=== PATIENT | female | born 1950 | race Asian ===

== ENCOUNTER → 2016-12-09 | Outpatient (CLI) | payer OTHER ==
[2016-12-09 12:59] LABS: Basophils # (auto) 0.1 uL; Basophils % (auto) 0.8 % (0.0-2.0); Eosinophils # (auto) 0.3 uL; Eosinophils % (auto) 3.1 % (0.0-7.0); Hematocrit 44.6 % (36.0-46.0); Hemoglobin 14.6 g/dL (12.2-16.2); Lymphocytes # (auto) 4.6 uL; Lymphocytes % (auto) 45.4 % (10.0-50.0); Mean Corpuscular Hemoglobin 29.5 pg (28.0-32.0); Mean Corpuscular Hgb Conc. 32.7 g/dL (32.0-36.0); Mean Corpuscular Volume 90.3 fL (80.0-100.0); Mean Platelet Volume 8.4 fL (7.4-10.4); Monocytes # (auto) 0.8 uL; Monocytes % (auto) 7.5 % (0.0-12.0); Neutrophils # (auto) 4.4 uL; Neutrophils % (auto) 43.2 % (37.0-80.0); Platelet Count (auto) 434 10^3/uL (140-450); Red Cell Distribution Width 13.6 % (11.6-16.0); White Blood Cell 10.1 10^3/uL (4.4-10.8)
[2016-12-09 13:08] LABS: Urine Bilirubin Negative (Negative); Urine Blood Negative /uL (Negative); Urine Color Yellow (Yellow); Urine Glucose Normal (Normal); Urine Ketone Negative (Negative); Urine Nitrite Negative (Negative); Urine RBC <1 /hpf (0 - 4); Urine Squamous Epithelial Cell FEW /hpf (<5); Urine Urobilinogen Normal (Negative)
[2016-12-09 13:36] LABS: Alkaline Phosphatase 112 U/L (45-117); Anion Gap 11 (5-15); Aspartate Aminotransferase 18 U/L (15-37); BUN/Creatinine Ratio 13.6; Bilirubin, Total 0.3 mg/dL (0.2-1.0); Blood Urea Nitrogen 12 mg/dL (7-18); Calcium 9.9 mg/dL (8.5-10.1); Carbon Dioxide 26 mmol/L (21-32); Chloride 104 mmol/L (98-107); Cholesterol 295 mg/dL (<200); GFR African American 83 mL/min; GFR Non-African American 69 mL/min; Glucose 101 mg/dL (74-106); HDL Cholesterol 38 mg/dL (40-59); Potassium 4.3 mmol/L (3.5-5.1); Sodium 141 mmol/L (136-145); Total Protein 8.4 g/dL (6.4-8.2); Triglycerides 408 mg/dL (<150)
== END | disposition home or self-care (01) ==
LOC: LAB 12:06
DX: M19.90 Unspecified osteoarthritis, unspecified site (principal); G89.4 Chronic pain syndrome; M54.10 Radiculopathy, site unspecified
CPT/HCPCS: 36415; 80053; 80061; 81001; 84443; 85025; 85049

== ENCOUNTER → 2017-02-20 | Outpatient (CLI) | payer OTHER ==
[2017-02-20 10:31] LABS: Basophils # (auto) 0.1 uL; Basophils % (auto) 0.7 % (0.0-2.0); Eosinophils # (auto) 0.2 uL; Hemoglobin 14.2 g/dL (12.2-16.2); Lymphocytes # (auto) 4.2 uL; Lymphocytes % (auto) 41.9 % (10.0-50.0); Mean Corpuscular Hemoglobin 29.8 pg (28.0-32.0); Mean Corpuscular Hgb Conc. 33.1 g/dL (32.0-36.0); Mean Corpuscular Volume 90.1 fL (80.0-100.0); Mean Platelet Volume 8.4 fL (7.4-10.4); Monocytes # (auto) 0.7 uL; Monocytes % (auto) 6.9 % (0.0-12.0); Neutrophils # (auto) 4.9 uL; Neutrophils % (auto) 48.5 % (37.0-80.0); Platelet Count (auto) 450 10^3/uL (140-450); Red Cell Distribution Width 14.1 % (11.6-16.0); White Blood Cell 10.1 10^3/uL (4.4-10.8)
[2017-02-20 11:11] LABS: Urine Bilirubin Negative (Negative); Urine Color Yellow (Yellow); Urine Glucose Normal (Normal); Urine Ketone Negative (Negative); Urine Nitrite Negative (Negative); Urine RBC <1 /hpf (0 - 4); Urine Squamous Epithelial Cell FEW /hpf (<5); Urine Urobilinogen Normal (Negative)
[2017-02-20 11:12] LABS: Urine Blood 1+ /uL (Negative)
[2017-02-20 11:22] LABS: Albumin 3.8 g/dL (3.4-5.0); Bilirubin, Total 0.4 mg/dL (0.2-1.0); Calcium 9.4 mg/dL (8.5-10.1); Potassium 4.3 mmol/L (3.5-5.1); Total Protein 8.4 g/dL (6.4-8.2)
== END | disposition home or self-care (01) ==
LOC: LAB 09:55
DX: E78.5 Hyperlipidemia, unspecified (principal); Z12.11 Encounter for screening for malignant neoplasm of colon; M19.90 Unspecified osteoarthritis, unspecified site
CPT/HCPCS: 36415; 80053; 80061; 81001; 84443; 85025; 85652

== ENCOUNTER → 2017-04-11 | Outpatient (CLI) | payer OTHER ==
[2017-04-11 11:41] LABS: Basophils # (auto) 0.1 uL; Basophils % (auto) 0.7 % (0.0-2.0); Eosinophils # (auto) 0.3 uL; Eosinophils % (auto) 2.6 % (0.0-7.0); Hemoglobin 14.6 g/dL (12.2-16.2); Lymphocytes # (auto) 4.6 uL; Lymphocytes % (auto) 45.4 % (10.0-50.0); Mean Corpuscular Hemoglobin 30.1 pg (28.0-32.0); Mean Corpuscular Hgb Conc. 34.1 g/dL (32.0-36.0); Mean Corpuscular Volume 88.3 fL (80.0-100.0); Monocytes # (auto) 0.8 uL; Monocytes % (auto) 7.6 % (0.0-12.0); Neutrophils # (auto) 4.4 uL; Neutrophils % (auto) 43.7 % (37.0-80.0); Platelet Count (auto) 488 10^3/uL (140-450); Red Cell Distribution Width 14.4 % (11.6-16.0); White Blood Cell 10.1 10^3/uL (4.4-10.8)
[2017-04-11 12:04] LABS: Urine Bilirubin Negative (Negative); Urine Blood Negative /uL (Negative); Urine Color Yellow (Yellow); Urine Glucose Normal (Normal); Urine Ketone Negative (Negative); Urine Nitrite Negative (Negative); Urine RBC <1 /hpf (0 - 4); Urine Squamous Epithelial Cell FEW /hpf (<5); Urine Urobilinogen Normal (Negative); Urine pH 5.5 (5.0-8.0)
[2017-04-11 12:27] LABS: Albumin 3.8 g/dL (3.4-5.0); BUN/Creatinine Ratio 17.3; Bilirubin, Total 0.3 mg/dL (0.2-1.0); Calcium 9.4 mg/dL (8.5-10.1); Potassium 4.4 mmol/L (3.5-5.1); Total Protein 8.6 g/dL (6.4-8.2)
== END | disposition home or self-care (01) ==
LOC: LAB 10:46
DX: E78.00 Pure hypercholesterolemia, unspecified (principal); K21.9 Gastro-esophageal reflux disease without esophagitis; J44.9 Chronic obstructive pulmonary disease, unspecified; G43.909 Migraine, unspecified, not intractable, without status migrainosus
CPT/HCPCS: 36415; 80053; 80061; 81001; 84443; 85025

== ENCOUNTER 2017-05-23 08:14 | Emergency (ER) | payer OTHER ==
[~2017-05-23] VITALS: Ht 154.9 cm; Wt 53.1 kg
[2017-05-23 08:50] VITALS: BP 132/62
[2017-05-23] MEDS ORDERED: ONDANSETRON HCL 4 MG/2 ML VIAL IM ONE (09:15)
[2017-05-23] MEDS ORDERED: MORPHINE SULFATE 4 MG/ML SYRG IM ONE (09:15)
[2017-05-23] MEDS ORDERED: METHOCARBAMOL 500 MG TAB PO ONE (09:15)
== END 2017-05-23 09:49 | disposition home or self-care (01) ==
LOC: ER 08:14
DX: G89.29 Other chronic pain (principal); M54.5 Low back pain; K21.9 Gastro-esophageal reflux disease without esophagitis; J45.909 Unspecified asthma, uncomplicated; Z88.0 Allergy status to penicillin; E78.5 Hyperlipidemia, unspecified; Z88.1 Allergy status to other antibiotic agents; Z88.6 Allergy status to analgesic agent
CPT/HCPCS: 96372; 99284; J2270; J2405

== ENCOUNTER → 2017-08-22 | Outpatient (CLI) | payer MEDICARE, OTHER ==
[~2017-08-22] VITALS: Ht 154.9 cm; Wt 52.2 kg
[2017-08-22 16:06] LABS: Urine Bilirubin Negative (Negative); Urine Blood Negative /uL (Negative); Urine Color Yellow (Yellow); Urine Glucose Normal (Normal); Urine Ketone Negative (Negative); Urine Nitrite Negative (Negative); Urine Urobilinogen Normal (Negative); Urine pH 6.5 (5.0-8.0)
[2017-08-22 16:12] LABS: Basophils # (auto) 0.1 uL; Basophils % (auto) 0.9 % (0.0-2.0); Eosinophils # (auto) 0.3 uL; Eosinophils % (auto) 3.3 % (0.0-7.0); Hematocrit 41.7 % (36.0-46.0); Hemoglobin 13.7 g/dL (12.2-16.2); Lymphocytes # (auto) 4.4 uL; Lymphocytes % (auto) 43.7 % (10.0-50.0); Mean Corpuscular Hemoglobin 30.3 pg (28.0-32.0); Mean Corpuscular Hgb Conc. 32.9 g/dL (32.0-36.0); Mean Corpuscular Volume 92.3 fL (80.0-100.0); Mean Platelet Volume 8.5 fL (6.9-10.8); Monocytes # (auto) 0.6 uL; Monocytes % (auto) 6.2 % (0.0-12.0); Neutrophils # (auto) 4.6 uL; Neutrophils % (auto) 45.9 % (37.0-80.0); Nucleated Red Blood Cells % 0.5 %; Platelet Count (auto) 403 10^3/uL (140-450); Red Cell Distribution Width 14.4 % (11.8-14.3); White Blood Cell 10.1 10^3/uL (4.4-10.8)
[2017-08-22 16:22] LABS: Albumin 3.7 g/dL (3.4-5.0); BUN/Creatinine Ratio 23.4; Bilirubin, Total 0.3 mg/dL (0.2-1.0); Calcium 9.5 mg/dL (8.5-10.1); Potassium 3.9 mmol/L (3.5-5.1); Total Protein 7.9 g/dL (6.4-8.2)
== END | disposition home or self-care (01) ==
LOC: Rad HDHVI 10:35
PROVIDERS: ATTEND Internal Medicine Cardiovascular Disease
DX: I10 Essential (primary) hypertension (principal); E78.00 Pure hypercholesterolemia, unspecified; K74.1 Hepatic sclerosis; E11.9 Type 2 diabetes mellitus without complications; E03.9 Hypothyroidism, unspecified; D64.9 Anemia, unspecified; E55.9 Vitamin D deficiency, unspecified; N39.0 Urinary tract infection, site not specified; E78.5 Hyperlipidemia, unspecified; I47.9 Paroxysmal tachycardia, unspecified; J44.9 Chronic obstructive pulmonary disease, unspecified; G89.29 Other chronic pain; M19.90 Unspecified osteoarthritis, unspecified site
CPT/HCPCS: 36415; 78452; 80053; 80061; 81003; 82306; 82607; 83036; 84439; 84443; 85025; 93017; 96374; A9500; 87086

== ENCOUNTER → 2017-08-23 | Outpatient (CLI) | payer MEDICARE, OTHER | END | disposition home or self-care (01) | LOC: Rad HDHVI 10:02 | PROVIDERS: ATTEND Internal Medicine Cardiovascular Disease | DX: I47.9 Paroxysmal tachycardia, unspecified (principal); I10 Essential (primary) hypertension; I70.299 Other atherosclerosis of native arteries of extremities, unspecified extremity | CPT/HCPCS: 93306; 93926 ==

== ENCOUNTER → 2018-02-13 | Outpatient (CLI) | payer MEDICARE, OTHER ==
[2018-02-13 11:39] LABS: Urine Bacteria FEW /hpf (None Seen); Urine Blood Negative /uL (Negative); Urine Mucus FEW (None Seen); Urine Specific Gravity 1.024 (1.001-1.035); Urine WBC 9 /hpf (0 - 5)
[2018-02-13 11:48] LABS: Basophils # (auto) 0 uL; Basophils % (auto) 0.3 % (0.0-2.0); Eosinophils # (auto) 0 uL; Eosinophils % (auto) 0.2 % (0.0-7.0); Hematocrit 42.8 % (36.0-46.0); Hemoglobin 14.1 g/dL (12.2-16.2); Mean Corpuscular Hgb Conc. 32.8 g/dL (32.0-36.0); Mean Corpuscular Volume 88.4 fL (80.0-100.0); Monocytes # (auto) 0.5 uL; Monocytes % (auto) 4.9 % (0.0-12.0); Neutrophils # (auto) 6.3 uL; Neutrophils % (auto) 57.6 % (37.0-80.0); Nucleated Red Blood Cells % 0.2 %; Platelet Count (auto) 385 10^3/uL (140-450); Red Blood Cells 4.85 10^6/uL (4.0-5.20); Red Cell Distribution Width 13.6 % (11.8-14.3); White Blood Cell 10.9 10^3/uL (4.4-10.8)
[2018-02-13 12:12] LABS: Bilirubin, Total 0.3 mg/dL (0.2-1.0); Calcium 9.6 mg/dL (8.5-10.1); Potassium 4.2 mmol/L (3.5-5.1); Total Protein 8.7 g/dL (6.4-8.2)
== END | disposition home or self-care (01) ==
LOC: LAB 10:32
PROVIDERS: ATTEND Family Medicine
DX: M06.9 Rheumatoid arthritis, unspecified (principal); E78.5 Hyperlipidemia, unspecified; G43.409 Hemiplegic migraine, not intractable, without status migrainosus; F17.200 Nicotine dependence, unspecified, uncomplicated; J45.909 Unspecified asthma, uncomplicated; R79.89 Other specified abnormal findings of blood chemistry; Z79.899 Other long term (current) drug therapy
CPT/HCPCS: 36415; 80053; 80061; 81001; 82306; 82607; 83036; 84443; 85025

== ENCOUNTER → 2018-03-26 | Outpatient (CLI) | payer MEDICARE, OTHER ==
[2018-03-26 11:23] LABS: Free T3 2.53 pg/mL (2.3-4.2); Free T4 (Free Thyroxine) 1.22 ng/dL (0.89-1.76); T3 Total 0.91 ng/mL (0.60-1.81)
== END | disposition home or self-care (01) ==
LOC: LAB 10:09
PROVIDERS: ATTEND Family Medicine
DX: R94.6 Abnormal results of thyroid function studies (principal); F17.200 Nicotine dependence, unspecified, uncomplicated; M06.9 Rheumatoid arthritis, unspecified; Z79.899 Other long term (current) drug therapy
CPT/HCPCS: 84439; 84480; 84481

== ENCOUNTER → 2018-11-14 | Outpatient (CLI) | payer MEDICARE, OTHER ==
[2018-11-14 11:20] LABS: Urine Bacteria NONE SEEN /hpf (None Seen); Urine Blood 2+ /uL (Negative); Urine Specific Gravity 1.008 (1.001-1.035); Urine WBC 13 /hpf (0 - 5)
== END | disposition home or self-care (01) ==
LOC: LAB 08:35
PROVIDERS: ATTEND Obstetrics & Gynecology
DX: N39.0 Urinary tract infection, site not specified (principal)
CPT/HCPCS: 81001; 87086

== ENCOUNTER 2019-04-16 09:39 | Emergency (ER) | payer MEDICARE, OTHER ==
[~2019-04-16] VITALS: Ht 170.2 cm; Wt 57.6 kg
[2019-04-16 09:47] VITALS: BP 134/72
[2019-04-16] MEDS ORDERED: KETOROLAC TROMETH 60MG/2ML VIAL IM ONE (10:45)
[2019-04-16] MEDS ORDERED: METHOCARBAMOL 500 MG TAB PO ONE (10:45)
== END 2019-04-16 11:01 | disposition home or self-care (01) ==
LOC: ER 09:39
DX: G89.29 Other chronic pain (principal); M54.5 Low back pain; J45.909 Unspecified asthma, uncomplicated; K21.9 Gastro-esophageal reflux disease without esophagitis; E78.5 Hyperlipidemia, unspecified; Z88.0 Allergy status to penicillin; Z88.1 Allergy status to other antibiotic agents; Z88.6 Allergy status to analgesic agent
CPT/HCPCS: 96372; 99283; J1885

== ENCOUNTER → 2019-07-11 | Outpatient (CLI) | payer MEDICARE, OTHER ==
[2019-07-11 12:26] LABS: Basophils # (auto) 0.1 uL; Eosinophils # (auto) 0.2 uL; Eosinophils % (auto) 1.8 % (0.0-7.0); Hematocrit 43.4 % (36.0-46.0); Hemoglobin 14.5 g/dL (12.2-16.2); Lymphocytes # (auto) 4.2 uL; Lymphocytes % (auto) 41.2 % (10.0-50.0); Mean Corpuscular Hemoglobin 30.4 pg (28.0-32.0); Mean Corpuscular Hgb Conc. 33.4 g/dL (32.0-36.0); Mean Corpuscular Volume 90.9 fL (80.0-100.0); Monocytes # (auto) 0.8 uL; Monocytes % (auto) 7.7 % (0.0-12.0); Neutrophils # (auto) 4.9 uL; Neutrophils % (auto) 48.3 % (37.0-80.0); Platelet Count (auto) 402 10^3/uL (140-450); Red Blood Cells 4.77 10^6/uL (4.0-5.20); Red Cell Distribution Width 14.3 % (11.8-14.3); White Blood Cell 10.3 10^3/uL (4.4-10.8)
[2019-07-11 12:30] LABS: Urine Bacteria NONE SEEN /hpf (None Seen); Urine Blood Negative /uL (Negative); Urine Specific Gravity 1.005 (1.001-1.035); Urine WBC 6 /hpf (0 - 5)
[2019-07-11 13:08] LABS: Albumin 3.7 g/dL (3.4-5.0); BUN/Creatinine Ratio 14.8; Bilirubin, Total 0.4 mg/dL (0.2-1.0); Calcium 9.5 mg/dL (8.5-10.1); Total Protein 8.6 g/dL (6.4-8.2)
== END | disposition home or self-care (01) ==
LOC: LAB 12:01
PROVIDERS: ATTEND Family Medicine
DX: E78.2 Mixed hyperlipidemia (principal); J44.9 Chronic obstructive pulmonary disease, unspecified; E55.9 Vitamin D deficiency, unspecified; R94.6 Abnormal results of thyroid function studies; G43.019 Migraine without aura, intractable, without status migrainosus; Z72.0 Tobacco use
CPT/HCPCS: 36415; 80053; 80061; 81001; 82306; 84443; 85025

== ENCOUNTER → 2020-01-20 | Day surgery (SDC) | payer MEDICARE, OTHER ==
[2020-01-17 14:22] LABS: Basophils # (auto) 0.1 uL; Basophils % (auto) 1.2 % (0.0-2.0); Eosinophils # (auto) 0.2 uL; Eosinophils % (auto) 2.6 % (0.0-7.0); Hematocrit 42.3 % (36.0-46.0); Lymphocytes # (auto) 4.2 uL; Lymphocytes % (auto) 49.9 % (10.0-50.0); Mean Corpuscular Hemoglobin 28.9 pg (28.0-32.0); Mean Corpuscular Volume 87.5 fL (80.0-100.0); Monocytes # (auto) 0.7 uL; Monocytes % (auto) 7.7 % (0.0-12.0); Neutrophils # (auto) 3.3 uL; Neutrophils % (auto) 38.6 % (37.0-80.0); Nucleated Red Blood Cells % 0.1 %; Platelet Count (auto) 453 10^3/uL (140-450); Red Blood Cells 4.83 10^6/uL (4.0-5.20); Red Cell Distribution Width 14.4 % (11.8-14.3); White Blood Cell 8.5 10^3/uL (4.4-10.8)
[2020-01-17 14:32] LABS: Urine Bacteria NONE SEEN /hpf (None Seen); Urine Blood 2+ /uL (Negative); Urine Specific Gravity 1.012 (1.001-1.035); Urine WBC 9 /hpf (0 - 5)
[2020-01-17 14:38] LABS: INR 0.98 (0.9-1.15); Partial Thromboplastin Time 25.7 sec (23.64-32.05)
[2020-01-17 14:54] LABS: Albumin 3.8 g/dL (3.4-5.0); Calcium 9.4 mg/dL (8.5-10.1); Potassium 4.2 mmol/L (3.5-5.1)
[2020-01-17 15:00] LABS: BUN/Creatinine Ratio 18.8; Bilirubin, Total 0.4 mg/dL (0.2-1.0); Total Protein 8.3 g/dL (6.4-8.2)
[~2020-01-20] VITALS: Ht 157.5 cm; Wt 54.4 kg
[~2020-01-20] MED LIST: ALBUAER3 IN; AMIT25TA9 PO; CYCL1TAB18 PO; FLUT250M2 INH; GLYCOPYRROLATE 0.2 MG/ML 1ML VIAL ONE; HYDROmorphone HCL 2 MG/ML VL IV PRN; LIDOCAINE 1% HCL (LOCAL ANESTH.) INJ 20ML MDV ONE; MIDAZOLAM HCL 1MG/1ML-2 ML VIAL ONE; MONT10TA34 PO; NALOXONE HCL 0.4 MG/ML VIAL IV PRN; ONDANSETRON HCL 4 MG/2 ML VIAL IV PRN; PANT40TA2 PO; PROPOFOL 10 MG/ML 20 ML IV ONE; RABE20TA5 PO; ROSU10TA16 PO; SUCCINYLCHOLINE CHLORIDE 20 MG/ML 10ML VIAL IV ONE; TRAM50TA2 PO; diphenhdrAMINE HCL 50 MG/1 ML VL ONE
[2020-01-20 10:31] VITALS: BP 132/76
== END | disposition home or self-care (01) ==
LOC: GI 07:56
PROVIDERS: ATTEND Internal Medicine Gastroenterology
DX: D12.2 Benign neoplasm of ascending colon (principal); K29.50 Unspecified chronic gastritis without bleeding; B96.81 Helicobacter pylori [H. pylori] as the cause of diseases classified elsewhere; K64.8 Other hemorrhoids; K57.30 Diverticulosis of large intestine without perforation or abscess without bleeding; J44.9 Chronic obstructive pulmonary disease, unspecified; F17.210 Nicotine dependence, cigarettes, uncomplicated; G47.33 Obstructive sleep apnea (adult) (pediatric); G43.909 Migraine, unspecified, not intractable, without status migrainosus; F32.9 Major depressive disorder, single episode, unspecified; K21.9 Gastro-esophageal reflux disease without esophagitis; E78.5 Hyperlipidemia, unspecified; Z88.8 Allergy status to other drugs, medicaments and biological substances; Z88.0 Allergy status to penicillin; Z88.1 Allergy status to other antibiotic agents; Z79.899 Other long term (current) drug therapy
CPT/HCPCS: 36415; 43239; 45380; 80053; 81001; 85025; 85610; 85730; 88305; 88342; J0330; J1170; J1200; J2001; J2250; J2704; J7030

== ENCOUNTER → 2020-04-15 | Outpatient (CLI) | payer MEDICARE, OTHER ==
[~2020-04-15] MED LIST changes: +CYCL10TA6 PO; -CYCL1TAB18 PO; -GLYCOPYRROLATE 0.2 MG/ML 1ML VIAL ONE; -HYDROmorphone HCL 2 MG/ML VL IV PRN; -LIDOCAINE 1% HCL (LOCAL ANESTH.) INJ 20ML MDV ONE; -MIDAZOLAM HCL 1MG/1ML-2 ML VIAL ONE; -NALOXONE HCL 0.4 MG/ML VIAL IV PRN; -ONDANSETRON HCL 4 MG/2 ML VIAL IV PRN; -PROPOFOL 10 MG/ML 20 ML IV ONE; -SUCCINYLCHOLINE CHLORIDE 20 MG/ML 10ML VIAL IV ONE; -diphenhdrAMINE HCL 50 MG/1 ML VL ONE
[2020-04-15 12:13] LABS: Urine Bacteria NONE SEEN /hpf (None Seen); Urine Blood Negative /uL (Negative); Urine Specific Gravity 1.017 (1.001-1.035); Urine WBC 21 /hpf (0 - 5)
== END | disposition home or self-care (01) ==
LOC: LAB 12:02
PROVIDERS: ATTEND Internal Medicine Gastroenterology
DX: R30.0 Dysuria (principal)
CPT/HCPCS: 81001

== ENCOUNTER → 2020-10-08 | Day surgery (SDC) | payer MEDICARE, OTHER ==
[2020-10-02 14:06] LABS: Basophils # (auto) 0.1 10 ^3/uL (0-0.2); Basophils % (auto) 1.3 % (0.0-2.0); Eosinophils # (auto) 0.2 10 ^3/uL (0-0.8); Eosinophils % (auto) 2.3 % (0.0-7.0); Hematocrit 40.9 % (36.0-46.0); Hemoglobin 13.3 g/dL (12.2-16.2); Lymphocytes # (auto) 4.2 10 ^3/uL (0.4-5.4); Lymphocytes % (auto) 44.2 % (10.0-50.0); Mean Corpuscular Hemoglobin 27.7 pg (28.0-32.0); Mean Corpuscular Hgb Conc. 32.5 g/dL (32.0-36.0); Mean Corpuscular Volume 85.1 fL (80.0-100.0); Monocytes # (auto) 0.7 10 ^3/uL (0-1.3); Neutrophils # (auto) 4.3 10 ^3/uL (1.6-8.6); Neutrophils % (auto) 45.2 % (37.0-80.0); Nucleated Red Blood Cells % 0.1 %; Red Cell Distribution Width 15.2 % (11.8-14.3); White Blood Cell 9.5 10^3/uL (4.4-10.8)
[2020-10-02 14:20] LABS: INR 0.97 (0.9-1.15); Partial Thromboplastin Time 23.9 sec (23.0-31.2)
[2020-10-02 14:39] LABS: Albumin 3.7 g/dL (3.4-5.0); Calcium 9.2 mg/dL (8.5-10.1); Potassium 4.2 mmol/L (3.5-5.1)
[2020-10-02 14:42] LABS: BUN/Creatinine Ratio 13.5; Bilirubin, Total 0.3 mg/dL (0.2-1.0); Total Protein 8.4 g/dL (6.4-8.2)
[2020-10-02 14:45] LABS: Platelet Count (auto) 559 10^3/uL (140-450)
[2020-10-02 14:50] LABS: Urine Bacteria NONE SEEN /hpf (None Seen); Urine Blood Negative /uL (Negative); Urine Mucus FEW (None Seen); Urine Specific Gravity 1.022 (1.001-1.035); Urine WBC 650 /hpf (0 - 5)
[~2020-10-08] VITALS: Ht 154.9 cm; Wt 54.0 kg
[~2020-10-08] MED LIST changes: +ACCU-CHEK COMFORT CURVE STRIP VI ONE; +GENTAMICIN SULF 80 MG/2 ML VIAL ONE; +HYDROmorphone HCL 2 MG/ML VL IV PRN; +MIDAZOLAM HCL 1MG/1ML-2 ML VIAL ONE; +MORPHINE SULFATE 4 MG/ML SYR/VIAL IV PRN; +ONDANSETRON HCL 4 MG/2 ML VIAL IV PRN; +ONDANSETRON HCL 4 MG/2 ML VIAL ONE; +PROPOFOL 10 MG/ML 20 ML IV ONE; +SODIUM CHLORIDE LOCK 10 ML ONE; +fentaNYL CITRATE 100 MCG/2 ML VL ONE
[2020-10-08 10:14] VITALS: BP 110/43
== END | disposition home or self-care (01) ==
LOC: SUR 06:44
PROVIDERS: ATTEND Urology
DX: N30.21 Other chronic cystitis with hematuria (principal); J44.9 Chronic obstructive pulmonary disease, unspecified; K21.9 Gastro-esophageal reflux disease without esophagitis; G89.29 Other chronic pain; I10 Essential (primary) hypertension; J93.9 Pneumothorax, unspecified; F17.210 Nicotine dependence, cigarettes, uncomplicated; Z20.828 Contact with and (suspected) exposure to other viral communicable diseases; Z98.890 Other specified postprocedural states; Z88.6 Allergy status to analgesic agent; Z88.0 Allergy status to penicillin; Z88.1 Allergy status to other antibiotic agents; Z88.8 Allergy status to other drugs, medicaments and biological substances
CPT/HCPCS: 36415; 52204; 80053; 81001; 85025; 85610; 85730; 88305; 88342; C1769; J1580; J2250; J2405; J2704; J3010; J7030; U0003

== ENCOUNTER → 2021-03-15 | Outpatient (CLI) | payer MEDICARE, OTHER ==
[~2021-03-15] MED LIST changes: -ACCU-CHEK COMFORT CURVE STRIP VI ONE; -GENTAMICIN SULF 80 MG/2 ML VIAL ONE; -HYDROmorphone HCL 2 MG/ML VL IV PRN; -MIDAZOLAM HCL 1MG/1ML-2 ML VIAL ONE; -MORPHINE SULFATE 4 MG/ML SYR/VIAL IV PRN; -ONDANSETRON HCL 4 MG/2 ML VIAL IV PRN; -ONDANSETRON HCL 4 MG/2 ML VIAL ONE; -PROPOFOL 10 MG/ML 20 ML IV ONE; +RABE20TA19 PO; -RABE20TA5 PO; -SODIUM CHLORIDE LOCK 10 ML ONE; -fentaNYL CITRATE 100 MCG/2 ML VL ONE
[2021-03-15 12:47] LABS: Basophils # (auto) 0.1 10 ^3/uL (0-0.2); Basophils % (auto) 0.7 % (0.0-2.0); Eosinophils # (auto) 0.1 10 ^3/uL (0-0.8); Eosinophils % (auto) 0.8 % (0.0-7.0); Hematocrit 38.7 % (36.0-46.0); Hemoglobin 12.8 g/dL (12.2-16.2); Lymphocytes # (auto) 5.3 10 ^3/uL (0.4-5.4); Lymphocytes % (auto) 32.6 % (10.0-50.0); Mean Corpuscular Hemoglobin 27.6 pg (28.0-32.0); Mean Corpuscular Hgb Conc. 33.1 g/dL (32.0-36.0); Mean Corpuscular Volume 83.4 fL (80.0-100.0); Monocytes % (auto) 6.4 % (0.0-12.0); Neutrophils # (auto) 9.7 10 ^3/uL (1.6-8.6); Neutrophils % (auto) 59.5 % (37.0-80.0); Nucleated Red Blood Cells % 0.1 %; Platelet Count (auto) 451 10^3/uL (140-450); Red Blood Cells 4.65 10^6/uL (4.0-5.20); Red Cell Distribution Width 17.5 % (11.8-14.3); White Blood Cell 16.4 10^3/uL (4.4-10.8)
[2021-03-15 12:48] LABS: Urine Bacteria NONE SEEN /hpf (None Seen); Urine Blood 2+ /uL (Negative); Urine Specific Gravity 1.021 (1.001-1.035); Urine WBC 4 /hpf (0 - 5)
[2021-03-15 13:12] LABS: Albumin 3.5 g/dL (3.4-5.0); Calcium 9.4 mg/dL (8.5-10.1); Potassium 4.5 mmol/L (3.5-5.1)
[2021-03-15 13:18] LABS: BUN/Creatinine Ratio 34.1; Bilirubin, Total 0.3 mg/dL (0.2-1.0); Total Protein 7.5 g/dL (6.4-8.2)
== END | disposition home or self-care (01) ==
LOC: LAB 12:09
PROVIDERS: ATTEND Family Medicine
DX: E78.49 Other hyperlipidemia (principal); J44.9 Chronic obstructive pulmonary disease, unspecified; D49.4 Neoplasm of unspecified behavior of bladder; R21 Rash and other nonspecific skin eruption; R63.4 Abnormal weight loss; Z79.899 Other long term (current) drug therapy
CPT/HCPCS: 36415; 80053; 80061; 81001; 82306; 82607; 83036; 84443; 85025

== ENCOUNTER → 2021-05-06 | Outpatient (CLI) | payer MEDICARE, OTHER ==
[~2021-05-06] MED LIST changes: -MONT10TA34 PO; +MONT10TA42 PO
[2021-05-06 09:38] LABS: Eosinophils # (auto) 0.2 10 ^3/uL (0-0.8); Lymphocytes # (auto) 4.2 10 ^3/uL (0.4-5.4); Monocytes # (auto) 0.8 10 ^3/uL (0-1.3); Monocytes % (auto) 7.2 % (0.0-12.0)
[2021-05-06 09:41] LABS: Basophils # (auto) 0.2 10 ^3/uL (0-0.2); Basophils % (auto) 1.5 % (0.0-2.0); Eosinophils % (auto) 2.1 % (0.0-7.0); Hemoglobin 12.2 g/dL (12.2-16.2); Lymphocytes % (auto) 39.9 % (10.0-50.0); Mean Corpuscular Hemoglobin 27.9 pg (28.0-32.0); Mean Corpuscular Hgb Conc. 33.9 g/dL (32.0-36.0); Mean Corpuscular Volume 82.5 fL (80.0-100.0); Neutrophils # (auto) 5.2 10 ^3/uL (1.6-8.6); Neutrophils % (auto) 49.3 % (37.0-80.0); Platelet Count (auto) 500 10^3/uL (140-450); Red Blood Cells 4.36 10^6/uL (4.0-5.20); Red Cell Distribution Width 16.2 % (11.8-14.3); White Blood Cell 10.5 10^3/uL (4.4-10.8)
[2021-05-06 11:11] LABS: Potassium 4.8 mmol/L (3.5-5.1)
[2021-05-06 11:12] LABS: BUN/Creatinine Ratio 22.7
== END | disposition home or self-care (01) ==
LOC: LAB 09:20
PROVIDERS: ATTEND Family Medicine
DX: D49.4 Neoplasm of unspecified behavior of bladder (principal); R79.89 Other specified abnormal findings of blood chemistry; R73.09 Other abnormal glucose
CPT/HCPCS: 36415; 80048; 83036; 85025

== ENCOUNTER 2021-05-20 08:30 | Day surgery (SDC) | payer MEDICARE, OTHER ==
[2021-05-17 12:22] LABS: Basophils # (auto) 0.1 10 ^3/uL (0-0.2); Eosinophils # (auto) 0.6 10 ^3/uL (0-0.8); Eosinophils % (auto) 6.4 % (0.0-7.0); Hematocrit 36.2 % (36.0-46.0); Lymphocytes # (auto) 3.8 10 ^3/uL (0.4-5.4); Mean Corpuscular Hemoglobin 27.6 pg (28.0-32.0); Monocytes # (auto) 0.7 10 ^3/uL (0-1.3)
[2021-05-17 12:24] LABS: Basophils % (auto) 1.2 % (0.0-2.0); Hemoglobin 12.2 g/dL (12.2-16.2); Lymphocytes % (auto) 39.7 % (10.0-50.0); Mean Corpuscular Hgb Conc. 33.8 g/dL (32.0-36.0); Mean Corpuscular Volume 81.9 fL (80.0-100.0); Monocytes % (auto) 7.1 % (0.0-12.0); Neutrophils # (auto) 4.4 10 ^3/uL (1.6-8.6); Neutrophils % (auto) 45.6 % (37.0-80.0); Nucleated Red Blood Cells % 0.2 %; Platelet Count (auto) 510 10^3/uL (140-450); Red Blood Cells 4.42 10^6/uL (4.0-5.20); Red Cell Distribution Width 15.9 % (11.8-14.3); White Blood Cell 9.7 10^3/uL (4.4-10.8)
[2021-05-17 12:40] LABS: Urine Bacteria NONE SEEN /hpf (None Seen); Urine Blood 2+ /uL (Negative); Urine Specific Gravity 1.011 (1.001-1.035); Urine WBC 4 /hpf (0 - 5)
[2021-05-17 13:15] LABS: Albumin 3.6 g/dL (3.4-5.0); Calcium 8.9 mg/dL (8.5-10.1); Potassium 4.3 mmol/L (3.5-5.1)
[2021-05-17 13:30] LABS: BUN/Creatinine Ratio 14.7; Bilirubin, Total 0.3 mg/dL (0.2-1.0); Total Protein 8.1 g/dL (6.4-8.2)
[~2021-05-20] VITALS: Ht 157.5 cm; Wt 55.8 kg
[~2021-05-20 08:30] MED LIST changes: +TRIA0.1O EX
[2021-05-20] MEDS ORDERED: ceFAZolin 1GM/50ML 50 ML IV ONE (09:57)
[2021-05-20] MEDS ORDERED: MIDAZOLAM HCL 1MG/1ML-2 ML VIAL ONE (10:11)
[2021-05-20] MEDS ORDERED: MEPERIDINE HCL (25 MG/ML) 1ML VIAL ONE (10:11)
[2021-05-20] MEDS ORDERED: fentaNYL CITRATE 100 MCG/2 ML VL ONE (10:11)
[2021-05-20] MEDS ORDERED: hydrALAZINE HCL 20 MG/ML VL IV PRN (10:15)
[2021-05-20] MEDS ORDERED: MIDAZOLAM HCL 1MG/1ML-2 ML VIAL IV PRN (10:15)
[2021-05-20] MEDS ORDERED: MORPHINE SULF INJ 2 MG/ML SYRINGE 1ML IV PRN (10:15)
[2021-05-20] MEDS ORDERED: HYDROmorphone HCL 2 MG/ML VL IV PRN (10:15)
[2021-05-20] MEDS ORDERED: ONDANSETRON HCL 4 MG/2 ML VIAL IV PRN (10:15)
[2021-05-20] MEDS ORDERED: LABETALOL HCL 5 MG/ML 4ML SYRINGE IV PRN (10:15)
[2021-05-20] MEDS ORDERED: ePHEDrine SULFATE 50 MG/ML AMP IV PRN (10:15)
[2021-05-20] MEDS ORDERED: DexAMETHasone SOD PHOS 10MG/1ML VIAL INJ ONE (10:27)
[2021-05-20] MEDS ORDERED: PROPOFOL 10 MG/ML 20 ML IV ONE (10:27)
[2021-05-20 11:45] VITALS: BP 137/59
== END 2021-05-20 12:15 | disposition home or self-care (01) ==
LOC: SUR 08:30
PROVIDERS: ATTEND Urology
DX: C67.2 Malignant neoplasm of lateral wall of bladder (principal); I10 Essential (primary) hypertension; I49.9 Cardiac arrhythmia, unspecified; J44.9 Chronic obstructive pulmonary disease, unspecified; K21.9 Gastro-esophageal reflux disease without esophagitis; G89.29 Other chronic pain; I25.10 Atherosclerotic heart disease of native coronary artery without angina pectoris; Z20.822 Contact with and (suspected) exposure to COVID-19; Z98.890 Other specified postprocedural states; Z79.899 Other long term (current) drug therapy; Z88.8 Allergy status to other drugs, medicaments and biological substances; Z88.0 Allergy status to penicillin; Z88.6 Allergy status to analgesic agent; Z87.891 Personal history of nicotine dependence
CPT/HCPCS: 36415; 52234; 80053; 81001; 85025; 88305; J0690; J1100; J2175; J2250; J2704; J3010; U0003

== ENCOUNTER → 2022-01-27 | Outpatient (CLI) | payer MEDICARE, OTHER ==
[~2022-01-27] MED LIST changes: +AMIT25TA12 PO; -AMIT25TA9 PO; +CYCL-839 PO; -CYCL10TA6 PO; +MONT-8 PO; -MONT10TA42 PO
[2022-01-27 09:36] LABS: Basophils # (auto) 0.1 10 ^3/uL (0-0.2); Eosinophils # (auto) 0.3 10 ^3/uL (0-0.8); Eosinophils % (auto) 3.1 % (0.0-7.0); Lymphocytes # (auto) 4.5 10 ^3/uL (0.4-5.4); Red Cell Distribution Width 16.3 % (11.8-14.3); White Blood Cell 8.9 10^3/uL (4.4-10.8)
[2022-01-27 09:38] LABS: Basophils % (auto) 1.2 % (0.0-2.0); Hematocrit 34.4 % (36.0-46.0); Lymphocytes % (auto) 50.2 % (10.0-50.0); Mean Corpuscular Hemoglobin 23.8 pg (28.0-32.0); Mean Corpuscular Hgb Conc. 31.9 g/dL (32.0-36.0); Mean Corpuscular Volume 74.7 fL (80.0-100.0); Monocytes # (auto) 0.8 10 ^3/uL (0-1.3); Monocytes % (auto) 8.9 % (0.0-12.0); Neutrophils # (auto) 3.2 10 ^3/uL (1.6-8.6); Neutrophils % (auto) 36.6 % (37.0-80.0); Red Blood Cells 4.61 10^6/uL (4.0-5.20)
[2022-01-27 09:53] LABS: Potassium 4.5 mmol/L (3.5-5.1)
[2022-01-27 10:04] LABS: Albumin 3.5 g/dL (3.4-5.0); BUN/Creatinine Ratio 25.6; Bilirubin, Total 0.5 mg/dL (0.2-1.0); Calcium 9.3 mg/dL (8.5-10.1); Total Protein 7.9 g/dL (6.4-8.2)
== END | disposition home or self-care (01) ==
LOC: LAB 07:57
PROVIDERS: ATTEND Student in an Organized Health Care Education/Training Program
DX: C67.9 Malignant neoplasm of bladder, unspecified (principal); D49.4 Neoplasm of unspecified behavior of bladder; J44.9 Chronic obstructive pulmonary disease, unspecified; E78.49 Other hyperlipidemia
CPT/HCPCS: 36415; 80053; 80061; 83036; 84443; 85025

== ENCOUNTER → 2022-02-01 | Outpatient (CLI) | payer MEDICARE, OTHER | END | disposition home or self-care (01) | LOC: LAB 07:43 | PROVIDERS: ATTEND Student in an Organized Health Care Education/Training Program | DX: C67.9 Malignant neoplasm of bladder, unspecified (principal); Z00.00 Encounter for general adult medical examination without abnormal findings; D49.4 Neoplasm of unspecified behavior of bladder; J44.9 Chronic obstructive pulmonary disease, unspecified; E78.49 Other hyperlipidemia | CPT/HCPCS: 82274 ==

== ENCOUNTER 2022-05-18 12:29 | Day surgery (SDC) | payer MEDICARE, OTHER ==
[2022-05-16 11:23] LABS: Eosinophils # (auto) 0.2 10 ^3/uL (0-0.8); Hemoglobin 14.4 g/dL (12.2-16.2)
[2022-05-16 11:25] LABS: Basophils # (auto) 0.2 10 ^3/uL (0-0.2); Basophils % (auto) 2.2 % (0.0-2.0); Eosinophils % (auto) 1.9 % (0.0-7.0); Hematocrit 42.9 % (36.0-46.0); Lymphocytes # (auto) 5.2 10 ^3/uL (0.4-5.4); Lymphocytes % (auto) 50.1 % (10.0-50.0); Mean Corpuscular Hemoglobin 27.4 pg (28.0-32.0); Mean Corpuscular Hgb Conc. 33.5 g/dL (32.0-36.0); Mean Corpuscular Volume 81.8 fL (80.0-100.0); Monocytes # (auto) 0.9 10 ^3/uL (0-1.3); Monocytes % (auto) 8.6 % (0.0-12.0); Neutrophils # (auto) 3.9 10 ^3/uL (1.6-8.6); Neutrophils % (auto) 37.2 % (37.0-80.0); Nucleated Red Blood Cells % 0.1 %; Red Blood Cells 5.25 10^6/uL (4.0-5.20); White Blood Cell 10.5 10^3/uL (4.4-10.8)
[2022-05-16 11:37] LABS: INR 0.94 (0.9-1.15); Partial Thromboplastin Time 24.9 sec (23.6-33.0)
[2022-05-16 12:13] LABS: Potassium 4.5 mmol/L (3.5-5.1)
[2022-05-16 12:23] LABS: Albumin 3.8 g/dL (3.4-5.0); BUN/Creatinine Ratio 19.1; Bilirubin, Total 0.2 mg/dL (0.2-1.0); Calcium 9.3 mg/dL (8.5-10.1); Total Protein 8.8 g/dL (6.4-8.2)
[~2022-05-18] VITALS: Ht 157.5 cm; Wt 54.4 kg
[~2022-05-18 12:29] MED LIST changes: +ACET-1079 PO; +CHOL500040 PO; +CHOLTAB12 PO; +DICY10CA PO; +FERR27TA2 PO; +LIDOCAINE VISCOUS 2% 15ML UD ONE; +SODIUM CHLORIDE LOCK 10 ML ONE; +[UNRECOGNIZED DRUG - CODE] PO; +diphenhdrAMINE HCL 50 MG/1 ML VL ONE
[2022-05-18] MEDS: fentaNYL CITRATE 100 MCG/2 ML VL ONE ×2 (14:41→14:44)
[2022-05-18] MEDS: MIDAZOLAM HCL 5 MG/ML-1ML VIAL ONE ×2 (14:41→14:44)
[2022-05-18 15:15] VITALS: BP 134/74
== END 2022-05-18 15:25 | disposition home or self-care (01) ==
LOC: GI 12:29
PROVIDERS: ATTEND Internal Medicine Gastroenterology
DX: R10.13 Epigastric pain (principal); R10.11 Right upper quadrant pain; K29.50 Unspecified chronic gastritis without bleeding; B96.81 Helicobacter pylori [H. pylori] as the cause of diseases classified elsewhere; K21.9 Gastro-esophageal reflux disease without esophagitis; K29.90 Gastroduodenitis, unspecified, without bleeding; K44.9 Diaphragmatic hernia without obstruction or gangrene; J45.909 Unspecified asthma, uncomplicated; G43.909 Migraine, unspecified, not intractable, without status migrainosus; E78.5 Hyperlipidemia, unspecified; F32.A Depression, unspecified; G89.29 Other chronic pain; Z98.890 Other specified postprocedural states; Z79.899 Other long term (current) drug therapy; Z20.822 Contact with and (suspected) exposure to COVID-19
CPT/HCPCS: 36415; 43239; 80053; 85025; 85610; 85730; 88305; J1200; J2250; J3010; J7030; U0003; G0500

== ENCOUNTER 2022-06-09 11:04 | Emergency (ER) | payer MEDICARE, OTHER ==
[~2022-06-09] VITALS: Ht 154.9 cm; Wt 56.2 kg
[~2022-06-09 11:04] MED LIST changes: -LIDOCAINE VISCOUS 2% 15ML UD ONE; -SODIUM CHLORIDE LOCK 10 ML ONE; -diphenhdrAMINE HCL 50 MG/1 ML VL ONE
[2022-06-09 11:15] VITALS: BP 156/85
== END 2022-06-09 14:52 | disposition left against medical advice (07) ==
LOC: ER 11:04
DX: S39.012A Strain of muscle, fascia and tendon of lower back, initial encounter (principal); K21.9 Gastro-esophageal reflux disease without esophagitis; E78.5 Hyperlipidemia, unspecified; J45.909 Unspecified asthma, uncomplicated; W18.39XA Other fall on same level, initial encounter; Y93.89 Activity, other specified; Y92.89 Other specified places as the place of occurrence of the external cause; Y99.8 Other external cause status
CPT/HCPCS: 70450; 70486; 72125; 73030; 73080; 93005

== ENCOUNTER → 2022-08-18 | Outpatient (CLI) | payer MEDICARE, OTHER | END | disposition home or self-care (01) | LOC: Rad HDHVI 13:41 | PROVIDERS: ATTEND Internal Medicine Cardiovascular Disease | DX: R00.2 Palpitations (principal); R42 Dizziness and giddiness; R06.02 Shortness of breath | CPT/HCPCS: 93306 ==

== ENCOUNTER → 2022-08-30 | Outpatient (CLI) | payer MEDICARE, OTHER ==
[~2022-08-30] VITALS: Ht 157.5 cm; Wt 54.0 kg
== END | disposition home or self-care (01) ==
LOC: Rad HDHVI 09:08
PROVIDERS: ATTEND Internal Medicine Cardiovascular Disease
DX: R07.89 Other chest pain (principal); R00.2 Palpitations; E78.00 Pure hypercholesterolemia, unspecified; I47.1 Supraventricular tachycardia; J44.9 Chronic obstructive pulmonary disease, unspecified; Z82.49 Family history of ischemic heart disease and other diseases of the circulatory system; Z72.0 Tobacco use; Z79.899 Other long term (current) drug therapy
CPT/HCPCS: 78452; 93017; 96374; A9500

== ENCOUNTER → 2022-09-02 | Outpatient (CLI) | payer MEDICARE, OTHER | END | disposition home or self-care (01) | LOC: Rad HDHVI 13:04 | PROVIDERS: ATTEND Internal Medicine Cardiovascular Disease | DX: M47.814 Spondylosis without myelopathy or radiculopathy, thoracic region (principal); I70.0 Atherosclerosis of aorta; R06.02 Shortness of breath | CPT/HCPCS: 71046 ==

== ENCOUNTER → 2023-03-08 | Outpatient (CLI) | payer MEDICARE, OTHER ==
[2023-03-08 09:43] LABS: Basophils # (auto) 0.2 10 ^3/uL (0-0.2); Eosinophils # (auto) 1.1 10 ^3/uL (0-0.8); Monocytes # (auto) 0.9 10 ^3/uL (0-1.3)
[2023-03-08 09:45] LABS: Basophils % (auto) 1.1 % (0.0-2.0); Eosinophils % (auto) 7.7 % (0.0-7.0); Hematocrit 44.6 % (36.0-46.0); Hemoglobin 15.1 g/dL (12.2-16.2); Lymphocytes # (auto) 4.8 10 ^3/uL (0.4-5.4); Lymphocytes % (auto) 35.2 % (10.0-50.0); Mean Corpuscular Hemoglobin 29.8 pg (28.0-32.0); Mean Corpuscular Hgb Conc. 33.9 g/dL (32.0-36.0); Mean Corpuscular Volume 87.8 fL (80.0-100.0); Monocytes % (auto) 6.7 % (0.0-12.0); Neutrophils # (auto) 6.7 10 ^3/uL (1.6-8.6); Neutrophils % (auto) 49.3 % (37.0-80.0); Red Blood Cells 5.07 10^6/uL (4.0-5.20); White Blood Cell 13.7 10^3/uL (4.4-10.8)
[2023-03-08 10:24] LABS: Albumin 3.5 g/dL (3.4-5.0); Calcium 9.7 mg/dL (8.5-10.1); Potassium 4.3 mmol/L (3.5-5.1)
[2023-03-08 10:30] LABS: BUN/Creatinine Ratio 13.5 (10.0-20.0); Bilirubin, Total 0.7 mg/dL (0.2-1.0); Total Protein 8.2 g/dL (6.4-8.2)
== END | disposition home or self-care (01) ==
LOC: LAB 09:22
PROVIDERS: ATTEND Student in an Organized Health Care Education/Training Program
DX: I10 Essential (primary) hypertension (principal); E78.00 Pure hypercholesterolemia, unspecified
CPT/HCPCS: 36415; 80053; 80061; 82274; 85025

== ENCOUNTER → 2023-05-17 | Outpatient (CLI) | payer MEDICARE, OTHER ==
[~2023-05-17] MED LIST changes: -AMIT25TA12 PO; +AMIT25TA20 PO; +FERR1TAB31 PO; -FERR27TA2 PO
== END | disposition home or self-care (01) ==
LOC: Rad HDHVI 10:07
PROVIDERS: ATTEND Internal Medicine Cardiovascular Disease
DX: R06.02 Shortness of breath (principal); I10 Essential (primary) hypertension
CPT/HCPCS: 93306

== ENCOUNTER → 2024-06-06 | Outpatient (CLI) | payer MEDICARE, OTHER ==
[~2024-06-06] MED LIST changes: +ALBUTEROL SULF 2.5 MG/0.5ML(0.5%) NEB SOLN ONE
== END | disposition home or self-care (01) ==
LOC: RT 08:37
PROVIDERS: ATTEND Internal Medicine Pulmonary Disease
DX: J44.9 Chronic obstructive pulmonary disease, unspecified (principal); Z79.899 Other long term (current) drug therapy; Z87.891 Personal history of nicotine dependence
CPT/HCPCS: 94060; 94727; 94729

== ENCOUNTER → 2024-06-14 | Outpatient (CLI) | payer MEDICARE, OTHER ==
[~2024-06-14] MED LIST changes: -ALBUTEROL SULF 2.5 MG/0.5ML(0.5%) NEB SOLN ONE
== END | disposition home or self-care (01) ==
LOC: Rad HDHVI 09:03
PROVIDERS: ATTEND Internal Medicine Cardiovascular Disease
DX: R06.02 Shortness of breath (principal)
CPT/HCPCS: 71046

== ENCOUNTER → 2024-07-02 | Outpatient (CLI) | payer MEDICARE, OTHER | END | disposition home or self-care (01) | LOC: Rad HDHVI 13:52 | PROVIDERS: ATTEND Internal Medicine Cardiovascular Disease | DX: I10 Essential (primary) hypertension (principal) | CPT/HCPCS: 93306 ==

== ENCOUNTER → 2024-09-02 | Outpatient (CLI) | payer MEDICARE, OTHER ==
[~2024-09-02] MED LIST changes: +ALBU1AER4 IN; +CARI-578 PO; +DIA5T PO; +DICL1GEL72 EX; +DIGO0.12 PO; +DIVA-91 PO; +DIVA500T13 PO; +DOXY100C4 PO; +DULO20CA PO; +ESOM20CA PO; +ESOM40CA39 PO; +EZET10TA22 PO; +EZET10TA24 PO; +FENO5TAB PO; +GABA-1250 PO; +HYDR-4902 PO; +IVAB1.7T PO; +MAGN100T9 PO; +METH4TAB9 PO; +METO25TA36 PO; +METO5TAB2 PO; +NIAC500T93 PO; +OXAP-61 PO; +PANT1INJ3 PO; +POM; +PRAV20TA3 PO; +PRED20TA2 PO; +PROC10TA6 PO; +PROM1SOL4 PO; +ROSU20TA14 PO; +VIBE75TA PO; +ZOLP10TA PO; +[UNRECOGNIZED DRUG - CODE] PO
[2024-09-02 10:15] VITALS: BP 107/57; PULSE 110; RESP 16; O2SAT 97
[2024-09-02 10:32] VITALS: BP 109/57; PULSE 107; RESP 16; O2SAT 97
== END | disposition home or self-care (01) ==
LOC: Rad HDHVI 10:00
PROVIDERS: ATTEND Internal Medicine Cardiovascular Disease
DX: Z01.811 Encounter for preprocedural respiratory examination (principal); R07.9 Chest pain, unspecified; I50.23 Acute on chronic systolic (congestive) heart failure; R06.02 Shortness of breath; I42.0 Dilated cardiomyopathy
CPT/HCPCS: 71046; 93005; G0463

== ENCOUNTER 2024-09-05 07:03 | Day surgery (SDC) | payer MEDICARE, OTHER ==
[2024-09-02 12:48] LABS: Basophils # (auto) 0.1 10 ^3/uL (0-0.2); Basophils % (auto) 1.1 % (0.0-2.0); Eosinophils # (auto) 0.3 10 ^3/uL (0-0.8); Eosinophils % (auto) 2.7 % (0.0-7.0); Hematocrit 45.8 % (36.0-46.0); Hemoglobin 15.9 g/dL (12.2-16.2); Lymphocytes # (auto) 2.3 10 ^3/uL (0.4-5.4); Lymphocytes % (auto) 25.3 % (10.0-50.0); Mean Corpuscular Hgb Conc. 34.7 g/dL (32.0-36.0); Mean Corpuscular Volume 92.2 fL (80.0-100.0); Monocytes # (auto) 0.8 10 ^3/uL (0-1.3); Monocytes % (auto) 8.9 % (0.0-12.0); Neutrophils # (auto) 5.8 10 ^3/uL (1.6-8.6); Platelet Count (auto) 364 10^3/uL (140-450); Red Blood Cells 4.97 10^6/uL (4.0-5.20); Red Cell Distribution Width 14.5 % (11.8-14.3); White Blood Cell 9.3 10^3/uL (4.4-10.8)
[2024-09-02 13:01] LABS: INR 1.1 (0.9-1.15); Partial Thromboplastin Time 25.3 SEC (24.5-34.5); Prothrombin Time 11.6 sec (9.3-11.8)
[2024-09-02 13:13] LABS: Calcium 10.4 mg/dL (8.7-10.4); Chloride 104 mmol/L (98-107); Potassium 4.2 mmol/L (3.5-5.1); Sodium 139 mmol/L (136-145)
[2024-09-02 13:14] LABS: Anion Gap 8 (5-15); Carbon Dioxide 27 mmol/L (20-31)
[2024-09-02 13:19] LABS: BUN/Creatinine Ratio 9.8 (10.0-20.0); Blood Urea Nitrogen 9 mg/dL (9-23); Glucose 122 mg/dL (74-106)
[~2024-09-05] VITALS: Ht 154.9 cm; Wt 49.4 kg
[2024-09-05] VITALS (11 sets, daily range): BP systolic 86–108; BP diastolic 41–81; PULSE 88–98; RESP 12–21; TEMP 97.4; O2SAT 92–100
[~2024-09-05 07:03] MED LIST changes: -ACET-1079 PO; -ALBUAER3 IN; -CARI-578 PO; -CHOL500040 PO; -CHOLTAB12 PO; -CYCL-839 PO; -DIA5T PO; -DIVA-91 PO; -DIVA500T13 PO; -DOXY100C4 PO; -DULO20CA PO; -ESOM40CA39 PO; -EZET10TA22 PO; -EZET10TA24 PO; -FENO5TAB PO; -FERR1TAB31 PO; -FLUT250M2 INH; -GABA-1250 PO; -NIAC500T93 PO; -OXAP-61 PO; -PANT1INJ3 PO; -PANT40TA2 PO; -POM; -PRAV20TA3 PO; -PROM1SOL4 PO; -ROSU10TA16 PO; -TRAM50TA2 PO; -TRIA0.1O EX; -ZOLP10TA PO; -[UNRECOGNIZED DRUG - CODE] PO; -[UNRECOGNIZED DRUG - CODE] PO
[2024-09-05] MEDS ORDERED: IOHEXOL 350 MG/ML 100ML IJ ONE (08:35)
[2024-09-05] MEDS ORDERED: ANGIOMAX 250 MG VIAL IV ONE (09:04)
[2024-09-05] MEDS ORDERED: MIDAZOLAM HCL 2MG/2ML 2ml VIAL (1mg/ml) ONE (09:04)
[2024-09-05] MEDS ORDERED: fentaNYL CITRATE 100 MCG/2 ML VL ONE (09:04)
[2024-09-05] MEDS ORDERED: SODIUM CHL 0.9% 0 ML ONE (09:05)
[2024-09-05] MEDS ORDERED: LIDOCAINE 2%HCL (LOCAL ANESTH.) INJ 20ML MDV ONE (09:05)
[2024-09-05] MEDS ORDERED: DIVA-91 PO (09:44)
[2024-09-05] MEDS ORDERED: [UNRECOGNIZED DRUG - CODE] PO (09:44)
[2024-09-05] MEDS ORDERED: PANT1INJ3 PO (09:44)
[2024-09-05] MEDS ORDERED: OXAP-61 PO (10:32)
[2024-09-05] MEDS ORDERED: CARI-578 PO (10:32)
[2024-09-05] MEDS ORDERED: POM (10:32)
[2024-09-05] MEDS ORDERED: PROM1SOL4 PO (10:32)
[2024-09-05] MEDS ORDERED: DIVA500T13 PO (10:32)
[2024-09-05] MEDS ORDERED: ALBUAER3 IN (10:32)
[2024-09-05] MEDS ORDERED: EZET10TA24 PO (10:32)
[2024-09-05] MEDS ORDERED: ZOLP10TA PO (10:32)
[2024-09-05] MEDS ORDERED: DIA5T PO (10:32)
[2024-09-05] MEDS ORDERED: EZET10TA22 PO (10:32)
[2024-09-05] MEDS ORDERED: PRAV20TA3 PO (10:32)
[2024-09-05] MEDS ORDERED: DOXY100C4 PO (10:32)
[2024-09-05] MEDS ORDERED: CYCL-839 PO (10:32)
[2024-09-05] MEDS ORDERED: ESOM40CA39 PO (10:32)
[2024-09-05] MEDS ORDERED: GABA-1250 PO (10:32)
[2024-09-05] MEDS ORDERED: FENO5TAB PO (10:32)
[2024-09-05] MEDS ORDERED: DULO20CA PO (10:32)
[2024-09-05] MEDS ORDERED: NIAC500T93 PO (10:32)
== END 2024-09-05 13:53 | disposition home or self-care (01) ==
LOC: CATH 07:03
PROVIDERS: ATTEND Internal Medicine Cardiovascular Disease
DX: R07.89 Other chest pain (principal); R06.02 Shortness of breath; I73.9 Peripheral vascular disease, unspecified; I10 Essential (primary) hypertension; E78.5 Hyperlipidemia, unspecified; C67.9 Malignant neoplasm of bladder, unspecified; J44.9 Chronic obstructive pulmonary disease, unspecified; R00.0 Tachycardia, unspecified; Z92.21 Personal history of antineoplastic chemotherapy; Z92.3 Personal history of irradiation; Z87.891 Personal history of nicotine dependence; Z88.0 Allergy status to penicillin; Z88.1 Allergy status to other antibiotic agents; Z88.2 Allergy status to sulfonamides; Z88.5 Allergy status to narcotic agent; Z79.899 Other long term (current) drug therapy
CPT/HCPCS: 36415; 80048; 85025; 85610; 85730; 93458; C1769; C1894; J1644; J2250; J3010; Q9967; 99152

== ENCOUNTER 2024-11-09 12:29 | Inpatient (IN) | payer MEDICARE, OTHER ==
[~2024-11-09] VITALS: Ht 154.9 cm; Wt 58.0 kg
[~2024-11-09 12:29] MED LIST changes: -ALBU1AER4 IN; +ALBUAER3 IN; -AMIT25TA20 PO; +CARI-578 PO; +CYCL-839 PO; +DIA5T PO; -DICL1GEL72 EX; -DIGO0.12 PO; +DIVA-91 PO; +DIVA500T13 PO; +DOXY100C4 PO; +DULO20CA PO; -ESOM20CA PO; +ESOM40CA39 PO; +EZET10TA22 PO; +EZET10TA24 PO; +FENO5TAB PO; +GABA-1250 PO; -HYDR-4902 PO; +NIAC500T93 PO; +OXAP-61 PO; +PANT1INJ3 PO; +POM; +PRAV20TA3 PO; -PRED20TA2 PO; +PROM1SOL4 PO; +ZOLP10TA PO; +[UNRECOGNIZED DRUG - CODE] PO
--- NOTE | 2024-11-09 12:39 | ED.PDOC ---
History of Present Illness HPI Comments HPI: Poor Historian. 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 Patient usually has pain in her right lower ribcage region and sometimes in his abdomen. Patient takes at least tramadol and oxycodone at home for pain control. called 911 for further evaluation. Patient denies any other acute symptoms except some generalized weakness. Last chemotherapy she states was in January of this year. VITALS: Temp: 97.7F RR: 16 02 sat : 92 % on room air HR: 103 BP: 104/78 PMH: lung cancer with mets to bladder, tachycardia, lung collapse, anxiety, asthma, HLD, htn, scoliosis, angina, fainting spells PSH: bladder cancer surgery, shoulder surgery Social history: denies tobacco use, endorses ETOH use, denies drug use Medications: digoxin, steroids, pantoprazole, metoprolol, albuterol, Zofran, metoclopramide, ivabradine Allergies: aspirin, cefadroxil, ciprofloxacin, penicillins, sulfamethoxazole REVIEW OF SYSTEMS: CONSTITUTIONAL: Denies acute: fever, diaphoresis, chills, HEAD: Denies acute: headache, photophobia Eyes: Denies acute: Double vision, vision loss, eye pain, eye discharge. EARS: Denies acute: tinnitus, hearing loss, ear discharge, ear pain, THROAT: Denies acute: sore throat, swelling, difficulty swallowing , pain with swallowing, change in voice. NECK: Denies acute: neck pain, neck swelling, stiff neck. HEART: Denies acute : Chest pain, palpitations, LUNGS: Denies acute: SOB, wheezing, cough, hemoptysis ABDOMEN: Denies acute: abdominal pain, Nausea, Vomiting, diarrhea, melena , hematemesis, hematochezia SKIN: Denies acute: rash, redness, lesions, itchiness. EXTREMITIES: Denies acute: calf pain, numbness, tingling, weakness, denies pain in extremity. Denies acute: Low back pain. Neuro: Denies acute: focal neurological deficit, motor or sensory focal neurological deficit, tremors, seizure like activity, confusion, dizziness, change in mental status, loss of bowel or bladder function, cauda equina like symptoms. : Denies acute: dysuria, hematuria, flank pain, increase in urinary frequency. PSYCH: Denies acute: hallucination, suicidal ideation, homicidal ideation. FEMALE: Denies acute: abnormal vaginal bleeding, foul odor, unusual discharge. PHYSICAL EXAM: General: Uwyq-il-vksgbtga acute distress, awake and alert. Head: normocephalic, atraumatic. Neck: supple, trachea is midline, no swelling. Throat: Normal phonation. Eyes:, no erythema, no purulent discharge, no proptosis, no icterus. Heart: regular rate, regular rhythm, no significant murmur appreciated. Lungs: no apparent respiratory distress, Able to speak in full sentences. No wheezing, no rhonchi, no crackles. No stridors Clear to auscultation bilaterally. Abdomen: Mild generalized tender to palpation, non distended, soft, no guarding, no rebound, + bowel sounds. Neuro: Awake, Alert, oriented to name, self, situation, follows commands GCS=15. Speech is normal. Skin: no petechia, no purpura, no cyanosis, slightly-pale, not jaundice. Lower extremities: --trace bilateral - Pitting edema no deformity, no focal swelling, no calf TTP. Makes eye contact. moves all four extremities. Face: no apparent facial droop. Chief Complaint: General Weakness Time Seen by MD: 12:38 Primary Care Provider: BREONNA Reviewed Notes: Nurses Notes, Capacity Management Specialist Notes, Medications, Allergies Allergies: Coded Allergies: Sulfamethoxazole (Verified Allergy, Mild, itchy, vomits, 09/02/24) Aspirin (Verified Allergy, Unknown, 09/02/24) Cefadroxil (Verified Allergy, Unknown, 09/02/24) Ciprofloxacin (Verified Allergy, Unknown, 09/02/24) Levofloxacin (Verified Allergy, Unknown, 09/02/24) Penicillins (Verified Allergy, Unknown, 09/02/24) Home Meds Reported Medications Niacinamide (Niaspan) 500 Mg Tb, 500 MG PO DAILY 09/05/24 Methylprednisolone (Methylprednisolone) 4 Mg Tab, 4 MG PO DAILY 09/05/24 Albuterol Sulfate (VENTOLIN MDI) 90 Mcg Ih, 90 MCG IN PRN 09/05/24 Cyclobenzaprine Hcl (Cyclobenzaprine Hcl) 10 Mg Tab, 10 MG PO DAILY 09/05/24 Promethazine-Dm (Promethazine Dm 6.25-15 mg/5Ml) 1 Erika Erika, PO PRN, ML 09/05/24 Divalproex Sodium (Divalproex Sodium) 500 Mg Tab, 500 MG PO DAILY 09/05/24 Duloxetine Hcl (Cymbalta) 20 Mg Cap, 30 MG PO DAILY 09/05/24 Doxycycline Hyclate (Doxycycline Hyclate) 100 Mg Cap, 100 MG PO BID 09/05/24 Patients Own Medication (PATIENTS OWN MEDICATION) . PTS OWN MED-OBTAIN FROM PT AND SEND TO RX DRUG:GUAIFEN PSE 600-120 FREQ:DAILY RX# EXP: DATE DISP: TECH: RPH: 09/05/24 Pravastatin Sodium (PRAVACHOL TABLET) 20 Mg Tb, 80 MG PO DAILY 09/05/24 Esomeprazole Magnesium Trihydr (Nexium) 40 Mg Cap, 1 CAP PO DAILY 09/05/24 Carisoprodol (Carisoprodol) 350 Mg Tab, 350 MG PO PRN for MUSCLE SPASM 09/05/24 Oxaprozin (Daypro) 600 Mg Tab, 600 MG PO DAILY, TAB 09/05/24 Zolpidem Tartrate (Ambien) 10 Mg Tab, PO QHSP PRN for FOR INSOMNIA, TAB 09/05/24 Gabapentin (Gabapentin) 300 Mg Cap, 300 MG PO DAILY 09/05/24 Diazepam (VALIUM TABLET) 5 Mg Tb, 5 MG PO DAILY, TAB 09/05/24 Patients Own Medication (PATIENTS OWN MEDICATION) . PTS OWN MED-OBTAIN FROM PT AND SEND TO RX DRUG:VICODIN 5/500 FREQ:BID PRN RX# EXP: DATE DISP: TECH: RP: 09/05/24 Ezetimibe-Simvastatin (Vytorin) 1 Tab Tab, 1 TAB PO DAILY 09/05/24 Fenofibrate (Tricor) 145 Mg Tab, 145 MG PO DAILY for CHOLESTROL 09/05/24 Ezetimibe (Zetia) 10 Mg Tab, 1 TAB PO DAILY 09/05/24 Tnngbwzoqk-Odfajbbaemltq-Nujvr (Buster 50-325-40 mg) 1 Tab Tab, 1 TAB PO DAILY for migraine, TAB 09/05/24 Pantoprazole Sodium (PANTOPRAZOLE SODIUM) 40 Mg Inj, 40 MG PO DAILY, INJ 09/05/24 Divalproex Sodium (Depakote) 500 Mg Tab, 500 MG PO DAILY for migraine 09/05/24 Ivabradine Hydrochloride (Corlanor) 5 Mg Tab, 5 MG PO DAILY, TAB 09/02/24 Metoclopramide Hcl (Metoclopramide Hcl) 5 Mg Tab, 5 MG PO DAILY for 30 Days, MG 09/02/24 Prochlorperazine Maleate (Compazine) 10 Mg Tb, 0.5 TAB PO DAILY, #30 TAB 3 Refills 09/02/24 Rosuvastatin Calcium (Crestor) 20 Mg Tab, 1 TAB PO DAILY, #30 TAB 5 Refills 09/02/24 Magnesium Bisglycinate (Mag Glycinate) 100 Mg Tab, 250 MG PO DAILY, TAB 09/02/24 Metoprolol Succinate (Toprol Xl) 25 Mg Tab, 1 TAB PO DAILY for HTN, #30 TAB 5 Refills 09/02/24 Vibegron (Gemtesa) 75 Mg Tab, 75 MG PO DAILY for OVERACTIVE BLADDER, TAB 09/02/24 Dicyclomine Hcl (BENTYL CAPSULE) 10 Mg Cp, 10 MG PO DAILY, CAP 05/16/22 Rabeprazole Sodium (Aciphex) 20 Mg Tab, 1 TAB PO DAILY, #90 TAB 1 Refill 01/17/20 Montelukast Sodium (MONTELUKAST SODIUM) 10 Mg Tab, 1 TAB PO DAILY, #30 TAB 5 Refills 01/17/20 Information Source: Patient, Emergency Med Personnel Mode of Arrival: EMS Past Medical History PAST MEDICAL HISTORY: Asthma, Depression, GERD, High Lipids Surgical History: Denies all surgeries CUSHION INSTALLER 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 Was a procedure done?: No X-Ray, Labs, Meds, VS Vital Signs Date Time Temp Pulse Resp B/P (MAP) Pulse Ox O2 Delivery O2 Flow Rate FiO2 11/09/24 12:30 97.7 103 16 104/78 (87) 92 11/09/24 12:29 107 Lab Test 11/09/24 13:05 Range/Units White Blood Count 23.5 H 4.4-10.8 10^3/uL Red Blood Count 5.61 H 4.0-5.20 10^6/uL Hemoglobin 16.7 H 12.2-16.2 g/dL Hematocrit 50.2 H 36.0-46.0 % Mean Corpuscular Volume 89.4 80.0-100.0 fL Mean Corpuscular Hemoglobin 29.8 28.0-32.0 pg Mean Corpuscular Hemoglobin Concent 33.3 32.0-36.0 g/dL Red Cell Distribution Width 14.8 H 11.8-14.3 % Platelet Count 506 H 140-450 10^3/uL Mean Platelet Volume 7.3 6.9-10.8 fL Neutrophils (%) (Auto) 91.6 H 37.0-80.0 % Lymphocytes (%) (Auto) 4.8 L 10.0-50.0 % Monocytes (%) (Auto) 3.4 0.0-12.0 % Eosinophils (%) (Auto) 0.1 0.0-7.0 % Basophils (%) (Auto) 0.1 0.0-2.0 % Neutrophils # (Auto) 21.5 H 1.6-8.6 10 ^3/uL Lymphocytes # (Auto) 1.1 0.4-5.4 10 ^3/uL Monocytes # (Auto) 0.8 0-1.3 10 ^3/uL Eosinophils # (Auto) 0 0-0.8 10 ^3/uL Basophils # (Auto) 0 0-0.2 10 ^3/uL Nucleated Red Blood Cells 0.0 % Sodium Level 138 136-145 mmol/L Potassium Level 4.8 3.5-5.1 mmol/L Chloride Level 99 98-107 mmol/L Carbon Dioxide Level 29 20-31 mmol/L Anion Gap 10 5-15 Blood Urea Nitrogen 29 H 9-23 mg/dL Creatinine 0.72 0.550-1.02 mg/dL Glomerular Filtration Rate Calc 89 >90 mL/min BUN/Creatinine Ratio 40.3 H 10.0-20.0 Serum Glucose 119 H 74-106 mg/dL Lactic Acid Level 3.3 *H 0.4-2.0 mmol/L Calcium Level 10.4 8.7-10.4 mg/dL Magnesium Level 2.1 1.6-2.6 mg/dL Total Bilirubin 0.5 0.2-1.0 mg/dL Aspartate Amino Transferase (AST) 45 H 13-40 U/L Alanine Aminotransferase (ALT) 47 H 7-40 U/L Alkaline Phosphatase 253 H 46-116 U/L Troponin I High Sensitivity 13 </=34 ng/L B-Type Natriuretic Peptide 203.87 0-100 pg/mL Total Protein 7.2 5.7-8.2 g/dL Albumin 3.9 3.2-4.8 g/dL Lipase 127 H 12-53 U/L [address] [address] Ph: [phone] DIAGNOSTIC IMAGING Diagnostic Imaging Report : [id number] Signed PATIENT: BRYN STINSON ACCT: [id number] UNIT: [id number] : 1950 LOC: ER ROOM / BED: / AGE / SEX: 74 / F ADM STATUS: REG ER SERVICE 1243 ORDERING PHYSICIAN: PATTIE INIGUEZ DO PROCEDURE(s): CTCAP - CHST AB PEL WO CON-NO IV/ORAL REASON: RUQ PAIN H/O LUNG CA WITH METS ORDER NUMBER(s): [id number], ACCESSION NUMBER(s): [id number] CLINICAL INFORMATION: 74 years old, Female; right upper quadrant pain. History of lung cancer with metastatic disease. TECHNIQUE: Axial CT images of the chest, abdomen, and pelvis were obtained without IV contrast. Coronal and sagittal reformatted images were obtained, reviewed, and stored. Evaluation of the parenchymal organs and vasculature is limited without IV contrast. Evaluation of the bowel and mesentery is limited w ithout oral contrast. All CT scans at this medical facility are performed using dose modulation techniques as appropriate to a performed exam including the following: Automated exposure control was utilized; adjustment of the MA and/or KV according to patient size; and use of iterative reconstruction technique. CTDIvol = 5.07 mGy DLP = 162.56 mGy-cm COMPARISON: Same day chest radiograph. FINDINGS: CT CHEST: Large loculated right pleural fluid collection with areas of compressive atelectasis. Superimposed consolidation can not be excluded. Interstitial opacities are seen in the aerated portions of the right lung. Small calcified granuloma in the left lower lobe. Left lung is otherwise clear. Right chest wall port catheter with catheter extending to the distal SVC level. Dense atherosclerotic calcification of the thoracic aorta. No mediastinal lymphadenopathy visualized. Heart size is within normal limits. Dense coronary artery calcification. CT ABDOMEN/PELVIS: Liver, spleen, pancreas, and adrenal glands are grossly unremarkable in their noncontrast enhanced appearance. Mildly distended gallbladder. No calcified gallstones visualized. No biliary ductal dilatation. No hydronephrosis and no renal or ureteral calculi are seen. Small exophytic low-density lesion in the inferior pole of the left kidney measuring up to 0.9 cm, likely a cyst. Dense atherosclerotic calcification of the abdominal aorta. There is a saccular aneurysm along the left side of the infrarenal abdominal aorta measuring up to 1.1 cm. No retroperitoneal lymphadenopathy. No small bowel obstruction. Appendix is normal. Scattered colonic diverticula without adjacent inflammatory changes to suggest diverticulitis. Bladder is unremarkable. Pelvic organs appear unremarkable. IMPRESSION: 1. Large loculated right pleural fluid collection with atelectasis of most of the right lung. The remaining aerated portions of the lung demonstrate prominent interstitial opacities, may be partly related to post therapeutic changes in the setting of reported history of lung cancer. 2. Distended gallbladder with no calcified gallstones visualized. 3. Small saccular aneurysm along the left side of the infrarenal abdominal aorta. 4. Additional findings as detailed above. ATED BY: DANILO DOZIER DO DICTATED DATE/TIME: 11/09/241344 SIGNED BY: DANILO DOZIER DO SIGNED DATE/TIME: 11/09/241344 CC: [place] [address] Ph: [phone] DIAGNOSTIC IMAGING Diagnostic Imaging Report : [id number] Signed PATIENT: BRYN STINSON ACCT: [id number] UNIT: [id number] : 1950 LOC: ER ROOM / BED: / AGE / SEX: 74 / F ADM STATUS: REG ER SERVICE 1238 ORDERING PHYSICIAN: PATTIE INIGUEZ DO PROCEDURE(s): CXRP - CHEST PORTABLE REASON: RUQ pain, h/o Lung CA with mets. ORDER NUMBER(s): [id number], ACCESSION NUMBER(s): [id number] EXAM: XR Chest, 1 View CLINICAL INDICATION: RUQ pain, h/o Lung CA with mets. TECHNIQUE: Frontal view of the chest. COMPARISON: None FINDINGS: LUNGS AND PLEURAL SPACES: Right basilar atelectasis or pneumonia. Right pleural effusion. HEART: Unremarkable. No cardiomegaly. MEDIASTINUM: Unremarkable. Normal mediastinal contour. BONES/JOINTS: Unremarkable. No acute fracture. TUBES, LINES AND DEVICES: Right-sided Mediport with the distal tip in the SVC. No pneumothorax. OTHER FINDINGS: . . IMPRESSION: 1. Right basilar atelectasis or pneumonia. 2. Right pleural effusion. ATED BY: PRADEEP SHAHID MD DICTATED DATE/TIME: 11/09/24 132 SIGNED BY: PRADEEP SHAHID MD SIGNED DATE/TIME: 11/09/24 1325 CC: Patient Education/Counseling: Diagnosis, Treatment Family Education/Counseling: No Family Present Additional Information Patient presented with the above HPI.-acute and chronic pain -workup was initiated. patient was found with the above mentioned diagnosis. the following medications were ordered: Rocephin, IV fluids, Lasix 20 mg, the following tests were ordered: EKGx1, chest abdomen and pelvis without contrast, troponin x3, UA, lactic acid, CBC, CMP, BNP,magnesium, chest x-ray, lipase Patient ED course and VS have been stabilized. Patient has been reassessed in the ED and remained in a stable condition. Patient has been observed in the ED adequate length of time to insure improvement/stability. Escalation of care considered: Consideration of escalation to observation or admission. patient was admitted to the medicine team for further evaluation and treatment of their presentation. All the reports of any imaging studies that were ordered by myself were reviewed by myself. Departure 1 Departure Time of Disposition: 13:57 Impression: Primary Impression: Pleural effusion Additional Impressions: Loculated pleural effusion Elevated LFTs Leukocytosis Disposition: ADMITTED INPATIENT Condition: Guarded Discharged With: Self I personally scribed for PATTIE INIGUEZ DO ([facility]) on 11/09/24 at 12:39. Electronically submitted by Annette Melgar ([email or web address]). I personally scribed for PATTIE INIGUEZ DO ([facility] on 11/09/24 at 14:48. Electronically submitted by Annette Melgar ([email or web address]). PATTIE INIGUEZ DO Nov 09, 2024 12:39
--- NOTE | 2024-11-09 13:28 | DVH ---
EXAM: XR Chest, 1 View CLINICAL INDICATION: RUQ pain, h/o Lung CA with mets. TECHNIQUE: Frontal view of the chest. COMPARISON: None FINDINGS: LUNGS AND PLEURAL SPACES: Right basilar atelectasis or pneumonia. Right pleural effusion. HEART: Unremarkable. No cardiomegaly. MEDIASTINUM: Unremarkable. Normal mediastinal contour. BONES/JOINTS: Unremarkable. No acute fracture. TUBES, LINES AND DEVICES: Right-sided Mediport with the distal tip in the SVC. No pneumothorax. OTHER FINDINGS: . . IMPRESSION: 1. Right basilar atelectasis or pneumonia. 2. Right pleural effusion.
[2024-11-09 13:32] LABS: Basophils # (auto) 0 10 ^3/uL (0-0.2); Basophils % (auto) 0.1 % (0.0-2.0); Eosinophils # (auto) 0 10 ^3/uL (0-0.8); Eosinophils % (auto) 0.1 % (0.0-7.0); Hematocrit 50.2 % (36.0-46.0); Hemoglobin 16.7 g/dL (12.2-16.2); Lymphocytes # (auto) 1.1 10 ^3/uL (0.4-5.4); Lymphocytes % (auto) 4.8 % (10.0-50.0); Mean Corpuscular Hemoglobin 29.8 pg (28.0-32.0); Mean Corpuscular Hgb Conc. 33.3 g/dL (32.0-36.0); Mean Corpuscular Volume 89.4 fL (80.0-100.0); Monocytes # (auto) 0.8 10 ^3/uL (0-1.3); Monocytes % (auto) 3.4 % (0.0-12.0); Neutrophils # (auto) 21.5 10 ^3/uL (1.6-8.6); Neutrophils % (auto) 91.6 % (37.0-80.0); Platelet Count (auto) 506 10^3/uL (140-450); Red Blood Cells 5.61 10^6/uL (4.0-5.20); Red Cell Distribution Width 14.8 % (11.8-14.3); White Blood Cell 23.5 10^3/uL (4.4-10.8)
[2024-11-09 13:45] LABS: Albumin 3.9 g/dL (3.2-4.8); Anion Gap 10 (5-15); BUN/Creatinine Ratio 40.3 (10.0-20.0); Bilirubin, Total 0.5 mg/dL (0.2-1.0); Carbon Dioxide 29 mmol/L (20-31); Chloride 99 mmol/L (98-107); Potassium 4.8 mmol/L (3.5-5.1); Sodium 138 mmol/L (136-145)
[2024-11-09 13:46] LABS: Alanine Aminotransferase 47 U/L (7-40); Alkaline Phosphatase 253 U/L (46-116); Aspartate Aminotransferase 45 U/L (13-40); Blood Urea Nitrogen 29 mg/dL (9-23); Calcium 10.4 mg/dL (8.7-10.4); Glucose 119 mg/dL (74-106); Total Protein 7.2 g/dL (5.7-8.2)
--- NOTE | 2024-11-09 13:47 | DVH ---
CLINICAL INFORMATION: 74 years old, Female; right upper quadrant pain. History of lung cancer with metastatic disease. TECHNIQUE: Axial CT images of the chest, abdomen, and pelvis were obtained without IV contrast. Michelle nal and sagittal reformatted images were obtained, reviewed, and stored. Evaluation of the parenchyma l organs and vasculature is limited without IV contrast. Evaluation of the bowel and mesentery is rodgers ited without oral contrast. All CT scans at this medical facility are performed using dose modulation techniques as appropriate to a performed exam including the following: Automated exposure control wa s utilized; adjustment of the MA and/or KV according to patient size; and use of iterative reconstruc tion technique. CTDIvol = 5.07 mGy DLP = 162.56 mGy-cm COMPARISON: Same day chest radiograph. FINDINGS: CT CHEST: Large loculated right pleural fluid collection with areas of compressive atelectasis. Superimposed co nsolidation can not be excluded. Interstitial opacities are seen in the aerated portions of the right lung. Small calcified granuloma in the left lower lobe. Left lung is otherwise clear. Right chest wa ll port catheter with catheter extending to the distal SVC level. Dense atherosclerotic calcification of the thoracic aorta. No mediastinal lymphadenopathy visualized. Heart size is within normal limits . Dense coronary artery calcification. CT ABDOMEN/PELVIS: Liver, spleen, pancreas, and adrenal glands are grossly unremarkable in their noncontrast enhanced ap pearance. Mildly distended gallbladder. No calcified gallstones visualized. No biliary ductal dilatat ion. No hydronephrosis and no renal or ureteral calculi are seen. Small exophytic low-density lesion in the inferior pole of the left kidney measuring up to 0.9 cm, likely a cyst. Dense atherosclerotic calcification of the abdominal aorta. There is a saccular aneurysm along the left side of the infrare nal abdominal aorta measuring up to 1.1 cm. No retroperitoneal lymphadenopathy. No small bowel obstru ction. Appendix is normal. Scattered colonic diverticula without adjacent inflammatory changes to sug gest diverticulitis. Bladder is unremarkable. Pelvic organs appear unremarkable. IMPRESSION: 1. Large loculated right pleural fluid collection with atelectasis of most of the right lung. The rem aining aerated portions of the lung demonstrate prominent interstitial opacities, may be partly relat ed to post therapeutic changes in the setting of reported history of lung cancer. 2. Distended gallbladder with no calcified gallstones visualized. 3. Small saccular aneurysm along the left side of the infrarenal abdominal aorta. 4. Additional findings as detailed above.
[2024-11-09 13:54] LABS: Lactic Acid w/Reflex 3.3 mmol/L (0.4-2.0)
[2024-11-09 14:00] LABS: Lipase 127 U/L (12-53); Magnesium 2.1 mg/dL (1.6-2.6)
[2024-11-09] MEDS: FUROSEMIDE 20 MG/2 ML VIAL IV ONE (14:00)
[2024-11-09] MEDS ORDERED: PROMETHAZINE-DM 5 ML ORAL SYRUP PO SCH (15:45)
[2024-11-09] MEDS ORDERED: CARISOPRODOL 350 MG TAB PO SCH (15:45)
--- NOTE | 2024-11-09 16:14 | DVHHP2 ---
History of Present Illness Reason for Visit: Pain and weakness History of Present Illness 72-year-old female with a history of lung cancer with Mets throughout mostly to the bladder patient has a history of anxiety, asthma, hyperlipidemia, frequent fainting spells and multiple falls patient comes to the ED for complaints of ac tana and chronic pain unable to maintain her pain and control herself at home patient normally takes oxycodone and tramadol at home to help with her pain management however states that the patient has been having complaints of severe weakness continued pain in as her last chemotherapy was completed patient has uncontrollable pain on takes extensive amounts of medication for management at this point in time the pins for patient for admission and continued management for intractable pain Cardiovascular: HTN, hyperipidemia Pulmonary: Asthma Heme/Onc: Cancer Review of Systems Constitutional: Yes: Weakness; No: Fever, Chills, Sweats, Malaise, Other Eyes: No: Pain, Vision change, Conjunctivae inflammation, Eyelid inflammation, Other, Redness ENT: No: Ear pain, Ear discharge, Nose pain, Nose discharge, Nose congestion, Mouth pain, Mouth swelling, Throat pain, Throat swelling, Other Respiratory: No: Cough, Dry, Shortness of breath, SOB with excertion, Wheezing, Hemoptysis, Pleuritic Pain, Sputum, Wheezing, Other Cardiovascular: No: Chest Pain, Palpitations, Orthopnea, Paroxysmal Noc. Dyspnea, Edema, Lt Headedness, Other Gastrointestinal: No: Nausea, Vomiting, Abdominal Pain, Diarrhea, Constipation, Melena, Hematochezia, Other Genitourinary: No Dysuria, No Frequency, No Incontinence, No Hematuria, No Retention, No Other Musculoskeletal: shoulder pain, arm pain, back pain, hand pain, leg pain; No: other, neck pain, foot pain Skin: No: Rash, Lesions, Jaundice, Bruising, Other Neurological: No: Weakness, Numbness, Incoordination, Change in speech, Confusion, Seizures, Other Allergies: Coded Allergies: Sulfamethoxazole (Verified Allergy, Mild, itchy, vomits, 09/02/24) Aspirin (Verified Allergy, Unknown, 09/02/24) Cefadroxil (Verified Allergy, Unknown, 09/02/24) Ciprofloxacin (Verified Allergy, Unknown, 09/02/24) Levofloxacin (Verified Allergy, Unknown, 09/02/24) Penicillins (Verified Allergy, Unknown, 09/02/24) Exam Vital Signs Vital Signs Date Time Temp Pulse Resp B/P (MAP) Pulse Ox O2 Delivery O2 Flow Rate FiO2 11/09/24 12:30 97.7 103 16 104/78 (87) 92 General Appearance: No acute distress, moderate distress HEENT: Atraumatic, PERRLA, EOMI Respiratory: Clear to auscultation, Normal air movement Cardiovascular: Regular rate, Normal S1, Normal S2 Abdominal: Normal bowel sounds, Soft Extremities: No clubbing, No cyanosis Skin: No rashes, No breakdown Neuro: Normal gait, Normal speech Psych/Mental Status: Mood NL Labs/Xrays Labs Test 11/09/24 15:14 11/09/24 13:05 Range/Units Troponin I High Sensitivity 14 </=34 ng/L White Blood Count 23.5 H 4.4-10.8 10^3/uL Red Blood Count 5.61 H 4.0-5.20 10^6/uL Hemoglobin 16.7 H 12.2-16.2 g/dL Hematocrit 50.2 H 36.0-46.0 % Mean Corpuscular Volume 89.4 80.0-100.0 fL Mean Corpuscular Hemoglobin 29.8 28.0-32.0 pg Mean Corpuscular Hemoglobin Concent 33.3 32.0-36.0 g/dL Red Cell Distribution Width 14.8 H 11.8-14.3 % Platelet Count 506 H 140-450 10^3/uL Mean Platelet Volume 7.3 6.9-10.8 fL Neutrophils (%) (Auto) 91.6 H 37.0-80.0 % Lymphocytes (%) (Auto) 4.8 L 10.0-50.0 % Monocytes (%) (Auto) 3.4 0.0-12.0 % Eosinophils (%) (Auto) 0.1 0.0-7.0 % Basophils (%) (Auto) 0.1 0.0-2.0 % Neutrophils # (Auto) 21.5 H 1.6-8.6 10 ^3/uL Lymphocytes # (Auto) 1.1 0.4-5.4 10 ^3/uL Monocytes # (Auto) 0.8 0-1.3 10 ^3/uL Eosinophils # (Auto) 0 0-0.8 10 ^3/uL Basophils # (Auto) 0 0-0.2 10 ^3/uL Nucleated Red Blood Cells 0.0 % Sodium Level 138 136-145 mmol/L Potassium Level 4.8 3.5-5.1 mmol/L Chloride Level 99 98-107 mmol/L Carbon Dioxide Level 29 20-31 mmol/L Anion Gap 10 5-15 Blood Urea Nitrogen 29 H 9-23 mg/dL Creatinine 0.72 0.550-1.02 mg/dL Glomerular Filtration Rate Calc 89 >90 mL/min BUN/Creatinine Ratio 40.3 H 10.0-20.0 Serum Glucose 119 H 74-106 mg/dL Lactic Acid Level 3.3 *H 0.4-2.0 mmol/L Calcium Level 10.4 8.7-10.4 mg/dL Magnesium Level 2.1 1.6-2.6 mg/dL Total Bilirubin 0.5 0.2-1.0 mg/dL Aspartate Amino Transferase (AST) 45 H 13-40 U/L Alanine Aminotransferase (ALT) 47 H 7-40 U/L Alkaline Phosphatase 253 H 46-116 U/L B-Type Natriuretic Peptide 203.87 0-100 pg/mL Total Protein 7.2 5.7-8.2 g/dL Albumin 3.9 3.2-4.8 g/dL Lipase 127 H 12-53 U/L Assessment/Plan Assessment/Plan Admit to [facility] Patient with pleural effusion likely secondary to lung mass Suspected loculation of the pleural effusion elevated levels of white count Suspected infectious in nature IV antibiotics and IV Lasix started in the ED We will continue repeat a.m. labs Pulmonary consult for possible drainage P.r.n. management of continued issues with pain Patient has a now remains hemodynamically stable With moderate signs of dehydration We will start with IV hydration UA still pending possible urinary tract infection Antibiotics for the loculation and the pleural effusion we will also cover Plan discussed with: Patient My Orders Orders - DORY PEÑA MD Procedure Category Date Status Time Carisoprodol Tablet PHA 11/09/24 Logged (Soma Tablet) 15:45 Cyclobenzaprine PHA 11/10/24 Logged Tablet (Flexeril 10:00 Diazepam Tablet PHA 11/10/24 Logged (Valium Tablet) 10:00 Dicyclomine Capsule PHA 11/10/24 Logged (Bentyl Capsule) 10:00 Ezetimibe (Zetia) PHA 11/10/24 Logged 10:00 Gabapentin Capsule PHA 11/10/24 Logged (Neurontin Capsule) 10:00 Ivabradine (Corlanor) PHA 11/10/24 Logged 10:00 Methylprednisolone PHA 11/10/24 Logged (Medrol) 10:00 Montelukast Tablet PHA 11/10/24 Logged (Singulair Tablet) 10:00 Pantoprazole PHA 11/10/24 Logged (Protonix) 10:00 Pravastatin Sodium PHA 11/10/24 Logged Tablet (Pravachol Tab 10:00 Prochlorperazine PHA 11/10/24 Logged Tablet (Compazine 10:00 Promethazine-Dm PHA 11/09/24 Logged (Phenergan-Dm) 15:45 (Nf) Metoprolol PHA 11/10/24 Logged Succinate (Toprol Xl) 10:00 Ceftriaxone 1gm/50ml PHA 11/10/24 Logged D5w (Rocephin) 10:00 Azithromycin Tablet PHA 11/10/24 Logged (Zithromax Tablet) 10:00 Furosemide Injection PHA 11/09/24 Logged (Lasix Injection) 22:00 Problem List: (1) Loculated pleural effusion (2) Pleural effusion (3) Leukocytosis (4) Acute exacerbation of chronic low back pain Date of Service: Nov 09, 2024 Billing Provider: DORY PEÑA MD Common Visit Codes: [id number] INP/OBS CARE (HIGH) DORY PEÑA MD Nov 09, 2024 16:14
[2024-11-09 16:39] VITALS: BP 104/78; PULSE 63; RESP 18; TEMP 97.7; O2SAT 94
[2024-11-09 18:50] VITALS: PULSE 106; RESP 12; O2SAT 97
--- NOTE | 2024-11-09 19:00 | ECG ---
[facility] Test Date: 2024-11-09 Test Time: 12:29:32 Pat Name: BRYN STINSON Department: ED Room: 0219 Gender: F Tube Wrapper: AMANDA : 1950 Requested By: EMERGENCY EMERGENCY Order Number: [id number] Reading MD: Orion Crooks Measurements Intervals Emerson Rate: 107 P: 61 WI: 133 QRS: 51 QRSD: 57 T: 0 QT: 363 QTc: 485 Interpretive Statements Sinus tachycardia Low voltage, precordial leads RSR' in V1 or V2, probably normal variant Electronically Signed On 11-15-2024 9:55:56 PST by Orion Crooks Please click the below link to view image of tracing.
[2024-11-09] MEDS ORDERED: MORPHINE SULFATE INJ 2 MG/ml SYRG IV PRN (19:15)
[2024-11-09] MEDS ORDERED: NITROGLYCERIN 0.4 MG SL TAB SL PRN (19:15)
[2024-11-09] MEDS: cefTRIAXone 1GM/50ML D5W 50 ML IV ONE (20:44)
[2024-11-09] MEDS: AZITHROMYCIN 250 MG TAB PO SCH (20:45)
[2024-11-09] MEDS: SODIUM CHLORIDE 0.9% 1,000 ML IV ONE (20:45)
[2024-11-09] MEDS: FUROSEMIDE 20 MG/2 ML VIAL IV SCH (20:46)
[2024-11-09] MEDS ORDERED: PRAVASTATIN SODIUM 20 MG TAB PO SCH (22:00)
[2024-11-09 22:18] VITALS: O2SAT 97
[2024-11-09 22:21] VITALS: BP 115/72; PULSE 104; RESP 18; TEMP 97.7; O2SAT 96
[2024-11-09] MEDS: MONTELUKAST SODIUM 10 MG TAB PO SCH (22:41)
[2024-11-09] MEDS: HYDROcodone-ACET 5/325MG TAB PO PRN (22:42)
[2024-11-09] MEDS: PRAVASTATIN SODIUM 20 MG TAB PO SCH (22:44)
[2024-11-10] VITALS (9 sets, daily range): BP systolic 106–112; BP diastolic 40–61; PULSE 82–111; RESP 18–20; TEMP 97.2–97.8; O2SAT 93–97
[2024-11-10] MEDS: MORPHINE SULFATE INJ 2 MG/ml SYRG IV ONE (03:42)
[2024-11-10] MEDS: cefTRIAXone 1GM/50ML D5W 50 ML IV SCH (08:18)
[2024-11-10] MEDS: EZETIMIBE 10 MG TAB PO SCH (09:59)
[2024-11-10] MEDS: GABAPENTIN 300 MG CAP PO SCH (09:59)
[2024-11-10] MEDS: PANTOPRAZOLE 40 MG/10 ML VIAL INJ IV SCH (09:59)
[2024-11-10] MEDS: METOPROLOL SUCCINATE XL 50 MG TAB PO SCH (09:59)
[2024-11-10] MEDS ORDERED: PROCHLORPERAZINE MALEATE 10 MG TAB PO SCH (10:00)
[2024-11-10] MEDS ORDERED: DICYCLOMINE HCL 10 MG CAP PO SCH (10:00)
[2024-11-10] MEDS ORDERED: IVABRADINE 5 MG TAB GT SCH (10:00)
[2024-11-10] MEDS ORDERED: methylPREDNISolone 4 MG TAB PO SCH (10:00)
[2024-11-10] MEDS ORDERED: CYCLOBENZAPRINE HCL 10 MG TAB PO SCH (10:00)
[2024-11-10] MEDS ORDERED: diazePAM 5 MG TAB PO SCH (10:00)
[2024-11-10 10:29] LABS: Alanine Aminotransferase 37 U/L (7-40); Anion Gap 9 (5-15); BUN/Creatinine Ratio 31.4 (10.0-20.0); Blood Urea Nitrogen 22 mg/dL (9-23); Calcium 9.5 mg/dL (8.7-10.4); Carbon Dioxide 28 mmol/L (20-31); Chloride 101 mmol/L (98-107); Sodium 138 mmol/L (136-145)
[2024-11-10 10:30] LABS: Albumin 3.6 g/dL (3.2-4.8); Alkaline Phosphatase 202 U/L (46-116); Aspartate Aminotransferase 58 U/L (13-40); Bilirubin, Total 0.4 mg/dL (0.2-1.0); Cholesterol 199 mg/dL (< 200); Glucose 122 mg/dL (74-106); HDL Cholesterol 37 mg/dL (40-59); LDL Cholesterol 129 mg/dL (< 100); Potassium 3.4 mmol/L (3.5-5.1); Total Protein 6.8 g/dL (5.7-8.2); Triglycerides 272 mg/dL (< 150)
[2024-11-10 10:38] LABS: Lactic Acid w/Reflex 2.4 mmol/L (0.4-2.0)
[2024-11-10 10:40] LABS: Basophils # (auto) 0.1 10 ^3/uL (0-0.2); Basophils % (auto) 0.4 % (0.0-2.0); Eosinophils # (auto) 0.3 10 ^3/uL (0-0.8); Eosinophils % (auto) 1.4 % (0.0-7.0); Hematocrit 49.4 % (36.0-46.0); Hemoglobin 16.3 g/dL (12.2-16.2); Lymphocytes # (auto) 1.5 10 ^3/uL (0.4-5.4); Lymphocytes % (auto) 6.9 % (10.0-50.0); Mean Corpuscular Hemoglobin 29.2 pg (28.0-32.0); Mean Corpuscular Hgb Conc. 33.1 g/dL (32.0-36.0); Mean Corpuscular Volume 88.4 fL (80.0-100.0); Monocytes # (auto) 1.2 10 ^3/uL (0-1.3); Monocytes % (auto) 5.6 % (0.0-12.0); Neutrophils # (auto) 19.2 10 ^3/uL (1.6-8.6); Neutrophils % (auto) 85.7 % (37.0-80.0); Platelet Count (auto) 457 10^3/uL (140-450); Red Blood Cells 5.59 10^6/uL (4.0-5.20); Red Cell Distribution Width 14.9 % (11.8-14.3); White Blood Cell 22.4 10^3/uL (4.4-10.8)
[2024-11-10 10:42] LABS: Urine Bacteria None Seen /hpf (None Seen)
[2024-11-10 10:55] LABS: Urine Blood 2+ /uL (Negative); Urine Clarity Clear (Clear); Urine Color Light-Yellow (Yellow); Urine Hyaline Cast FEW /lpf (0 - 2); Urine Protein, UAD Negative (Negative); Urine Specific Gravity 1.012 (1.001-1.035); Urine Squamous Epithelial Cell FEW /hpf (<5); Urine Urobilinogen Normal (Negative); Urine WBC 2 /hpf (0 - 5)
[2024-11-10 10:57] LABS: Lipase 100 U/L (12-53)
[2024-11-10] MEDS ORDERED: LACTATED RINGER'S 1,000 ML IV ONE (11:15)
--- NOTE | 2024-11-10 11:38 | DVH ---
INDICATION: ro kade TECHNIQUE: Multiple real-time sonographic images were obtained of the right upper quadrant. COMPARISON: None FINDINGS: The liver demonstrates homogeneous echotexture without focal mass lesions. The liver measu res 12.5 cm. There is no intrahepatic or extrahepatic ductal dilatation. The common duct measures 0.8 cm. The gallbladder is without evidence of stone or sludge. The gallbladder wall measures 0.1 cm and is within normal limits. The right kidney measures 8.6 cm. The right kidney is normal in contour, size, and shape. The echog enicity is normal. There is no hydronephrosis. The pancreas is not well visualized due to overlying bowel gas. IMPRESSION: Incidental note of right pleural effusion. Otherwise, unremarkable right upper quadrant ultrasound.
[2024-11-10] MEDS: LACTATED RINGER'S 500 ML IV ONE (11:54)
[2024-11-10] MEDS: IVABRADINE 5 MG TAB PO SCH (11:54)
[2024-11-10] MEDS: traMADol HCL 50 MG TAB PO ONE (13:23)
[2024-11-10] MEDS ORDERED: VANCOMYCIN PER PHARMACY 0 MG IV SCH (13:45)
[2024-11-10] MEDS: HYDROcodone-ACET 5/325MG TAB PO PRN (16:06)
--- NOTE | 2024-11-10 16:53 | DVHPNRES ---
Progress Note Date Seen: Nov 10, 2024 Resident Creating Document: MARCELA GAMBOALM RESIDENT Medical Necessity Reason Pt with a Central, PICC or Fol: No Subjective Review of Systems Patient is a 74 year old female with a past medical history as described below came to the ED with the chief complaint of Right sided chest pain for the last 2 weeks. patient reports that she has been diagnosed with Lung cancer in january 2024 and has got radiation treatment , bladder CA diagnosed in 2020 with chemotherapy finished in november 2023. she follows in the outpatient clinic for pulmonary followup. patient reports to start having right sided chest pain since october 23 and it has gradually worsened and now she has constant severe pain which she was not able to tolerate even while she was taking tramadol ,exacerbated with deep breath and movement, chills but the patient denies fever and came to the hospital for further evaluation. Patient denied recent flu like illness or cough. Past medical history: Lung CA, Bladder CA, HTN, HLD, ?CHF, overactive bladder, migraine Past surgical history: coronary angiogram social history: denies current smoking, alcohol, drug use Review of systems patient is seen and examined at the bedside Alert and oriented X 4. reports moderate to severe right chest pain more in the mid--lower. reports no shortness of breath at rest denies cough, dizziness, palpitations, headache. patient is afebrile, vitals stable Objective vital signs Vital Sign Date Time Temp Pulse Resp B/P (MAP) Pulse Ox O2 Delivery O2 Flow Rate FiO2 11/10/24 13:00 97.5 103 18 106/40 (62) 93 97.5 11/10/24 08:33 Nasal Cannula 3.0 11/10/24 08:33 32 Total Intake and Output 11/09/24 11/09/24 11/10/24 15:00 23:00 07:00 Intake Total 50 ml 400 ml Balance 50 ml 400 ml medications Current Medications Medications Dose Ordered Sig/Yuki Route Start Time Stop Time Status Last Admin Dose Admin Carisoprodol 350 mg PRN PO 11/09/24 15:45 Hold Cyclobenzaprine HCl 10 mg DAILY PO 11/10/24 10:00 Hold Diazepam 5 mg DAILY PO 11/10/24 10:00 Hold Dicyclomine HCl 10 mg DAILY PO 11/10/24 10:00 Hold EZETIMIBE 10 mg DAILY PO 11/10/24 10:00 11/10/24 09:59 10 MG Gabapentin 300 mg DAILY PO 11/10/24 10:00 11/10/24 09:59 300 MG Methylprednisolone 4 mg DAILY PO 11/10/24 10:00 Hold Montelukast Sodium 10 mg HS PO 11/09/24 22:00 11/09/24 22:41 10 MG Pantoprazole Sodium 40 mg DAILY IV 11/10/24 10:00 11/10/24 09:59 40 MG Pravastatin Sodium 80 mg HS PO 11/09/24 22:00 Cancel Prochlorperazine Maleate 5 mg DAILY PO 11/10/24 10:00 Hold Promethazine HCl/ Dextromethorphan 15 ml PRN PO 11/09/24 15:45 Hold Metoprolol Succinate 25 mg DAILY PO 11/10/24 10:00 11/10/24 09:59 25 MG Ceftriaxone Sodium 50 ml @ 100 mls/hr DAILY@0900 IV 11/10/24 09:00 11/10/24 08:18 100 MLS/HR Azithromycin 500 mg DAILY PO 11/09/24 18:53 11/10/24 09:59 500 MG Albuterol 2.5 mg Q4HPRN PRN NEB 11/09/24 16:15 Ipratropium Barnhart 0.5 mg Q4HPRN PRN NEB 11/09/24 16:15 Nitroglycerin 0.4 mg Q5MINP PRN SL 11/09/24 19:15 Pravastatin Sodium 20 mg HS PO 11/09/24 22:00 11/09/24 22:44 20 MG Ivabradine 5 mg BID PO 11/10/24 22:00 Tramadol HCl 50 mg BID PO 11/10/24 22:00 Acetaminophen/ Hydrocodone Bitart 1 tab Q6HPRN PRN PO 11/10/24 13:45 11/10/24 16:06 1 TAB Vancomycin HCl 0 ml @ 0 mls/hr UD IV 11/10/24 13:45 Morphine Sulfate 2 mg Q6HPRN PRN IV 11/10/24 13:45 Vancomycin HCl 100 ml @ 100 mls/hr Q12H IV 11/10/24 18:00 Examination Physical Examination Gen - no pallor, no icterus, no cyanosis, no clubbing, no LAD, no edema Skin - Patients skin is warm and dry. HEENT - normocephalic, atraumatic, dry mucous membranes. Neck - full ROM, no LAD, no JVD Pulmonary - decreased breaths sounds in the left mid to lower chest, no crackles, no wheezing. cardiovascular - normal S1,S2 heard. no murmurs heard. peripheral pulses radial 2+, pedal 2+, capillary refil<2secs GI - soft abdomen with tenderness to palpation in the right upper quadrant. no hepatospleenomegaly. Bowel sounds normoactive Neurological - Patient is A/O X 3. Bilateral upper extremity strength 5/5, bilateral lower extremity strength 5/5, no facial droop, normal speech, no tremor, no sensory deficits Chest wall- tenderness to palpation in the left anterior and lateral mid to lower chest laboratory and microbiology Laboratory Tests 11/10/24 09:40 Test 11/10/24 09:40 Range/Units Serum Glucose 122 H 74-106 mg/dL Problem List/Assessment/Plan Problem List/Assessment/Plan Assessment and Plan # Acute hypoxic respiratory failure likely # Sepsis likely d/t pneumonia with pleural effusion # Community acquired pneumonia likely d/t Gram+/-/atypical bacteria # Right loculated pleural effusion # Lactic acidosis # h/o Lung CA s/p radiation # ? CHF - On 3L O2 via NC - tachypnea - Elevated WBCs - elevated lactic acid - respiratory culture pending - blood culture pending - judicious fluid use due to reported h/o heart failure currently on LR 100ml/hr - on ceftriaxone , vancomycin , azithromycin - CT chest shows Large loculated right pleural fluid collection with atelectasis of most of the right lung. The remaining aerated portions of the lung demonstrate prominent interstitial opacities, may be partly related to post therapeutic changes in the setting of reported history of lung cancer. - IR consulted for insertion of chest tube. - Pulmonology consult pending - Duonebs prn - montelukast hs # Hypertensive heart disease # h/o Heart failure with preserved EF - on metoprolol succinate 25mg qd - Ivabradine 5mg qd # Dyslipidemia - on atorvastatin 40mghs - ezetimibe 10mg qd # Transaminitis with elevated ALP - trending down - unremarkable RUQ US # Hypokalemia - replenished Goals of care discussed with the patient for over 29 mins. Full code Plan discussed with Dr Webber Plan discussed with: Patient My Orders My Orders Orders - CRUZITO GAMBOA RESIDENT Procedure Category Date Status Time Tramadol Hcl (Ultram) PHA 11/10/24 In Process 22:00 Hydrocodone-Acet PHA 11/10/24 In Process 5/325mg Tab ([place] 13:45 Vancomycin Per PHA 11/10/24 In Process Pharmacy 13:45 * Radiologist Consult CONS 11/10/24 Transmitted 13:37 Morphine Sulfate PHA 11/10/24 In Process Injection 13:45 Vancomycin 750mg Kit PHA 11/10/24 In Process (Vancomycin Hcl) 18:00 Complete Blood Count LAB 11/11/24 Verified 04:00 Creatinine LAB 11/11/24 Verified 04:00 Vancomycin,Trough LAB 11/12/24 Verified 05:00 Vancomycin Per CINDY 11/10/24 In Process Pharmacy Protoc 14:48 Dietary Evaluation Review Comments: 1. Continue diet regime 2. Consider Fish oil BID for high Trig 3. Consider Ensure HP BID if PO intake trends low Expected Outcomes/Goals: 1. Pt will consume >75% of estimated needs within 3-5 days Date of Service: Nov 10, 2024 Billing Provider: BAL WEBBER MD Common Visit Codes: [id number] INP/OBS CARE(HIGH) CRUZITO GAMBOA RESIDENT Nov 10, 2024 16:53 BAL WEBBER MD Nov 10, 2024 23:47
[2024-11-10] MEDS: VANCOMYCIN 750MG KIT 100 ML IV SCH (18:21)
[2024-11-10] MEDS: LACTATED RINGER'S 1,000 ML IV ONE (20:09)
[2024-11-10] MEDS: POTASSIUM CHL 20 Meq TABLET PO ONE (20:30)
[2024-11-10] MEDS: MORPHINE SULFATE INJ 2 MG/ml SYRG IV PRN (20:31)
[2024-11-10] MEDS: traMADol HCL 50 MG TAB PO SCH (21:21)
[2024-11-10] MEDS: ATORVASTATIN 20 MG TAB PO SCH (21:22)
[2024-11-10] MEDS ORDERED: IVABRADINE 5 MG TAB PO SCH (22:00)
[2024-11-11] VITALS (10 sets, daily range): BP systolic 82–107; BP diastolic 39–66; PULSE 77–93; RESP 18–20; TEMP 97.3–98.6; O2SAT 91–100
[2024-11-11 07:06] LABS: Basophils # (auto) 0 10 ^3/uL (0-0.2); Basophils % (auto) 0.2 % (0.0-2.0); Eosinophils # (auto) 0.6 10 ^3/uL (0-0.8); Eosinophils % (auto) 3.3 % (0.0-7.0); Hematocrit 45.2 % (36.0-46.0); Lymphocytes # (auto) 1.3 10 ^3/uL (0.4-5.4); Lymphocytes % (auto) 7.1 % (10.0-50.0); Mean Corpuscular Hemoglobin 29.6 pg (28.0-32.0); Mean Corpuscular Hgb Conc. 33.2 g/dL (32.0-36.0); Mean Corpuscular Volume 89.1 fL (80.0-100.0); Monocytes # (auto) 1.2 10 ^3/uL (0-1.3); Monocytes % (auto) 6.5 % (0.0-12.0); Neutrophils # (auto) 14.7 10 ^3/uL (1.6-8.6); Neutrophils % (auto) 82.9 % (37.0-80.0); Platelet Count (auto) 334 10^3/uL (140-450); Red Blood Cells 5.08 10^6/uL (4.0-5.20); Red Cell Distribution Width 14.8 % (11.8-14.3); White Blood Cell 17.7 10^3/uL (4.4-10.8)
[2024-11-11 07:20] LABS: Alanine Aminotransferase 26 U/L (7-40); Anion Gap 7 (5-15); Aspartate Aminotransferase 35 U/L (13-40); BUN/Creatinine Ratio 29.7 (10.0-20.0); Blood Urea Nitrogen 19 mg/dL (9-23); Calcium 9.3 mg/dL (8.7-10.4); Carbon Dioxide 29 mmol/L (20-31); Chloride 102 mmol/L (98-107); Glucose 96 mg/dL (74-106); Potassium 4.1 mmol/L (3.5-5.1); Sodium 138 mmol/L (136-145)
[2024-11-11 07:21] LABS: Bilirubin, Total 0.5 mg/dL (0.2-1.0); Total Protein 5.7 g/dL (5.7-8.2)
[2024-11-11 07:36] LABS: Alkaline Phosphatase 154 U/L (46-116)
[2024-11-11] MEDS: IVABRADINE 5 MG TAB PO SCH (09:40)
[2024-11-11] MEDS: POTASSIUM CHL 20 Meq TABLET PO ONE (09:40)
[2024-11-11 12:08] LABS: Lactic Acid w/Reflex 2.3 mmol/L (0.4-2.0)
[2024-11-11] MEDS: CEFEPIME 1GM/ 50ML 50 ML IV SCH (14:32)
[2024-11-11 15:00] LABS: INR 1.45 (0.9-1.15); Partial Thromboplastin Time 26.1 SEC (24.5-34.5)
--- NOTE | 2024-11-11 15:51 | DVHPNRES ---
Progress Note Date Seen: Nov 11, 2024 Resident Creating Document: JACOB MO RESDIENT Medical Necessity Reason Pt with a Central, PICC or Fol: No Subjective Review of Systems Patient is a 74 year old female with a past medical history as described below came to the ED with the chief complaint of Right sided chest pain for the last 2 weeks. patient reports that she has been diagnosed with Lung cancer in january 2024 and has got radiation treatment , bladder CA diagnosed in 2020 with chemotherapy finished in november 2023. she follows in the outpatient clinic for pulmonary followup. patient reports to start having right sided chest pain since october 23 and it has gradually worsened and now she has constant severe pain which she was not able to tolerate even while she was taking tramadol ,exacerbated with deep breath and movement, chills but the patient denies fever and came to the hospital for further evaluation. Patient denied recent flu like illness or cough. Past medical history: Lung CA, Bladder CA, HTN, HLD, ?CHF, overactive bladder, migraine Past surgical history: coronary angiogram social history: denies current smoking, alcohol, drug use Patient seen and examined at the bedside. Patient is feeling shortness of bed and complained of mild chest pain. Patient reports: No new complaints Changes from previous H/P or p: No Changes Objective vital signs Vital Sign Date Time Temp Pulse Resp B/P (MAP) Pulse Ox O2 Delivery O2 Flow Rate FiO2 11/11/24 13:00 97.3 77 18 82/39 (53) 91 97.3 11/11/24 08:00 Nasal Cannula* 3 32 Total Intake and Output 11/10/24 11/10/24 11/11/24 15:00 23:00 07:00 Intake Total 50 ml 1700 ml 1000 ml Output Total 1600 ml 0 ml Balance 50 ml 100 ml 1000 ml medications Current Medications Medications Dose Ordered Sig/Yuki Route Start Time Stop Time Status Last Admin Dose Admin Carisoprodol 350 mg PRN PO 11/09/24 15:45 Hold Cyclobenzaprine HCl 10 mg DAILY PO 11/10/24 10:00 Hold Diazepam 5 mg DAILY PO 11/10/24 10:00 Hold Dicyclomine HCl 10 mg DAILY PO 11/10/24 10:00 Hold EZETIMIBE 10 mg DAILY PO 11/10/24 10:00 11/11/24 09:40 10 MG Gabapentin 300 mg DAILY PO 11/10/24 10:00 11/11/24 09:40 300 MG Methylprednisolone 4 mg DAILY PO 11/10/24 10:00 Hold Montelukast Sodium 10 mg HS PO 11/09/24 22:00 11/10/24 21:22 10 MG Pantoprazole Sodium 40 mg DAILY IV 11/10/24 10:00 11/11/24 09:39 40 MG Pravastatin Sodium 80 mg HS PO 11/09/24 22:00 Cancel Prochlorperazine Maleate 5 mg DAILY PO 11/10/24 10:00 Hold Promethazine HCl/ Dextromethorphan 15 ml PRN PO 11/09/24 15:45 Hold Metoprolol Succinate 25 mg DAILY PO 11/10/24 10:00 11/11/24 09:41 25 MG Azithromycin 500 mg DAILY PO 11/09/24 18:53 11/11/24 09:40 500 MG Albuterol 2.5 mg Q4HPRN PRN NEB 11/09/24 16:15 Ipratropium Hulbert 0.5 mg Q4HPRN PRN NEB 11/09/24 16:15 Nitroglycerin 0.4 mg Q5MINP PRN SL 11/09/24 19:15 Tramadol HCl 50 mg BID PO 11/10/24 22:00 11/11/24 09:41 50 MG Acetaminophen/ Hydrocodone Bitart 1 tab Q6HPRN PRN PO 11/10/24 13:45 11/11/24 14:32 1 TAB Vancomycin HCl 0 ml @ 0 mls/hr UD IV 11/10/24 13:45 Morphine Sulfate 2 mg Q6HPRN PRN IV 11/10/24 13:45 11/11/24 02:38 2 MG Vancomycin HCl 100 ml @ 100 mls/hr Q12H IV 11/10/24 18:00 11/11/24 06:13 100 MLS/HR Ivabradine 5 mg DAILY PO 11/11/24 10:00 11/11/24 09:40 5 MG Atorvastatin Calcium 40 mg HS PO 11/10/24 22:00 11/10/24 21:22 40 MG Cefepime HCl 50 ml @ 12.5 mls/hr Q12H IV 11/11/24 14:00 11/11/24 14:32 12.5 MLS/HR Examination General Appearance: Alert, Oriented X3, Cooperative, in mild acute distress HEENT: Atraumatic, PERRLA, EOMI, Mucous membrane moist/pink Respiratory: Breaths sounds are decreased on the left side Cardiovascular: Regular rate, Normal S1, Normal S2, No murmurs, no chest wall tenderness Abdominal: Normal bowel sounds, Soft, No tenderness, No hepatospenomegaly, No masses Extremities: No clubbing, No cyanosis, No edema, Normal pulses, No tenderness/swelling Skin: No rashes, No breakdown, No significant lesion Neuro: Normal gait, Normal speech, Strength at 5/5 X4 ext, Normal tone, Sensation intact, Cranial nerves 3-12 NL, Reflexes 2+ Psych/Mental Status: Mental status NL, Mood NL laboratory and microbiology Laboratory Tests 11/11/24 06:26 Test 11/11/24 06:26 Range/Units Serum Glucose 96 74-106 mg/dL Microbiology Date/Time Source Procedure Growth Status 11/10/24 13:37 Blood Blood Culture - Preliminary NO GROWTH AFTER 24 HOURS OF INCUBATION. Resulted 11/10/24 10:12 Voided Urine Urine Culture - Preliminary Resulted Problem List/Assessment/Plan Problem List/Assessment/Plan This is a 74-year-old female with past medical history of lung cancer, bladder cancer, hypertension, hyperlipidemia, CHF presented to the hospital with right- sided chest pain for 2 weeks. Admitted on 11/09. Acute hypoxic respiratory failure likely due to pneumonia/pleural effusion, on oxygen through nasal cannula Sepsis likely d/t pneumonia Community acquired pneumonia likely d/t Gram+/-/atypical bacteria Right loculated pleural effusion likely due to parapneumonic malignant History of lung cancer diagnosed on January 2024, status post radiation Chest x-ray shows right-sided pleural effusion, with right basilar atelectasis/pneumonia Chest CT scan shows large loculated right pleural fluid collection with atelectasis of most of the right lung CT scan shows distended gallbladder with no calcified gallstone, liver ultrasound is unremarkable Blood and urine culture preliminary result shows no growth Pulmonology is on the board Radiology on the board, for the thoracentesis and possible chest tube Continue gabapentin [place] for the pain Continue azithromycin started on 11/09, vancomycin started on 11/10, cefepime started on 11/11 Breathing treatment q.4 however as needed Continue montelukast Hypertensive heart disease Hypertension Possible acute on chronic systolic heart failure Echocardiogram from 07/02/2024 shows ejection fraction 25-55% BNP is 203 Continue metoprolol succinate 25mg qd Continue Ivabradine 5mg qd Dyslipidemia Continue atorvastatin 40mghs Continue ezetimibe 10mg qd Transaminitis AST and ALT are raised, downtrending Monitoring Possible pancreatitis Lipase is mild raised at [address] scan does not shows signs of pancreatitis Monitoring Hypokalemia Supplemented History of bladder cancer status post chemotherapy Diagnosed on 2020 Infrarenal abdominal aorta aneurysm CT scan shows small saccular 1.1 cm aneurysm along the left side of the infrarenal abdominal aorta Monitoring, follow up on outpatient basis DIET: NPO DVT prophylax: Due to planned thoracentesis and just tips placement, Lovenox not indicated at the moment, SCDs GI prophylaxis: Protonix IV Bowel regimen: Lactulose p.r.n. Code status: Full code, goal of care discussed for more than 25 minutes. DISPOSITION: Continue telemetry Patient's status discussed with patient and nurse Case discussed with Dr. Riley Plan discussed with: Patient, Other (RN) My Orders My Orders Orders - JACOB MO RESDIPATRICIA Procedure Category Date Status Time Mrsa Screen FREDDY 11/11/24 Logged 11:46 Rapid Influenza A&B LAB 11/11/24 Logged 11:46 Covid19 Antigen Raissa LAB 11/11/24 Logged Comprehensive LAB 11/12/24 Verified Metabolic Panel 04:00 Dietary Evaluation Review Comments: 1. Continue diet regime 2. Consider Fish oil BID for high Trig 3. Consider Ensure HP BID if PO intake trends low Expected Outcomes/Goals: 1. Pt will consume >75% of estimated needs within 3-5 days Date of Service: Nov 11, 2024 Billing Provider: MARLENY HAYES MD Common Visit Codes: [id number] INP/OBS CARE(HIGH) Secondary Visit Codes: [id number] CARE PLAN 30 MINUTES JACOB MO RESDIENT Nov 11, 2024 15:51 MARLENY HAYES MD Nov 13, 2024 09:19
[2024-11-12] VITALS (11 sets, daily range): BP systolic 86–104; BP diastolic 38–58; PULSE 89–98; RESP 17–20; TEMP 97.2–98.1; O2SAT 90–99
[2024-11-12 06:59] LABS: Rapid Influenza A Negative (Negative); Rapid Influenza B Negative (Negative)
[2024-11-12 07:00] LABS: COVID19 ANTIGEN SOFIA FIA NEGATIVE (NEGATIVE)
[2024-11-12] MEDS: LIDOCAINE 2%HCL (LOCAL ANESTH.) INJ 10ml MDV ONE (07:30)
[2024-11-12] MEDS: fentaNYL CITRATE 100 MCG/2 ML VL IV ONE (08:15)
[2024-11-12] MEDS: MIDAZOLAM HCL 2MG/2ML 2ml VIAL (1mg/ml) IV ONE (08:15)
[2024-11-12 09:59] LABS: Basophils # (auto) 0.1 10 ^3/uL (0-0.2); Basophils % (auto) 0.3 % (0.0-2.0); Eosinophils # (auto) 0.4 10 ^3/uL (0-0.8); Eosinophils % (auto) 2.3 % (0.0-7.0); Hematocrit 49.8 % (36.0-46.0); Hemoglobin 16.5 g/dL (12.2-16.2); Lymphocytes # (auto) 1.5 10 ^3/uL (0.4-5.4); Lymphocytes % (auto) 8.6 % (10.0-50.0); Mean Corpuscular Hemoglobin 29.4 pg (28.0-32.0); Mean Corpuscular Volume 89.1 fL (80.0-100.0); Monocytes % (auto) 5.9 % (0.0-12.0); Neutrophils # (auto) 14.6 10 ^3/uL (1.6-8.6); Neutrophils % (auto) 82.9 % (37.0-80.0); Platelet Count (auto) 330 10^3/uL (140-450); Red Blood Cells 5.59 10^6/uL (4.0-5.20); Red Cell Distribution Width 15.1 % (11.8-14.3); White Blood Cell 17.6 10^3/uL (4.4-10.8)
--- NOTE | 2024-11-12 10:13 | DVHINCON2 ---
Date of service: Nov 11, 2024 Referring Physician Taran Archer MD Reason for Consultation Acute on chronic hypoxic respiratory failure, COPD, loculated effusion and atelectasis History of Present Illness A 74-year-old woman with past medical history of metastatic lung cancer, asthma, hypertension, hyperlipidemia, anxiety, frequent fainting spells and multiple falls who presented to the ED on 11/09/24 for complaints of acute and chronic pain, unable to manage her pain at home. Patient normally takes oxycodone and tramadol at home to help with her pain management; however per , she has been having severe weakness and continued pain as her last chemotherapy was comp leted, takes extensive amounts of medication d/t uncontrollable pain. Patient was thus admitted for further care d/t intractable pain, and pulmonary consultation is requested for evaluation and management of acute on chronic hypoxic respiratory failure, COPD and loculated effusion. Review of Systems: 14-point review of systems negative unless otherwise noted above. Past Medical History: Lung cancer with Mets throughout, mostly to the bladder. Asthma, hypertension, hyperlipidemia, anxiety, frequent fainting spells and multiple falls. Past Surgical History: None. Medications: Reviewed. Allergies: Garlic Sulfamethoxazole Aspirin Cefadroxil Ciprofloxacin Levofloxacin Penicillins Family History: No family history of premature CAD. No family history of lung disorders. Social History: Nonsmoker. No alcohol or illicit drug use. Family History: Patient reports no known family medical history. Allergies: Coded Allergies: Garlic (Verified Allergy, Severe, hives, 11/10/24) Sulfamethoxazole (Verified Allergy, Mild, itchy, vomits, 09/02/24) Aspirin (Verified Allergy, Unknown, 09/02/24) Cefadroxil (Verified Allergy, Unknown, 09/02/24) Ciprofloxacin (Verified Allergy, Unknown, 09/02/24) Levofloxacin (Verified Allergy, Unknown, 09/02/24) Penicillins (Verified Allergy, Unknown, 09/02/24) Home Meds Reported Medications Niacinamide (Niaspan) 500 Mg Tb, 500 MG PO DAILY 09/05/24 Methylprednisolone (Methylprednisolone) 4 Mg Tab, 4 MG PO DAILY 09/05/24 Albuterol Sulfate (VENTOLIN MDI) 90 Mcg Ih, 90 MCG IN PRN 09/05/24 Cyclobenzaprine Hcl (Cyclobenzaprine Hcl) 10 Mg Tab, 10 MG PO DAILY 09/05/24 Promethazine-Dm (Promethazine Dm 6.25-15 mg/5Ml) 1 Erika Erika, PO PRN, ML 09/05/24 Divalproex Sodium (Divalproex Sodium) 500 Mg Tab, 500 MG PO DAILY 09/05/24 Duloxetine Hcl (Cymbalta) 20 Mg Cap, 30 MG PO DAILY 09/05/24 Doxycycline Hyclate (Doxycycline Hyclate) 100 Mg Cap, 100 MG PO BID 09/05/24 Patients Own Medication (PATIENTS OWN MEDICATION) . PTS OWN MED-OBTAIN FROM PT AND SEND TO RX DRUG:GUAIFEN PSE 600-120 FREQ:DAILY RX# EXP: DATE DISP: TECH: RPH: 09/05/24 Pravastatin Sodium (PRAVACHOL TABLET) 20 Mg Tb, 80 MG PO DAILY 09/05/24 Esomeprazole Magnesium Trihydr (Nexium) 40 Mg Cap, 1 CAP PO DAILY 09/05/24 Carisoprodol (Carisoprodol) 350 Mg Tab, 350 MG PO PRN for MUSCLE SPASM 09/05/24 Oxaprozin (Daypro) 600 Mg Tab, 600 MG PO DAILY, TAB 09/05/24 Zolpidem Tartrate (Ambien) 10 Mg Tab, PO QHSP PRN for FOR INSOMNIA, TAB 09/05/24 Gabapentin (Gabapentin) 300 Mg Cap, 300 MG PO DAILY 09/05/24 Diazepam (VALIUM TABLET) 5 Mg Tb, 5 MG PO DAILY, TAB 09/05/24 Patients Own Medication (PATIENTS OWN MEDICATION) . PTS OWN MED-OBTAIN FROM PT AND SEND TO RX DRUG:VICODIN 5/500 FREQ:BID PRN RX# EXP: DATE DISP: TECH: RPH: 09/05/24 Ezetimibe-Simvastatin (Vytorin) 1 Tab Tab, 1 TAB PO DAILY 09/05/24 Fenofibrate (Tricor) 145 Mg Tab, 145 MG PO DAILY for CHOLESTROL 09/05/24 Ezetimibe (Zetia) 10 Mg Tab, 1 TAB PO DAILY 09/05/24 Pzkpcwwumf-Zeglwsuxxwavp-Cdrfv (Buster 50-325-40 mg) 1 Tab Tab, 1 TAB PO DAILY for migraine, TAB 09/05/24 Pantoprazole Sodium (PANTOPRAZOLE SODIUM) 40 Mg Inj, 40 MG PO DAILY, INJ 09/05/24 Divalproex Sodium (Depakote) 500 Mg Tab, 500 MG PO DAILY for migraine 09/05/24 Ivabradine Hydrochloride (Corlanor) 5 Mg Tab, 5 MG PO DAILY, TAB 09/02/24 Metoclopramide Hcl (Metoclopramide Hcl) 5 Mg Tab, 5 MG PO DAILY for 30 Days, MG 09/02/24 Prochlorperazine Maleate (Compazine) 10 Mg Tb, 0.5 TAB PO DAILY, #30 TAB 3 Refills 09/02/24 Rosuvastatin Calcium (Crestor) 20 Mg Tab, 1 TAB PO DAILY, #30 TAB 5 Refills 09/02/24 Magnesium Bisglycinate (Mag Glycinate) 100 Mg Tab, 250 MG PO DAILY, TAB 09/02/24 Metoprolol Succinate (Toprol Xl) 25 Mg Tab, 1 TAB PO DAILY for HTN, #30 TAB 5 Refills 09/02/24 Vibegron (Gemtesa) 75 Mg Tab, 75 MG PO DAILY for OVERACTIVE BLADDER, TAB 09/02/24 Dicyclomine Hcl (BENTYL CAPSULE) 10 Mg Cp, 10 MG PO DAILY, CAP 05/16/22 Rabeprazole Sodium (Aciphex) 20 Mg Tab, 1 TAB PO DAILY, #90 TAB 1 Refill 01/17/20 Montelukast Sodium (MONTELUKAST SODIUM) 10 Mg Tab, 1 TAB PO DAILY, #30 TAB 5 Refills 01/17/20 Current Medications Current Medications Medications (Trade) Dose Ordered Sig/Yuki Route PRN Reason Start Time Stop Time Status Last Admin Cefepime HCl 50 ml @ 12.5 mls/hr Q12H IV 11/11/24 14:00 11/12/24 01:27 Lactulose 30 ml BID PRN PO FOR CONSTIPATION 11/11/24 20:00 Vital Signs Vital Signs Date Time Temp Pulse Resp B/P (MAP) Pulse Ox O2 Delivery O2 Flow Rate FiO2 11/12/24 10:06 96 20 96 3.0 11/12/24 09:52 91/38 11/12/24 08:47 97.7 97.7 11/12/24 08:00 Nasal Cannula* 32 Physical Exam Gen.: Patient lying in bed in no apparent distress. On supplemental oxygen. Head: Normocephalic, atraumatic. Eyes: EOMI/PERRLA. Ears: Normal hearing. Normal anatomy. Neck/trachea: Trachea midline, supple. Nose: Normal external anatomy. Mouth: Moist mucous membranes. Chest: Decreased air entry bilaterally. No wheezing or rhonchi. Cardiovascular: Positive S1, positive S2. Regular rate and rhythm. Abdomen: Positive bowel sounds in all 4 quadrants. Soft, non-tender, non- distended. : Deferred. Rectal: Deferred. Skin: Warm, dry. Intact. Extremities: 2+ radial pulses bilaterally. No lower extremity edema. Neuro: Awake, alert, oriented x3. No gross motor or sensory deficits. Cranial nerves II through XII intact. Gait not assessed. Labs/Diagnostic Data Labs Test 11/12/24 09:41 11/12/24 05:30 11/11/24 14:25 11/11/24 12:50 Range/Units Influenza Type A Antigen Negative Negative Influenza Type B Antigen Negative Negative SARS-CoV-2 Antigen (Rapid) Negative NEGATIVE Prothrombin Time 15.0 H 9.3-11.8 sec Prothrombin Time INR 1.45 H 0.9-1.15 Activated Partial Thromboplast Time 26.1 24.5-34.5 SEC Lactic Acid Level 1.7 0.4-2.0 mmol/L Test 11/11/24 06:26 11/10/24 10:12 11/10/24 09:40 11/09/24 16:34 Range/Units Eosinophils (%) (Auto) 3.3 0.0-7.0 % Eosinophils # (Auto) 0.6 0-0.8 10 ^3/uL Basophils # (Auto) 0 0-0.2 10 ^3/uL Nucleated Red Blood Cells 0.0 % Urine Color Light-yellow Yellow Urine Clarity Clear Clear Urine pH 5.0 5.0-9.0 Urine Specific [place] 1.012 1.001-1.035 Urine Protein Negative Negative Urine Ketones Negative Negative Urine Blood 2+ H Negative /uL Urine Nitrite Negative Negative Urine Bilirubin Negative Negative Urine Urobilinogen Normal Negative mg/dL Urine Leukocyte Esterase Negative Negative /uL Urine RBC 34 0 - 4 /hpf Urine WBC 2 0 - 5 /hpf Urine Squamous Epithelial Cells Few <5 /hpf Urine Bacteria None seen None Seen /hpf Urine Hyaline Casts Few 0 - 2 /lpf Urine Glucose Normal Normal mg/dL Triglycerides Level 272 H < 150 mg/dL Cholesterol Level 199 < 200 mg/dL LDL Cholesterol 129 H < 100 mg/dL HDL Cholesterol 37 L 40-59 mg/dL Lipase 100 H 12-53 U/L Troponin I High Sensitivity 14 </=34 ng/L Test 11/09/24 13:05 Range/Units Magnesium Level 2.1 1.6-2.6 mg/dL B-Type Natriuretic Peptide 203.87 0-100 pg/mL Microbiology Date/Time Source Procedure Growth Status 11/10/24 13:37 Blood Blood Culture - Preliminary NO GROWTH AFTER 24 HOURS OF INCUBATION. Resulted 11/10/24 10:12 Voided Urine Urine Culture - Final Complete Assessment Impression: Acute on chronic hypoxic respiratory failure Chronic obstructive pulmonary disease Loculated pleural effusion, right Atelectasis Metastatic cancer Malignant effusion Plan: Supplemental oxygen 3 LPM NC Titrate to keep O2 sats above 92%. Taper O2 as tolerated. CXR showing right loculated pleural effusion. IR consult for right chest tube placement. Monitor PT/INR. Continue bronchodilators. Antibiotics Incentive spirometry Monitor renal function. Monitor electrolytes. Supplement as necessary. Monitor ins and outs. GI prophylaxis - pantoprazole DVT prophylaxis. Prognosis: Poor given patient's multiple co-morbidities. Rest of plan per hospitalist and other consultants. Thank you Dr. Taran Archer MD, for allowing me to participate in this patient's care. Further recommendations will depend on the patient's clinical course. Please do not hesitate to contact me if you have any questions or concerns. This medical document was created using an electronic medical record system with [employer] dictation system. Although these documentations are being carefully reviewed, there may still be some phonetic and typographical changes. The errors are purely typographical, due to imperfection on the software program, and do not reflect any compromise in the patient's medical care. Plan discussed with: Patient, Other (VINOD Kemp/MD Archer) CHRISTIANO TAPIA MD Nov 12, 2024 10:13
--- NOTE | 2024-11-12 10:18 | DVH ---
CT CHEST WITHOUT CONTRAST, HISTORY: CHEST TUBE PLACEMENT for SOB with loculated pleural effusion. COMPARISON: CERVICAL WITHOUT CONTRAST on DOS: 06/09/22, HEAD WITHOUT CONTRAST on DOS: 06/09/22 PROCEDURE: Informed consent was obtained. The patient was placed supine, right side up on the CT scan ner. IV sedation was administered. The fluid collection was localized under CT scan and US and the ov erlying skin prepped with chlorhexidine which was allowed to dry and draped in the usual sterile fash ion and infiltrated with Xylocaine. Time out was performed. With US/CT guidance, an 8 Fr pigtail cath eter was needle trochar into the right pleural effusion. Aspiration of pleural fluid was obtained. A post procedure CT scan was performed. About 1L of pleural fluid was aspirated. The drain was sutured at the skin surface and connected to a pleurEvac container. No immediate complication was noted. Post procedure CT imaging through the drain site was obtained. DLP =890 mGy-cm. SEDATION: Dr. Chemo Valverde was personally responsible for the administration of moderate sedation during the procedure performed, including the use of an independent trained observer who had no other duties during the procedure. The drugs utilized were IV fentanyl and versed (see nursing log for details). The total time of supervision by the attending physician was approximately 30 minutes. FINDINGS: Limited CT scan of through the chest demonstrates a large loculated sized fluid collection in the right pleura. Collection appears complex. Post procedure scan shows pigtail drain within the c ollection , which is decreased in size. No immediate complication was identified. IMPRESSION: US/CT guided placement of 8 [place] pigtail drain into a right loculated pleural effusion. About 1 L f luid was removed. PLAN: Please connect to - 20 mm Hg low wall suction. Please obtain daily chest X ray.
[2024-11-12 10:25] LABS: Alanine Aminotransferase 24 U/L (7-40); Anion Gap 7 (5-15); Aspartate Aminotransferase 28 U/L (13-40); BUN/Creatinine Ratio 30.4 (10.0-20.0); Blood Urea Nitrogen 21 mg/dL (9-23); Calcium 9.2 mg/dL (8.7-10.4); Carbon Dioxide 29 mmol/L (20-31); Chloride 100 mmol/L (98-107); Glucose 101 mg/dL (74-106); Potassium 4.2 mmol/L (3.5-5.1); Sodium 136 mmol/L (136-145)
[2024-11-12 10:26] LABS: Bilirubin, Total 0.7 mg/dL (0.2-1.0)
[2024-11-12 10:27] LABS: Alkaline Phosphatase 179 U/L (46-116); Total Protein 5.6 g/dL (5.7-8.2)
[2024-11-12 13:38] LABS: Body Fluid Polymorphonuclear 5 % (0-25); Body Fluid Red Blood Cells 0 CUMM (0-2000); Body Fluid White Blood Cells 6751 CUMM (0-200)
--- NOTE | 2024-11-12 15:01 | DVHPNRES ---
Progress Note Date Seen: Nov 12, 2024 Resident Creating Document: JACOB MO RESDIENT Medical Necessity Reason Pt with a Central, PICC or Fol: No Subjective Review of Systems Patient is a 74 year old female with a past medical history as described below came to the ED with the chief complaint of Right sided chest pain for the last 2 weeks. patient reports that she has been diagnosed with Lung cancer in january 2024 and has got radiation treatment , bladder CA diagnosed in 2020 with chemotherapy finished in november 2023. she follows in the outpatient clinic for pulmonary followup. patient reports to start having right sided chest pain since october 23 and it has gradually worsened and now she has constant severe pain which she was not able to tolerate even while she was taking tramadol ,exacerbated with deep breath and movement, chills but the patient denies fever and came to the hospital for further evaluation. Patient denied recent flu like illness or cough. Past medical history: Lung CA, Bladder CA, HTN, HLD, ?CHF, overactive bladder, migraine Past surgical history: coronary angiogram social history: denies current smoking, alcohol, drug use Patient seen and examined at the bedside. Patient is feeling shortness of bed and complained of mild chest pain. Patient reports: No new complaints Changes from previous H/P or p: No Changes Objective vital signs Vital Sign Date Time Temp Pulse Resp B/P (MAP) Pulse Ox O2 Delivery O2 Flow Rate FiO2 11/12/24 13:00 97.4 96 17 86/56 (66) 90 97.4 11/12/24 10:06 3.0 11/12/24 09:21 Nasal Cannula 11/12/24 09:21 32 Total Intake and Output 11/11/24 11/11/24 11/12/24 15:00 23:00 07:00 Intake Total 150 ml 880 ml 750 ml Balance 150 ml 880 ml 750 ml medications Current Medications Medications Dose Ordered Sig/Yuki Route Start Time Stop Time Status Last Admin Dose Admin EZETIMIBE 10 mg DAILY PO 11/10/24 10:00 11/12/24 09:49 10 MG Gabapentin 300 mg DAILY PO 11/10/24 10:00 11/12/24 09:49 300 MG Montelukast Sodium 10 mg HS PO 11/09/24 22:00 11/11/24 22:01 10 MG Pantoprazole Sodium 40 mg DAILY IV 11/10/24 10:00 11/12/24 09:49 40 MG Pravastatin Sodium 80 mg HS PO 11/09/24 22:00 Cancel Metoprolol Succinate 25 mg DAILY PO 11/10/24 10:00 11/11/24 09:41 25 MG Azithromycin 500 mg DAILY PO 11/09/24 18:53 11/12/24 09:49 500 MG Albuterol 2.5 mg Q4HPRN PRN NEB 11/09/24 16:15 Ipratropium [place] 0.5 mg Q4HPRN PRN NEB 11/09/24 16:15 Nitroglycerin 0.4 mg Q5MINP PRN SL 11/09/24 19:15 Tramadol HCl 50 mg BID PO 11/10/24 22:00 11/12/24 09:49 50 MG Acetaminophen/ Hydrocodone Bitart 1 tab Q6HPRN PRN PO 11/10/24 13:45 11/12/24 09:51 1 TAB Vancomycin HCl 0 ml @ 0 mls/hr UD IV 11/10/24 13:45 Morphine Sulfate 2 mg Q6HPRN PRN IV 11/10/24 13:45 11/12/24 01:29 2 MG Vancomycin HCl 100 ml @ 100 mls/hr Q12H IV 11/10/24 18:00 11/12/24 06:14 100 MLS/HR Ivabradine 5 mg DAILY PO 11/11/24 10:00 11/12/24 09:49 5 MG Atorvastatin Calcium 40 mg HS PO 11/10/24 22:00 11/11/24 22:01 40 MG Cefepime HCl 50 ml @ 12.5 mls/hr Q12H IV 11/11/24 14:00 11/12/24 13:39 12.5 MLS/HR Lactulose 30 ml BID PRN PO 11/11/24 20:00 Examination General Appearance: Alert, Oriented X3, Cooperative, in mild acute distress HEENT: Atraumatic, PERRLA, EOMI, Mucous membrane moist/pink Respiratory: Breaths sounds are decreased on the Rt side Cardiovascular: Regular rate, Normal S1, Normal S2, No murmurs, no chest wall tenderness Abdominal: Normal bowel sounds, Soft, No tenderness, No hepatospenomegaly, No masses Extremities: No clubbing, No cyanosis, No edema, Normal pulses, No tenderness/swelling Skin: No rashes, No breakdown, No significant lesion Neuro: Normal gait, Normal speech, Strength at 5/5 X4 ext, Normal tone, Sensation intact, Cranial nerves 3-12 NL, Reflexes 2+ Psych/Mental Status: Mental status NL, Mood NL laboratory and microbiology Laboratory Tests 11/12/24 09:41 Test 11/12/24 09:41 Range/Units Serum Glucose 101 74-106 mg/dL Microbiology Date/Time Source Procedure Growth Status 11/10/24 13:37 Blood Blood Culture - Preliminary NO GROWTH AFTER 48 HOURS OF INCUBATION. Resulted 11/10/24 10:12 Voided Urine Urine Culture - Final Complete Labs and/or images reviewed: Labs reviewed by me, Image(s) reviewed by me Problem List/Assessment/Plan Problem List/Assessment/Plan This is a 74-year-old female with past medical history of lung cancer, bladder cancer, hypertension, hyperlipidemia, CHF presented to the hospital with right- sided chest pain for 2 weeks. Admitted on 11/09. Acute hypoxic respiratory failure likely due to pneumonia/pleural effusion, on oxygen through nasal cannula Sepsis likely d/t pneumonia Community acquired pneumonia likely d/t Gram+/-/atypical bacteria Right loculated pleural effusion likely due to parapneumonic malignant History of lung cancer diagnosed on January 2024, status post radiation Chest x-ray shows right-sided pleural effusion, with right basilar atelectasis/pneumonia Chest CT scan shows large loculated right pleural fluid collection with atelectasis of most of the right lung CT scan shows distended gallbladder with no calcified gallstone, liver ultrasound is unremarkable Blood and urine culture preliminary result shows no growth Pulmonology is on the board Radiology on the board, put a chest tube on the right chest, drain 900 mL, fluid sample sent for the analysis, culture and cytology Continue gabapentin [place] for the pain Continue azithromycin started on 11/09, vancomycin started on 11/10, cefepime started on 11/11 Breathing treatment q.4 however as needed Continue montelukast Hypertensive heart disease Hypertension Possible acute on chronic systolic heart failure Echocardiogram from 07/02/2024 shows ejection fraction 35-45% BNP is 203 Continue metoprolol succinate 25mg qd Continue Ivabradine 5mg qd Dyslipidemia Continue atorvastatin 40mghs Continue ezetimibe 10mg qd Transaminitis AST and ALT are raised, downtrending Monitoring Possible pancreatitis Lipase is mild raised at [address] scan does not shows signs of pancreatitis Monitoring Hypokalemia Supplemented History of bladder cancer status post chemotherapy Diagnosed on 2020 Infrarenal abdominal aorta aneurysm CT scan shows small saccular 1.1 cm aneurysm along the left side of the infrarenal abdominal aorta Monitoring, follow up on outpatient basis DIET: Full liquid the DVT prophylax: SCDs GI prophylaxis: Protonix IV Bowel regimen: Lactulose p.r.n. Code status: Full code, goal of care discussed for more than 25 minutes. DISPOSITION: Med surg Patient's status discussed with patient and nurse Case discussed with Dr. Avendano Plan discussed with: Patient, Other (RN) My Orders My Orders Orders - JACOB MO RESDIPATRICIA Procedure Category Date Status Time Lactulose Oral PHA 11/11/24 In Process 20:[address] 11/12/24 Resulted Needle Placeme 07:[address] 11/12/24 Resulted 07:29 Chest Ultrasound US 11/12/24 Taken 08:04 Body Fluid Culture W/ FREDDY 11/12/24 In Process GS 10:28 Us Guidance For US 11/12/24 Taken Needle Placeme 12:23 Dietary Evaluation Review Comments: 1. Continue diet regime 2. Consider Fish oil BID for high Trig 3. Consider Ensure HP BID if PO intake trends low Expected Outcomes/Goals: 1. Pt will consume >75% of estimated needs within 3-5 days Date of Service: Nov 12, 2024 Billing Provider: MINA AVENDANO MD Common Visit Codes: [id number] INP/OBS CARE(HIGH) JACOB MO RESDIENT Nov 12, 2024 15:01 MINA AVENDANO MD Nov 13, 2024 07:00
[2024-11-12 18:35] LABS: Basophils % (manual) 0 (0.0-2.0); Blast Cells 0; Metamyelocytes % 0; Myelocytes % 0; Promyelocytes % 0; Reactive Lymphocytes 0
--- NOTE | 2024-11-12 20:07 | DVH ---
US US GUIDANCE FOR NEEDLE PLACEMT HISTORY: CHEST TUBE PLACEMENT for SOB with loculated pleural effusion. COMPARISON: CERVICAL WITHOUT CONTRAST on DOS: 06/09/22, HEAD WITHOUT CONTRAST on DOS: 06/09/22 PROCEDURE: Informed consent was obtained. The patient was placed supine, right side up on the CT scan ner. IV sedation was administered. The fluid collection was localized under CT scan and US and the ov erlying skin prepped with chlorhexidine which was allowed to dry and draped in the usual sterile fash ion and infiltrated with Xylocaine. Time out was performed. With US/CT guidance, an 8 Fr pigtail cath eter was needle trochar into the right pleural effusion. Aspiration of pleural fluid was obtained. A post procedure CT scan was performed. About 1L of pleural fluid was aspirated. The drain was sutured at the skin surface and connected to a pleurEvac container. No immediate complication was noted. Post procedure CT imaging through the drain site was obtained. DLP =890 mGy-cm. SEDATION: Dr. Chemo Valverde was personally responsible for the administration of moderate sedation during the procedure performed, including the use of an independent trained observer who had no other duties during the procedure. The drugs utilized were IV fentanyl and versed (see nursing log for details). The total time of supervision by the attending physician was approximately 30 minutes. FINDINGS: Limited CT scan of through the chest demonstrates a large loculated sized fluid collection in the right pleura. Collection appears complex. Post procedure scan shows pigtail drain within the c ollection , which is decreased in size. No immediate complication was identified. IMPRESSION: US/CT guided placement of 8 [place] pigtail drain into a right loculated pleural effusion. About 1 l f luid was removed. PLAN: Please connect to - 20 mm hg low wall suction. Please obtain daily chest x ray.
[2024-11-12 20:34] LABS: Band Neutrophils % (manual) 4; Eosinophils % (manual) 3 (0-7); Lymphocytes % (manual) 7 (10.0-50.0); Monocytes % (manual) 3 (0-12); Platelet Count (auto) 330 10^3/uL (140-450); Platelet Estimate Adequate
[2024-11-12 20:35] LABS: Anisocytosis Slight; Large Platelets FEW
[2024-11-12 20:36] LABS: Tear Drop Cells FEW
--- NOTE | 2024-11-12 22:24 | DVHPN2 ---
Progress Note - Dictate Date Seen: Nov 12, 2024 Medical Necessity Reason Pt with a Central, PICC or Fol: No Subjective Patient seen and examined at bedside. Remains on supplemental oxygen Overnight events reviewed. vital signs Vital Sign Date Time Temp Pulse Resp B/P (MAP) Pulse Ox O2 Delivery O2 Flow Rate FiO2 11/12/24 21:19 98 18 104/41 11/12/24 18:45 94 Nasal Cannula* 2 28 11/12/24 17:00 97.2 97.2 Total Intake and Output 11/11/24 11/11/24 11/12/24 15:00 23:00 07:00 Intake Total 150 ml 880 ml 750 ml Balance 150 ml 880 ml 750 ml medications Current Medications Medications Dose Ordered Sig/Yuki Route Start Time Stop Time Status Last Admin Dose Admin EZETIMIBE 10 mg DAILY PO 11/10/24 10:00 11/12/24 09:49 10 MG Gabapentin 300 mg DAILY PO 11/10/24 10:00 11/12/24 09:49 300 MG Montelukast Sodium 10 mg HS PO 11/09/24 22:00 11/12/24 21:42 10 MG Pantoprazole Sodium 40 mg DAILY IV 11/10/24 10:00 11/12/24 09:49 40 MG Pravastatin Sodium 80 mg HS PO 11/09/24 22:00 Cancel Metoprolol Succinate 25 mg DAILY PO 11/10/24 10:00 11/11/24 09:41 25 MG Azithromycin 500 mg DAILY PO 11/09/24 18:53 11/12/24 09:49 500 MG Albuterol 2.5 mg Q4HPRN PRN NEB 11/09/24 16:15 Ipratropium D [place] 0.5 mg Q4HPRN PRN NEB 11/09/24 16:15 Nitroglycerin 0.4 mg Q5MINP PRN SL 11/09/24 19:15 Tramadol HCl 50 mg BID PO 11/10/24 22:00 11/12/24 21:42 50 MG Acetaminophen/ Hydrocodone Bitart 1 tab Q6HPRN PRN PO 11/10/24 13:45 11/12/24 17:05 1 TAB Vancomycin HCl 0 ml @ 0 mls/hr UD IV 11/10/24 13:45 Morphine Sulfate 2 mg Q6HPRN PRN IV 11/10/24 13:45 11/12/24 20:49 2 MG Vancomycin HCl 100 ml @ 100 mls/hr Q12H IV 11/10/24 18:00 11/12/24 20:06 100 MLS/HR Ivabradine 5 mg DAILY PO 11/11/24 10:00 11/12/24 09:49 5 MG Atorvastatin Calcium 40 mg HS PO 11/10/24 22:00 11/12/24 21:42 40 MG Cefepime HCl 50 ml @ 12.5 mls/hr Q12H IV 11/11/24 14:00 11/12/24 13:39 12.5 MLS/HR Lactulose 30 ml BID PRN PO 11/11/24 20:00 objective Gen.: Patient lying in bed in no apparent distress. On supplemental oxygen. Head: Normocephalic, atraumatic. Eyes: EOMI/PERRLA. Ears: Normal hearing. Normal anatomy. Neck/trachea: Trachea midline, supple. Nose: Normal external anatomy. Mouth: Moist mucous membranes. Chest: Decreased air entry bilaterally. No wheezing or rhonchi. Cardiovascular: Positive S1, positive S2. Regular rate and rhythm. Abdomen: Positive bowel sounds in all 4 quadrants. Soft, non-tender, non- distended. : Deferred. Rectal: Deferred. Skin: Warm, dry. Intact. Extremities: 2+ radial pulses bilaterally. No lower extremity edema. Neuro: Awake, alert, oriented x3. No gross motor or sensory deficits. Cranial nerves II through XII intact. Gait not assessed. laboratory and microbiology Laboratory Tests 11/12/24 18:27 11/12/24 09:41 Test 11/12/24 09:41 Range/Units Serum Glucose 101 74-106 mg/dL Assessment/Plan Impression: Acute on chronic hypoxic respiratory failure Chronic obstructive pulmonary disease Loculated pleural effusion, right Atelectasis Events: Remains on supplemental oxygen, 3 LPM NC Taper O2 as tolerated S/p chest tube placement Yellow fluid draining - continue to monitor chest tube output. LWS suction continuous. Follow up cultures and cytology. Incentive spirometry Pain control Avoid oversedation Labs and imaging reviewed. Rest of plan as noted below. Plan: Supplemental oxygen Titrate to keep O2 sats above 92%. CXR showing right loculated pleural effusion. S/p right chest tube placement by IR. Monitor PT/INR. Antibiotics Incentive spirometry Monitor renal function. Monitor electrolytes. Supplement as necessary. Monitor ins and outs. GI prophylaxis - pantoprazole DVT prophylaxis. Prognosis: Poor given patient's multiple co-morbidities. Rest of plan per hospitalist and other consultants. Thank you Dr. Taran Archer MD, for allowing me to participate in this patient's care. Further recommendations will depend on the patient's clinical course. Please do not hesitate to contact me if you have any questions or concerns. This medical document was created using an electronic medical record system with [employer] dictation system. Although these documentations are being carefully reviewed, there may still be some phonetic and typographical changes. The errors are purely typographical, due to imperfection on the software program, and do not reflect any compromise in the patient's medical care. Dietary Evaluation Review Comments: 1. Continue diet regime 2. Consider Fish oil BID for high Trig 3. Consider Ensure HP BID if PO intake trends low Expected Outcomes/Goals: 1. Pt will consume >75% of estimated needs within 3-5 days Plan discussed with: Patient, Other (VINOD Kemp) CHRISTIANO TAPIA MD Nov 12, 2024 22:24
[2024-11-13] VITALS (11 sets, daily range): BP systolic 92–123; BP diastolic 44–60; PULSE 54–97; RESP 16–20; TEMP 97.4–98.9; O2SAT 94–98
[2024-11-13 10:40] LABS: Basophils # (auto) 0.1 10 ^3/uL (0-0.2); Basophils % (auto) 0.3 % (0.0-2.0); Eosinophils # (auto) 0.4 10 ^3/uL (0-0.8); Eosinophils % (auto) 1.8 % (0.0-7.0); Hemoglobin 16.1 g/dL (12.2-16.2); Lymphocytes # (auto) 1.3 10 ^3/uL (0.4-5.4); Lymphocytes % (auto) 6.7 % (10.0-50.0); Mean Corpuscular Hemoglobin 29.6 pg (28.0-32.0); Mean Corpuscular Hgb Conc. 33.5 g/dL (32.0-36.0); Mean Corpuscular Volume 88.5 fL (80.0-100.0); Monocytes # (auto) 1.6 10 ^3/uL (0-1.3); Monocytes % (auto) 8.3 % (0.0-12.0); Neutrophils # (auto) 16.5 10 ^3/uL (1.6-8.6); Neutrophils % (auto) 82.9 % (37.0-80.0); Nucleated Red Blood Cells % 0.1 %; Platelet Count (auto) 299 10^3/uL (140-450); Red Blood Cells 5.43 10^6/uL (4.0-5.20); Red Cell Distribution Width 15.1 % (11.8-14.3); White Blood Cell 19.9 10^3/uL (4.4-10.8)
[2024-11-13 10:57] LABS: Alanine Aminotransferase 20 U/L (7-40); Anion Gap 4 (5-15); Aspartate Aminotransferase 31 U/L (13-40); BUN/Creatinine Ratio 26.6 (10.0-20.0); Blood Urea Nitrogen 17 mg/dL (9-23); Calcium 9.1 mg/dL (8.7-10.4); Carbon Dioxide 28 mmol/L (20-31); Chloride 101 mmol/L (98-107); Potassium 3.9 mmol/L (3.5-5.1)
[2024-11-13 10:58] LABS: Bilirubin, Total 0.7 mg/dL (0.2-1.0)
[2024-11-13 11:07] LABS: Alkaline Phosphatase 229 U/L (46-116); Glucose 127 mg/dL (74-106); Sodium 133 mmol/L (136-145); Total Protein 5.6 g/dL (5.7-8.2)
[2024-11-13] MEDS: Ensure HIGH Protein Chocolate 8oz Bottle PO SCH (12:00)
[2024-11-13 12:06] LABS: Protein, Body Fluid 3.8 g/dL (.)
[2024-11-13] MEDS ORDERED: ENOXAPARIN SOD 40 MG/0.4 ML SYRINGE SC ONE (15:30)
--- NOTE | 2024-11-13 15:31 | DVHPNRES ---
Progress Note Date Seen: Nov 13, 2024 Resident Creating Document: JACOB MO RESDIENT Medical Necessity Reason Pt with a Central, PICC or Fol: No Subjective Review of Systems Patient is a 74 year old female with a past medical history as described below came to the ED with the chief complaint of Right sided chest pain for the last 2 weeks. patient reports that she has been diagnosed with Lung cancer in january 2024 and has got radiation treatment , bladder CA diagnosed in 2020 with chemotherapy finished in november 2023. she follows in the outpatient clinic for pulmonary followup. patient reports to start having right sided chest pain since october 23 and it has gradually worsened and now she has constant severe pain which she was not able to tolerate even while she was taking tramadol ,exacerbated with deep breath and movement, chills but the patient denies fever and came to the hospital for further evaluation. Patient denied recent flu like illness or cough. Past medical history: Lung CA, Bladder CA, HTN, HLD, ?CHF, overactive bladder, migraine Past surgical history: coronary angiogram social history: denies current smoking, alcohol, drug use Patient seen and examined at the bedside. Patient is feeling shortness of bed and complained of mild chest pain. Patient reports: No new complaints, Feels better Changes from previous H/P or p: No Changes Objective vital signs Vital Sign Date Time Temp Pulse Resp B/P (MAP) Pulse Ox O2 Delivery O2 Flow Rate FiO2 11/13/24 13:09 97.4 67 17 116/44 (68) 94 97.4 11/13/24 08:58 Nasal Cannula* 3 32 Total Intake and Output 11/12/24 11/12/24 11/13/24 15:00 23:00 07:00 Intake Total 100 ml 1100 ml 950 ml Balance 100 ml 1100 ml 950 ml medications Current Medications Medications Dose Ordered Sig/Yuki Route Start Time Stop Time Status Last Admin Dose Admin EZETIMIBE 10 mg DAILY PO 11/10/24 10:00 11/13/24 09:13 10 MG Gabapentin 300 mg DAILY PO 11/10/24 10:00 11/13/24 09:13 300 MG Montelukast Sodium 10 mg HS PO 11/09/24 22:00 11/12/24 21:42 10 MG Pantoprazole Sodium 40 mg DAILY IV 11/10/24 10:00 11/13/24 09:12 40 MG Pravastatin Sodium 80 mg HS PO 11/09/24 22:00 Cancel Metoprolol Succinate 25 mg DAILY PO 11/10/24 10:00 11/13/24 09:14 25 MG Azithromycin 500 mg DAILY PO 11/09/24 18:53 11/13/24 09:13 500 MG Albuterol 2.5 mg Q4HPRN PRN NEB 11/09/24 16:15 Ipratropium [place] 0.5 mg Q4HPRN PRN NEB 11/09/24 16:15 Nitroglycerin 0.4 mg Q5MINP PRN SL 11/09/24 19:15 Tramadol HCl 50 mg BID PO 11/10/24 22:00 11/13/24 09:13 50 MG Acetaminophen/ Hydrocodone Bitart 1 tab Q6HPRN PRN PO 11/10/24 13:45 11/13/24 13:40 1 TAB Vancomycin HCl 0 ml @ 0 mls/hr UD IV 11/10/24 13:45 Morphine Sulfate 2 mg Q6HPRN PRN IV 11/10/24 13:45 11/13/24 06:09 2 MG Vancomycin HCl 100 ml @ 100 mls/hr Q12H IV 11/10/24 18:00 11/13/24 06:22 100 MLS/HR Ivabradine 5 mg DAILY PO 11/11/24 10:00 11/12/24 09:49 5 MG Atorvastatin Calcium 40 mg HS PO 11/10/24 22:00 11/12/24 21:42 40 MG Cefepime HCl 50 ml @ 12.5 mls/hr Q12H IV 11/11/24 14:00 11/13/24 13:40 12.5 MLS/HR Lactulose 30 ml BID PRN PO 11/11/24 20:00 Enteral Nutritional Formula 240 ml TIDWM PO 11/13/24 12:00 11/13/24 12:00 240 ML Examination General Appearance: Alert, Oriented X3, Cooperative, in mild acute distress HEENT: Atraumatic, PERRLA, EOMI, Mucous membrane moist/pink Respiratory: Breaths sounds are decreased on the Rt side Cardiovascular: Regular rate, Normal S1, Normal S2, No murmurs, no chest wall tenderness Abdominal: Normal bowel sounds, Soft, No tenderness, No hepatospenomegaly, No masses Extremities: No clubbing, No cyanosis, No edema, Normal pulses, No tenderness/swelling Skin: No rashes, No breakdown, No significant lesion Neuro: Normal gait, Normal speech, Strength at 5/5 X4 ext, Normal tone, Sensation intact, Cranial nerves 3-12 NL, Reflexes 2+ Psych/Mental Status: Mental status NL, Mood NL laboratory and microbiology Laboratory Tests 11/13/24 10:23 Test 11/13/24 10:23 Range/Units Serum Glucose 127 H 74-106 mg/dL Microbiology Date/Time Source Procedure Growth Status 11/12/24 16:28 Nose MRSA Screen - Final Complete 11/12/24 10:28 Pleural Fluid Gram Stain - Final Resulted 11/12/24 10:28 Pleural Fluid Body Fluid Culture - Preliminary Resulted 11/10/24 13:37 Blood Blood Culture - Preliminary NO GROWTH AFTER 72 HOURS OF INCUBATION. Resulted 11/10/24 10:12 Voided Urine Urine Culture - Final Complete Labs and/or images reviewed: Labs reviewed by me, Image(s) reviewed by me Problem List/Assessment/Plan Problem List/Assessment/Plan This is a 74-year-old female with past medical history of lung cancer, bladder cancer, hypertension, hyperlipidemia, CHF presented to the hospital with right- sided chest pain for 2 weeks. Admitted on 11/09. Acute hypoxic respiratory failure likely due to pneumonia/pleural effusion, on oxygen through nasal cannula Sepsis likely d/t pneumonia Community acquired pneumonia likely d/t Gram+/-/atypical bacteria Right loculated pleural effusion likely due to parapneumonic malignant History of lung cancer diagnosed on January 2024, status post radiation Chest x-ray shows right-sided pleural effusion, with right basilar atelectasis/pneumonia Chest CT scan shows large loculated right pleural fluid collection with atelectasis of most of the right lung CT scan shows distended gallbladder with no calcified gallstone, liver ultrasound is unremarkable Blood and urine culture preliminary result shows no growth MRSA nares negative Pulmonology is on the board Radiology on the board, put a chest tube on the right chest, drain 900 mL Pleural fluid culture shows no growth, g stain negative Pleural fluid shows raised WBC at 6751, light criteria including pleural fluid protein/serum protein is 0.67 (meet criteria for exudative pleural effusion), mildly decreased pleural fluid glucose Continue gabapentin [place] for the pain Continue azithromycin started on 11/09, vancomycin started on 11/10, cefepime started on 11/11 Breathing treatment q.4 however as needed Continue montelukast WBC raised, up trending Hypertensive heart disease Hypertension Possible acute on chronic systolic heart failure Echocardiogram from 07/02/2024 shows ejection fraction 35-45% BNP is 203 Continue metoprolol succinate 25mg qd Continue Ivabradine 5mg qd Dyslipidemia Continue atorvastatin 40mghs Continue ezetimibe 10mg qd Transaminitis AST and ALT are raised, downtrending Monitoring Possible pancreatitis Lipase is mild raised at [address] scan does not shows signs of pancreatitis Monitoring Mild hyponatremia Hypokalemia Supplemented History of bladder cancer status post chemotherapy Diagnosed on 2020 Infrarenal abdominal aorta aneurysm CT scan shows small saccular 1.1 cm aneurysm along the left side of the infrarenal abdominal aorta Monitoring, follow up on outpatient basis DIET: Full liquid diet, with nutritional suppplement of ensure DVT prophylax: Lovenox GI prophylaxis: Protonix IV Bowel regimen: Lactulose p.r.n. Code status: Full code DISPOSITION: Med surg Patient's status discussed with patient and the son on the phone. Case discussed with Dr. Riley Plan discussed with: Patient, Son, Other (RN) My Orders My Orders Orders - JACOB MO RESDIENT Procedure Category Date Status Time Transfer Orders XFER 11/12/24 Transmitted 16:04 Discontinue Tele CINDY 11/12/24 In Process 16:04 Dietary Evaluation Review Comments: 1. Continue diet regime 2. Consider Fish oil BID for high Trig 3. Consider Ensure HP BID if PO intake trends low Expected Outcomes/Goals: 1. Pt will consume >75% of estimated needs within 3-5 days Date of Service: Nov 13, 2024 Billing Provider: MARLENY HAYES MD Common Visit Codes: [id number] INP/OBS CARE(HIGH) JACOB MO RESDIENT Nov 13, 2024 15:31 MARLENY HAYES MD Nov 14, 2024 09:42
[2024-11-13] MEDS: IPRATROPIUM BROM 0.5 MG/2.5ML INH SOL NEB PRN (15:45)
[2024-11-13] MEDS: ALBUTEROL SULF 2.5 MG/0.5ML(0.5%) NEB SOLN NEB PRN (15:45)
[2024-11-13] MEDS: ENOXAPARIN SOD 30 MG/0.3 ML SYRINGE SC SCH (16:41)
--- NOTE | 2024-11-13 17:43 | DVH ---
EXAM: XY CHEST XRAY 1 VIEW TECHNIQUE: Single frontal chest radiograph CLINICAL HISTORY: Pleural effusion COMPARISON: XY CHEST PORTABLE on DOS: 11/09/24 Findings/Impression: Frontal chest radiograph demonstrates no acute osseous or superficial soft tissue abnormalities. Right chest wall port terminates near the superior cavoatrial junction. The trachea is midline. The cardiac silhouette and mediastinum are within normal limits. Large right plenral effusion with compressive atelectasis, worse from prior. A superimposed infectiou s process is not excluded. No pneumothorax.
[2024-11-13] MEDS: CEFEPIME 2GM/50ML NS 50 ML IV SCH (21:27)
--- NOTE | 2024-11-13 22:38 | DVHPN2 ---
Progress Note - Dictate Date Seen: Nov 13, 2024 Medical Necessity Reason Pt with a Central, PICC or Fol: No Subjective Patient seen and examined at bedside. Remains on supplemental oxygen Overnight events reviewed. vital signs Vital Sign Date Time Temp Pulse Resp B/P (MAP) Pulse Ox O2 Delivery O2 Flow Rate FiO2 11/13/24 22:04 94 Nasal Cannula 3.0 11/13/24 22:04 32 11/13/24 16:47 98.9 86 18 101/59 (73) 98.9 Total Intake and Output 11/12/24 11/12/24 11/13/24 15:00 23:00 07:00 Intake Total 100 ml 1100 ml 950 ml Balance 100 ml 1100 ml 950 ml medications Current Medications Medications Dose Ordered Sig/Yuki Route Start Time Stop Time Status Last Admin Dose Admin EZETIMIBE 10 mg DAILY PO 11/10/24 10:00 11/13/24 09:13 10 MG Gabapentin 300 mg DAILY PO 11/10/24 10:00 11/13/24 09:13 300 MG Montelukast Sodium 10 mg HS PO 11/09/24 22:00 11/13/24 21:28 10 MG Pantoprazole Sodium 40 mg DAILY IV 11/10/24 10:00 11/13/24 09:12 40 MG Pravastatin Sodium 80 mg HS PO 11/09/24 22:00 Cancel Metoprolol Succinate 25 mg DAILY PO 11/10/24 10:00 11/13/24 09:14 25 MG Azithromycin 500 mg DAILY PO 11/09/24 18:53 11/13/24 09:13 500 MG Albuterol 2.5 mg Q4HPRN PRN NEB 11/09/24 16:15 11/13/24 15:45 2.5 MG Ipratropium [place] 0.5 mg Q4HPRN PRN NEB 11/09/24 16:15 11/13/24 15:45 0.5 MG Nitroglycerin 0.4 mg Q5MINP PRN SL 11/09/24 19:15 Tramadol HCl 50 mg BID PO 11/10/24 22:00 11/13/24 21:29 50 MG Acetaminophen/ Hydrocodone Bitart 1 tab Q6HPRN PRN PO 11/10/24 13:45 11/13/24 13:40 1 TAB Vancomycin HCl 0 ml @ 0 mls/hr UD IV 11/10/24 13:45 Morphine Sulfate 2 mg Q6HPRN PRN IV 11/10/24 13:45 11/13/24 06:09 2 MG Vancomycin HCl 100 ml @ 100 mls/hr Q12H IV 11/10/24 18:00 11/13/24 17:46 100 MLS/HR Ivabradine 5 mg DAILY PO 11/11/24 10:00 11/12/24 09:49 5 MG Atorvastatin Calcium 40 mg HS PO 11/10/24 22:00 11/13/24 21:28 40 MG Lactulose 30 ml BID PRN PO 11/11/24 20:00 Enteral Nutritional Formula 240 ml TIDWM PO 11/13/24 12:00 11/13/24 17:46 240 ML Enoxaparin Sodium 30 mg DAILY SC 11/13/24 15:35 11/13/24 16:41 30 MG Cefepime HCl 50 ml @ 12.5 mls/hr Q12HR IV 11/13/24 22:00 11/13/24 21:27 12.5 MLS/HR objective Gen.: Patient lying in bed in no apparent distress. On supplemental oxygen. Head: Normocephalic, atraumatic. Eyes: EOMI/PERRLA. Ears: Normal hearing. Normal anatomy. Neck/trachea: Trachea midline, supple. Nose: Normal external anatomy. Mouth: Moist mucous membranes. Chest: Decreased air entry bilaterally. No wheezing or rhonchi. Cardiovascular: Positive S1, positive S2. Regular rate and rhythm. Abdomen: Positive bowel sounds in all 4 quadrants. Soft, non-tender, non- distended. : Deferred. Rectal: Deferred. Skin: Warm, dry. Intact. Extremities: 2+ radial pulses bilaterally. No lower extremity edema. Neuro: Awake, alert, oriented x3. No gross motor or sensory deficits. Cranial nerves II through XII intact. Gait not assessed. laboratory and microbiology Laboratory Tests 11/13/24 10:23 Test 11/13/24 10:23 Range/Units Serum Glucose 127 H 74-106 mg/dL Assessment/Plan Impression: Acute on chronic hypoxic respiratory failure Chronic obstructive pulmonary disease Loculated pleural effusion, right Atelectasis Lung cancer with metastasis Events: Remains on supplemental oxygen, 3 LPM NC Taper O2 as tolerated S/p chest tube placement Chest tube drained 200 ml yellow fluid Continue to monitor output. LWS suction continuous. No air leak. Follow up cultures and cytology. CXR today demonstrates large right pleural effusion with compressive atelectasis, worse from prior. Incentive spirometry Continue antibiotics Pain control Avoid oversedation Labs and imaging reviewed. Rest of plan as noted below. Plan: Supplemental oxygen Titrate to keep O2 sats above 92%. CXR showing right loculated pleural effusion. S/p right chest tube placement by IR. Monitor PT/INR. Antibiotics Incentive spirometry Monitor renal function. Monitor electrolytes. Supplement as necessary. Monitor ins and outs. GI prophylaxis - pantoprazole DVT prophylaxis. Prognosis: Poor given patient's multiple co-morbidities. Rest of plan per hospitalist and other consultants. Thank you Dr. Taran Archer MD, for allowing me to participate in this patient's care. Further recommendations will depend on the patient's clinical course. Please do not hesitate to contact me if you have any questions or concerns. This medical document was created using an electronic medical record system with [employer] dictation system. Although these documentations are being carefully reviewed, there may still be some phonetic and typographical changes. The errors are purely typographical, due to imperfection on the software program, and do not reflect any compromise in the patient's medical care. Dietary Evaluation Review Comments: 1. Continue diet regime 2. Consider Fish oil BID for high Trig 3. Consider Ensure HP BID if PO intake trends low Expected Outcomes/Goals: 1. Pt will consume >75% of estimated needs within 3-5 days Plan discussed with: Patient, Other (VINOD Hoffman) CHRISTIANO TAPIA MD Nov 13, 2024 22:38
[2024-11-14] VITALS (11 sets, daily range): BP systolic 92–100; BP diastolic 40–62; PULSE 50–98; RESP 17–24; TEMP 97.6–98.6; O2SAT 95–100
[2024-11-14 08:52] LABS: Basophils # (auto) 0.1 10 ^3/uL (0-0.2); Basophils % (auto) 0.5 % (0.0-2.0); Eosinophils # (auto) 0.4 10 ^3/uL (0-0.8); Eosinophils % (auto) 1.9 % (0.0-7.0); Hematocrit 48.1 % (36.0-46.0); Hemoglobin 15.5 g/dL (12.2-16.2); Lymphocytes # (auto) 1.6 10 ^3/uL (0.4-5.4); Lymphocytes % (auto) 7.4 % (10.0-50.0); Mean Corpuscular Hemoglobin 28.8 pg (28.0-32.0); Mean Corpuscular Hgb Conc. 32.1 g/dL (32.0-36.0); Mean Corpuscular Volume 89.7 fL (80.0-100.0); Monocytes # (auto) 1.8 10 ^3/uL (0-1.3); Monocytes % (auto) 8.1 % (0.0-12.0); Neutrophils % (auto) 82.1 % (37.0-80.0); Nucleated Red Blood Cells % 0.1 %; Platelet Count (auto) 319 10^3/uL (140-450); Red Blood Cells 5.36 10^6/uL (4.0-5.20); White Blood Cell 21.9 10^3/uL (4.4-10.8)
[2024-11-14] MEDS: SODIUM CHLORIDE 0.9% 500 ML IV ONE (09:11)
[2024-11-14 09:14] LABS: Alanine Aminotransferase 29 U/L (7-40); Anion Gap 5 (5-15); BUN/Creatinine Ratio 25.4 (10.0-20.0); Bilirubin, Total 0.7 mg/dL (0.2-1.0); Blood Urea Nitrogen 16 mg/dL (9-23); Calcium 9.1 mg/dL (8.7-10.4); Carbon Dioxide 26 mmol/L (20-31); Chloride 101 mmol/L (98-107); Glucose 99 mg/dL (74-106); Potassium 4.3 mmol/L (3.5-5.1); Total Protein 5.7 g/dL (5.7-8.2)
[2024-11-14 09:33] LABS: Alkaline Phosphatase 247 U/L (46-116); Aspartate Aminotransferase 44 U/L (13-40); Sodium 132 mmol/L (136-145)
[2024-11-14] MEDS ORDERED: guaiFENesin 200 MG/10 ML UD GT ONE (11:00)
[2024-11-14] MEDS ORDERED: guaiFENesin 200 MG/10 ML UD GT PRN (15:00)
[2024-11-14] MEDS: SODIUM CHLORIDE 0.9% 1,000 ML IV SCH (15:45)
[2024-11-14] MEDS: guaiFENesin 200 MG/10 ML UD PO PRN (16:20)
[2024-11-14] MEDS: MIDODRINE HCL 10 MG TAB PO ONE (16:21)
[2024-11-14] MEDS: IBUPROFEN 600 MG TAB PO SCH (16:21)
[2024-11-14] MEDS: CATHFLO ACTIVASE (ALTEPLASE) 2 MG VIAL IV ONE (17:45)
[2024-11-14] MEDS: ACETAMINOPHEN 325 MG TAB PO SCH (18:27)
[2024-11-14] MEDS: MIDODRINE HCL 10 MG TAB PO SCH (18:28)
--- NOTE | 2024-11-14 19:31 | DVHPNRES ---
Progress Note Date Seen: Nov 14, 2024 Resident Creating Document: JACOB MO RESDIENT Medical Necessity Reason Pt with a Central, PICC or Fol: No Subjective Review of Systems Patient is a 74 year old female with a past medical history as described below came to the ED with the chief complaint of Right sided chest pain for the last 2 weeks. patient reports that she has been diagnosed with Lung cancer in january 2024 and has got radiation treatment , bladder CA diagnosed in 2020 with chemotherapy finished in november 2023. she follows in the outpatient clinic for pulmonary followup. patient reports to start having right sided chest pain since october 23 and it has gradually worsened and now she has constant severe pain which she was not able to tolerate even while she was taking tramadol ,exacerbated with deep breath and movement, chills but the patient denies fever and came to the hospital for further evaluation. Patient denied recent flu like illness or cough. Past medical history: Lung CA, Bladder CA, HTN, HLD, ?CHF, overactive bladder, migraine Past surgical history: coronary angiogram social history: denies current smoking, alcohol, drug use Patient seen and examined at the bedside. Patient is feeling shortness of bed and complained of mild chest pain. Patient reports: No new complaints Changes from previous H/P or p: No Changes Objective vital signs Vital Sign Date Time Temp Pulse Resp B/P (MAP) Pulse Ox O2 Delivery O2 Flow Rate FiO2 11/14/24 16:47 97.8 98 19 93/40 (57) 95 97.8 11/14/24 08:00 Nasal Cannula* 3 32 Total Intake and Output 11/13/24 11/13/24 11/14/24 14:59 22:59 06:59 Intake Total 240 ml 950 ml 350 ml Balance 240 ml 950 ml 350 ml medications Current Medications Medications Dose Ordered Sig/Yuki Route Start Time Stop Time Status Last Admin Dose Admin EZETIMIBE 10 mg DAILY PO 11/10/24 10:00 11/14/24 09:11 10 MG Gabapentin 300 mg DAILY PO 11/10/24 10:00 11/14/24 09:11 300 MG Montelukast Sodium 10 mg HS PO 11/09/24 22:00 11/13/24 21:28 10 MG Pantoprazole Sodium 40 mg DAILY IV 11/10/24 10:00 11/14/24 09:10 40 MG Pravastatin Sodium 80 mg HS PO 11/09/24 22:00 Cancel Metoprolol Succinate 25 mg DAILY PO 11/10/24 10:00 11/13/24 09:14 25 MG Azithromycin 500 mg DAILY PO 11/09/24 18:53 11/14/24 16:21 500 MG Albuterol 2.5 mg Q4HPRN PRN NEB 11/09/24 16:15 11/14/24 03:59 2.5 MG Ipratropium [place] 0.5 mg Q4HPRN PRN NEB 11/09/24 16:15 11/14/24 03:59 0.5 MG Nitroglycerin 0.4 mg Q5MINP PRN SL 11/09/24 19:15 Tramadol HCl 50 mg BID PO 11/10/24 22:00 11/14/24 09:11 50 MG Acetaminophen/ Hydrocodone Bitart 1 tab Q6HPRN PRN PO 11/10/24 13:45 11/14/24 06:36 1 TAB Vancomycin HCl 0 ml @ 0 mls/hr UD IV 11/10/24 13:45 Morphine Sulfate 2 mg Q6HPRN PRN IV 11/10/24 13:45 11/13/24 06:09 2 MG Vancomycin HCl 100 ml @ 100 mls/hr Q12H IV 11/10/24 18:00 11/14/24 18:27 100 MLS/HR Ivabradine 5 mg DAILY PO 11/11/24 10:00 11/14/24 09:11 5 MG Atorvastatin Calcium 40 mg HS PO 11/10/24 22:00 11/13/24 21:28 40 MG Lactulose 30 ml BID PRN PO 11/11/24 20:00 Enteral Nutritional Formula 240 ml TIDWM PO 11/13/24 12:00 11/14/24 18:28 240 ML Enoxaparin Sodium 30 mg DAILY SC 11/13/24 15:35 11/14/24 09:10 30 MG Cefepime HCl 50 ml @ 12.5 mls/hr Q12HR IV 11/13/24 22:00 11/14/24 09:10 12.5 MLS/HR Guaifenesin 200 mg Q4HP PRN GT 11/14/24 15:00 Cancel Midodrine 10 mg TID@0600,1200,1800 PO 11/14/24 18:00 11/14/24 18:28 10 MG Sodium Chloride 1,000 ml @ 100 mls/hr Q10H IV 11/14/24 15:45 11/15/24 01:00 11/14/24 15:45 100 MLS/HR Ibuprofen 600 mg BID PO 11/14/24 22:00 Future Hold 11/14/24 16:21 600 MG Acetaminophen 650 mg Q6HP PO 11/14/24 18:00 11/14/24 18:27 650 MG Guaifenesin 200 mg Q4HP PRN PO 11/14/24 16:15 11/14/24 16:20 200 MG Examination General Appearance: Alert, Oriented X3, Cooperative, in mild acute distress HEENT: Atraumatic, PERRLA, EOMI, Mucous membrane moist/pink Respiratory: Breaths sounds are decreased on the Rt side Cardiovascular: Regular rate, Normal S1, Normal S2, No murmurs, no chest wall tenderness Abdominal: Normal bowel sounds, Soft, No tenderness, No hepatospenomegaly, No masses Extremities: No clubbing, No cyanosis, No edema, Normal pulses, No tenderness/swelling Skin: No rashes, No breakdown, No significant lesion Neuro: Normal gait, Normal speech, Strength at 5/5 X4 ext, Normal tone, Sensation intact, Cranial nerves 3-12 NL, Reflexes 2+ Psych/Mental Status: Mental status NL, Mood NL laboratory and microbiology Laboratory Tests 11/14/24 08:29 Test 11/14/24 08:29 Range/Units Serum Glucose 99 74-106 mg/dL Microbiology Date/Time Source Procedure Growth Status 11/12/24 16:28 Nose MRSA Screen - Final Complete 11/12/24 10:28 Pleural Fluid Gram Stain - Final Resulted 11/12/24 10:28 Pleural Fluid Body Fluid Culture - Preliminary Resulted 11/10/24 13:37 Blood Blood Culture - Preliminary NO GROWTH AFTER 72 HOURS OF INCUBATION. Resulted 11/10/24 10:12 Voided Urine Urine Culture - Final Complete Labs and/or images reviewed: Labs reviewed by me, Image(s) reviewed by me Problem List/Assessment/Plan Problem List/Assessment/Plan This is a 74-year-old female with past medical history of lung cancer, bladder cancer, hypertension, hyperlipidemia, CHF presented to the hospital with right- sided chest pain for 2 weeks. Admitted on 11/09. Acute hypoxic respiratory failure likely due to pneumonia/pleural effusion, on oxygen through nasal cannula Sepsis likely d/t pneumonia Community acquired pneumonia likely d/t Gram+/-/atypical bacteria Right loculated pleural effusion likely due to parapneumonic malignant History of lung cancer diagnosed on January 2024, status post radiation Chest x-ray shows right-sided pleural effusion, with right basilar atelectasis/pneumonia Chest CT scan shows large loculated right pleural fluid collection with atelectasis of most of the right lung CT scan shows distended gallbladder with no calcified gallstone, liver ultrasound is unremarkable Blood and urine culture preliminary result shows no growth MRSA nares negative Pulmonology is on the board, given 1st dose of alteplase 6 mg on 11/14 Radiology on the board, put a chest tube on the right chest, drain 900 mL Pleural fluid culture shows no growth, g stain negative Pleural fluid shows raised WBC at 6751, light criteria including pleural fluid protein/serum protein is 0.67 (meet criteria for exudative pleural effusion), mildly decreased pleural fluid glucose, cytology report pending Continue gabapentin and [place] for the pain Continue azithromycin started on 11/09, vancomycin started on 11/10, cefepime started on 11/11 Breathing treatment q.4 however as needed Continue montelukast WBC raised, up trending Hypertensive heart disease Hypertension Possible acute on chronic systolic heart failure Echocardiogram from 07/02/2024 shows ejection fraction 35-45% BNP is 203 Continue metoprolol succinate 25mg qd Continue Ivabradine 5mg qd Dyslipidemia Continue atorvastatin 40mghs Continue ezetimibe 10mg qd Transaminitis AST and ALT are raised, downtrending Monitoring Possible pancreatitis Lipase is mild raised at [address] scan does not shows signs of pancreatitis Monitoring Mild hyponatremia Hypokalemia Supplemented History of bladder cancer status post chemotherapy Diagnosed on 2020 Infrarenal abdominal aorta aneurysm CT scan shows small saccular 1.1 cm aneurysm along the left side of the infrarenal abdominal aorta Monitoring, follow up on outpatient basis DIET: Full liquid diet, with nutritional suppplement of ensure DVT prophylax: Lovenox GI prophylaxis: Protonix IV Bowel regimen: Lactulose p.r.n. Code status: Full code DISPOSITION: Med surg Patient's status discussed with patient and the on the phone. Due to worsening of condition of the patient and worsening of pleural effusion on chest x-ray, pulmonology given 6 mg of alteplase intrapleural. Case discussed with Dr. Riley Plan discussed with: Patient, Spouse, Other (RN) My Orders My Orders Orders - JACOB MO RESDIENT Procedure Category Date Status Time Mechanical Soft Diet DIET 11/14/24 Transmitted Lunch Guaifenesin Plain PHA 11/14/24 In Process Liquid (Robitussin Jasen 16:15 Dietary Evaluation Review Comments: 1. Continue diet regime 2. Consider Fish oil BID for high Trig 3. Consider Ensure HP BID if PO intake trends low Expected Outcomes/Goals: 1. Pt will consume >75% of estimated needs within 3-5 days Date of Service: Nov 14, 2024 Billing Provider: MARLENY HAYES MD Common Visit Codes: [id number] INP/OBS CARE(HIGH) JACOB MO RESDIENT Nov 14, 2024 19:31 MARLENY HAYES MD Nov 18, 2024 11:17
--- NOTE | 2024-11-14 23:06 | DVHPN2 ---
Progress Note - Dictate Date Seen: Nov 14, 2024 Medical Necessity Reason Pt with a Central, PICC or Fol: No Subjective Patient seen and examined at bedside. Remains on supplemental oxygen Overnight events reviewed. vital signs Vital Sign Date Time Temp Pulse Resp B/P (MAP) Pulse Ox O2 Delivery O2 Flow Rate FiO2 11/14/24 21:00 97.9 82 24 92/47 (62) 95 97.9 11/14/24 20:00 Nasal Cannula* 3 32 Total Intake and Output 11/13/24 11/13/24 11/14/24 15:00 23:00 07:00 Intake Total 240 ml 950 ml 350 ml Balance 240 ml 950 ml 350 ml medications Current Medications Medications Dose Ordered Sig/Yuki Route Start Time Stop Time Status Last Admin Dose Admin EZETIMIBE 10 mg DAILY PO 11/10/24 10:00 11/14/24 09:11 10 MG Gabapentin 300 mg DAILY PO 11/10/24 10:00 11/14/24 09:11 300 MG Montelukast Sodium 10 mg HS PO 11/09/24 22:00 11/14/24 21:43 10 MG Pantoprazole Sodium 40 mg DAILY IV 11/10/24 10:00 11/14/24 09:10 40 MG Pravastatin Sodium 80 mg HS PO 11/09/24 22:00 Cancel Metoprolol Succinate 25 mg DAILY PO 11/10/24 10:00 11/13/24 09:14 25 MG Azithromycin 500 mg DAILY PO 11/09/24 18:53 11/14/24 16:21 500 MG Albuterol 2.5 mg Q4HPRN PRN NEB 11/09/24 16:15 11/14/24 03:59 2.5 MG Ipratropium [place] 0.5 mg Q4HPRN PRN NEB 11/09/24 16:15 11/14/24 03:59 0.5 MG Nitroglycerin 0.4 mg Q5MINP PRN SL 11/09/24 19:15 Tramadol HCl 50 mg BID PO 11/10/24 22:00 11/14/24 21:43 50 MG Acetaminophen/ Hydrocodone Bitart 1 tab Q6HPRN PRN PO 11/10/24 13:45 11/14/24 06:36 1 TAB Vancomycin HCl 0 ml @ 0 mls/hr UD IV 11/10/24 13:45 Morphine Sulfate 2 mg Q6HPRN PRN IV 11/10/24 13:45 11/13/24 06:09 2 MG Vancomycin HCl 100 ml @ 100 mls/hr Q12H IV 11/10/24 18:00 11/14/24 18:27 100 MLS/HR Ivabradine 5 mg DAILY PO 11/11/24 10:00 11/14/24 09:11 5 MG Atorvastatin Calcium 40 mg HS PO 11/10/24 22:00 11/14/24 21:43 40 MG Lactulose 30 ml BID PRN PO 11/11/24 20:00 Enteral Nutritional Formula 240 ml TIDWM PO 11/13/24 12:00 11/14/24 18:28 240 ML Enoxaparin Sodium 30 mg DAILY SC 11/13/24 15:35 11/14/24 09:10 30 MG Cefepime HCl 50 ml @ 12.5 mls/hr Q12HR IV 11/13/24 22:00 11/14/24 21:42 12.5 MLS/HR Guaifenesin 200 mg Q4HP PRN GT 11/14/24 15:00 Cancel Midodrine 10 mg TID@0600,1200,1800 PO 11/14/24 18:00 11/14/24 18:28 10 MG Sodium Chloride 1,000 ml @ 100 mls/hr Q10H IV 11/14/24 15:45 11/15/24 01:00 11/14/24 15:45 100 MLS/HR Ibuprofen 600 mg BID PO 11/14/24 22:00 Hold 11/14/24 16:21 600 MG Acetaminophen 650 mg Q6HP PO 11/14/24 18:00 11/14/24 18:27 650 MG Guaifenesin 200 mg Q4HP PRN PO 11/14/24 16:15 11/14/24 16:20 200 MG objective Gen.: Patient lying in bed in no apparent distress. On supplemental oxygen. Head: Normocephalic, atraumatic. Eyes: EOMI/PERRLA. Ears: Normal hearing. Normal anatomy. Neck/trachea: Trachea midline, supple. Nose: Normal external anatomy. Mouth: Moist mucous membranes. Chest: Decreased air entry bilaterally. No wheezing or rhonchi. Cardiovascular: Positive S1, positive S2. Regular rate and rhythm. Abdomen: Positive bowel sounds in all 4 quadrants. Soft, non-tender, non- distended. : Deferred. Rectal: Deferred. Skin: Warm, dry. Intact. Extremities: 2+ radial pulses bilaterally. No lower extremity edema. Neuro: Awake, alert, oriented x3. No gross motor or sensory deficits. Cranial nerves II through XII intact. Gait not assessed. laboratory and microbiology Laboratory Tests 11/14/24 08:29 Test 11/14/24 08:29 Range/Units Serum Glucose 99 74-106 mg/dL Assessment/Plan Impression: Acute on chronic hypoxic respiratory failure Chronic obstructive pulmonary disease Loculated pleural effusion, right Atelectasis Lung cancer with metastasis Events: Remains on supplemental oxygen, 2 LPM NC Taper O2 as tolerated Hypotension - on midodrine. Elevated WBC - 21.9 K Continue antibiotics Incentive spirometry Plan for TPA course. Follow up pleural fluid cultures. S/p chest tube placement Monitor output. LWS suction continuous. No air leak. Pain control Avoid oversedation Labs and imaging reviewed. Rest of plan as noted below. Plan: Supplemental oxygen Titrate to keep O2 sats above 92%. CXR showing right loculated pleural effusion. S/p right chest tube placement by IR. Monitor PT/INR. Antibiotics Incentive spirometry Monitor renal function. Monitor electrolytes. Supplement as necessary. Monitor ins and outs. GI prophylaxis - pantoprazole DVT prophylaxis. Prognosis: Poor given patient's multiple co-morbidities. Rest of plan per hospitalist and other consultants. Thank you Dr. Taran Archer MD, for allowing me to participate in this patient's care. Further recommendations will depend on the patient's clinical course. Please do not hesitate to contact me if you have any questions or concerns. This medical document was created using an electronic medical record system with [employer] dictation system. Although these documentations are being carefully reviewed, there may still be some phonetic and typographical changes. The errors are purely typographical, due to imperfection on the software program, and do not reflect any compromise in the patient's medical care. Dietary Evaluation Review Comments: 1. Continue diet regime 2. Consider Fish oil BID for high Trig 3. Consider Ensure HP BID if PO intake trends low Expected Outcomes/Goals: 1. Pt will consume >75% of estimated needs within 3-5 days Plan discussed with: Patient, Other (VINOD Arriaza) CHRISTIANO TAPIA MD Nov 14, 2024 23:06
[2024-11-15] VITALS (12 sets, daily range): BP systolic 88–109; BP diastolic 47–64; PULSE 61–100; RESP 16–22; TEMP 97.4–102.6; O2SAT 90–97
--- NOTE | 2024-11-15 06:14 | DVH ---
CHEST RADIOGRAPH Indication: Pleural effusion Technique: Single frontal view of the chest was obtained Comparison: XY CHEST XRAY 1 VIEW on DOS: 11/13/24 FINDINGS: Lines and Tubes: Right infusion catheter terminates in the superior vena cava. Right pigtail cathete r overlies the lung base. Lungs: Near complete opacification of the right lung. Pleura: Right pleural effusion. No pneumothorax. Cardiomediastinal contours: Unremarkable Bones: No acute osseous abnormality. IMPRESSION: 1. Right lung opacification representing pleural effusion and/or consolidation.
[2024-11-15] MEDS: LACTULOSE 20Gm/30ML SOLN PO PRN (06:34)
[2024-11-15 07:40] LABS: Alanine Aminotransferase 40 U/L (7-40); Anion Gap 9 (5-15); BUN/Creatinine Ratio 36.5 (10.0-20.0); Carbon Dioxide 22 mmol/L (20-31); Chloride 103 mmol/L (98-107); Glucose 80 mg/dL (74-106); Potassium 4.9 mmol/L (3.5-5.1)
[2024-11-15 07:41] LABS: Albumin 2.6 g/dL (3.2-4.8); Alkaline Phosphatase 269 U/L (46-116); Aspartate Aminotransferase 76 U/L (13-40); Bilirubin, Total 0.4 mg/dL (0.2-1.0); Blood Urea Nitrogen 31 mg/dL (9-23); Calcium 8.3 mg/dL (8.7-10.4); Sodium 134 mmol/L (136-145)
[2024-11-15 07:42] LABS: Total Protein 4.6 g/dL (5.7-8.2)
[2024-11-15 08:43] LABS: Basophils # (auto) 0.1 10 ^3/uL (0-0.2); Basophils % (auto) 0.5 % (0.0-2.0); Eosinophils # (auto) 0.5 10 ^3/uL (0-0.8); Eosinophils % (auto) 2.3 % (0.0-7.0); Hematocrit 47.4 % (36.0-46.0); Hemoglobin 15.6 g/dL (12.2-16.2); Lymphocytes % (auto) 9.9 % (10.0-50.0); Mean Corpuscular Hemoglobin 29.3 pg (28.0-32.0); Mean Corpuscular Hgb Conc. 32.9 g/dL (32.0-36.0); Monocytes # (auto) 1.6 10 ^3/uL (0-1.3); Monocytes % (auto) 7.6 % (0.0-12.0); Neutrophils # (auto) 16.3 10 ^3/uL (1.6-8.6); Neutrophils % (auto) 79.7 % (37.0-80.0); Nucleated Red Blood Cells % 0.1 %; Platelet Count (auto) 332 10^3/uL (140-450); Red Blood Cells 5.33 10^6/uL (4.0-5.20); Red Cell Distribution Width 15.1 % (11.8-14.3); White Blood Cell 20.5 10^3/uL (4.4-10.8)
[2024-11-15] MEDS: SODIUM CHLORIDE 0.9% 500 ML IV ONE ×2 (11:20→11:40)
[2024-11-15] MEDS: CATHFLO ACTIVASE (ALTEPLASE) 2 MG VIAL IV ONE (14:15)
[2024-11-15] MEDS ORDERED: CLINIMIX PER PHARMACY 0 ML IV SCH (16:15)
[2024-11-15 17:21] LABS: Magnesium 1.8 mg/dL (1.6-2.6)
[2024-11-15 17:23] LABS: Phosphorus 3.2 mg/dL (2.4-5.1)
--- NOTE | 2024-11-15 18:21 | DVHPNRES ---
Progress Note Date Seen: Nov 15, 2024 Resident Creating Document: JACOB MO RESDIENT Medical Necessity Reason Pt with a Central, PICC or Fol: No Subjective Review of Systems Patient is a 74 year old female with a past medical history as described below came to the ED with the chief complaint of Right sided chest pain for the last 2 weeks. patient reports that she has been diagnosed with Lung cancer in january 2024 and has got radiation treatment , bladder CA diagnosed in 2020 with chemotherapy finished in november 2023. she follows in the outpatient clinic for pulmonary followup. patient reports to start having right sided chest pain since october 23 and it has gradually worsened and now she has constant severe pain which she was not able to tolerate even while she was taking tramadol ,exacerbated with deep breath and movement, chills but the patient denies fever and came to the hospital for further evaluation. Patient denied recent flu like illness or cough. Past medical history: Lung CA, Bladder CA, HTN, HLD, ?CHF, overactive bladder, migraine Past surgical history: coronary angiogram social history: denies current smoking, alcohol, drug use Patient seen and examined at the bedside. Patient is feeling shortness of bed and complained of mild chest pain. Objective vital signs Vital Sign Date Time Temp Pulse Resp B/P (MAP) Pulse Ox O2 Delivery O2 Flow Rate FiO2 11/15/24 17:00 97.9 98 16 94/56 (69) 96 97.9 11/15/24 13:37 Nasal Cannula* 3 32 Total Intake and Output 11/14/24 11/14/24 11/15/24 15:00 23:00 07:00 Intake Total 240 ml 620 ml 440 ml Balance 240 ml 620 ml 440 ml medications Current Medications Medications Dose Ordered Sig/Yuki Route Start Time Stop Time Status Last Admin Dose Admin EZETIMIBE 10 mg DAILY PO 11/10/24 10:00 11/15/24 11:21 Gabapentin 300 mg DAILY PO 11/10/24 10:00 11/15/24 11:21 Montelukast Sodium 10 mg HS PO 11/09/24 22:00 11/14/24 21:43 Pantoprazole Sodium 40 mg DAILY IV 11/10/24 10:00 11/15/24 11:19 Pravastatin Sodium 80 mg HS PO 11/09/24 22:00 Cancel Metoprolol Succinate 25 mg DAILY PO 11/10/24 10:00 11/13/24 09:14 Azithromycin 500 mg DAILY PO 11/09/24 18:53 11/15/24 11:23 Albuterol 2.5 mg Q4HPRN PRN NEB 11/09/24 16:15 11/15/24 13:37 Ipratropium [place] 0.5 mg Q4HPRN PRN NEB 11/09/24 16:15 11/15/24 13:37 Nitroglycerin 0.4 mg Q5MINP PRN SL 11/09/24 19:15 Tramadol HCl 50 mg BID PO 11/10/24 22:00 11/15/24 11:22 Acetaminophen/ Hydrocodone Bitart 1 tab Q6HPRN PRN PO 11/10/24 13:45 11/15/24 16:26 Vancomycin HCl 0 ml @ 0 mls/hr UD IV 11/10/24 13:45 Morphine Sulfate 2 mg Q6HPRN PRN IV 11/10/24 13:45 11/13/24 06:09 Ivabradine 5 mg DAILY PO 11/11/24 10:00 11/14/24 09:11 Atorvastatin Calcium 40 mg HS PO 11/10/24 22:00 11/14/24 21:43 Lactulose 30 ml BID PRN PO 11/11/24 20:00 11/15/24 06:34 Enteral Nutritional Formula 240 ml TIDWM PO 11/13/24 12:00 11/15/24 18:05 Enoxaparin Sodium 30 mg DAILY SC 11/13/24 15:35 11/15/24 11:20 Cefepime HCl 50 ml @ 12.5 mls/hr Q12HR IV 11/13/24 22:00 11/15/24 11:20 Guaifenesin 200 mg Q4HP PRN GT 11/14/24 15:00 Cancel Midodrine 10 mg TID@0600,1200,1800 PO 11/14/24 18:00 11/15/24 18:10 Ibuprofen 600 mg BID PO 11/14/24 22:00 Hold 11/14/24 16:21 Acetaminophen 650 mg Q6HP PO 11/14/24 18:00 11/15/24 18:11 Guaifenesin 200 mg Q4HP PRN PO 11/14/24 16:15 11/14/24 16:20 Vancomycin HCl 100 ml @ 80 mls/hr Q15H IV 11/15/24 21:00 Amino Acids 0 ml @ 0 mls/hr PER PHARMACY IV 11/15/24 16:15 Diagnostic Test (Pha) 1 strip Q6HR 11/16/24 00:00 Insulin Human Regular FOLLOW SLIDING SCALE Q6HR SC 11/16/24 00:00 Dextrose 50 ml UD IV 11/16/24 00:00 Amino Acids/ Electrolytes/ Dextrose 1,000 ml @ 41 mls/hr DAILY@2200 IV 11/15/24 22:00 Examination General Appearance: Alert, Oriented X3, Cooperative, in mild acute distress HEENT: Atraumatic, PERRLA, EOMI, Mucous membrane moist/pink Respiratory: Breaths sounds are decreased on the Rt side Cardiovascular: Regular rate, Normal S1, Normal S2, No murmurs, no chest wall tenderness Abdominal: Normal bowel sounds, Soft, No tenderness, No hepatospenomegaly, No masses Extremities: No clubbing, No cyanosis, No edema, Normal pulses, No tenderness/swelling Skin: No rashes, No breakdown, No significant lesion Neuro: Normal gait, Normal speech, Strength at 5/5 X4 ext, Normal tone, Sensation intact, Cranial nerves 3-12 NL, Reflexes 2+ Psych/Mental Status: Mental status NL, Mood NL laboratory and microbiology Laboratory Tests 11/15/24 08:25 11/15/24 06:30 Test 11/15/24 06:30 Range/Units Serum Glucose 80 74-106 mg/dL Microbiology Date/Time Source Procedure Growth Status 11/12/24 16:28 Nose MRSA Screen - Final Complete 11/12/24 10:28 Pleural Fluid Gram Stain - Final Resulted 11/12/24 10:28 Pleural Fluid Body Fluid Culture - Preliminary Resulted 11/10/24 13:37 Blood Blood Culture - Final NO GROWTH AFTER 5 DAYS OF INCUBATION. Complete 11/10/24 10:12 Voided Urine Urine Culture - Final Complete Labs and/or images reviewed: Labs reviewed by me, Image(s) reviewed by me Problem List/Assessment/Plan Problem List/Assessment/Plan This is a 74-year-old female with past medical history of lung cancer, bladder cancer, hypertension, hyperlipidemia, CHF presented to the hospital with right- sided chest pain for 2 weeks. Admitted on 11/09. Acute hypoxic respiratory failure likely due to pneumonia/pleural effusion, on oxygen through nasal cannula Sepsis likely d/t pneumonia Community acquired pneumonia likely d/t Gram+/-/atypical bacteria Right loculated pleural effusion likely due to parapneumonic/malignant History of lung cancer diagnosed on January 2024, status post radiation Chest x-ray shows right-sided pleural effusion, with right basilar atelectasis/pneumonia Chest CT scan shows large loculated right pleural fluid collection with atelectasis of most of the right lung CT scan shows distended gallbladder with no calcified gallstone, liver ultrasound is unremarkable Blood and urine culture preliminary result shows no growth MRSA nares negative Pulmonology is on the board, given 1st dose of alteplase 6 mg on 11/14 Radiology on the board, put a chest tube on the right chest, drain 900 mL Pleural fluid culture shows no growth, g stain negative Pleural fluid shows raised WBC at 6751, light criteria including pleural fluid protein/serum protein is 0.67 (meet criteria for exudative pleural effusion), mildly decreased pleural fluid glucose, cytology report pending Continue gabapentin and [place] for the pain Continue azithromycin started on 11/09, vancomycin started on 11/10, cefepime started on 11/11 Breathing treatment q.4 however as needed Continue montelukast WBC raised, up trending Today, 2nd dose , alteplase 6 mg intrapleural given Chest x-ray, showing worsening of pleural effusion With the analysis, shows malignant cells Consulted surgery for malignant pleural effusion Hypertensive heart disease Hypertension Possible acute on chronic systolic heart failure Echocardiogram from 07/02/2024 shows ejection fraction 35-45% BNP is 203 Continue metoprolol succinate 25mg qd Continue Ivabradine 5mg qd Dyslipidemia Continue atorvastatin 40mghs Continue ezetimibe 10mg qd Transaminitis AST and ALT are raised, downtrending Monitoring Possible pancreatitis Lipase is mild raised at [address] scan does not shows signs of pancreatitis Monitoring Mild hyponatremia Hypokalemia Supplemented History of bladder cancer status post chemotherapy Diagnosed on 2020 Infrarenal abdominal aorta aneurysm CT scan shows small saccular 1.1 cm aneurysm along the left side of the infrarenal abdominal aorta Monitoring, follow up on outpatient basis DIET: Full liquid diet, with nutritional suppplement of ensure DVT prophylax: Lovenox GI prophylaxis: Protonix IV Bowel regimen: Lactulose p.r.n. Code status: Full code DISPOSITION: Med surg Patient's status discussed with patient and the on the phone. Pleural fluid analysis, shows malignant cells. Surgery has consulted, due to worsening of pleural effusion, the patient is not stable to be discharged at the moment. Case discussed with Dr. Riley Plan discussed with: Patient, Spouse, Other (RN) My Orders My Orders Orders - JACOB MO RESDIENT Procedure Category Date Status Time Chest Xray 1 View XY 11/15/24 Resulted 04:[address] 11/15/24 Logged 10:45 Dietary Evaluation Review Comments: 1. Continue diet regime 2. Consider Fish oil BID for high Trig 3. Consider Ensure HP BID if PO intake trends low Expected Outcomes/Goals: 1. Pt will consume >75% of estimated needs within 3-5 days Date of Service: Nov 15, 2024 Billing Provider: MARLENY HAYES MD Common Visit Codes: [id number] INP/OBS CARE(HIGH) JACOB MO RESDIENT Nov 15, 2024 18:21 MARLENY HAYES MD Nov 18, 2024 11:35
[2024-11-15] MEDS: AMINO ACID INFUSION IN D10W 1,000 ML IV SCH (21:42)
[2024-11-15] MEDS: VANCOMYCIN 750MG KIT 100 ML IV SCH (21:45)
--- NOTE | 2024-11-15 23:18 | DVHPN2 ---
Progress Note - Dictate Date Seen: Nov 15, 2024 Medical Necessity Reason Pt with a Central, PICC or Fol: No Subjective Patient seen and examined at bedside. Remains on supplemental oxygen Overnight events reviewed. vital signs Vital Sign Date Time Temp Pulse Resp B/P (MAP) Pulse Ox O2 Delivery O2 Flow Rate FiO2 11/15/24 21:00 97.6 100 20 91/57 (68) 95 97.6 11/15/24 20:00 Nasal Cannula* 3 32 Total Intake and Output 11/14/24 11/14/24 11/15/24 15:00 23:00 07:00 Intake Total 240 ml 620 ml 440 ml Balance 240 ml 620 ml 440 ml medications Current Medications Medications Dose Ordered Sig/Yuki Route Start Time Stop Time Status Last Admin Dose Admin EZETIMIBE 10 mg DAILY PO 11/10/24 10:00 11/15/24 11:21 10 MG Gabapentin 300 mg DAILY PO 11/10/24 10:00 11/15/24 11:21 300 MG Montelukast Sodium 10 mg HS PO 11/09/24 22:00 11/15/24 21:42 10 MG Pantoprazole Sodium 40 mg DAILY IV 11/10/24 10:00 11/15/24 11:19 40 MG Pravastatin Sodium 80 mg HS PO 11/09/24 22:00 Cancel Metoprolol Succinate 25 mg DAILY PO 11/10/24 10:00 11/13/24 09:14 25 MG Azithromycin 500 mg DAILY PO 11/09/24 18:53 11/15/24 11:23 500 MG Albuterol 2.5 mg Q4HPRN PRN NEB 11/09/24 16:15 11/15/24 13:37 2.5 MG Ipratropium Brilliant 0.5 mg Q4HPRN PRN NEB 11/09/24 16:15 11/15/24 13:37 0.5 MG Nitroglycerin 0.4 mg Q5MINP PRN SL 11/09/24 19:15 Tramadol HCl 50 mg BID PO 11/10/24 22:00 11/15/24 21:41 50 MG Acetaminophen/ Hydrocodone Bitart 1 tab Q6HPRN PRN PO 11/10/24 13:45 11/15/24 16:26 1 TAB Vancomycin HCl 0 ml @ 0 mls/hr UD IV 11/10/24 13:45 Morphine Sulfate 2 mg Q6HPRN PRN IV 11/10/24 13:45 11/13/24 06:09 2 MG Ivabradine 5 mg DAILY PO 11/11/24 10:00 11/14/24 09:11 5 MG Atorvastatin Calcium 40 mg HS PO 11/10/24 22:00 11/15/24 21:42 40 MG Lactulose 30 ml BID PRN PO 11/11/24 20:00 11/15/24 06:34 30 ML Enteral Nutritional Formula 240 ml TIDWM PO 11/13/24 12:00 11/15/24 18:05 240 ML Enoxaparin Sodium 30 mg DAILY SC 11/13/24 15:35 11/15/24 11:20 30 MG Cefepime HCl 50 ml @ 12.5 mls/hr Q12HR IV 11/13/24 22:00 11/15/24 21:51 12.5 MLS/HR Guaifenesin 200 mg Q4HP PRN GT 11/14/24 15:00 Cancel Midodrine 10 mg TID@0600,1200,1800 PO 11/14/24 18:00 11/15/24 18:10 10 MG Ibuprofen 600 mg BID PO 11/14/24 22:00 Hold 11/14/24 16:21 600 MG Acetaminophen 650 mg Q6HP PO 11/14/24 18:00 11/15/24 18:11 650 MG Guaifenesin 200 mg Q4HP PRN PO 11/14/24 16:15 11/14/24 16:20 200 MG Vancomycin HCl 100 ml @ 80 mls/hr Q15H IV 11/15/24 21:00 11/15/24 21:45 80 MLS/HR Amino Acids 0 ml @ 0 mls/hr PER PHARMACY IV 11/15/24 16:15 Diagnostic Test (Pha) 1 strip Q6HR 11/16/24 00:00 Insulin Human Regular FOLLOW SLIDING SCALE Q6HR SC 11/16/24 00:00 Dextrose 50 ml UD IV 11/16/24 00:00 Amino Acids/ Electrolytes/ Dextrose 1,000 ml @ 41 mls/hr DAILY@2200 IV 11/15/24 22:00 11/15/24 21:42 41 MLS/HR objective Gen.: Patient lying in bed in no apparent distress. On supplemental oxygen. Head: Normocephalic, atraumatic. Eyes: EOMI/PERRLA. Ears: Normal hearing. Normal anatomy. Neck/trachea: Trachea midline, supple. Nose: Normal external anatomy. Mouth: Moist mucous membranes. Chest: Decreased air entry bilaterally. No wheezing or rhonchi. Cardiovascular: Positive S1, positive S2. Regular rate and rhythm. Abdomen: Positive bowel sounds in all 4 quadrants. Soft, non-tender, non- distended. : Deferred. Rectal: Deferred. Skin: Warm, dry. Intact. Extremities: 2+ radial pulses bilaterally. No lower extremity edema. Neuro: Awake, alert, oriented x3. No gross motor or sensory deficits. Cranial nerves II through XII intact. Gait not assessed. laboratory and microbiology Laboratory Tests 11/15/24 08:25 11/15/24 06:30 Test 11/15/24 06:30 Range/Units Serum Glucose 80 74-106 mg/dL Assessment/Plan Impression: Acute on chronic hypoxic respiratory failure Chronic obstructive pulmonary disease Loculated pleural effusion, right Atelectasis Metastatic cancer Malignant effusion Events: Remains on supplemental oxygen, 2 LPM NC Taper O2 as tolerated S/p right chest tube placement Alteplase via chest tube x2. Obtain CXR in the AM for interval changes Monitor chest tube output. Continue antibiotics Incentive spirometry Labs and imaging reviewed. Rest of plan as noted below. Plan: Supplemental oxygen Titrate to keep O2 sats above 92%. CXR showing right loculated pleural effusion. S/p right chest tube placement. Monitor PT/INR. Continue bronchodilators. Antibiotics Incentive spirometry Monitor renal function. Monitor electrolytes. Supplement as necessary. Monitor ins and outs. GI prophylaxis - pantoprazole DVT prophylaxis. Prognosis: Poor given patient's multiple co-morbidities. Rest of plan per hospitalist and other consultants. Thank you Dr. Taran Archer MD, for allowing me to participate in this patient's care. Further recommendations will depend on the patient's clinical course. Please do not hesitate to contact me if you have any questions or concerns. This medical document was created using an electronic medical record system with [employer] system. Although these documentations are being carefully reviewed, there may still be some phonetic and typographical changes. The errors are purely typographical, due to imperfection on the software program, and do not reflect any compromise in the patient's medical care. Dietary Evaluation Review Comments: 1. Continue diet regime 2. Consider Fish oil BID for high Trig 3. Consider Ensure HP BID if PO intake trends low Expected Outcomes/Goals: 1. Pt will consume >75% of estimated needs within 3-5 days Plan discussed with: Patient, Other (VINOD Wooten) CHRISTIANO TAPIA MD Nov 15, 2024 23:17
[2024-11-15] MEDS: InsuLIN REG 1unit/0.01ml Soln (100units/ml) SC SCH (23:34)
[2024-11-15] MEDS: ACCU-CHEK COMFORT CURVE STRIP VI SCH (23:34)
[2024-11-16] VITALS (8 sets, daily range): BP systolic 90–117; BP diastolic 44–74; PULSE 73–107; RESP 18–24; TEMP 97.3–97.9; O2SAT 93–98
[2024-11-16] MEDS ORDERED: DEXTROSE (50%) 50ML SYRG IV SCH
--- NOTE | 2024-11-16 05:27 | DVH ---
CHEST RADIOGRAPH Indication: Pneumonia Technique: Single frontal view of the chest was obtained Comparison: XY CHEST XRAY 1 VIEW on DOS: 11/15/24, XY CHEST XRAY 1 VIEW on DOS: 11/13/24, XY CHEST PO RTABLE on DOS: 11/09/24 IMPRESSION: The heart appears prominent size. The left lung appears clear. There is increased lucency in the rig ht lung base suggesting right basilar pneumothorax. Right pleural catheter is present. Right infusion port tip in the region of the superior vena cava. Pleural thickening and opacity along the right lateral and upper lung appears similar representing lo culated fluid. Critical Findings Critical Result: Pneumothorax Findings discussed with Reena BROCK at 11/16/2024 08:22 AM, and acknowledged receipt and understanding of the findings. ..
[2024-11-16 06:38] LABS: Basophils # (auto) 0.1 10 ^3/uL (0-0.2); Basophils % (auto) 0.7 % (0.0-2.0); Eosinophils # (auto) 0.4 10 ^3/uL (0-0.8); Eosinophils % (auto) 2.1 % (0.0-7.0); Hematocrit 44.8 % (36.0-46.0); Hemoglobin 14.7 g/dL (12.2-16.2); Lymphocytes # (auto) 1.5 10 ^3/uL (0.4-5.4); Lymphocytes % (auto) 7.1 % (10.0-50.0); Mean Corpuscular Hemoglobin 29.7 pg (28.0-32.0); Mean Corpuscular Hgb Conc. 32.9 g/dL (32.0-36.0); Mean Corpuscular Volume 90.3 fL (80.0-100.0); Monocytes # (auto) 1.5 10 ^3/uL (0-1.3); Monocytes % (auto) 7.3 % (0.0-12.0); Neutrophils # (auto) 17.3 10 ^3/uL (1.6-8.6); Neutrophils % (auto) 82.8 % (37.0-80.0); Platelet Count (auto) 286 10^3/uL (140-450); Red Blood Cells 4.97 10^6/uL (4.0-5.20); Red Cell Distribution Width 15.6 % (11.8-14.3); White Blood Cell 20.9 10^3/uL (4.4-10.8)
[2024-11-16 07:14] LABS: Alanine Aminotransferase 33 U/L (7-40); Anion Gap 7 (5-15); BUN/Creatinine Ratio 32.5 (10.0-20.0); Carbon Dioxide 20 mmol/L (20-31); Chloride 105 mmol/L (98-107); Potassium 3.8 mmol/L (3.5-5.1)
[2024-11-16 07:15] LABS: Bilirubin, Total 0.3 mg/dL (0.2-1.0)
[2024-11-16 07:16] LABS: Albumin 2.7 g/dL (3.2-4.8); Alkaline Phosphatase 273 U/L (46-116); Aspartate Aminotransferase 42 U/L (13-40); Blood Urea Nitrogen 26 mg/dL (9-23); Calcium 8.5 mg/dL (8.7-10.4); Glucose 124 mg/dL (74-106); Sodium 132 mmol/L (136-145); Total Protein 5.3 g/dL (5.7-8.2)
--- NOTE | 2024-11-16 10:01 | DVHINCON2 ---
Date of service: Nov 16, 2024 Family History: Patient reports no known family medical history. Allergies: Coded Allergies: Garlic (Verified Allergy, Severe, hives, 11/10/24) Sulfamethoxazole (Verified Allergy, Mild, itchy, vomits, 09/02/24) Aspirin (Verified Allergy, Unknown, 09/02/24) Cefadroxil (Verified Allergy, Unknown, 09/02/24) Ciprofloxacin (Verified Allergy, Unknown, 09/02/24) Levofloxacin (Verified Allergy, Unknown, 09/02/24) Penicillins (Verified Allergy, Unknown, 09/02/24) Home Meds Reported Medications Niacinamide (Niaspan) 500 Mg Tb, 500 MG PO DAILY 09/05/24 Methylprednisolone (Methylprednisolone) 4 Mg Tab, 4 MG PO DAILY 09/05/24 Albuterol Sulfate (VENTOLIN MDI) 90 Mcg Ih, 90 MCG IN PRN 09/05/24 Cyclobenzaprine Hcl (Cyclobenzaprine Hcl) 10 Mg Tab, 10 MG PO DAILY 09/05/24 Promethazine-Dm (Promethazine Dm 6.25-15 mg/5Ml) 1 Erika Erika, PO PRN, ML 09/05/24 Divalproex Sodium (Divalproex Sodium) 500 Mg Tab, 500 MG PO DAILY 09/05/24 Duloxetine Hcl (Cymbalta) 20 Mg Cap, 30 MG PO DAILY 09/05/24 Doxycycline Hyclate (Doxycycline Hyclate) 100 Mg Cap, 100 MG PO BID 09/05/24 Patients Own Medication (PATIENTS OWN MEDICATION) . PTS OWN MED-OBTAIN FROM PT AND SEND TO RX DRUG:THUYFEN PSE 600-120 FREQ:DAILY RX# EXP: DATE DISP: TECH: RPH: 09/05/24 Pravastatin Sodium (PRAVACHOL TABLET) 20 Mg Tb, 80 MG PO DAILY 09/05/24 Esomeprazole Magnesium Trihydr (Nexium) 40 Mg Cap, 1 CAP PO DAILY 09/05/24 Carisoprodol (Carisoprodol) 350 Mg Tab, 350 MG PO PRN for MUSCLE SPASM 09/05/24 Oxaprozin (Daypro) 600 Mg Tab, 600 MG PO DAILY, TAB 09/05/24 Zolpidem Tartrate (Ambien) 10 Mg Tab, PO QHSP PRN for FOR INSOMNIA, TAB 09/05/24 Gabapentin (Gabapentin) 300 Mg Cap, 300 MG PO DAILY 09/05/24 Diazepam (VALIUM TABLET) 5 Mg Tb, 5 MG PO DAILY, TAB 09/05/24 Patients Own Medication (PATIENTS OWN MEDICATION) . PTS OWN MED-OBTAIN FROM PT AND SEND TO RX DRUG:VICODIN 5/500 FREQ:BID PRN RX# EXP: DATE DISP: TECH: RPH: 09/05/24 Ezetimibe-Simvastatin (Vytorin) 1 Tab Tab, 1 TAB PO DAILY 09/05/24 Fenofibrate (Tricor) 145 Mg Tab, 145 MG PO DAILY for CHOLESTROL 09/05/24 Ezetimibe (Zetia) 10 Mg Tab, 1 TAB PO DAILY 09/05/24 Mzngwcbmdj-Sumvckksaomio-Yjrjs (Buster 50-325-40 mg) 1 Tab Tab, 1 TAB PO DAILY for migraine, TAB 09/05/24 Pantoprazole Sodium (PANTOPRAZOLE SODIUM) 40 Mg Inj, 40 MG PO DAILY, INJ 09/05/24 Divalproex Sodium (Depakote) 500 Mg Tab, 500 MG PO DAILY for migraine 09/05/24 Ivabradine Hydrochloride (Corlanor) 5 Mg Tab, 5 MG PO DAILY, TAB 09/02/24 Metoclopramide Hcl (Metoclopramide Hcl) 5 Mg Tab, 5 MG PO DAILY for 30 Days, MG 09/02/24 Prochlorperazine Maleate (Compazine) 10 Mg Tb, 0.5 TAB PO DAILY, #30 TAB 3 Refills 09/02/24 Rosuvastatin Calcium (Crestor) 20 Mg Tab, 1 TAB PO DAILY, #30 TAB 5 Refills 09/02/24 Magnesium Bisglycinate (Mag Glycinate) 100 Mg Tab, 250 MG PO DAILY, TAB 09/02/24 Metoprolol Succinate (Toprol Xl) 25 Mg Tab, 1 TAB PO DAILY for HTN, #30 TAB 5 Refills 09/02/24 Vibegron (Gemtesa) 75 Mg Tab, 75 MG PO DAILY for OVERACTIVE BLADDER, TAB 09/02/24 Dicyclomine Hcl (BENTYL CAPSULE) 10 Mg Cp, 10 MG PO DAILY, CAP 05/16/22 Rabeprazole Sodium (Aciphex) 20 Mg Tab, 1 TAB PO DAILY, #90 TAB 1 Refill 2/21/20 Montelukast Sodium (MONTELUKAST SODIUM) 10 Mg Tab, 1 TAB PO DAILY, #30 TAB 5 Refills 01/17/20 Current Medications Current Medications Medications (Trade) Dose Ordered Sig/Yuki Route PRN Reason Start Time Stop Time Status Last Admin Vancomycin HCl 100 ml @ 80 mls/hr Q15H IV 11/15/24 21:00 11/15/24 21:45 Amino Acids 0 ml @ 0 mls/hr PER PHARMACY IV 11/15/24 16:15 Diagnostic Test (Pha) (Accu-Chek Comfort Curve T) 1 strip Q6HR 11/16/24 00:00 11/16/24 06:20 Insulin Human Regular (InsuLIN R) FOLLOW SLIDING SCALE Q6HR SC 11/16/24 00:00 11/15/24 23:34 Dextrose 50 ml UD IV 11/16/24 00:00 Amino Acids/ Electrolytes/ Dextrose 1,000 ml @ 41 mls/hr DAILY@2200 IV 11/15/24 22:00 11/15/24 21:42 Vital Signs Vital Signs Date Time Temp Pulse Resp B/P (MAP) Pulse Ox O2 Delivery O2 Flow Rate FiO2 11/16/24 09:00 97.8 94 24 117/74 (88) 93 97.8 11/15/24 20:00 Nasal Cannula* 3 32 Labs/Diagnostic Data Labs Test 11/16/24 06:17 11/16/24 05:47 11/15/24 13:35 11/15/24 06:30 Range/Units POC Glucose 127 H 70-106 mg/dl White Blood Count 20.9 H 4.4-10.8 10^3/uL Red Blood Count 4.97 4.0-5.20 10^6/uL Hemoglobin 14.7 12.2-16.2 g/dL Hematocrit 44.8 36.0-46.0 % Mean Corpuscular Volume 90.3 80.0-100.0 fL Mean Corpuscular Hemoglobin 29.7 28.0-32.0 pg Mean Corpuscular Hemoglobin Concent 32.9 32.0-36.0 g/dL Red Cell Distribution Width 15.6 H 11.8-14.3 % Platelet Count 286 140-450 10^3/uL Mean Platelet Volume 8.0 6.9-10.8 fL Neutrophils (%) (Auto) 82.8 H 37.0-80.0 % Lymphocytes (%) (Auto) 7.1 L 10.0-50.0 % Monocytes (%) (Auto) 7.3 0.0-12.0 % Eosinophils (%) (Auto) 2.1 0.0-7.0 % Basophils (%) (Auto) 0.7 0.0-2.0 % Neutrophils # (Auto) 17.3 H 1.6-8.6 10 ^3/uL Lymphocytes # (Auto) 1.5 0.4-5.4 10 ^3/uL Monocytes # (Auto) 1.5 H 0-1.3 10 ^3/uL Eosinophils # (Auto) 0.4 0-0.8 10 ^3/uL Basophils # (Auto) 0.1 0-0.2 10 ^3/uL Nucleated Red Blood Cells 0.0 % Sodium Level 132 L 136-145 mmol/L Potassium Level 3.8 3.5-5.1 mmol/L Chloride Level 105 98-107 mmol/L Carbon Dioxide Level 20 20-31 mmol/L Anion Gap 7 5-15 Blood Urea Nitrogen 26 H 9-23 mg/dL Creatinine 0.80 0.550-1.02 mg/dL Glomerular Filtration Rate Calc 78 >90 mL/min BUN/Creatinine Ratio 32.5 H 10.0-20.0 Serum Glucose 124 H 74-106 mg/dL Calcium Level 8.5 L 8.7-10.4 mg/dL Magnesium Level 1.8 1.6-2.6 mg/dL Total Bilirubin 0.3 0.2-1.0 mg/dL Aspartate Amino Transferase (AST) 42 H 13-40 U/L Alanine Aminotransferase (ALT) 33 7-40 U/L Alkaline Phosphatase 273 H 46-116 U/L Total Protein 5.3 L 5.7-8.2 g/dL Albumin 2.7 L 3.2-4.8 g/dL Lactic Acid Level 1.3 0.4-2.0 mmol/L Phosphorus Level 3.2 2.4-5.1 mg/dL Test 11/14/24 18:30 11/12/24 18:27 11/12/24 10:28 11/12/24 05:30 Range/Units Vancomycin Level Trough 19.5 H 5-10 ug/mL Differential Total Cells Counted 100.0 100 Neutrophils % (Manual) 83 H 37.0-80.0 Band Neutrophils % (Manual) 4 Lymphocytes % (Manual) 7 L 10.0-50.0 Monocytes % (Manual) 3 0-12 Eosinophils % (Manual) 3 0-7 Basophils % (Manual) 0 0.0-2.0 Metamyelocytes % (manual) 0 Myelocytes % (Manual) 0 Promyelocytes % (Manual) 0 Blast Cells % (Manual) 0 Reactive Lymphocytes 0 Platelet Estimate Adequate Large Platelets Few Anisocytosis (manual) Slight Tear Drop Cells Few Body Fluid Source Pleural fluid Body Fluid pH 8.0 Body Fluid WBC (Manual) 6751 H 0-200 CUMM Body Fluid RBC (Manual) 0 0-2000 CUMM Body Fluid Mononuclear Cells 95 % Body Fluid Polymorphonuclear Cells 5 0-25 % Body Fluid Glucose 61 . mg/dL Body Fluid Total Protein 3.8 . g/dL Body Fluid Lactate Dehydrogenase 361 . IU/L Influenza Type A Antigen Negative Negative Influenza Type B Antigen Negative Negative SARS-CoV-2 Antigen (Rapid) Negative NEGATIVE Test 11/11/24 14:25 11/10/24 10:12 11/10/24 09:40 11/09/24 16:34 Range/Units Prothrombin Time 15.0 H 9.3-11.8 sec Prothrombin Time INR 1.45 H 0.9-1.15 Activated Partial Thromboplast Time 26.1 24.5-34.5 SEC Urine Color Light-yellow Yellow Urine Clarity Clear Clear Urine pH 5.0 5.0-9.0 Urine Specific [place] 1.012 1.001-1.035 Urine Protein Negative Negative Urine Ketones Negative Negative Urine Blood 2+ H Negative /uL Urine Nitrite Negative Negative Urine Bilirubin Negative Negative Urine Urobilinogen Normal Negative mg/dL Urine Leukocyte Esterase Negative Negative /uL Urine RBC 34 0 - 4 /hpf Urine WBC 2 0 - 5 /hpf Urine Squamous Epithelial Cells Few <5 /hpf Urine Bacteria None seen None Seen /hpf Urine Hyaline Casts Few 0 - 2 /lpf Urine Glucose Normal Normal mg/dL Triglycerides Level 272 H < 150 mg/dL Cholesterol Level 199 < 200 mg/dL LDL Cholesterol 129 H < 100 mg/dL HDL Cholesterol 37 L 40-59 mg/dL Lipase 100 H 12-53 U/L Troponin I High Sensitivity 14 </=34 ng/L Test 11/09/24 13:05 Range/Units B-Type Natriuretic Peptide 203.87 0-100 pg/mL Microbiology Date/Time Source Procedure Growth Status 11/12/24 16:28 Nose MRSA Screen - Final Complete 11/12/24 10:28 Pleural Fluid Gram Stain - Final Resulted 11/12/24 10:28 Pleural Fluid Body Fluid Culture - Preliminary Resulted 11/10/24 13:37 Blood Blood Culture - Final NO GROWTH AFTER 5 DAYS OF INCUBATION. Complete 11/10/24 10:12 Voided Urine Urine Culture - Final Complete Assessment loculated right pleural malignant effusion, inadequately drained by thoracovent- type catheter, will proceed with thoracoscopic evacuation and insertion of chest tube , pleurodesis Plan discussed with: Patient, Other MARIA ANTONIA LEGGETT MD Nov 16, 2024 10:01
--- NOTE | 2024-11-16 11:18 | DVH ---
CT CHEST WITH CONTRAST INDICATION: PLEURAL EFFUSION MASS EXAM DATE: 11/16/2024 09:14 AM COMPARISON: CT CHEST WITHOUT CONTRAST on DOS: 11/12/24, CERVICAL WITHOUT CONTRAST on DOS: 06/09/22, HE AD WITHOUT CONTRAST on DOS: 06/09/22 RADIATION DOSE: CTDIvol: NA mGy, DLP: NA mGy*cm PROCEDURE: Helical CT images were obtained of the chest with intravenous contrast. Sagittal and nika nal reconstructions are provided. ADDITIONAL IMAGES / REFORMATS: None All CT scans at this medical facility are performed using dose modulation techniques as appropriate t o a performed exam including the following: Automated exposure control was utilized; adjustment of th e MA and/or KV according to patient size; and use of iterative reconstruction technique. FINDINGS: Bones: Scattered degenerative changes are noted. Visualized Abdomen: Normal. Chest Wall: A right chest wall portacatheter is seen. Soft tissues: Edematous. Mediastinum: Normal. Heart: Coronary artery calcifications are noted. Vessels: Normal. Lymph Nodes: Normal. Pleura: Pigtail chest tube in the right lower pleural space with hydropneumothorax. Small left pleura l effusion. Airways: Normal. Lung: Chronic lung disease of the right lung with superimposed pneumonia and poor lung expansion. Other: None IMPRESSION: Chronic lung disease of the right lung with superimposed pneumonia and poor lung expansion. Pigtail chest tube in the right lower pleural space with complex loculated hydropneumothorax.
[2024-11-16 12:41] LABS: Phosphorus 2.5 mg/dL (2.4-5.1)
--- NOTE | 2024-11-16 13:09 | DVHPNRES ---
Progress Note Date Seen: Nov 16, 2024 Resident Creating Document: JACOB MO RESDIENT Medical Necessity Reason Pt with a Central, PICC or Fol: No Subjective Review of Systems Patient is a 74 year old female with a past medical history as described below came to the ED with the chief complaint of Right sided chest pain for the last 2 weeks. patient reports that she has been diagnosed with Lung cancer in january 2024 and has got radiation treatment , bladder CA diagnosed in 2020 with chemotherapy finished in november 2023. she follows in the outpatient clinic for pulmonary followup. patient reports to start having right sided chest pain since october 23 and it has gradually worsened and now she has constant severe pain which she was not able to tolerate even while she was taking tramadol ,exacerbated with deep breath and movement, chills but the patient denies fever and came to the hospital for further evaluation. Patient denied recent flu like illness or cough. Past medical history: Lung CA, Bladder CA, HTN, HLD, ?CHF, overactive bladder, migraine Past surgical history: coronary angiogram social history: denies current smoking, alcohol, drug use Patient seen and examined at the bedside. Patient is feeling shortness of bed and complained of mild chest pain. Objective vital signs Vital Sign Date Time Temp Pulse Resp B/P (MAP) Pulse Ox O2 Delivery O2 Flow Rate FiO2 11/16/24 12:32 95 20 98 11/16/24 12:25 Nasal Cannula* 3 32 11/16/24 12:20 103/64 11/16/24 09:00 97.8 97.8 Total Intake and Output 11/15/24 11/15/24 11/16/24 15:00 23:00 07:00 Intake Total 700 ml 419 ml Output Total 100 ml Balance 700 ml 319 ml medications Current Medications Medications Dose Ordered Sig/Yuki Route Start Time Stop Time Status Last Admin Dose Admin EZETIMIBE 10 mg DAILY PO 11/10/24 10:00 11/16/24 12:22 10 MG Gabapentin 300 mg DAILY PO 11/10/24 10:00 11/16/24 12:21 300 MG Montelukast Sodium 10 mg HS PO 11/09/24 22:00 11/15/24 21:42 10 MG Pantoprazole Sodium 40 mg DAILY IV 11/10/24 10:00 11/16/24 12:01 40 MG Pravastatin Sodium 80 mg HS PO 12/14/24 22:00 Cancel Metoprolol Succinate 25 mg DAILY PO 11/10/24 10:00 11/16/24 12:20 25 MG Azithromycin 500 mg DAILY PO 11/09/24 18:53 11/16/24 12:22 500 MG Albuterol 2.5 mg Q4HPRN PRN NEB 11/09/24 16:15 11/16/24 12:25 2.5 MG Ipratropium [place] 0.5 mg Q4HPRN PRN NEB 11/09/24 16:15 11/16/24 12:25 0.5 MG Nitroglycerin 0.4 mg Q5MINP PRN SL 11/09/24 19:15 Tramadol HCl 50 mg BID PO 11/10/24 22:00 11/16/24 12:23 50 MG Acetaminophen/ Hydrocodone Bitart 1 tab Q6HPRN PRN PO 11/10/24 13:45 11/16/24 02:05 1 TAB Vancomycin HCl 0 ml @ 0 mls/hr UD IV 11/10/24 13:45 Morphine Sulfate 2 mg Q6HPRN PRN IV 11/10/24 13:45 11/16/24 09:53 2 MG Ivabradine 5 mg DAILY PO 11/11/24 10:00 11/16/24 12:22 5 MG Atorvastatin Calcium 40 mg HS PO 11/10/24 22:00 11/15/24 21:42 40 MG Lactulose 30 ml BID PRN PO 11/11/24 20:00 11/15/24 06:34 30 ML Enteral Nutritional Formula 240 ml TIDWM PO 11/13/24 12:00 11/16/24 12:23 240 ML Cefepime HCl 50 ml @ 12.5 mls/hr Q12HR IV 11/13/24 22:00 11/15/24 21:51 12.5 MLS/HR Guaifenesin 200 mg Q4HP PRN GT 11/14/24 15:00 Cancel Midodrine 10 mg TID@0600,1200,1800 PO 11/14/24 18:00 11/16/24 12:21 10 MG Ibuprofen 600 mg BID PO 11/14/24 22:00 Hold 11/14/24 16:21 600 MG Acetaminophen 650 mg Q6HP PO 11/14/24 18:00 12/21/24 12:21 650 MG Guaifenesin 200 mg Q4HP PRN PO 11/14/24 16:15 11/14/24 16:20 200 MG Vancomycin HCl 100 ml @ 80 mls/hr Q15H IV 11/15/24 21:00 11/16/24 12:01 80 MLS/HR Amino Acids 0 ml @ 0 mls/hr PER PHARMACY IV 11/15/24 16:15 Diagnostic Test (Pha) 1 strip Q6HR 11/16/24 00:00 11/16/24 12:25 1 STRIP Insulin Human Regular FOLLOW SLIDING SCALE Q6HR SC 11/16/24 00:00 11/16/24 12:35 2 UNITS Dextrose 50 ml UD IV 11/16/24 00:00 Amino Acids/ Electrolytes/ Dextrose 1,000 ml @ 41 mls/hr DAILY@2200 IV 11/15/24 22:00 11/15/24 21:42 41 MLS/HR Examination General Appearance: Alert, Oriented X3, Cooperative, in mild acute distress HEENT: Atraumatic, PERRLA, EOMI, Mucous membrane moist/pink Respiratory: Breaths sounds are decreased on the Rt side Cardiovascular: Regular rate, Normal S1, Normal S2, No murmurs, no chest wall tenderness Abdominal: Normal bowel sounds, Soft, No tenderness, No hepatospenomegaly, No masses Extremities: No clubbing, No cyanosis, No edema, Normal pulses, No tenderness/swelling Skin: No rashes, No breakdown, No significant lesion Neuro: Normal gait, Normal speech, Strength at 5/5 X4 ext, Normal tone, Sensation intact, Cranial nerves 3-12 NL, Reflexes 2+ Psych/Mental Status: Mental status NL, Mood NL laboratory and microbiology Laboratory Tests 11/16/24 05:47 Test 11/16/24 05:47 Range/Units Serum Glucose 124 H 74-106 mg/dL Microbiology Date/Time Source Procedure Growth Status 11/12/24 16:28 Nose MRSA Screen - Final Complete 11/12/24 10:28 Pleural Fluid Gram Stain - Final Resulted 11/12/24 10:28 Pleural Fluid Body Fluid Culture - Preliminary Resulted 11/10/24 13:37 Blood Blood Culture - Final NO GROWTH AFTER 5 DAYS OF INCUBATION. Complete 11/10/24 10:12 Voided Urine Urine Culture - Final Complete Labs and/or images reviewed: Labs reviewed by me, Image(s) reviewed by me Problem List/Assessment/Plan Problem List/Assessment/Plan This is a 74-year-old female with past medical history of lung cancer, bladder cancer, hypertension, hyperlipidemia, CHF presented to the hospital with right- sided chest pain for 2 weeks. Admitted on 11/09. Acute hypoxic respiratory failure likely due to pneumonia/pleural effusion, on oxygen through nasal cannula Sepsis likely d/t pneumonia Community acquired pneumonia likely d/t Gram+/-/atypical bacteria Right loculated pleural effusion likely due to parapneumonic/malignant History of lung cancer diagnosed on January 2024, status post radiation Ex vacuo pneumothorax (trapped lung) Chest x-ray shows right-sided pleural effusion, with right basilar atelectasis/pneumonia Chest CT scan shows large loculated right pleural fluid collection with atelectasis of most of the right lung CT scan shows distended gallbladder with no calcified gallstone, liver ultrasound is unremarkable Blood and urine culture preliminary result shows no growth MRSA nares negative Pulmonology is on the board, given 1st dose of alteplase 6 mg on 11/14 Radiology on the board, put a chest tube on the right chest, drain 900 mL Pleural fluid culture shows no growth, g stain negative Pleural fluid shows raised WBC at 6751, light criteria including pleural fluid protein/serum protein is 0.67 (meet criteria for exudative pleural effusion), mildly decreased pleural fluid glucose, cytology report pending Continue gabapentin and [place] for the pain Continue azithromycin started on 11/09, vancomycin started on 11/10, cefepime started on 11/11 Breathing treatment q.4 however as needed Continue montelukast Two dose alteplase 6 mg intrapleural given, but due to development of pneumothorax and results of pleural fluid shows malignant pleural effusion, the 3rd dose is not given Chest x-ray, new onset ex vacuo pneumothorax Pleural fluid analysis, shows malignant cells Chest tube flushed, patent Consulted surgery for malignant pleural effusion and pneumothorax Hypertensive heart disease Hypertension Possible acute on chronic systolic heart failure Echocardiogram from 07/02/2024 shows ejection fraction 35-45% BNP is 203 Continue metoprolol succinate 25mg qd Continue Ivabradine 5mg qd Dyslipidemia Continue atorvastatin 40mghs Continue ezetimibe 10mg qd Transaminitis AST and ALT are raised, downtrending Monitoring Possible pancreatitis Lipase is mild raised at [address] scan does not shows signs of pancreatitis Monitoring Mild hyponatremia Hypokalemia Supplemented History of bladder cancer status post chemotherapy Diagnosed on 2020 Infrarenal abdominal aorta aneurysm CT scan shows small saccular 1.1 cm aneurysm along the left side of the infrarenal abdominal aorta Monitoring, follow up on outpatient basis DIET: Full liquid diet, with nutritional suppplement of ensure DVT prophylax: Lovenox GI prophylaxis: Protonix IV Bowel regimen: Lactulose p.r.n. Code status: Full code DISPOSITION: Med surg Patient's status discussed with patient and the on the phone. Pleural fluid analysis, shows malignant cells. Surgery has consulted, due to worsening of pleural effusion, and new onset ex vacuo pneumothorax, the patient is not stable to be discharged at the moment. Case discussed with Dr. Avendano Plan discussed with: Patient, Other (RN) My Orders My Orders Orders - JACOB MO RESDIPATRICIA Procedure Category Date Status Time * Surgical Consult CONS 11/15/24 Transmitted Chest Xray 1 View XY 11/16/24 Resulted 04:[address] 11/16/24 Resulted 07:14 Dietary Evaluation Review Comments: 1. Continue diet regime 2. Consider Fish oil BID for high Trig 3. Consider Ensure HP BID if PO intake trends low Expected Outcomes/Goals: 1. Pt will consume >75% of estimated needs within 3-5 days Date of Service: Nov 16, 2024 Billing Provider: MINA AVENDANO MD Common Visit Codes: [id number] INP/OBS CARE(HIGH) JACOB MO RESDIENT Nov 16, 2024 13:09 MINA AVENDANO MD Nov 16, 2024 21:46
[2024-11-16] MEDS: SODIUM PHOSPHATES 20 MEQ in SODIUM CHL 0.9% 100 ML IV ONE (14:00)
--- NOTE | 2024-11-16 16:32 | DVHPN2 ---
Progress Note - Dictate Date Seen: Nov 16, 2024 Medical Necessity Reason Pt with a Central, PICC or Fol: No Subjective Patient seen and examined at bedside. Remains on supplemental oxygen Overnight events reviewed. vital signs Vital Sign Date Time Temp Pulse Resp B/P (MAP) Pulse Ox O2 Delivery O2 Flow Rate FiO2 11/16/24 13:00 97.3 107 18 103/64 (77) 98 97.3 11/16/24 12:25 Nasal Cannula* 3 32 Total Intake and Output 11/15/24 11/15/24 11/16/24 15:00 23:00 07:00 Intake Total 700 ml 419 ml Output Total 100 ml Balance 700 ml 319 ml medications Current Medications Medications Dose Ordered Sig/Yuki Route Start Time Stop Time Status Last Admin Dose Admin EZETIMIBE 10 mg DAILY PO 11/10/24 10:00 11/16/24 12:22 10 MG Gabapentin 300 mg DAILY PO 11/10/24 10:00 11/16/24 12:21 300 MG Montelukast Sodium 10 mg HS PO 11/09/24 22:00 11/15/24 21:42 10 MG Pantoprazole Sodium 40 mg DAILY IV 11/10/24 10:00 11/16/24 12:01 40 MG Pravastatin Sodium 80 mg HS PO 11/09/24 22:00 Cancel Metoprolol Succinate 25 mg DAILY PO 11/10/24 10:00 11/16/24 12:20 25 MG Azithromycin 500 mg DAILY PO 11/09/24 18:53 11/16/24 12:22 500 MG Albuterol 2.5 mg Q4HPRN PRN NEB 11/09/24 16:15 11/16/24 12:25 2.5 MG Ipratropium [place] 0.5 mg Q4HPRN PRN NEB 11/09/24 16:15 11/16/24 12:25 0.5 MG Nitroglycerin 0.4 mg Q5MINP PRN SL 11/09/24 19:15 Tramadol HCl 50 mg BID PO 11/10/24 22:00 11/16/24 12:23 50 MG Acetaminophen/ Hydrocodone Bitart 1 tab Q6HPRN PRN PO 11/10/24 13:45 11/16/24 13:43 1 TAB Vancomycin HCl 0 ml @ 0 mls/hr UD IV 11/10/24 13:45 Morphine Sulfate 2 mg Q6HPRN PRN IV 11/10/24 13:45 11/16/24 09:53 2 MG Ivabradine 5 mg DAILY PO 11/11/24 10:00 11/16/24 12:22 5 MG Atorvastatin Calcium 40 mg HS PO 11/10/24 22:00 11/15/24 21:42 40 MG Lactulose 30 ml BID PRN PO 11/11/24 20:00 11/15/24 06:34 30 ML Enteral Nutritional Formula 240 ml TIDWM PO 11/13/24 12:00 11/16/24 12:23 240 ML Cefepime HCl 50 ml @ 12.5 mls/hr Q12HR IV 11/13/24 22:00 11/15/24 21:51 12.5 MLS/HR Guaifenesin 200 mg Q4HP PRN GT 11/14/24 15:00 Cancel Midodrine 10 mg TID@0600,1200,1800 PO 11/14/24 18:00 11/16/24 12:21 10 MG Ibuprofen 600 mg BID PO 11/14/24 22:00 Hold 11/14/24 16:21 600 MG Acetaminophen 650 mg Q6HP PO 11/14/24 18:00 11/16/24 12:21 650 MG Guaifenesin 200 mg Q4HP PRN PO 11/14/24 16:15 11/16/24 13:50 200 MG Vancomycin HCl 100 ml @ 80 mls/hr Q15H IV 11/15/24 21:00 11/16/24 12:01 80 MLS/HR Amino Acids 0 ml @ 0 mls/hr PER PHARMACY IV 11/15/24 16:15 Diagnostic Test (Pha) 1 strip Q6HR 11/16/24 00:00 11/16/24 12:25 1 STRIP Insulin Human Regular FOLLOW SLIDING SCALE Q6HR SC 11/16/24 00:00 11/16/24 12:35 2 UNITS Dextrose 50 ml UD IV 11/16/24 00:00 Amino Acids/ Electrolytes/ Dextrose 1,000 ml @ 41 mls/hr DAILY@2200 IV 11/15/24 22:00 11/15/24 21:42 41 MLS/HR objective Gen.: Patient lying in bed in no apparent distress. On supplemental oxygen. Head: Normocephalic, atraumatic. Eyes: EOMI/PERRLA. Ears: Normal hearing. Normal anatomy. Neck/trachea: Trachea midline, supple. Nose: Normal external anatomy. Mouth: Moist mucous membranes. Chest: Decreased air entry bilaterally. No wheezing or rhonchi. Cardiovascular: Positive S1, positive S2. Regular rate and rhythm. Abdomen: Positive bowel sounds in all 4 quadrants. Soft, non-tender, non- distended. : Deferred. Rectal: Deferred. Skin: Warm, dry. Intact. Extremities: 2+ radial pulses bilaterally. No lower extremity edema. Neuro: Awake, alert, oriented x3. No gross motor or sensory deficits. Cranial nerves II through XII intact. Gait not assessed. laboratory and microbiology Laboratory Tests 11/16/24 05:47 Test 11/16/24 05:47 Range/Units Serum Glucose 124 H 74-106 mg/dL Assessment/Plan Impression: Acute on chronic hypoxic respiratory failure Chronic obstructive pulmonary disease Loculated pleural effusion, right Atelectasis Metastatic cancer Malignant effusion Events: Remains on supplemental oxygen, 3 LPM NC Taper O2 as tolerated Second dose tPA complete CXR demonstrates right pneumothorax, likely trapped lung. S/p right chest tube placement Alteplase via chest tube x2. Increase suction to minus 30 cmH2O Obtain CXR in 2 hours for interval changes Monitor chest tube output. Continue antibiotics Incentive spirometry Labs and imaging reviewed. Rest of plan as noted below. Plan: Supplemental oxygen Titrate to keep O2 sats above 92%. CXR demonstrated right loculated pleural effusion. S/p right chest tube placement. Monitor PT/INR. Continue bronchodilators. Antibiotics Incentive spirometry Monitor renal function. Monitor electrolytes. Supplement as necessary. Monitor ins and outs. GI prophylaxis - pantoprazole DVT prophylaxis. Prognosis: Poor given patient's multiple co-morbidities. Rest of plan per hospitalist and other consultants. Thank you Dr. Taran Archer MD, for allowing me to participate in this patient's care. Further recommendations will depend on the patient's clinical course. Please do not hesitate to contact me if you have any questions or concerns. This medical document was created using an electronic medical record system with [employer] system. Although these documentations are being carefully reviewed, there may still be some phonetic and typographical changes. The errors are purely typographical, due to imperfection on the software program, and do not reflect any compromise in the patient's medical care. Dietary Evaluation Review Comments: 1. Continue diet regime 2. Consider Fish oil BID for high Trig 3. Consider Ensure HP BID if PO intake trends low Expected Outcomes/Goals: 1. Pt will consume >75% of estimated needs within 3-5 days Plan discussed with: Patient, Other (RN Rachele) CHRISTIANO TAPIA MD Nov 16, 2024 16:32
[2024-11-17] VITALS (8 sets, daily range): BP systolic 90–121; BP diastolic 36–79; PULSE 74–99; RESP 17–19; TEMP 97.2–98.3; O2SAT 91–96
--- NOTE | 2024-11-17 05:24 | DVH ---
CHEST RADIOGRAPH Indication: Pleural effusion Technique: Single frontal view of the chest was obtained Comparison: XY CHEST XRAY 1 VIEW on DOS: 11/16/24, XY CHEST XRAY 1 VIEW on DOS: 11/15/24, XY CHEST XR AY 1 VIEW on DOS: 11/13/24 IMPRESSION: The heart appears normal in size. Persistent masslike opacities along the pleura laterally and in th e upper lung. Persistent small basilar right pneumothorax with pleural catheter. Right infusion port tip in the region of the superior vena cava. The left lung appears clear.
[2024-11-17 07:29] LABS: Basophils # (auto) 0.1 10 ^3/uL (0-0.2); Basophils % (auto) 0.7 % (0.0-2.0); Eosinophils # (auto) 0.6 10 ^3/uL (0-0.8); Hematocrit 47.8 % (36.0-46.0); Hemoglobin 15.2 g/dL (12.2-16.2); Lymphocytes # (auto) 1.4 10 ^3/uL (0.4-5.4); Lymphocytes % (auto) 7.1 % (10.0-50.0); Mean Corpuscular Hemoglobin 29.3 pg (28.0-32.0); Mean Corpuscular Hgb Conc. 31.7 g/dL (32.0-36.0); Mean Corpuscular Volume 92.4 fL (80.0-100.0); Monocytes # (auto) 1.5 10 ^3/uL (0-1.3); Monocytes % (auto) 7.5 % (0.0-12.0); Neutrophils # (auto) 15.9 10 ^3/uL (1.6-8.6); Neutrophils % (auto) 81.7 % (37.0-80.0); Platelet Count (auto) 283 10^3/uL (140-450); Red Blood Cells 5.17 10^6/uL (4.0-5.20); White Blood Cell 19.4 10^3/uL (4.4-10.8)
[2024-11-17 07:40] LABS: Alanine Aminotransferase 25 U/L (7-40); Anion Gap 7 (5-15); BUN/Creatinine Ratio 37.3 (10.0-20.0); Carbon Dioxide 20 mmol/L (20-31); Chloride 102 mmol/L (98-107); Potassium 3.9 mmol/L (3.5-5.1)
[2024-11-17 07:41] LABS: Aspartate Aminotransferase 33 U/L (13-40)
[2024-11-17 07:42] LABS: Bilirubin, Total 0.3 mg/dL (0.2-1.0)
[2024-11-17 07:51] LABS: Albumin 2.8 g/dL (3.2-4.8); Alkaline Phosphatase 260 U/L (46-116); Blood Urea Nitrogen 31 mg/dL (9-23); Calcium 8.7 mg/dL (8.7-10.4); Glucose 190 mg/dL (74-106); Phosphorus 1.5 mg/dL (2.4-5.1); Sodium 129 mmol/L (136-145); Total Protein 5.6 g/dL (5.7-8.2)
[2024-11-17] MEDS: IOHEXOL 300 MG/ML 100ML BOTTLE IJ ONE (09:20)
[2024-11-17] MEDS: SODIUM PHOSPHATES 40 MEQ in D5W 5% 250 ML IV ONE (18:55)
--- NOTE | 2024-11-17 22:18 | DVHPN2 ---
Subjective The patient is seen and examined at bedside. Tired and complain of shortness for breath. Reviewed: Care Plan, H&P, Labs, Medications, Previous Orders, Radiology Changes from previous H/P or p: No Changes Eyes: No Pain, No Vision change, No Conjunctivae inflammation, No Eyelid inflammation, No Other, No Redness ENT: No Ear pain, No Ear discharge, No Nose pain, No Nose discharge, No Nose congestion, No Mouth pain, No Mouth swelling, No Throat pain, No Throat swelling, No Other Cardiovascular: No Chest Pain, No Palpitations, No Orthopnea, No Paroxysmal Noc. Dyspnea, No Edema, No Lt Headedness, No Other Respiratory: No Cough, No Dry, No Shortness of breath, No SOB with excertion, No Wheezing, No Hemoptysis, No Pleuritic Pain, No Sputum, No Other Gastrointestinal: No Nausea, No Vomiting, No Abdominal Pain, No Diarrhea, No Constipation, No Melena, No Hematochezia, No Other Genitourinary: No Dysuria, No Frequency, No Incontinence, No Hematuria, No Retention, No Other Musculoskeletal: No other, No neck pain; shoulder pain, arm pain, back pain, h and pain, leg pain; No foot pain Skin: No Rash, No Lesions, No Jaundice, No Bruising, No Other Objective Vitals Vital Signs Date Time Temp Pulse Resp B/P (MAP) Pulse Ox O2 Delivery O2 Flow Rate FiO2 11/17/24 21:00 97.9 74 19 90/53 (65) 93 97.9 11/17/24 19:33 Nasal Cannula* 3 32 Intake/Output Intake and Output 11/17/24 07:00 Intake Total 860 ml Balance 860 ml Intake Oral 710 ml IV Total 150 ml # Voids 3 Medications Current Medications Medications Dose Ordered Sig/Yuki Route Start Time Stop Time Status Last Admin Dose Admin EZETIMIBE 10 mg DAILY PO 11/10/24 10:00 11/17/24 09:19 10 MG Gabapentin 300 mg DAILY PO 11/10/24 10:00 11/17/24 09:19 300 MG Montelukast Sodium 10 mg HS PO 11/09/24 22:00 11/17/24 22:14 10 MG Pantoprazole Sodium 40 mg DAILY IV 11/10/24 10:00 11/17/24 09:19 40 MG Pravastatin Sodium 80 mg HS PO 11/09/24 22:00 Cancel Metoprolol Succinate 25 mg DAILY PO 11/10/24 10:00 11/17/24 09:28 25 MG Azithromycin 500 mg DAILY PO 11/09/24 18:53 11/17/24 09:20 500 MG Albuterol 2.5 mg Q4HPRN PRN NEB 11/09/24 16:15 11/16/24 12:25 2.5 MG Ipratropium [place] 0.5 mg Q4HPRN PRN NEB 11/09/24 16:15 11/16/24 12:25 0.5 MG Nitroglycerin 0.4 mg Q5MINP PRN SL 11/09/24 19:15 Tramadol HCl 50 mg BID PO 11/10/24 22:00 11/17/24 22:15 50 MG Acetaminophen/ Hydrocodone Bitart 1 tab Q6HPRN PRN PO 11/10/24 13:45 11/17/24 22:14 1 TAB Vancomycin HCl 0 ml @ 0 mls/hr UD IV 11/10/24 13:45 Morphine Sulfate 2 mg Q6HPRN PRN IV 11/10/24 13:45 11/17/24 14:08 2 MG Ivabradine 5 mg DAILY PO 11/11/24 10:00 11/17/24 17:49 5 MG Atorvastatin Calcium 40 mg HS PO 11/10/24 22:00 11/17/24 22:14 40 MG Lactulose 30 ml BID PRN PO 11/11/24 20:00 11/15/24 06:34 30 ML Enteral Nutritional Formula 240 ml TIDWM PO 11/13/24 12:00 11/17/24 18:30 240 ML Cefepime HCl 50 ml @ 12.5 mls/hr Q12HR IV 11/13/24 22:00 11/17/24 22:14 12.5 MLS/HR Guaifenesin 200 mg Q4HP PRN GT 11/14/24 15:00 Cancel Midodrine 10 mg TID@0600,1200,1800 PO 11/14/24 18:00 11/17/24 18:53 10 MG Ibuprofen 600 mg BID PO 11/14/24 22:00 Hold 11/14/24 16:21 600 MG Acetaminophen 650 mg Q6HP PO 11/14/24 18:00 11/17/24 00:42 650 MG Guaifenesin 200 mg Q4HP PRN PO 11/14/24 16:15 11/16/24 13:50 200 MG Amino Acids 0 ml @ 0 mls/hr PER PHARMACY IV 11/15/24 16:15 Diagnostic Test (Pha) 1 strip Q6HR 11/16/24 00:00 11/17/24 18:54 1 STRIP Insulin Human Regular FOLLOW SLIDING SCALE Q6HR SC 11/16/24 00:00 11/17/24 19:01 2 UNITS Dextrose 50 ml UD IV 11/16/24 00:00 Amino Acids/ Electrolytes/ Dextrose 1,000 ml @ 41 mls/hr DAILY@2200 IV 11/15/24 22:00 11/17/24 22:12 41 MLS/HR Laboratory Results Laboratory Tests 11/17/24 06:29 Chemistry Test 11/17/24 06:29 Albumin 2.8 g/dL (3.2-4.8) L Calcium Level 8.7 mg/dL (8.7-10.4) Magnesium Level 2.0 mg/dL (1.6-2.6) Phosphorus Level 1.5 mg/dL (2.4-5.1) L Total Protein 5.6 g/dL (5.7-8.2) L LFT Test 11/17/24 06:29 Alanine Aminotransferase (ALT) 25 U/L (7-40) Alkaline Phosphatase 260 U/L (46-116) H Aspartate Amino Transferase (AST) 33 U/L (13-40) Total Bilirubin 0.3 mg/dL (0.2-1.0) Urinalysis Test 11/10/24 10:12 Urine Color Light-yellow (Yellow) Urine Clarity Clear (Clear) Urine pH 5.0 (5.0-9.0) Urine Specific [place] 1.012 (1.001-1.035) Urine Protein Negative (Negative) Urine Ketones Negative (Negative) Urine Blood 2+ /uL (Negative) H Urine Nitrite Negative (Negative) Urine Bilirubin Negative (Negative) Urine Urobilinogen Normal mg/dL (Negative) Urine Leukocyte Esterase Negative /uL (Negative) Urine RBC 34 /hpf (0 - 4) Urine WBC 2 /hpf (0 - 5) Urine Squamous Epithelial Cells Few /hpf (<5) Urine Bacteria None seen /hpf (None Seen) Urine Hyaline Casts Few /lpf (0 - 2) Urine Glucose Normal mg/dL (Normal) Microbiology Microbiology Date/Time Source Procedure Growth Status 11/12/24 16:28 Nose MRSA Screen - Final Complete 11/12/24 10:28 Pleural Fluid Gram Stain - Final Complete 11/12/24 10:28 Pleural Fluid Body Fluid Culture - Final Complete 11/10/24 13:37 Blood Blood Culture - Final NO GROWTH AFTER 5 DAYS OF INCUBATION. Complete 11/10/24 10:12 Voided Urine Urine Culture - Final Complete Labs and/or images reviewed: Labs reviewed by me Assessment/Plan Assessment/Plan Acute hypoxic respiratory failure likely due to pneumonia/pleural effusion, on oxygen through nasal cannula Sepsis likely d/t pneumonia Community acquired pneumonia likely d/t Gram+/-/atypical bacteria Right loculated pleural effusion likely due to parapneumonic/malignant History of lung cancer diagnosed on January 2024, status post radiation Ex vacuo pneumothorax (trapped lung) Chest x-ray shows right-sided pleural effusion, with right basilar atelectasis/pneumonia Chest CT scan shows large loculated right pleural fluid collection with atelectasis of most of the right lung CT scan shows distended gallbladder with no calcified gallstone, liver ultrasound is unremarkable Blood and urine culture preliminary result shows no growth MRSA nares negative Pulmonology is on the board, given 1st dose of alteplase 6 mg on 11/14 Radiology on the board, put a chest tube on the right chest, drain 900 mL Pleural fluid culture shows no growth, g stain negative Pleural fluid shows raised WBC at 6751, light criteria including pleural fluid protein/serum protein is 0.67 (meet criteria for exudative pleural effusion), mildly decreased pleural fluid glucose, cytology report pending Continue gabapentin and [place] for the pain Continue azithromycin started on 11/09, vancomycin started on 11/10, cefepime started on 11/11 Breathing treatment q.4 however as needed Continue montelukast Two dose alteplase 6 mg intrapleural given, but due to development of pneumothorax and results of pleural fluid shows malignant pleural effusion, the 3rd dose is not given Chest x-ray, new onset ex vacuo pneumothorax Pleural fluid analysis, shows malignant cells Chest tube flushed, patent Consulted surgery for malignant pleural effusion and pneumothorax Hypertensive heart disease Hypertension Possible acute on chronic systolic heart failure Echocardiogram from 07/02/2024 shows ejection fraction 35-45% BNP is 203 Continue metoprolol succinate 25mg qd Continue Ivabradine 5mg qd Dyslipidemia Continue atorvastatin 40mghs Continue ezetimibe 10mg qd Transaminitis AST and ALT are raised, downtrending Monitoring Possible pancreatitis Lipase is mild raised at [address] scan does not shows signs of pancreatitis Monitoring Mild hyponatremia Hypokalemia Supplemented History of bladder cancer status post chemotherapy Diagnosed on 2020 Infrarenal abdominal aorta aneurysm CT scan shows small saccular 1.1 cm aneurysm along the left side of the infrarenal abdominal aorta Monitoring, follow up on outpatient basis DIET: Full liquid diet, with nutritional suppplement of ensure DVT prophylax: Lovenox GI prophylaxis: Protonix IV Bowel regimen: Lactulose p.r.n. Code status: Full code Pleural fluid analysis, shows malignant cells. Surgery has consulted, due to worsening of pleural effusion, and new onset ex vacuo pneumothorax. Waiting for surgeon to see the patient. Plan discussed with: Patient Date of Service: Nov 17, 2024 Billing Provider: MINA AVENDANO MD Common Visit Codes: [id number] INP/OBS CARE(HIGH) MINA AVENDANO MD Nov 17, 2024 22:18
--- NOTE | 2024-11-17 23:40 | DVHPN2 ---
Progress Note - Dictate Date Seen: Nov 17, 2024 Medical Necessity Reason Pt with a Central, PICC or Fol: No Subjective Patient seen and examined at bedside. Remains on supplemental oxygen Overnight events reviewed. vital signs Vital Sign Date Time Temp Pulse Resp B/P (MAP) Pulse Ox O2 Delivery O2 Flow Rate FiO2 11/17/24 21:00 97.9 74 19 90/53 (65) 93 97.9 11/17/24 19:33 Nasal Cannula* 3 32 Total Intake and Output 11/16/24 11/16/24 11/17/24 15:00 23:00 07:00 Intake Total 100 ml 460 ml 300 ml Balance 100 ml 460 ml 300 ml medications Current Medications Medications Dose Ordered Sig/Yuki Route Start Time Stop Time Status Last Admin Dose Admin EZETIMIBE 10 mg DAILY PO 11/10/24 10:00 11/17/24 09:19 10 MG Gabapentin 300 mg DAILY PO 11/10/24 10:00 11/17/24 09:19 300 MG Montelukast Sodium 10 mg HS PO 11/09/24 22:00 11/17/24 22:14 10 MG Pantoprazole Sodium 40 mg DAILY IV 11/10/24 10:00 11/17/24 09:19 40 MG Pravastatin Sodium 80 mg HS PO 11/09/24 22:00 Cancel Metoprolol Succinate 25 mg DAILY PO 11/10/24 10:00 11/17/24 09:28 25 MG Azithromycin 500 mg DAILY PO 11/09/24 18:53 11/17/24 09:20 500 MG Albuterol 2.5 mg Q4HPRN PRN NEB 11/09/24 16:15 11/16/24 12:25 2.5 MG Ipratropium [place] 0.5 mg Q4HPRN PRN NEB 11/09/24 16:15 11/16/24 12:25 0.5 MG Nitroglycerin 0.4 mg Q5MINP PRN SL 11/09/24 19:15 Tramadol HCl 50 mg BID PO 11/10/24 22:00 11/17/24 22:15 50 MG Acetaminophen/ Hydrocodone Bitart 1 tab Q6HPRN PRN PO 11/10/24 13:45 11/17/24 22:14 1 TAB Vancomycin HCl 0 ml @ 0 mls/hr UD IV 11/10/24 13:45 Morphine Sulfate 2 mg Q6HPRN PRN IV 11/10/24 13:45 11/17/24 14:08 2 MG Ivabradine 5 mg DAILY PO 11/11/24 10:00 11/17/24 17:49 5 MG Atorvastatin Calcium 40 mg HS PO 11/10/24 22:00 11/17/24 22:14 40 MG Lactulose 30 ml BID PRN PO 11/11/24 20:00 11/15/24 06:34 30 ML Enteral Nutritional Formula 240 ml TIDWM PO 11/13/24 12:00 11/17/24 18:30 240 ML Cefepime HCl 50 ml @ 12.5 mls/hr Q12HR IV 11/13/24 22:00 11/17/24 22:14 12.5 MLS/HR Guaifenesin 200 mg Q4HP PRN GT 11/14/24 15:00 Cancel Midodrine 10 mg TID@0600,1200,1800 PO 11/14/24 18:00 11/17/24 18:53 10 MG Ibuprofen 600 mg BID PO 11/14/24 22:00 Hold 11/14/24 16:21 600 MG Acetaminophen 650 mg Q6HP PO 11/14/24 18:00 11/17/24 00:42 650 MG Guaifenesin 200 mg Q4HP PRN PO 11/14/24 16:15 11/16/24 13:50 200 MG Amino Acids 0 ml @ 0 mls/hr PER PHARMACY IV 11/15/24 16:15 Diagnostic Test (Pha) 1 strip Q6HR 11/16/24 00:00 11/17/24 18:54 1 STRIP Insulin Human Regular FOLLOW SLIDING SCALE Q6HR SC 11/16/24 00:00 11/17/24 19:01 2 UNITS Dextrose 50 ml UD IV 11/16/24 00:00 Amino Acids/ Electrolytes/ Dextrose 1,000 ml @ 41 mls/hr DAILY@2200 IV 11/15/24 22:00 11/17/24 22:12 41 MLS/HR objective Gen.: Patient lying in bed in no apparent distress. On supplemental oxygen. Head: Normocephalic, atraumatic. Eyes: EOMI/PERRLA. Ears: Normal hearing. Normal anatomy. Neck/trachea: Trachea midline, supple. Nose: Normal external anatomy. Mouth: Moist mucous membranes. Chest: Decreased air entry bilaterally. No wheezing or rhonchi. Cardiovascular: Positive S1, positive S2. Regular rate and rhythm. Abdomen: Positive bowel sounds in all 4 quadrants. Soft, non-tender, non- distended. : Deferred. Rectal: Deferred. Skin: Warm, dry. Intact. Extremities: 2+ radial pulses bilaterally. No lower extremity edema. Neuro: Awake, alert, oriented x3. No gross motor or sensory deficits. Cranial nerves II through XII intact. Gait not assessed. laboratory and microbiology Laboratory Tests 11/17/24 06:29 Test 11/17/24 06:29 Range/Units Serum Glucose 190 H 74-106 mg/dL Assessment/Plan Impression: Acute on chronic hypoxic respiratory failure Chronic obstructive pulmonary disease Loculated pleural effusion, right Atelectasis Metastatic cancer Malignant effusion Events: Remains on supplemental oxygen, 3 LPM NC Taper O2 as tolerated CXR demonstrates persistent masslike opacities along the pleura laterally and in the upper lung. Persistent small basilar right pneumothorax with pleural catheter in place. S/p right chest tube placement Alteplase via chest tube x2. Suction to minus 30 cmH2O Monitor chest tube output. Continue antibiotics Incentive spirometry Pain control Clinimix for nutritional support Follow up Surgery recommendations. Labs and imaging reviewed. Rest of plan as noted below. Plan: Supplemental oxygen Titrate to keep O2 sats above 92%. CXR demonstrated right loculated pleural effusion. S/p right chest tube placement. Monitor PT/INR. Continue bronchodilators. Antibiotics Incentive spirometry Monitor renal function. Monitor electrolytes. Supplement as necessary. Monitor ins and outs. GI prophylaxis - pantoprazole DVT prophylaxis. Prognosis: Poor given patient's multiple co-morbidities. Rest of plan per hospitalist and other consultants. Thank you Dr. Taran Archer MD, for allowing me to participate in this patient's care. Further recommendations will depend on the patient's clinical course. Please do not hesitate to contact me if you have any questions or concerns. This medical document was created using an electronic medical record system with [employer] system. Although these documentations are being carefully reviewed, there may still be some phonetic and typographical changes. The errors are purely typographical, due to imperfection on the software program, and do not reflect any compromise in the patient's medical care. Dietary Evaluation Review Comments: 1. Continue diet regime 2. Consider Fish oil BID for high Trig 3. Consider Ensure HP BID if PO intake trends low Expected Outcomes/Goals: 1. Pt will consume >75% of estimated needs within 3-5 days Plan discussed with: Patient, Other (RN Reena) CHRISTIANO TAPIA MD Nov 17, 2024 23:40
[2024-11-18] VITALS (10 sets, daily range): BP systolic 86–137; BP diastolic 39–107; PULSE 66–97; RESP 16–19; TEMP 97.4–98; O2SAT 92–98
[2024-11-18 02:16] LABS: Partial Thromboplastin Time 36.8 SEC (24.5-34.5); Prothrombin Time 40.3 sec (9.3-11.8)
[2024-11-18 02:17] LABS: INR 4.23 (0.9-1.15)
[2024-11-18] MEDS: phytonadione 1 ML ONE (03:08)
[2024-11-18] MEDS: phytonadione 5 MG in SODIUM CHL 0.9% 50 ML IV ONE (03:19)
[2024-11-18 06:53] LABS: Basophils # (auto) 0.2 10 ^3/uL (0-0.2); Eosinophils # (auto) 0.5 10 ^3/uL (0-0.8); Eosinophils % (auto) 2.5 % (0.0-7.0); Hemoglobin 14.9 g/dL (12.2-16.2); Lymphocytes # (auto) 1.7 10 ^3/uL (0.4-5.4); Lymphocytes % (auto) 8.3 % (10.0-50.0); Mean Corpuscular Hemoglobin 29.6 pg (28.0-32.0); Mean Corpuscular Hgb Conc. 33.1 g/dL (32.0-36.0); Mean Corpuscular Volume 89.6 fL (80.0-100.0); Monocytes # (auto) 1.3 10 ^3/uL (0-1.3); Monocytes % (auto) 6.5 % (0.0-12.0); Neutrophils # (auto) 16.8 10 ^3/uL (1.6-8.6); Neutrophils % (auto) 81.7 % (37.0-80.0); Nucleated Red Blood Cells % 0.3 %; Platelet Count (auto) 296 10^3/uL (140-450); Red Blood Cells 5.03 10^6/uL (4.0-5.20); Red Cell Distribution Width 15.7 % (11.8-14.3); White Blood Cell 20.6 10^3/uL (4.4-10.8)
[2024-11-18 06:58] LABS: Alanine Aminotransferase 39 U/L (7-40); Anion Gap 9 (5-15); BUN/Creatinine Ratio 52.6 (10.0-20.0); Chloride 102 mmol/L (98-107); Glucose 87 mg/dL (74-106); Potassium 4.6 mmol/L (3.5-5.1)
[2024-11-18 06:59] LABS: Bilirubin, Total 0.5 mg/dL (0.2-1.0)
[2024-11-18 07:00] LABS: Albumin 2.6 g/dL (3.2-4.8); Alkaline Phosphatase 250 U/L (46-116); Aspartate Aminotransferase 80 U/L (13-40); Blood Urea Nitrogen 51 mg/dL (9-23); Calcium 8.2 mg/dL (8.7-10.4); Carbon Dioxide 20 mmol/L (20-31); Phosphorus 5.6 mg/dL (2.4-5.1); Sodium 131 mmol/L (136-145); Total Protein 4.9 g/dL (5.7-8.2)
--- NOTE | 2024-11-18 08:01 | DVHPN2 ---
Progress Note Date Seen: Nov 18, 2024 Medical Necessity Reason Pt with a Central, PICC or Fol: No Objective vital signs Vital Sign Date Time Temp Pulse Resp B/P (MAP) Pulse Ox O2 Delivery O2 Flow Rate FiO2 11/18/24 05:00 98.0 84 19 90/44 (59) 95 98.0 11/17/24 20:00 Nasal Cannula* 3 32 Total Intake and Output 11/17/24 11/17/24 11/18/24 15:00 23:00 07:00 Intake Total 460 ml 700 ml 345.5 ml Output Total 75 ml 350 ml Balance 385 ml 700 ml -4.5 ml medications Current Medications Medications Dose Ordered Sig/Yuki Route Start Time Stop Time Status Last Admin Dose Admin EZETIMIBE 10 mg DAILY PO 11/10/24 10:00 11/17/24 09:19 10 MG Gabapentin 300 mg DAILY PO 11/10/24 10:00 11/17/24 09:19 300 MG Montelukast Sodium 10 mg HS PO 11/09/24 22:00 11/17/24 22:14 10 MG Pantoprazole Sodium 40 mg DAILY IV 11/10/24 10:00 11/17/24 09:19 40 MG Pravastatin Sodium 80 mg HS PO 11/09/24 22:00 Cancel Azithromycin 500 mg DAILY PO 11/09/24 18:53 11/17/24 09:20 500 MG Albuterol 2.5 mg Q4HPRN PRN NEB 11/09/24 16:15 11/16/24 12:25 2.5 MG Ipratropium [place] 0.5 mg Q4HPRN PRN NEB 11/09/24 16:15 11/16/24 12:25 0.5 MG Tramadol HCl 50 mg BID PO 11/10/24 22:00 11/17/24 22:15 50 MG Acetaminophen/ Hydrocodone Bitart 1 tab Q6HPRN PRN PO 11/10/24 13:45 11/18/24 05:42 1 TAB Vancomycin HCl 0 ml @ 0 mls/hr UD IV 11/10/24 13:45 Morphine Sulfate 2 mg Q6HPRN PRN IV 11/10/24 13:45 11/17/24 14:08 2 MG Atorvastatin Calcium 40 mg HS PO 11/10/24 22:00 11/17/24 22:14 40 MG Lactulose 30 ml BID PRN PO 11/11/24 20:00 11/15/24 06:34 30 ML Enteral Nutritional Formula 240 ml TIDWM PO 11/13/24 12:00 11/17/24 18:30 240 ML Cefepime HCl 50 ml @ 12.5 mls/hr Q12HR IV 11/13/24 22:00 11/17/24 22:14 12.5 MLS/HR Guaifenesin 200 mg Q4HP PRN GT 11/14/24 15:00 Cancel Midodrine 10 mg TID@0600,1200,1800 PO 11/14/24 18:00 11/18/24 05:42 10 MG Ibuprofen 600 mg BID PO 11/14/24 22:00 Hold 11/14/24 16:21 600 MG Acetaminophen 650 mg Q6HP PO 11/14/24 18:00 11/17/24 00:42 650 MG Guaifenesin 200 mg Q4HP PRN PO 11/14/24 16:15 11/16/24 13:50 200 MG Amino Acids 0 ml @ 0 mls/hr PER PHARMACY IV 11/15/24 16:15 Diagnostic Test (Pha) 1 strip Q6HR 11/16/24 00:00 11/18/24 06:05 1 STRIP Insulin Human Regular FOLLOW SLIDING SCALE Q6HR SC 11/16/24 00:00 11/18/24 00:54 2 UNITS Dextrose 50 ml UD IV 11/16/24 00:00 Amino Acids/ Electrolytes/ Dextrose 1,000 ml @ 41 mls/hr DAILY@2200 IV 11/15/24 22:00 11/17/24 22:12 41 MLS/HR laboratory and microbiology Laboratory Tests 11/18/24 06:23 Test 11/18/24 06:23 Range/Units Serum Glucose 87 74-106 mg/dL Problem List/Assessment/Plan Problem List/Assessment/Plan 11/18/24 unable to proceed with planned operation due to coagulopathy. will reschedule for when it is corrected Plan discussed with: Other Dietary Evaluation Review Comments: 1. Continue diet regime 2. Consider Fish oil BID for high Trig 3. Consider Ensure HP BID if PO intake trends low Expected Outcomes/Goals: 1. Pt will consume >75% of estimated needs within 3-5 days MARIA ANTONIA LEGGETT MD Nov 18, 2024 08:01
--- NOTE | 2024-11-18 10:36 | DVHPN2 ---
Progress Note Date Seen: Nov 18, 2024 Medical Necessity Reason Pt with a Central, PICC or Fol: No Objective vital signs Vital Sign Date Time Temp Pulse Resp B/P (MAP) Pulse Ox O2 Delivery O2 Flow Rate FiO2 11/18/24 10:05 75 16 86/39 97 3.0 32 11/18/24 09:00 97.4 97.4 11/17/24 20:00 Nasal Cannula* Total Intake and Output 11/17/24 11/17/24 11/18/24 15:00 23:00 07:00 Intake Total 460 ml 700 ml 345.5 ml Output Total 75 ml 350 ml Balance 385 ml 700 ml -4.5 ml medications Current Medications Medications Dose Ordered Sig/Yuki Route Start Time Stop Time Status Last Admin Dose Admin EZETIMIBE 10 mg DAILY PO 11/10/24 10:00 11/18/24 09:34 10 MG Gabapentin 300 mg DAILY PO 11/10/24 10:00 11/18/24 09:34 300 MG Montelukast Sodium 10 mg HS PO 11/09/24 22:00 11/17/24 22:14 10 MG Pantoprazole Sodium 40 mg DAILY IV 11/10/24 10:00 11/18/24 09:37 40 MG Pravastatin Sodium 80 mg HS PO 11/09/24 22:00 Cancel Azithromycin 500 mg DAILY PO 11/09/24 18:53 11/18/24 09:34 500 MG Albuterol 2.5 mg Q4HPRN PRN NEB 11/09/24 16:15 11/16/24 12:25 2.5 MG Ipratropium [place] 0.5 mg Q4HPRN PRN NEB 11/09/24 16:15 11/16/24 12:25 0.5 MG Tramadol HCl 50 mg BID PO 11/10/24 22:00 11/18/24 09:36 50 MG Acetaminophen/ Hydrocodone Bitart 1 tab Q6HPRN PRN PO 11/10/24 13:45 11/18/24 05:42 1 TAB Vancomycin HCl 0 ml @ 0 mls/hr UD IV 11/10/24 13:45 Morphine Sulfate 2 mg Q6HPRN PRN IV 11/10/24 13:45 11/17/24 14:08 2 MG Atorvastatin Calcium 40 mg HS PO 11/10/24 22:00 11/17/24 22:14 40 MG Lactulose 30 ml BID PRN PO 11/11/24 20:00 11/15/24 06:34 30 ML Enteral Nutritional Formula 240 ml TIDWM PO 11/13/24 12:00 11/18/24 08:30 240 ML Cefepime HCl 50 ml @ 12.5 mls/hr Q12HR IV 11/13/24 22:00 11/18/24 09:37 12.5 MLS/HR Guaifenesin 200 mg Q4HP PRN GT 11/14/24 15:00 Cancel Midodrine 10 mg TID@0600,1200,1800 PO 11/14/24 18:00 11/18/24 05:42 10 MG Ibuprofen 600 mg BID PO 11/14/24 22:00 Hold 11/14/24 16:21 600 MG Acetaminophen 650 mg Q6HP PO 11/14/24 18:00 11/17/24 00:42 650 MG Guaifenesin 200 mg Q4HP PRN PO 11/14/24 16:15 11/16/24 13:50 200 MG Amino Acids 0 ml @ 0 mls/hr PER PHARMACY IV 11/15/24 16:15 Diagnostic Test (Pha) 1 strip Q6HR 11/16/24 00:00 11/18/24 06:05 1 STRIP Insulin Human Regular FOLLOW SLIDING SCALE Q6HR SC 11/16/24 00:00 11/18/24 00:54 2 UNITS Dextrose 50 ml UD IV 11/16/24 00:00 Amino Acids/ Electrolytes/ Dextrose 1,000 ml @ 41 mls/hr DAILY@2200 IV 11/15/24 22:00 11/17/24 22:12 41 MLS/HR laboratory and microbiology Laboratory Tests 11/18/24 06:23 Test 11/18/24 06:23 Range/Units Serum Glucose 87 74-106 mg/dL Problem List/Assessment/Plan Problem List/Assessment/Plan 11/18/24 unable to proceed with planned operation due to coagulopathy. will reschedule for when it is corrected 11/18/24 again explained procedure and potential risks and complications, explained why we can not proceed till her coagulopathy i corrected.she is not "uncomfortably" S.O.B. please notify me when bleeding parameters acceptable for an operation. Plan discussed with: Patient Dietary Evaluation Review Comments: 1. Continue diet regime 2. Consider Fish oil BID for high Trig 3. Consider Ensure HP BID if PO intake trends low Expected Outcomes/Goals: 1. Pt will consume >75% of estimated needs within 3-5 days MARIA ANTONIA LEGGETT MD Nov 18, 2024 10:36
[2024-11-18] MEDS: VANCOMYCIN 500mg/100mL 100 ML IV ONE (14:55)
[2024-11-18 15:20] LABS: INR 1.28 (0.9-1.15); Partial Thromboplastin Time 28.5 SEC (24.5-34.5); Prothrombin Time 13.3 sec (9.3-11.8)
--- NOTE | 2024-11-18 17:22 | DVHPNRES ---
Progress Note Date Seen: Nov 18, 2024 Resident Creating Document: JACOB MO MATT Has the PT tested + for MRSA If YES, has PT been informed?: Yes Medical Necessity Reason Pt with a Central, PICC or Fol: No Subjective Review of Systems Patient is a 74 year old female with a past medical history as described below came to the ED with the chief complaint of Right sided chest pain for the last 2 weeks. patient reports that she has been diagnosed with Lung cancer in january 2024 and has got radiation treatment , bladder CA diagnosed in 2020 with chemotherapy finished in november 2023. she follows in the outpatient clinic for pulmonary followup. patient reports to start having right sided chest pain since october 23 and it has gradually worsened and now she has constant severe pain which she was not able to tolerate even while she was taking tramadol ,exacerbated with deep breath and movement, chills but the patient denies fever and came to the hospital for further evaluation. Patient denied recent flu like illness or cough. Past medical history: Lung CA, Bladder CA, HTN, HLD, ?CHF, overactive bladder, migraine Past surgical history: coronary angiogram social history: denies current smoking, alcohol, drug use Patient seen and examined at the bedside. Patient is feeling shortness of bed and complained of mild chest pain. Today, surgery had planned for the thoracotomy and pleurodesis, due to raised INR and PT, the surgery was postponed it. Patient reports: No new complaints Changes from previous H/P or p: No Changes Objective vital signs Vital Sign Date Time Temp Pulse Resp B/P (MAP) Pulse Ox O2 Delivery O2 Flow Rate FiO2 11/18/24 16:41 97.4 66 19 98/53 (68) 95 97.4 11/18/24 10:05 3.0 32 11/18/24 09:54 Nasal Cannula Total Intake and Output 11/17/24 11/17/24 11/18/24 15:00 23:00 07:00 Intake Total 460 ml 700 ml 345.5 ml Output Total 75 ml 350 ml Balance 385 ml 700 ml -4.5 ml medications Current Medications Medications Dose Ordered Sig/Yuki Route Start Time Stop Time Status Last Admin Dose Admin EZETIMIBE 10 mg DAILY PO 11/10/24 10:00 11/18/24 09:34 10 MG Gabapentin 300 mg DAILY PO 11/10/24 10:00 11/18/24 09:34 300 MG Montelukast Sodium 10 mg HS PO 11/09/24 22:00 11/17/24 22:14 10 MG Pantoprazole Sodium 40 mg DAILY IV 11/10/24 10:00 11/18/24 09:37 40 MG Pravastatin Sodium 80 mg HS PO 11/09/24 22:00 Cancel Azithromycin 500 mg DAILY PO 11/09/24 18:53 11/18/24 09:34 500 MG Albuterol 2.5 mg Q4HPRN PRN NEB 11/09/24 16:15 11/16/24 12:25 2.5 MG Ipratropium [place] 0.5 mg Q4HPRN PRN NEB 11/09/24 16:15 11/16/24 12:25 0.5 MG Tramadol HCl 50 mg BID PO 11/10/24 22:00 11/18/24 09:36 50 MG Acetaminophen/ Hydrocodone Bitart 1 tab Q6HPRN PRN PO 11/10/24 13:45 11/18/24 05:42 1 TAB Vancomycin HCl 0 ml @ 0 mls/hr UD IV 11/10/24 13:45 Morphine Sulfate 2 mg Q6HPRN PRN IV 11/10/24 13:45 11/18/24 14:58 2 MG Atorvastatin Calcium 40 mg HS PO 11/10/24 22:00 11/17/24 22:14 40 MG Lactulose 30 ml BID PRN PO 11/11/24 20:00 11/15/24 06:34 30 ML Enteral Nutritional Formula 240 ml TIDWM PO 11/13/24 12:00 11/18/24 14:32 240 ML Cefepime HCl 50 ml @ 12.5 mls/hr Q12HR IV 11/13/24 22:00 11/18/24 09:37 12.5 MLS/HR Guaifenesin 200 mg Q4HP PRN GT 11/14/24 15:00 Cancel Midodrine 10 mg TID@0600,1200,1800 PO 11/14/24 18:00 11/18/24 14:53 10 MG Acetaminophen 650 mg Q6HP PO 11/14/24 18:00 11/17/24 00:42 650 MG Guaifenesin 200 mg Q4HP PRN PO 11/14/24 16:15 11/16/24 13:50 200 MG Amino Acids 0 ml @ 0 mls/hr PER PHARMACY IV 11/15/24 16:15 Diagnostic Test (Pha) 1 strip Q6HR 11/16/24 00:00 11/18/24 12:00 1 STRIP Insulin Human Regular FOLLOW SLIDING SCALE Q6HR SC 11/16/24 00:00 11/18/24 00:54 2 UNITS Dextrose 50 ml UD IV 11/16/24 00:00 Amino Acids/ Electrolytes/ Dextrose 1,000 ml @ 41 mls/hr DAILY@2200 IV 11/15/24 22:00 11/17/24 22:12 41 MLS/HR Examination General Appearance: Alert, Oriented X3, Cooperative, in mild acute distress HEENT: Atraumatic, PERRLA, EOMI, Mucous membrane moist/pink Respiratory: Breaths sounds are decreased on the Rt side Cardiovascular: Regular rate, Normal S1, Normal S2, No murmurs, no chest wall tenderness Abdominal: Normal bowel sounds, Soft, No tenderness, No hepatospenomegaly, No masses Extremities: No clubbing, No cyanosis, No edema, Normal pulses, No tenderness/swelling Skin: No rashes, No breakdown, No significant lesion Neuro: Normal gait, Normal speech, Strength at 5/5 X4 ext, Normal tone, Sensation intact, Cranial nerves 3-12 NL, Reflexes 2+ Psych/Mental Status: Mental status NL, Mood NL laboratory and microbiology Laboratory Tests 11/18/24 06:23 Test 11/18/24 06:23 Range/Units Serum Glucose 87 74-106 mg/dL Microbiology Date/Time Source Procedure Growth Status 11/12/24 16:28 Nose MRSA Screen - Final Complete 11/12/24 10:28 Pleural Fluid Gram Stain - Final Complete 11/12/24 10:28 Pleural Fluid Body Fluid Culture - Final Complete 11/10/24 13:37 Blood Blood Culture - Final NO GROWTH AFTER 5 DAYS OF INCUBATION. Complete 11/10/24 10:12 Voided Urine Urine Culture - Final Complete Labs and/or images reviewed: Labs reviewed by me, Image(s) reviewed by me Problem List/Assessment/Plan Problem List/Assessment/Plan This is a 74-year-old female with past medical history of lung cancer, bladder cancer, hypertension, hyperlipidemia, CHF presented to the hospital with right- sided chest pain for 2 weeks. Admitted on 11/09. Acute hypoxic respiratory failure likely due to pneumonia/pleural effusion, on oxygen through nasal cannula Sepsis likely d/t pneumonia Community acquired pneumonia likely d/t Gram+/-/atypical bacteria Right loculated pleural effusion likely due to parapneumonic/malignant History of lung cancer diagnosed on January 2024, status post radiation Ex vacuo pneumothorax (trapped lung) Chest x-ray shows right-sided pleural effusion, with right basilar atelectasis/pneumonia Chest CT scan shows large loculated right pleural fluid collection with atelectasis of most of the right lung CT scan shows distended gallbladder with no calcified gallstone, liver ultrasound is unremarkable Blood and urine culture preliminary result shows no growth MRSA nares negative Pulmonology is on the board, given 1st dose of alteplase 6 mg on 11/14 Radiology on the board, put a chest tube on the right chest, drain 900 mL Pleural fluid culture shows no growth, g stain negative Pleural fluid shows raised WBC at 6751, light criteria including pleural fluid protein/serum protein is 0.67 (meet criteria for exudative pleural effusion), mildly decreased pleural fluid glucose, cytology report pending Continue gabapentin and [place] for the pain Continue azithromycin started on 11/09, vancomycin started on 11/10, cefepime started on 11/11 Breathing treatment q.4 however as needed Continue montelukast Two dose alteplase 6 mg intrapleural given, but due to development of pneumothorax and results of pleural fluid shows malignant pleural effusion, the 3rd dose is not given Chest x-ray, new onset ex vacuo pneumothorax Pleural fluid analysis, shows malignant cells Chest tube flushed, patent Consulted surgery for malignant pleural effusion and pneumothorax, planned for the thoracotomy and pleurodesis, due to raised INR and PT, surgery postponed it, on repeated INR, the INR is 1.28, thoracotomy is planned for tomorrow. Hypertensive heart disease Possible acute on chronic systolic heart failure Echocardiogram from 07/02/2024 shows ejection fraction 35-45% BNP is 203 Continue metoprolol succinate 25mg qd Continue Ivabradine 5mg qd Dyslipidemia Continue atorvastatin 40mghs Continue ezetimibe 10mg qd Transaminitis AST and ALT are raised, downtrending Monitoring Possible pancreatitis Lipase is mild raised at [address] scan does not shows signs of pancreatitis Monitoring Mild hyponatremia Hypokalemia Supplemented History of bladder cancer status post chemotherapy Diagnosed on 2020 Infrarenal abdominal aorta aneurysm CT scan shows small saccular 1.1 cm aneurysm along the left side of the infrarenal abdominal aorta Monitoring, follow up on outpatient basis DIET: Full liquid diet, with nutritional suppplement of ensure DVT prophylax: Discontinue Lovenox, due to raised INR GI prophylaxis: Protonix IV Bowel regimen: Lactulose p.r.n. Code status: Full code DISPOSITION: Med surg Patient's status discussed with patient and the on the phone. Pleural fluid analysis, shows malignant cells. Surgery has consulted, planned for the thoracotomy and pleurodesis, due to raised INR and PT, surgery postponed it, on repeated INR, the INR is 1.28, thoracotomy is planned for tomorrow. Case discussed with Dr. Feldman Plan discussed with: Patient, Other (RN) My Orders My Orders Orders - JACOB MO Procedure Category Date Status Time Complete Blood Count LAB 11/19/24 Verified 04:00 Dietary Evaluation Review Comments: 1. Continue diet regime 2. Consider Fish oil BID for high Trig 3. Consider Ensure HP BID if PO intake trends low Expected Outcomes/Goals: 1. Pt will consume >75% of estimated needs within 3-5 days Date of Service: Nov 18, 2024 Billing Provider: SHANIKA FELDMAN MD Common Visit Codes: [id number] INP/OBS CARE(HIGH) Secondary Visit Codes: 39478-[id number] CARE PLAN 30 MINUTES JACOB MO RESDIENT Nov 18, 2024 17:22 SHANIKA FELDMAN MD Nov 18, 2024 20:14
--- NOTE | 2024-11-18 23:04 | DVHPN2 ---
Progress Note - Dictate Date Seen: Nov 18, 2024 Has the PT tested + for MRSA If YES, has PT been informed?: Yes Medical Necessity Reason Pt with a Central, PICC or Fol: No Subjective Patient seen and examined at bedside. Remains on supplemental oxygen Overnight events reviewed. vital signs Vital Sign Date Time Temp Pulse Resp B/P (MAP) Pulse Ox O2 Delivery O2 Flow Rate FiO2 11/18/24 16:41 97.4 66 19 98/53 (68) 95 97.4 11/18/24 10:05 3.0 32 11/18/24 09:54 Nasal Cannula Total Intake and Output 11/17/24 11/17/24 11/18/24 15:00 23:00 07:00 Intake Total 460 ml 700 ml 345.5 ml Output Total 75 ml 350 ml Balance 385 ml 700 ml -4.5 ml medications Current Medications Medications Dose Ordered Sig/Yuki Route Start Time Stop Time Status Last Admin Dose Admin EZETIMIBE 10 mg DAILY PO 11/10/24 10:00 11/18/24 09:34 10 MG Gabapentin 300 mg DAILY PO 11/10/24 10:00 11/18/24 09:34 300 MG Montelukast Sodium 10 mg HS PO 11/09/24 22:00 11/18/24 22:16 10 MG Pantoprazole Sodium 40 mg DAILY IV 11/10/24 10:00 11/18/24 09:37 40 MG Pravastatin Sodium 80 mg HS PO 11/09/24 22:00 Cancel Azithromycin 500 mg DAILY PO 11/09/24 18:53 11/18/24 09:34 500 MG Tramadol HCl 50 mg BID PO 11/10/24 22:00 11/18/24 22:16 50 MG Acetaminophen/ Hydrocodone Bitart 1 tab Q6HPRN PRN PO 11/10/24 13:45 11/18/24 18:16 1 TAB Vancomycin HCl 0 ml @ 0 mls/hr UD IV 11/10/24 13:45 Morphine Sulfate 2 mg Q6HPRN PRN IV 11/10/24 13:45 11/18/24 14:58 2 MG Atorvastatin Calcium 40 mg HS PO 11/10/24 22:00 11/18/24 22:16 40 MG Lactulose 30 ml BID PRN PO 11/11/24 20:00 11/15/24 06:34 30 ML Enteral Nutritional Formula 240 ml TIDWM PO 11/13/24 12:00 11/18/24 18:30 240 ML Cefepime HCl 50 ml @ 12.5 mls/hr Q12HR IV 11/13/24 22:00 11/18/24 22:16 12.5 MLS/HR Guaifenesin 200 mg Q4HP PRN GT 11/14/24 15:00 Cancel Midodrine 10 mg TID@0600,1200,1800 PO 11/14/24 18:00 11/18/24 18:14 10 MG Acetaminophen 650 mg Q6HP PO 11/14/24 18:00 11/17/24 00:42 650 MG Guaifenesin 200 mg Q4HP PRN PO 11/14/24 16:15 11/16/24 13:50 200 MG Amino Acids 0 ml @ 0 mls/hr PER PHARMACY IV 11/15/24 16:15 Diagnostic Test (Pha) 1 strip Q6HR 11/16/24 00:00 11/18/24 17:53 1 STRIP Insulin Human Regular FOLLOW SLIDING SCALE Q6HR SC 11/16/24 00:00 11/18/24 00:54 2 UNITS Dextrose 50 ml UD IV 11/16/24 00:00 Amino Acids/ Electrolytes/ Dextrose 1,000 ml @ 41 mls/hr DAILY@2200 IV 11/15/24 22:00 11/17/24 22:12 41 MLS/HR objective Gen.: Patient lying in bed in no apparent distress. On supplemental oxygen. Head: Normocephalic, atraumatic. Eyes: EOMI/PERRLA. Ears: Normal hearing. Normal anatomy. Neck/trachea: Trachea midline, supple. Nose: Normal external anatomy. Mouth: Moist mucous membranes. Chest: Decreased air entry bilaterally. No wheezing or rhonchi. Cardiovascular: Positive S1, positive S2. Regular rate and rhythm. Abdomen: Positive bowel sounds in all 4 quadrants. Soft, non-tender, non- distended. : Deferred. Rectal: Deferred. Skin: Warm, dry. Intact. Extremities: 2+ radial pulses bilaterally. No lower extremity edema. Neuro: Awake, alert, oriented x3. No gross motor or sensory deficits. Cranial nerves II through XII intact. Gait not assessed. laboratory and microbiology Laboratory Tests 11/18/24 06:23 Test 11/18/24 06:23 Range/Units Serum Glucose 87 74-106 mg/dL Assessment/Plan Impression: Acute on chronic hypoxic respiratory failure Chronic obstructive pulmonary disease Loculated pleural effusion, right Atelectasis Metastatic cancer Malignant effusion Events: Remains on supplemental oxygen, 3 LPM NC Taper O2 as tolerated CXR on 11/17 demonstrates persistent masslike opacities along the pleura laterally and in the upper lung. Persistent small basilar right pneumothorax with pleural catheter in place. INR elevated - vitamin K. Chest tube with 50 mL serosanguineous output. Continue to monitor output Continue antibiotics Incentive spirometry Pain control Clinimix for nutritional support Surgery recommendations appreciated. Labs and imaging reviewed. Rest of plan as noted below. Plan: Supplemental oxygen Titrate to keep O2 sats above 92%. CXR demonstrated right loculated pleural effusion. S/p right chest tube placement. Alteplase via chest tube x2. Suction to minus 30 cmH2O Monitor chest tube output Monitor PT/INR. Bronchodilators. Antibiotics Incentive spirometry Monitor renal function. Monitor electrolytes. Supplement as necessary. Monitor ins and outs. GI prophylaxis - pantoprazole DVT prophylaxis. Prognosis: Poor given patient's multiple co-morbidities. Rest of plan per hospitalist and other consultants. Thank you Dr. Taran Archer MD, for allowing me to participate in this patient's care. Further recommendations will depend on the patient's clinical course. Please do not hesitate to contact me if you have any questions or concerns. This medical document was created using an electronic medical record system with [employer] dictation system. Although these documentations are being carefully reviewed, there may still be some phonetic and typographical changes. The errors are purely typographical, due to imperfection on the software program, and do not reflect any compromise in the patient's medical care. Dietary Evaluation Review Comments: 1. Continue diet regime 2. Consider Fish oil BID for high Trig 3. Consider Ensure HP BID if PO intake trends low Expected Outcomes/Goals: 1. Pt will consume >75% of estimated needs within 3-5 days Plan discussed with: Patient, Other (VINOD Tellez) CHRISTIANO TAPIA MD Nov 18, 2024 23:04
[2024-11-19] VITALS (7 sets, daily range): BP systolic 90–112; BP diastolic 51–60; PULSE 62–104; RESP 14–19; TEMP 97.6–98.6; O2SAT 93–98
[2024-11-19 09:35] LABS: Basophils # (auto) 0.1 10 ^3/uL (0-0.2); Basophils % (auto) 0.4 % (0.0-2.0); Eosinophils # (auto) 0.5 10 ^3/uL (0-0.8); Hematocrit 44.3 % (36.0-46.0); Hemoglobin 14.3 g/dL (12.2-16.2); Lymphocytes # (auto) 1.1 10 ^3/uL (0.4-5.4); Lymphocytes % (auto) 4.6 % (10.0-50.0); Mean Corpuscular Hemoglobin 28.7 pg (28.0-32.0); Mean Corpuscular Hgb Conc. 32.3 g/dL (32.0-36.0); Mean Corpuscular Volume 88.9 fL (80.0-100.0); Monocytes # (auto) 1.6 10 ^3/uL (0-1.3); Monocytes % (auto) 6.7 % (0.0-12.0); Neutrophils % (auto) 86.3 % (37.0-80.0); Nucleated Red Blood Cells % 0.1 %; Platelet Count (auto) 338 10^3/uL (140-450); Red Blood Cells 4.99 10^6/uL (4.0-5.20); Red Cell Distribution Width 15.5 % (11.8-14.3); White Blood Cell 23.1 10^3/uL (4.4-10.8)
--- NOTE | 2024-11-19 09:45 | DVHPN2 ---
Progress Note Date Seen: Nov 19, 2024 Has the PT tested + for MRSA If YES, has PT been informed?: Yes Medical Necessity Reason Pt with a Central, PICC or Fol: No Objective vital signs Vital Sign Date Time Temp Pulse Resp B/P (MAP) Pulse Ox O2 Delivery O2 Flow Rate FiO2 11/19/24 09:00 98.6 100 14 90/51 (64) 98 98.6 11/19/24 08:20 Nasal Cannula* 3 32 Total Intake and Output 11/18/24 11/18/24 11/19/24 15:00 23:00 07:00 Intake Total 50 ml 300 ml 100 ml Output Total 100 ml Balance 50 ml 200 ml 100 ml medications Current Medications Medications Dose Ordered Sig/Yuki Route Start Time Stop Time Status Last Admin Dose Admin EZETIMIBE 10 mg DAILY PO 11/10/24 10:00 11/18/24 09:34 10 MG Gabapentin 300 mg DAILY PO 11/10/24 10:00 11/18/24 09:34 300 MG Montelukast Sodium 10 mg HS PO 11/09/24 22:00 11/18/24 22:16 10 MG Pantoprazole Sodium 40 mg DAILY IV 11/10/24 10:00 11/18/24 09:37 40 MG Pravastatin Sodium 80 mg HS PO 11/09/24 22:00 Cancel Azithromycin 500 mg DAILY PO 11/09/24 18:53 11/18/24 09:34 500 MG Tramadol HCl 50 mg BID PO 11/10/24 22:00 11/18/24 22:16 50 MG Acetaminophen/ Hydrocodone Bitart 1 tab Q6HPRN PRN PO 11/10/24 13:45 11/18/24 18:16 1 TAB Vancomycin HCl 0 ml @ 0 mls/hr UD IV 11/10/24 13:45 Morphine Sulfate 2 mg Q6HPRN PRN IV 11/10/24 13:45 11/18/24 14:58 2 MG Atorvastatin Calcium 40 mg HS PO 11/10/24 22:00 11/18/24 22:16 40 MG Lactulose 30 ml BID PRN PO 11/11/24 20:00 11/15/24 06:34 30 ML Enteral Nutritional Formula 240 ml TIDWM PO 11/13/24 12:00 11/18/24 18:30 240 ML Cefepime HCl 50 ml @ 12.5 mls/hr Q12HR IV 11/13/24 22:00 11/18/24 22:16 12.5 MLS/HR Guaifenesin 200 mg Q4HP PRN GT 11/14/24 15:00 Cancel Midodrine 10 mg TID@0600,1200,1800 PO 11/14/24 18:00 11/18/24 18:14 10 MG Acetaminophen 650 mg Q6HP PO 11/14/24 18:00 11/17/24 00:42 650 MG Guaifenesin 200 mg Q4HP PRN PO 11/14/24 16:15 11/16/24 13:50 200 MG Amino Acids 0 ml @ 0 mls/hr PER PHARMACY IV 11/15/24 16:15 Diagnostic Test (Pha) 1 strip Q6HR 11/16/24 00:00 11/19/24 06:02 1 STRIP Insulin Human Regular FOLLOW SLIDING SCALE Q6HR SC 11/16/24 00:00 11/18/24 00:54 2 UNITS Dextrose 50 ml UD IV 11/16/24 00:00 Amino Acids/ Electrolytes/ Dextrose 1,000 ml @ 41 mls/hr DAILY@2200 IV 11/15/24 22:00 11/17/24 22:12 41 MLS/HR laboratory and microbiology Test 11/19/24 08:36 Range/Units Serum Glucose Pending Problem List/Assessment/Plan Problem List/Assessment/Plan 11/18/24 unable to proceed with planned operation due to coagulopathy. will reschedule for when it is corrected 11/18/24 again explained procedure and potential risks and complications, explai daisy why we can not proceed till her coagulopathy i corrected.she is not "uncomfortably" S.O.B. please notify me when bleeding parameters acceptable for an operation. 11/19/24 PT still elevated and inr still higher than it needs to be if mechanical pleurodesis is to be attempted, will plan on Thoracoscopy on . Plan discussed with: Other Dietary Evaluation Review Comments: 1. Continue diet regime 2. Consider Fish oil BID for high Trig 3. Consider Ensure HP BID if PO intake trends low Expected Outcomes/Goals: 1. Pt will consume >75% of estimated needs within 3-5 days MARIA ANTONIA LEGGETT MD Nov 19, 2024 09:45
[2024-11-19 09:46] LABS: INR 1.17 (0.9-1.15); Prothrombin Time 12.3 sec (9.3-11.8)
[2024-11-19 09:50] LABS: Anion Gap 8 (5-15); BUN/Creatinine Ratio 47.2 (10.0-20.0); Calcium 9.3 mg/dL (8.7-10.4); Carbon Dioxide 21 mmol/L (20-31); Chloride 103 mmol/L (98-107); Glucose 92 mg/dL (74-106); Potassium 4.3 mmol/L (3.5-5.1)
[2024-11-19 09:51] LABS: Magnesium 2.1 mg/dL (1.6-2.6)
[2024-11-19 09:52] LABS: Bilirubin, Total 0.6 mg/dL (0.2-1.0); Phosphorus 3.9 mg/dL (2.4-5.1)
[2024-11-19 10:37] LABS: Alanine Aminotransferase 59 U/L (7-40); Alkaline Phosphatase 333 U/L (46-116); Aspartate Aminotransferase 109 U/L (13-40); Blood Urea Nitrogen 58 mg/dL (9-23); Sodium 132 mmol/L (136-145)
--- NOTE | 2024-11-19 10:44 | DVHPNRES ---
Progress Note Date Seen: Nov 19, 2024 Resident Creating Document: JACOB MO MATT Has the PT tested + for MRSA If YES, has PT been informed?: Yes Medical Necessity Reason Pt with a Central, PICC or Fol: No Subjective Review of Systems Patient is a 74 year old female with a past medical history as described below came to the ED with the chief complaint of Right sided chest pain for the last 2 weeks. patient reports that she has been diagnosed with Lung cancer in january 2024 and has got radiation treatment , bladder CA diagnosed in 2020 with chemotherapy finished in november 2023. she follows in the outpatient clinic for pulmonary followup. patient reports to start having right sided chest pain since october 23 and it has gradually worsened and now she has constant severe pain which she was not able to tolerate even while she was taking tramadol ,exacerbated with deep breath and movement, chills but the patient denies fever and came to the hospital for further evaluation. Patient denied recent flu like illness or cough. Past medical history: Lung CA, Bladder CA, HTN, HLD, ?CHF, overactive bladder, migraine Past surgical history: coronary angiogram social history: denies current smoking, alcohol, drug use Patient seen and examined at the bedside. Patient is feeling shortness of bed and complained of mild chest pain. Objective vital signs Vital Sign Date Time Temp Pulse Resp B/P (MAP) Pulse Ox O2 Delivery O2 Flow Rate FiO2 11/19/24 09:00 98.6 100 14 90/51 (64) 98 98.6 11/19/24 08:20 Nasal Cannula* 3 32 Total Intake and Output 11/18/24 11/18/24 11/19/24 15:00 23:00 07:00 Intake Total 50 ml 300 ml 100 ml Output Total 100 ml Balance 50 ml 200 ml 100 ml medications Current Medications Medications Dose Ordered Sig/Yuki Route Start Time Stop Time Status Last Admin Dose Admin EZETIMIBE 10 mg DAILY PO 11/10/24 10:00 11/18/24 09:34 10 MG Gabapentin 300 mg DAILY PO 11/10/24 10:00 11/18/24 09:34 300 MG Montelukast Sodium 10 mg HS PO 11/09/24 22:00 11/18/24 22:16 10 MG Pantoprazole Sodium 40 mg DAILY IV 11/10/24 10:00 11/18/24 09:37 40 MG Pravastatin Sodium 80 mg HS PO 11/09/24 22:00 Cancel Azithromycin 500 mg DAILY PO 11/09/24 18:53 11/18/24 09:34 500 MG Tramadol HCl 50 mg BID PO 11/10/24 22:00 11/18/24 22:16 50 MG Acetaminophen/ Hydrocodone Bitart 1 tab Q6HPRN PRN PO 11/10/24 13:45 11/18/24 18:16 1 TAB Vancomycin HCl 0 ml @ 0 mls/hr UD IV 11/10/24 13:45 Morphine Sulfate 2 mg Q6HPRN PRN IV 11/10/24 13:45 11/18/24 14:58 2 MG Atorvastatin Calcium 40 mg HS PO 11/10/24 22:00 11/18/24 22:16 40 MG Lactulose 30 ml BID PRN PO 11/11/24 20:00 11/15/24 06:34 30 ML Enteral Nutritional Formula 240 ml TIDWM PO 11/13/24 12:00 11/18/24 18:30 240 ML Cefepime HCl 50 ml @ 12.5 mls/hr Q12HR IV 11/13/24 22:00 11/18/24 22:16 12.5 MLS/HR Guaifenesin 200 mg Q4HP PRN GT 11/14/24 15:00 Cancel Midodrine 10 mg TID@0600,1200,1800 PO 11/14/24 18:00 11/18/24 18:14 10 MG Acetaminophen 650 mg Q6HP PO 11/14/24 18:00 11/17/24 00:42 650 MG Guaifenesin 200 mg Q4HP PRN PO 11/14/24 16:15 11/16/24 13:50 200 MG Amino Acids 0 ml @ 0 mls/hr PER PHARMACY IV 11/15/24 16:15 Diagnostic Test (Pha) 1 strip Q6HR 11/16/24 00:00 11/19/24 06:02 1 STRIP Insulin Human Regular FOLLOW SLIDING SCALE Q6HR SC 11/16/24 00:00 11/18/24 00:54 2 UNITS Dextrose 50 ml UD IV 11/16/24 00:00 Amino Acids/ Electrolytes/ Dextrose 1,000 ml @ 41 mls/hr DAILY@2200 IV 11/15/24 22:00 11/17/24 22:12 41 MLS/HR Examination General Appearance: Alert, Oriented X3, Cooperative, in mild acute distress HEENT: Atraumatic, PERRLA, EOMI, Mucous membrane moist/pink Respiratory: Breaths sounds are decreased on the Rt side Cardiovascular: Regular rate, Normal S1, Normal S2, No murmurs, no chest wall tenderness Abdominal: Normal bowel sounds, Soft, No tenderness, No hepatospenomegaly, No masses Extremities: No clubbing, No cyanosis, No edema, Normal pulses, No tenderness/swelling Skin: No rashes, No breakdown, No significant lesion Neuro: Normal gait, Normal speech, Strength at 5/5 X4 ext, Normal tone, Sensation intact, Cranial nerves 3-12 NL, Reflexes 2+ Psych/Mental Status: Mental status NL, Mood NL laboratory and microbiology Laboratory Tests 11/19/24 08:36 Test 11/19/24 08:36 Range/Units Serum Glucose 92 74-106 mg/dL Microbiology Date/Time Source Procedure Growth Status 11/12/24 16:28 Nose MRSA Screen - Final Complete 11/12/24 10:28 Pleural Fluid Gram Stain - Final Complete 11/12/24 10:28 Pleural Fluid Body Fluid Culture - Final Complete 11/10/24 13:37 Blood Blood Culture - Final NO GROWTH AFTER 5 DAYS OF INCUBATION. Complete 11/10/24 10:12 Voided Urine Urine Culture - Final Complete Labs and/or images reviewed: Labs reviewed by me, Image(s) reviewed by me Problem List/Assessment/Plan Problem List/Assessment/Plan This is a 74-year-old female with past medical history of lung cancer, bladder cancer, hypertension, hyperlipidemia, CHF presented to the hospital with right- sided chest pain for 2 weeks. Admitted on 11/09. Acute hypoxic respiratory failure likely due to pneumonia/pleural effusion, on oxygen through nasal cannula Sepsis likely d/t pneumonia Community acquired pneumonia likely d/t Gram+/-/atypical bacteria Right loculated pleural effusion likely due to parapneumonic/malignant History of lung cancer diagnosed on January 2024, status post radiation Ex vacuo pneumothorax (trapped lung) Chest x-ray shows right-sided pleural effusion, with right basilar atelectasis/pneumonia Chest CT scan shows large loculated right pleural fluid collection with atelectasis of most of the right lung CT scan shows distended gallbladder with no calcified gallstone, liver ultrasound is unremarkable Blood and urine culture preliminary result shows no growth MRSA nares negative Pulmonology is on the board, given 1st dose of alteplase 6 mg on 11/14 Radiology on the board, put a chest tube on the right chest, drain 900 mL Pleural fluid culture shows no growth, g stain negative Pleural fluid shows raised WBC at 6751, light criteria including pleural fluid protein/serum protein is 0.67 (meet criteria for exudative pleural effusion), mildly decreased pleural fluid glucose, cytology report pending Continue gabapentin and [place] for the pain Continue azithromycin started on 11/09, vancomycin started on 11/10, cefepime started on 11/11 Breathing treatment q.4 however as needed Continue montelukast Two dose alteplase 6 mg intrapleural given, but due to development of pneumothorax and results of pleural fluid shows malignant pleural effusion, the 3rd dose is not given Chest x-ray, new onset ex vacuo pneumothorax Pleural fluid analysis, shows malignant cells Chest tube flushed, patent Consulted surgery for malignant pleural effusion and pneumothorax, planned for the thoracotomy and pleurodesis, due to raised INR and PT, surgery postponed it, on repeated INR, the INR is 1.28, thoracotomy is planned for 11/21/2024. Hypertensive heart disease Hypertension Possible acute on chronic systolic heart failure Echocardiogram from 07/02/2024 shows ejection fraction 35-45% BNP is 203 Continue metoprolol succinate 25mg qd Continue Ivabradine 5mg qd Dyslipidemia Continue atorvastatin 40mghs Continue ezetimibe 10mg qd Transaminitis AST and ALT are raised, downtrending Monitoring Possible pancreatitis Lipase is mild raised at [address] scan does not shows signs of pancreatitis Monitoring Mild hyponatremia Hypokalemia Supplemented History of bladder cancer status post chemotherapy Diagnosed on 2020 Infrarenal abdominal aorta aneurysm CT scan shows small saccular 1.1 cm aneurysm along the left side of the infrarenal abdominal aorta Monitoring, follow up on outpatient basis DIET: Full liquid diet, with nutritional suppplement of ensure DVT prophylax: Discontinue Lovenox, due to raised INR GI prophylaxis: Protonix IV Bowel regimen: Lactulose p.r.n. Code status: Full code DISPOSITION: Med surg Patient's status discussed with patient and the on the phone. Pleural fluid analysis, shows malignant cells. Surgery has consulted, planned for the thoracotomy and pleurodesis, on 11/21/2024. Case discussed with Dr. Feldman Plan discussed with: Other (RN) Dietary Evaluation Review Comments: 1. Continue diet regime 2. Consider Fish oil BID for high Trig 3. Consider Ensure HP BID if PO intake trends low Expected Outcomes/Goals: 1. Pt will consume >75% of estimated needs within 3-5 days JACOB MO Nov 19, 2024 10:44
[2024-11-19 13:06] LABS: QuantiFERON-TB Gold Plus Negative (Negative)
[2024-11-19] MEDS: ERGOCALCIFEROL 50,000 UNIT(1.25MG) CAP PO SCH (15:54)
[2024-11-19] MEDS: CYANOCOBALAMIN (B-12) 1000 MCG/1 ML VIAL IM ONE (15:54)
--- NOTE | 2024-11-19 21:27 | DVHPN2 ---
Progress Note - Dictate Date Seen: Nov 19, 2024 Has the PT tested + for MRSA If YES, has PT been informed?: Yes Medical Necessity Reason Pt with a Central, PICC or Fol: No Subjective Patient seen and examined at bedside. Remains on supplemental oxygen Overnight events reviewed. vital signs Vital Sign Date Time Temp Pulse Resp B/P (MAP) Pulse Ox O2 Delivery O2 Flow Rate FiO2 11/19/24 18:29 97.5 11/19/24 17:24 105 16 88/64 11/19/24 17:15 93 11/19/24 08:20 Nasal Cannula* 3 32 Total Intake and Output 11/18/24 11/18/24 11/19/24 15:00 23:00 07:00 Intake Total 50 ml 300 ml 100 ml Output Total 100 ml Balance 50 ml 200 ml 100 ml medications Current Medications Medications Dose Ordered Sig/Yuki Route Start Time Stop Time Status Last Admin Dose Admin EZETIMIBE 10 mg DAILY PO 11/10/24 10:00 11/19/24 12:04 10 MG Gabapentin 300 mg DAILY PO 11/10/24 10:00 11/19/24 12:04 300 MG Montelukast Sodium 10 mg HS PO 11/09/24 22:00 11/18/24 22:16 10 MG Pantoprazole Sodium 40 mg DAILY IV 11/10/24 10:00 11/19/24 10:45 40 MG Pravastatin Sodium 80 mg HS PO 11/09/24 22:00 Cancel Azithromycin 500 mg DAILY PO 11/09/24 18:53 11/19/24 12:04 500 MG Tramadol HCl 50 mg BID PO 11/10/24 22:00 11/19/24 12:04 50 MG Acetaminophen/ Hydrocodone Bitart 1 tab Q6HPRN PRN PO 11/10/24 13:45 11/18/24 18:16 1 TAB Vancomycin HCl 0 ml @ 0 mls/hr UD IV 11/10/24 13:45 Morphine Sulfate 2 mg Q6HPRN PRN IV 11/10/24 13:45 11/19/24 16:50 2 MG Atorvastatin Calcium 40 mg HS PO 11/10/24 22:00 11/18/24 22:16 40 MG Lactulose 30 ml BID PRN PO 11/11/24 20:00 11/15/24 06:34 30 ML Enteral Nutritional Formula 240 ml TIDWM PO 11/13/24 12:00 11/19/24 17:25 240 ML Cefepime HCl 50 ml @ 12.5 mls/hr Q12HR IV 11/13/24 22:00 11/19/24 10:44 12.5 MLS/HR Guaifenesin 200 mg Q4HP PRN GT 11/14/24 15:00 Cancel Midodrine 10 mg TID@0600,1200,1800 PO 11/14/24 18:00 11/19/24 17:27 10 MG Acetaminophen 650 mg Q6HP PO 11/14/24 18:00 11/19/24 17:28 650 MG Guaifenesin 200 mg Q4HP PRN PO 11/14/24 16:15 11/16/24 13:50 200 MG Amino Acids 0 ml @ 0 mls/hr PER PHARMACY IV 11/15/24 16:15 Diagnostic Test (Pha) 1 strip Q6HR 11/16/24 00:00 11/19/24 12:34 1 STRIP Insulin Human Regular FOLLOW SLIDING SCALE Q6HR SC 11/16/24 00:00 11/18/24 00:54 2 UNITS Dextrose 50 ml UD IV 11/16/24 00:00 Amino Acids/ Electrolytes/ Dextrose 1,000 ml @ 41 mls/hr DAILY@2200 IV 11/15/24 22:00 11/17/24 22:12 41 MLS/HR Ergocalciferol 50,000 unit Q7D PO 11/19/24 13:45 11/19/24 15:54 50,000 UNIT objective Gen.: Patient lying in bed in no apparent distress. On supplemental oxygen. Head: Normocephalic, atraumatic. Eyes: EOMI/PERRLA. Ears: Normal hearing. Normal anatomy. Neck/trachea: Trachea midline, supple. Nose: Normal external anatomy. Mouth: Moist mucous membranes. Chest: Decreased air entry bilaterally. No wheezing or rhonchi. Cardiovascular: Positive S1, positive S2. Regular rate and rhythm. Abdomen: Positive bowel sounds in all 4 quadrants. Soft, non-tender, non- distended. : Deferred. Rectal: Deferred. Skin: Warm, dry. Intact. Extremities: 2+ radial pulses bilaterally. No lower extremity edema. Neuro: Awake, alert, oriented x3. No gross motor or sensory deficits. Cranial nerves II through XII intact. Gait not assessed. laboratory and microbiology Laboratory Tests 11/19/24 08:36 Test 11/19/24 08:36 Range/Units Serum Glucose 92 74-106 mg/dL Assessment/Plan Impression: Acute on chronic hypoxic respiratory failure Chronic obstructive pulmonary disease Loculated pleural effusion, right Atelectasis Metastatic cancer Malignant effusion Events: Remains on supplemental oxygen, 3 LPM NC Taper O2 as tolerated Patient to be NPO at midnight - procedure planned for . INR elevated - vitamin K. Chest tube with 175 mL serous output. Continue to monitor output Continue antibiotics Incentive spirometry Continue bronchodilators Pain control Avoid oversedation Clinimix for nutritional support Surgery recommendations appreciated. Labs and imaging reviewed. Rest of plan as noted below. Plan: Supplemental oxygen Titrate to keep O2 sats above 92%. CXR demonstrated right loculated pleural effusion. S/p right chest tube placement. Alteplase via chest tube x2. Suction to minus 30 cmH2O Monitor chest tube output Monitor PT/INR. Bronchodilators. Antibiotics Incentive spirometry Monitor renal function. Monitor electrolytes. Supplement as necessary. Monitor ins and outs. GI prophylaxis - pantoprazole DVT prophylaxis. Prognosis: Poor given patient's multiple co-morbidities. Rest of plan per hospitalist and other consultants. Thank you Dr. Taran Archer MD, for allowing me to participate in this patient's care. Further recommendations will depend on the patient's clinical course. Please do not hesitate to contact me if you have any questions or concerns. This medical document was created using an electronic medical record system with [employer] computerized dictation system. Although these documentations are being carefully reviewed, there may still be some phonetic and typographical changes. The errors are purely typographical, due to imperfection on the software program, and do not reflect any compromise in the patient's medical care. Dietary Evaluation Review Comments: 1. Continue diet regime 2. Consider Fish oil BID for high Trig 3. Consider Ensure HP BID if PO intake trends low Expected Outcomes/Goals: 1. Pt will consume >75% of estimated needs within 3-5 days Plan discussed with: Patient, Other (VINOD Tellez) CHRISTIANO TAPIA MD Nov 19, 2024 21:27
[2024-11-20 04:59] VITALS: BP 96/32; PULSE 98; RESP 19; TEMP 98.2; O2SAT 97
[2024-11-20 09:00] VITALS: BP 91/38; PULSE 94; RESP 17; TEMP 97.8; O2SAT 98
--- NOTE | 2024-11-20 10:19 | DVH ---
CHEST RADIOGRAPH Indication: Pleural Effeusion Technique: Single frontal view of the chest was obtained COMPARISON: XY CHEST XRAY 1 VIEW on DOS: 11/17/24, XY CHEST XRAY 1 VIEW on DOS: 11/16/24, XY CHEST XR AY 1 VIEW on DOS: 11/15/24, XY CHEST XRAY 1 VIEW on DOS: 11/13/24, XY CHEST PORTABLE on DOS: 11/09/24 FINDINGS: Lines and Tubes: Right central venous catheter in satisfactory position. Right chest tube in-situ. Lungs: Multifocal right lung airspace opacities. Pleura: No effusion. No pneumothorax. Cardiomediastinal contours: Unremarkable Bones: Unremarkable IMPRESSION: No significant interval change.
[2024-11-20 11:10] LABS: Anion Gap 11 (5-15); BUN/Creatinine Ratio 46.6 (10.0-20.0); Bilirubin, Total 0.5 mg/dL (0.2-1.0); Calcium 9.3 mg/dL (8.7-10.4); Chloride 105 mmol/L (98-107); Magnesium 2.2 mg/dL (1.6-2.6); Phosphorus 3.7 mg/dL (2.4-5.1); Total Protein 5.8 g/dL (5.7-8.2)
[2024-11-20 11:11] LABS: Basophils # (auto) 0.1 10 ^3/uL (0-0.2); Basophils % (auto) 0.6 % (0.0-2.0); Eosinophils # (auto) 0.6 10 ^3/uL (0-0.8); Eosinophils % (auto) 2.8 % (0.0-7.0); Hematocrit 40.8 % (36.0-46.0); Hemoglobin 13.2 g/dL (12.2-16.2); Lymphocytes # (auto) 1.3 10 ^3/uL (0.4-5.4); Lymphocytes % (auto) 5.8 % (10.0-50.0); Mean Corpuscular Hemoglobin 29.1 pg (28.0-32.0); Mean Corpuscular Hgb Conc. 32.3 g/dL (32.0-36.0); Mean Corpuscular Volume 90.2 fL (80.0-100.0); Monocytes # (auto) 1.6 10 ^3/uL (0-1.3); Monocytes % (auto) 6.9 % (0.0-12.0); Neutrophils # (auto) 18.9 10 ^3/uL (1.6-8.6); Neutrophils % (auto) 83.9 % (37.0-80.0); Platelet Count (auto) 315 10^3/uL (140-450); Red Blood Cells 4.53 10^6/uL (4.0-5.20); Red Cell Distribution Width 16.1 % (11.8-14.3); White Blood Cell 22.5 10^3/uL (4.4-10.8)
[2024-11-20 11:19] LABS: Alanine Aminotransferase 107 U/L (7-40); Albumin 2.9 g/dL (3.2-4.8); Alkaline Phosphatase 407 U/L (46-116); Aspartate Aminotransferase 227 U/L (13-40); Blood Urea Nitrogen 68 mg/dL (9-23); Carbon Dioxide 17 mmol/L (20-31); Glucose 114 mg/dL (74-106); Sodium 133 mmol/L (136-145)
[2024-11-20] MEDS: SODIUM CHLORIDE 0.9% 500 ML IV ONE (12:30)
--- NOTE | 2024-11-20 12:47 | DVHPNRES ---
Progress Note Date Seen: Nov 20, 2024 Resident Creating Document: JACOB MO MATT Has the PT tested + for MRSA If YES, has PT been informed?: Yes Medical Necessity Reason Pt with a Central, PICC or Fol: No Subjective Review of Systems Patient is a 74 year old female with a past medical history as described below came to the ED with the chief complaint of Right sided chest pain for the last 2 weeks. patient reports that she has been diagnosed with Lung cancer in january 2024 and has got radiation treatment , bladder CA diagnosed in 2020 with chemotherapy finished in november 2023. she follows in the outpatient clinic for pulmonary followup. patient reports to start having right sided chest pain since october 23 and it has gradually worsened and now she has constant severe pain which she was not able to tolerate even while she was taking tramadol ,exacerbated with deep breath and movement, chills but the patient denies fever and came to the hospital for further evaluation. Patient denied recent flu like illness or cough. Past medical history: Lung CA, Bladder CA, HTN, HLD, ?CHF, overactive bladder, migraine Past surgical history: coronary angiogram social history: denies current smoking, alcohol, drug use Patient seen and examined at the bedside. Patient is feeling shortness of bed and complained of mild chest pain. Patient has seasonal requirement raised to 4 L. Patient reports: No new complaints, Feels worse Changes from previous H/P or p: No Changes Objective vital signs Vital Sign Date Time Temp Pulse Resp B/P (MAP) Pulse Ox O2 Delivery O2 Flow Rate FiO2 11/20/24 04:59 98.2 98 19 96/32 (53) 97 98.2 11/19/24 20:00 Nasal Cannula* 3 32 Total Intake and Output 11/19/24 11/19/24 11/20/24 15:00 23:00 07:00 Intake Total 280 ml 600 ml 875 ml Balance 280 ml 600 ml 875 ml medications Current Medications Medications Dose Ordered Sig/Yuki Route Start Time Stop Time Status Last Admin Dose Admin EZETIMIBE 10 mg DAILY PO 11/10/24 10:00 11/20/24 09:35 10 MG Gabapentin 300 mg DAILY PO 11/10/24 10:00 11/20/24 09:36 300 MG Montelukast Sodium 10 mg HS PO 11/09/24 22:00 11/19/24 22:11 10 MG Pantoprazole Sodium 40 mg DAILY IV 11/10/24 10:00 11/20/24 09:34 40 MG Pravastatin Sodium 80 mg HS PO 11/09/24 22:00 Cancel Azithromycin 500 mg DAILY PO 11/09/24 18:53 11/20/24 09:35 500 MG Acetaminophen/ Hydrocodone Bitart 1 tab Q6HPRN PRN PO 11/10/24 13:45 11/20/24 09:35 1 TAB Morphine Sulfate 2 mg Q6HPRN PRN IV 11/10/24 13:45 11/19/24 16:50 2 MG Atorvastatin Calcium 40 mg HS PO 11/10/24 22:00 11/19/24 22:11 40 MG Lactulose 30 ml BID PRN PO 11/11/24 20:00 11/20/24 03:34 30 ML Enteral Nutritional Formula 240 ml TIDWM PO 11/13/24 12:00 11/20/24 08:00 240 ML Cefepime HCl 50 ml @ 12.5 mls/hr Q12HR IV 11/13/24 22:00 11/20/24 09:34 12.5 MLS/HR Guaifenesin 200 mg Q4HP PRN GT 11/14/24 15:00 Cancel Midodrine 10 mg TID@0600,1200,1800 PO 11/14/24 18:00 11/20/24 06:32 10 MG Acetaminophen 650 mg Q6HP PO 11/14/24 18:00 11/20/24 06:30 650 MG Guaifenesin 200 mg Q4HP PRN PO 11/14/24 16:15 11/16/24 13:50 200 MG Amino Acids 0 ml @ 0 mls/hr PER PHARMACY IV 11/15/24 16:15 Diagnostic Test (Pha) 1 strip Q6HR 11/16/24 00:00 11/20/24 06:00 1 STRIP Insulin Human Regular FOLLOW SLIDING SCALE Q6HR SC 11/16/24 00:00 11/20/24 06:31 2 UNITS Dextrose 50 ml UD IV 11/16/24 00:00 Amino Acids/ Electrolytes/ Dextrose 1,000 ml @ 41 mls/hr DAILY@2200 IV 11/15/24 22:00 11/17/24 22:12 41 MLS/HR Ergocalciferol 50,000 unit Q7D PO 11/19/24 13:45 11/19/24 15:54 50,000 UNIT Examination General Appearance: Alert, Oriented X3, Cooperative, in mild acute distress HEENT: Atraumatic, PERRLA, EOMI, Mucous membrane moist/pink Respiratory: Breaths sounds are decreased on the Rt side Cardiovascular: Regular rate, Normal S1, Normal S2, No murmurs, no chest wall tenderness Abdominal: Normal bowel sounds, Soft, No tenderness, No hepatospenomegaly, No masses Extremities: No clubbing, No cyanosis, No edema, Normal pulses, No tenderness/swelling Skin: No rashes, No breakdown, No significant lesion Neuro: Normal gait, Normal speech, Strength at 5/5 X4 ext, Normal tone, Sensation intact, Cranial nerves 3-12 NL, Reflexes 2+ Psych/Mental Status: Mental status NL, Mood NL laboratory and microbiology Laboratory Tests 11/20/24 10:36 Test 11/20/24 10:36 Range/Units Serum Glucose 114 H 74-106 mg/dL Microbiology Date/Time Source Procedure Growth Status 11/12/24 16:28 Nose MRSA Screen - Final Complete 11/12/24 10:28 Pleural Fluid Gram Stain - Final Complete 11/12/24 10:28 Pleural Fluid Body Fluid Culture - Final Complete 11/10/24 13:37 Blood Blood Culture - Final NO GROWTH AFTER 5 DAYS OF INCUBATION. Complete 11/10/24 10:12 Voided Urine Urine Culture - Final Complete Labs and/or images reviewed: Labs reviewed by me, Image(s) reviewed by me Problem List/Assessment/Plan Problem List/Assessment/Plan This is a 74-year-old female with past medical history of lung cancer, bladder cancer, hypertension, hyperlipidemia, CHF presented to the hospital with right- sided chest pain for 2 weeks. Admitted on 11/09. Acute hypoxic respiratory failure likely due to pneumonia/pleural effusion, on oxygen through nasal cannula Sepsis likely d/t pneumonia Community acquired pneumonia likely d/t Gram+/-/atypical bacteria Right loculated pleural effusion likely due to parapneumonic/malignant History of lung cancer diagnosed on January 2024, status post radiation Ex vacuo pneumothorax (trapped lung) Chest x-ray shows right-sided pleural effusion, with right basilar atelectasis/pneumonia Chest CT scan shows large loculated right pleural fluid collection with atelectasis of most of the right lung CT scan shows distended gallbladder with no calcified gallstone, liver ultrasound is unremarkable Blood and urine culture preliminary result shows no growth MRSA nares negative Pulmonology is on the board, given 1st dose of alteplase 6 mg on 11/14 Radiology on the board, put a chest tube on the right chest, drain 900 mL Pleural fluid culture shows no growth, g stain negative Pleural fluid shows raised WBC at 6751, light criteria including pleural fluid protein/serum protein is 0.67 (meet criteria for exudative pleural effusion), mildly decreased pleural fluid glucose, cytology report pending Continue gabapentin and [place] for the pain Continue azithromycin started on 11/09, vancomycin started on 11/10, cefepime started on 11/11 Breathing treatment q.4 however as needed Continue montelukast Two dose alteplase 6 mg intrapleural given, but due to development of pneumothorax and results of pleural fluid shows malignant pleural effusion, the 3rd dose is not given Chest x-ray, new onset ex vacuo pneumothorax Pleural fluid analysis, shows malignant cells Chest tube flushed, patent Consulted surgery for malignant pleural effusion and pneumothorax, planned for the thoracotomy and pleurodesis, due to raised INR and PT, surgery postponed it, on repeated INR, the INR is 1.28, thoracotomy is planned for tomorrow. Patient respiratory status has worsened, required 3 L of oxygen through nasal cannula Hypertensive heart disease Hypertension Possible acute on chronic systolic heart failure Echocardiogram from 07/02/2024 shows ejection fraction 35-45% BNP is 203 Continue metoprolol succinate 25mg qd Continue Ivabradine 5mg qd Dyslipidemia Continue atorvastatin 40mghs Continue ezetimibe 10mg qd Transaminitis AST and ALT are raised, downtrending Monitoring Possible pancreatitis Lipase is mild raised at [address] scan does not shows signs of pancreatitis Monitoring Mild hyponatremia Hypokalemia Supplemented History of bladder cancer status post chemotherapy Diagnosed on 2020 Infrarenal abdominal aorta aneurysm CT scan shows small saccular 1.1 cm aneurysm along the left side of the infrarenal abdominal aorta Monitoring, follow up on outpatient basis DIET: Full liquid diet, with nutritional suppplement of ensure DVT prophylax: Discontinue Lovenox, due to raised INR GI prophylaxis: Protonix IV Bowel regimen: Lactulose p.r.n. Code status: Full code DISPOSITION: Med surg Patient's status discussed with patient and the on the phone. Pleural fluid analysis, shows malignant cells. Surgery has consulted, planned for the thoracotomy and pleurodesis, for tomorrow, patient respiratory status has worsened, requires 4 L of oxygen per minute through nasal cannula. Case discussed with Dr. Fledman Plan discussed with: Other (RN) My Orders My Orders Orders - JACOB MO Procedure Category Date Status Time Ergocalciferol PHA 11/19/24 In Process (Vitamin D 50,000 13:45 Chest Xray 1 View XY 11/20/24 Resulted 06:46 Sodium Chloride 0.9% PHA 11/20/24 In Process 12:30 Dietary Evaluation Review Comments: 1. Continue diet regime 2. Consider Fish oil BID for high Trig 3. Consider Ensure HP BID if PO intake trends low Expected Outcomes/Goals: 1. Pt will consume >75% of estimated needs within 3-5 days Date of Service: Nov 20, 2024 Billing Provider: SHANIKA FELDMAN MD Common Visit Codes: [id number] INP/OBS CARE(HIGH) JACOB MO RESDIPATRICAI Nov 20, 2024 12:47 SHANIKA FELDMAN MD Nov 20, 2024 22:34
--- NOTE | 2024-11-20 12:50 | CONS ---
Pharmacy Clinical Information: PLEASE CONSIDER D/C STATIN AND EZETIMIBE DUE TO TRANSAMINITIS [place] [facility] PHARMACIST Nov 20, 2024 12:50
[2024-11-20 13:00] VITALS: BP 96/42; PULSE 92; RESP 19; TEMP 97.6; O2SAT 96
[2024-11-20 16:33] VITALS: BP 91/61; PULSE 90; RESP 18; TEMP 98; O2SAT 97
[2024-11-20] MEDS ORDERED: HYDROcodone-ACET 5/325MG TAB PO PRN ×2 (19:00)
[2024-11-20 20:00] VITALS: RESP 14
[2024-11-20 21:00] VITALS: BP 101/40; PULSE 88; RESP 13; TEMP 97.6; O2SAT 100
--- NOTE | 2024-11-20 22:32 | DVHPN2 ---
Progress Note - Dictate Date Seen: Nov 20, 2024 Has the PT tested + for MRSA If YES, has PT been informed?: Yes Medical Necessity Reason Pt with a Central, PICC or Fol: No Subjective Patient seen and examined at bedside. Remains on supplemental oxygen Overnight events reviewed. vital signs Vital Sign Date Time Temp Pulse Resp B/P (MAP) Pulse Ox O2 Delivery O2 Flow Rate FiO2 11/20/24 21:00 97.6 88 13 101/40 (60) 100 97.6 11/20/24 08:00 Nasal Cannula* 4 36 Total Intake and Output 11/19/24 11/19/24 11/20/24 15:00 23:00 07:00 Intake Total 280 ml 600 ml 875 ml Balance 280 ml 600 ml 875 ml medications Current Medications Medications Dose Ordered Sig/Yuki Route Start Time Stop Time Status Last Admin Dose Admin EZETIMIBE 10 mg DAILY PO 11/10/24 10:00 11/20/24 09:35 10 MG Gabapentin 300 mg DAILY PO 11/10/24 10:00 11/20/24 09:36 300 MG Montelukast Sodium 10 mg HS PO 11/09/24 22:00 11/20/24 22:12 10 MG Pantoprazole Sodium 40 mg DAILY IV 11/10/24 10:00 11/20/24 09:34 40 MG Pravastatin Sodium 80 mg HS PO 11/09/24 22:00 Cancel Azithromycin 500 mg DAILY PO 11/09/24 18:53 11/20/24 09:35 500 MG Atorvastatin Calcium 40 mg HS PO 11/10/24 22:00 11/20/24 22:12 40 MG Lactulose 30 ml BID PRN PO 11/11/24 20:00 11/20/24 03:34 30 ML Enteral Nutritional Formula 240 ml TIDWM PO 11/13/24 12:00 11/20/24 18:16 240 ML Cefepime HCl 50 ml @ 12.5 mls/hr Q12HR IV 11/13/24 22:00 11/20/24 22:12 12.5 MLS/HR Guaifenesin 200 mg Q4HP PRN GT 11/14/24 15:00 Cancel Midodrine 10 mg TID@0600,1200,1800 PO 11/14/24 18:00 11/20/24 18:15 10 MG Guaifenesin 200 mg Q4HP PRN PO 11/14/24 16:15 11/16/24 13:50 200 MG Amino Acids 0 ml @ 0 mls/hr PER PHARMACY IV 11/15/24 16:15 Diagnostic Test (Pha) 1 strip Q6HR 11/16/24 00:00 11/20/24 18:15 1 STRIP Insulin Human Regular FOLLOW SLIDING SCALE Q6HR SC 11/16/24 00:00 11/20/24 06:31 2 UNITS Dextrose 50 ml UD IV 11/16/24 00:00 Amino Acids/ Electrolytes/ Dextrose 1,000 ml @ 41 mls/hr DAILY@2200 IV 11/15/24 22:00 11/17/24 22:12 41 MLS/HR Ergocalciferol 50,000 unit Q7D PO 11/19/24 13:45 11/19/24 15:54 50,000 UNIT Tramadol HCl 50 mg [id number] PRN PO 11/20/24 19:30 objective Gen.: Patient lying in bed in no apparent distress. On supplemental oxygen. Head: Normocephalic, atraumatic. Eyes: EOMI/PERRLA. Ears: Normal hearing. Normal anatomy. Neck/trachea: Trachea midline, supple. Nose: Normal external anatomy. Mouth: Moist mucous membranes. Chest: Decreased air entry bilaterally. No wheezing or rhonchi. Cardiovascular: Positive S1, positive S2. Regular rate and rhythm. Abdomen: Positive bowel sounds in all 4 quadrants. Soft, non-tender, non- distended. : Deferred. Rectal: Deferred. Skin: Warm, dry. Intact. Extremities: 2+ radial pulses bilaterally. No lower extremity edema. Neuro: Awake, alert, oriented x3. No gross motor or sensory deficits. Cranial nerves II through XII intact. Gait not assessed. laboratory and microbiology Laboratory Tests 11/20/24 10:36 Test 11/20/24 10:36 Range/Units Serum Glucose 114 H 74-106 mg/dL Assessment/Plan Impression: Acute on chronic hypoxic respiratory failure Chronic obstructive pulmonary disease Loculated pleural effusion, right Atelectasis Metastatic cancer Malignant effusion Events: Remains on supplemental oxygen, 4 LPM NC Taper O2 as tolerated Chest x-ray demonstrates multifocal airspace opacities. Patient to be NPO at midnight - procedure planned for . Chest tube output 990 mL Continue to monitor output Continue bronchodilators Continue antibiotics Singulair Antitussive for cough Incentive spirometry Midodrine Pain control Avoid oversedation Protonix for GI prophylaxis Clinimix for nutritional support Monitor renal function - increasing creatinine (1.46) Surgery recommendations appreciated. Labs and imaging reviewed. Rest of plan as noted below. Plan: Supplemental oxygen Titrate to keep O2 sats above 92%. CXR demonstrated right loculated pleural effusion. S/p right chest tube placement. Alteplase via chest tube x2. Suction to minus 30 cmH2O Monitor chest tube output Monitor PT/INR. Bronchodilators. Antibiotics Incentive spirometry Monitor renal function. Monitor electrolytes. Supplement as necessary. Monitor ins and outs. GI prophylaxis - pantoprazole DVT prophylaxis. Prognosis: Poor given patient's multiple co-morbidities. Rest of plan per hospitalist and other consultants. Thank you Dr. Taran Archer MD, for allowing me to participate in this patient's care. Further recommendations will depend on the patient's clinical course. Please do not hesitate to contact me if you have any questions or concerns. This medical document was created using an electronic medical record system with [employer] dictation system. Although these documentations are being carefully reviewed, there may still be some phonetic and typographical changes. The errors are purely typographical, due to imperfection on the software program, and do not reflect any compromise in the patient's medical care. Dietary Evaluation Review Comments: 1. Continue diet regime 2. Consider Fish oil BID for high Trig 3. Consider Ensure HP BID if PO intake trends low Expected Outcomes/Goals: 1. Pt will consume >75% of estimated needs within 3-5 days Plan discussed with: Patient, Other (VINOD Kuhn) CHRISTIANO TAPIA MD Nov 20, 2024 22:32
[2024-11-21 00:58] VITALS: BP 94/32; PULSE 60; RESP 14; TEMP 97.6; O2SAT 98
[2024-11-21 07:15] LABS: Basophils # (auto) 0.2 10 ^3/uL (0-0.2); Basophils % (auto) 0.8 % (0.0-2.0); Eosinophils # (auto) 0.6 10 ^3/uL (0-0.8); Eosinophils % (auto) 3.1 % (0.0-7.0); Hematocrit 44.4 % (36.0-46.0); Hemoglobin 14.7 g/dL (12.2-16.2); Lymphocytes % (auto) 4.8 % (10.0-50.0); Mean Corpuscular Hemoglobin 29.5 pg (28.0-32.0); Mean Corpuscular Volume 89.6 fL (80.0-100.0); Monocytes # (auto) 1.1 10 ^3/uL (0-1.3); Monocytes % (auto) 5.4 % (0.0-12.0); Neutrophils # (auto) 17.6 10 ^3/uL (1.6-8.6); Neutrophils % (auto) 85.9 % (37.0-80.0); Nucleated Red Blood Cells % 0.1 %; Platelet Count (auto) 127 10^3/uL (140-450); Red Blood Cells 4.96 10^6/uL (4.0-5.20); White Blood Cell 20.4 10^3/uL (4.4-10.8)
[2024-11-21 07:27] LABS: INR 1.37 (0.9-1.15); Partial Thromboplastin Time 23.6 SEC (24.5-34.5); Prothrombin Time 14.2 sec (9.3-11.8)
[2024-11-21 07:49] LABS: Anion Gap 10 (5-15); Calcium 9.6 mg/dL (8.7-10.4); Chloride 106 mmol/L (98-107); Potassium 3.8 mmol/L (3.5-5.1)
[2024-11-21 07:50] LABS: BUN/Creatinine Ratio 49.2 (10.0-20.0); Glucose 105 mg/dL (74-106); Magnesium 2.4 mg/dL (1.6-2.6)
[2024-11-21 07:52] LABS: Bilirubin, Total 0.6 mg/dL (0.2-1.0); Phosphorus 2.5 mg/dL (2.4-5.1); Total Protein 6.1 g/dL (5.7-8.2)
[2024-11-21 07:58] LABS: Alanine Aminotransferase 85 U/L (7-40); Alkaline Phosphatase 401 U/L (46-116); Aspartate Aminotransferase 98 U/L (13-40); Blood Urea Nitrogen 58 mg/dL (9-23); Carbon Dioxide 17 mmol/L (20-31); Sodium 133 mmol/L (136-145)
[2024-11-21 09:17] LABS: Platelet Estimate Decreased
--- NOTE | 2024-11-21 09:23 | DVHINCON2 ---
Date of service: Nov 21, [address] Archer Reason for Consultation Acute kidney injury History of Present Illness 74-year-old female with past medical history of anxiety, asthma, hyperlipidemia, bladder cancer, lung cancer is admitted with two weeks of right chest pain and shortness of breath. On admission patient found to have elevated BUN creatinine nephrology consulted for acute kidney injury Past Medical History anxiety, asthma, hyperlipidemia Metastatic lung cancer Past Surgical History Thoracentesis Allergies: Coded Allergies: Garlic (Verified Allergy, Severe, hives, 11/10/24) Sulfamethoxazole (Verified Allergy, Mild, itchy, vomits, 09/02/24) Aspirin (Verified Allergy, Unknown, 09/02/24) Cefadroxil (Verified Allergy, Unknown, 09/02/24) Ciprofloxacin (Verified Allergy, Unknown, 09/02/24) Levofloxacin (Verified Allergy, Unknown, 09/02/24) Penicillins (Verified Allergy, Unknown, 09/02/24) Home Meds Reported Medications Niacinamide (Niaspan) 500 Mg Tb, 500 MG PO DAILY 09/05/24 Methylprednisolone (Methylprednisolone) 4 Mg Tab, 4 MG PO DAILY 09/05/24 Albuterol Sulfate (VENTOLIN MDI) 90 Mcg Ih, 90 MCG IN PRN 09/05/24 Cyclobenzaprine Hcl (Cyclobenzaprine Hcl) 10 Mg Tab, 10 MG PO DAILY 09/05/24 Promethazine-Dm (Promethazine Dm 6.25-15 mg/5Ml) 1 Erika Erika, PO PRN, ML 09/05/24 Divalproex Sodium (Divalproex Sodium) 500 Mg Tab, 500 MG PO DAILY 09/05/24 Duloxetine Hcl (Cymbalta) 20 Mg Cap, 30 MG PO DAILY 09/05/24 Doxycycline Hyclate (Doxycycline Hyclate) 100 Mg Cap, 100 MG PO BID 09/05/24 Patients Own Medication (PATIENTS OWN MEDICATION) . PTS OWN MED-OBTAIN FROM PT AND SEND TO RX DRUG:GUAIFEN PSE 600-120 FREQ:DAILY RX# EXP: DATE DISP: TECH: RPH: 09/05/24 Pravastatin Sodium (PRAVACHOL TABLET) 20 Mg Tb, 80 MG PO DAILY 09/05/24 Esomeprazole Magnesium Trihydr (Nexium) 40 Mg Cap, 1 CAP PO DAILY 09/05/24 Carisoprodol (Carisoprodol) 350 Mg Tab, 350 MG PO PRN for MUSCLE SPASM 09/05/24 Oxaprozin (Daypro) 600 Mg Tab, 600 MG PO DAILY, TAB 09/05/24 Zolpidem Tartrate (Ambien) 10 Mg Tab, PO QHSP PRN for FOR INSOMNIA, TAB 09/05/24 Gabapentin (Gabapentin) 300 Mg Cap, 300 MG PO DAILY 09/05/24 Diazepam (VALIUM TABLET) 5 Mg Tb, 5 MG PO DAILY, TAB 09/05/24 Patients Own Medication (PATIENTS OWN MEDICATION) . PTS OWN MED-OBTAIN FROM PT AND SEND TO RX DRUG:VICODIN 5/500 FREQ:BID PRN RX# EXP: DATE DISP: TECH: RPH: 09/05/24 Ezetimibe-Simvastatin (Vytorin) 1 Tab Tab, 1 TAB PO DAILY 09/05/24 Fenofibrate (Tricor) 145 Mg Tab, 145 MG PO DAILY for CHOLESTROL 09/05/24 Ezetimibe (Zetia) 10 Mg Tab, 1 TAB PO DAILY 09/05/24 Vbbdhleeso-Bvlbaejmdyzpp-Itfef (Buster 50-325-40 mg) 1 Tab Tab, 1 TAB PO DAILY for migraine, TAB 09/05/24 Pantoprazole Sodium (PANTOPRAZOLE SODIUM) 40 Mg Inj, 40 MG PO DAILY, INJ 09/05/24 Divalproex Sodium (Depakote) 500 Mg Tab, 500 MG PO DAILY for migraine 09/05/24 Ivabradine Hydrochloride (Corlanor) 5 Mg Tab, 5 MG PO DAILY, TAB 09/02/24 Metoclopramide Hcl (Metoclopramide Hcl) 5 Mg Tab, 5 MG PO DAILY for 30 Days, MG 09/02/24 Prochlorperazine Maleate (Compazine) 10 Mg Tb, 0.5 TAB PO DAILY, #30 TAB 3 Refills 09/02/24 Rosuvastatin Calcium (Crestor) 20 Mg Tab, 1 TAB PO DAILY, #30 TAB 5 Refills 09/02/24 Magnesium Bisglycinate (Mag Glycinate) 100 Mg Tab, 250 MG PO DAILY, TAB 09/02/24 Metoprolol Succinate (Toprol Xl) 25 Mg Tab, 1 TAB PO DAILY for HTN, #30 TAB 5 Refills 09/02/24 Vibegron (Gemtesa) 75 Mg Tab, 75 MG PO DAILY for OVERACTIVE BLADDER, TAB 09/02/24 Dicyclomine Hcl (BENTYL CAPSULE) 10 Mg Cp, 10 MG PO DAILY, CAP 05/16/22 Rabeprazole Sodium (Aciphex) 20 Mg Tab, 1 TAB PO DAILY, #90 TAB 1 Refill 01/17/20 Montelukast Sodium (MONTELUKAST SODIUM) 10 Mg Tab, 1 TAB PO DAILY, #30 TAB 5 Refills 01/17/20 Current Medications Current Medications Medications (Trade) Dose Ordered Sig/Yuki Route PRN Reason Start Time Stop Time Status Last Admin Acetaminophen/ Hydrocodone Bitart ([place] 5/325MG Tab) 1 tab Q4HPRN PRN PO MODERATE PAIN (4-6 PAIN SCALE) 11/20/24 19:00 11/20/24 19:37 DC Acetaminophen/ Hydrocodone Bitart ([place] 5/325MG Tab) 1 tab Q4HPRN PRN PO MILD PAIN (1-3 PAIN SCALE) 11/20/24 19:00 11/20/24 19:37 DC Tramadol HCl (Ultram) 50 mg [id number] PRN PO MODERATE PAIN (4-6 PAIN SCALE) 11/20/24 19:30 Family History: Patient reports no known family medical history. Review of Systems All 12 item review of systems reviewed with the patient nonsignificant except what is mentioned in the history of present illness H&P Exam Vital Signs/I&O Vital Sign Date Time Temp Pulse Resp B/P (MAP) Pulse Ox O2 Delivery O2 Flow Rate FiO2 11/21/24 08:10 Nasal Cannula* 3 32 11/21/24 00:58 97.6 60 14 94/32 (52) 98 97.6 Intake and Output0 11/20/24 11/21/24 19:00 07:00 Intake Total 2300 ml 50 ml Output Total 90 ml 0 ml Balance 2210 ml 50 ml Intake Oral 2200 ml 0 ml IV Total 100 ml 50 ml Stool Total 0 ml Chest Tube Drainage Total 90 ml # Voids 4 3 # Bowel Movements 2 Physical Exam Patient lying comfortably in bed, awake and alert, at the bedside O2 nasal cannula Lungs decreased breath sounds in the right Cardiac exam regular rate and rhythm GI soft nontender normal Extremities no clubbing cyanosis or edema Neuro nonfocal Labs/Diagnostic Data Labs/Diagnostic Data Laboratory Tests Test 11/21/24 06:17 11/21/24 01:01 11/20/24 17:41 11/20/24 12:08 Range/Units White Blood Count 20.4 H 4.4-10.8 10^3/uL Red Blood Count 4.96 4.0-5.20 10^6/uL Hemoglobin 14.7 12.2-16.2 g/dL Hematocrit 44.4 36.0-46.0 % Mean Corpuscular Volume 89.6 80.0-100.0 fL Mean Corpuscular Hemoglobin 29.5 28.0-32.0 pg Mean Corpuscular Hemoglobin Concent 33.0 32.0-36.0 g/dL Red Cell Distribution Width 16.0 H 11.8-14.3 % Platelet Count 127 L 140-450 10^3/uL Mean Platelet Volume 8.3 6.9-10.8 fL Neutrophils (%) (Auto) 85.9 H 37.0-80.0 % Lymphocytes (%) (Auto) 4.8 L 10.0-50.0 % Monocytes (%) (Auto) 5.4 0.0-12.0 % Eosinophils (%) (Auto) 3.1 0.0-7.0 % Basophils (%) (Auto) 0.8 0.0-2.0 % Neutrophils # (Auto) 17.6 H 1.6-8.6 10 ^3/uL Lymphocytes # (Auto) 1.0 0.4-5.4 10 ^3/uL Monocytes # (Auto) 1.1 0-1.3 10 ^3/uL Eosinophils # (Auto) 0.6 0-0.8 10 ^3/uL Basophils # (Auto) 0.2 0-0.2 10 ^3/uL Nucleated Red Blood Cells 0.1 % Platelet Estimate Decreased Prothrombin Time 14.2 H 9.3-11.8 sec Prothrombin Time INR 1.37 H 0.9-1.15 Activated Partial Thromboplast Time 23.6 L 24.5-34.5 SEC Sodium Level 133 L 136-145 mmol/L Potassium Level 3.8 3.5-5.1 mmol/L Chloride Level 106 98-107 mmol/L Carbon Dioxide Level 17 L 20-31 mmol/L Anion Gap 10 5-15 Blood Urea Nitrogen 58 #H 9-23 mg/dL Creatinine 1.18 H 0.550-1.02 mg/dL Glomerular Filtration Rate Calc 49 >90 mL/min BUN/Creatinine Ratio 49.2 H 10.0-20.0 Serum Glucose 105 74-106 mg/dL Calcium Level 9.6 8.7-10.4 mg/dL Phosphorus Level 2.5 2.4-5.1 mg/dL Magnesium Level 2.4 1.6-2.6 mg/dL Total Bilirubin 0.6 0.2-1.0 mg/dL Aspartate Amino Transferase (AST) 98 H 13-40 U/L Alanine Aminotransferase (ALT) 85 H 7-40 U/L Alkaline Phosphatase 401 H 46-116 U/L Total Protein 6.1 5.7-8.2 g/dL Albumin 3.0 L 3.2-4.8 g/dL POC Glucose 84 92 103 70-106 mg/dl Test 11/20/24 10:36 11/20/24 06:01 11/20/24 02:07 11/19/24 17:22 Range/Units White Blood Count 22.5 H 4.4-10.8 10^3/uL Red Blood Count 4.53 4.0-5.20 10^6/uL Hemoglobin 13.2 12.2-16.2 g/dL Hematocrit 40.8 36.0-46.0 % Mean Corpuscular Volume 90.2 80.0-100.0 fL Mean Corpuscular Hemoglobin 29.1 28.0-32.0 pg Mean Corpuscular Hemoglobin Concent 32.3 32.0-36.0 g/dL Red Cell Distribution Width 16.1 H 11.8-14.3 % Platelet Count 315 140-450 10^3/uL Mean Platelet Volume 8.2 6.9-10.8 fL Neutrophils (%) (Auto) 83.9 H 37.0-80.0 % Lymphocytes (%) (Auto) 5.8 L 10.0-50.0 % Monocytes (%) (Auto) 6.9 0.0-12.0 % Eosinophils (%) (Auto) 2.8 0.0-7.0 % Basophils (%) (Auto) 0.6 0.0-2.0 % Neutrophils # (Auto) 18.9 H 1.6-8.6 10 ^3/uL Lymphocytes # (Auto) 1.3 0.4-5.4 10 ^3/uL Monocytes # (Auto) 1.6 H 0-1.3 10 ^3/uL Eosinophils # (Auto) 0.6 0-0.8 10 ^3/uL Basophils # (Auto) 0.1 0-0.2 10 ^3/uL Nucleated Red Blood Cells 0.0 % Sodium Level 133 L 136-145 mmol/L Potassium Level 4.0 3.5-5.1 mmol/L Chloride Level 105 98-107 mmol/L Carbon Dioxide Level 17 L 20-31 mmol/L Anion Gap 11 5-15 Blood Urea Nitrogen 68 #H 9-23 mg/dL Creatinine 1.46 H 0.550-1.02 mg/dL Glomerular Filtration Rate Calc 38 >90 mL/min BUN/Creatinine Ratio 46.6 H 10.0-20.0 Serum Glucose 114 H 74-106 mg/dL Calcium Level 9.3 8.7-10.4 mg/dL Phosphorus Level 3.7 2.4-5.1 mg/dL Magnesium Level 2.2 1.6-2.6 mg/dL Total Bilirubin 0.5 0.2-1.0 mg/dL Aspartate Amino Transferase (AST) 227 H 13-40 U/L Alanine Aminotransferase (ALT) 107 H 7-40 U/L Alkaline Phosphatase 407 H 46-116 U/L Total Protein 5.8 5.7-8.2 g/dL Albumin 2.9 L 3.2-4.8 g/dL Random Vancomycin Level 16.5 H 5-10 ug/mL POC Glucose 139 H 113 H 101 70-106 mg/dl Test 11/19/24 12:31 11/19/24 08:36 11/19/24 06:14 11/19/24 00:58 Range/Units POC Glucose 165 H 84 87 70-106 mg/dl White Blood Count 23.1 H 4.4-10.8 10^3/uL Red Blood Count 4.99 4.0-5.20 10^6/uL Hemoglobin 14.3 12.2-16.2 g/dL Hematocrit 44.3 36.0-46.0 % Mean Corpuscular Volume 88.9 80.0-100.0 fL Mean Corpuscular Hemoglobin 28.7 28.0-32.0 pg Mean Corpuscular Hemoglobin Concent 32.3 32.0-36.0 g/dL Red Cell Distribution Width 15.5 H 11.8-14.3 % Platelet Count 338 140-450 10^3/uL Mean Platelet Volume 8.3 6.9-10.8 fL Neutrophils (%) (Auto) 86.3 H 37.0-80.0 % Lymphocytes (%) (Auto) 4.6 L 10.0-50.0 % Monocytes (%) (Auto) 6.7 0.0-12.0 % Eosinophils (%) (Auto) 2.0 0.0-7.0 % Basophils (%) (Auto) 0.4 0.0-2.0 % Neutrophils # (Auto) 20.0 H 1.6-8.6 10 ^3/uL Lymphocytes # (Auto) 1.1 0.4-5.4 10 ^3/uL Monocytes # (Auto) 1.6 H 0-1.3 10 ^3/uL Eosinophils # (Auto) 0.5 0-0.8 10 ^3/uL Basophils # (Auto) 0.1 0-0.2 10 ^3/uL Nucleated Red Blood Cells 0.1 % Prothrombin Time 12.3 H 9.3-11.8 sec Prothrombin Time INR 1.17 H 0.9-1.15 Sodium Level 132 L 136-145 mmol/L Potassium Level 4.3 3.5-5.1 mmol/L Chloride Level 103 98-107 mmol/L Carbon Dioxide Level 21 20-31 mmol/L Anion Gap 8 5-15 Blood Urea Nitrogen 58 H 9-23 mg/dL Creatinine 1.23 H 0.550-1.02 mg/dL Glomerular Filtration Rate Calc 47 >90 mL/min BUN/Creatinine Ratio 47.2 H 10.0-20.0 Serum Glucose 92 74-106 mg/dL Calcium Level 9.3 8.7-10.4 mg/dL Phosphorus Level 3.9 2.4-5.1 mg/dL Magnesium Level 2.1 1.6-2.6 mg/dL Total Bilirubin 0.6 0.2-1.0 mg/dL Aspartate Amino Transferase (AST) 109 H 13-40 U/L Alanine Aminotransferase (ALT) 59 H 7-40 U/L Alkaline Phosphatase 333 H 46-116 U/L Total Protein 6.0 5.7-8.2 g/dL Albumin 3.0 L 3.2-4.8 g/dL Random Vancomycin Level 23.3 H 5-10 ug/mL Test 11/18/24 17:50 11/18/24 14:53 11/18/24 12:00 11/18/24 06:23 Range/Units POC Glucose 90 98 70-106 mg/dl Prothrombin Time 13.3 H 9.3-11.8 sec Prothrombin Time INR 1.28 H 0.9-1.15 Activated Partial Thromboplast Time 28.5 24.5-34.5 SEC White Blood Count 20.6 H 4.4-10.8 10^3/uL Red Blood Count 5.03 4.0-5.20 10^6/uL Hemoglobin 14.9 12.2-16.2 g/dL Hematocrit 45.0 36.0-46.0 % Mean Corpuscular Volume 89.6 80.0-100.0 fL Mean Corpuscular Hemoglobin 29.6 28.0-32.0 pg Mean Corpuscular Hemoglobin Concent 33.1 32.0-36.0 g/dL Red Cell Distribution Width 15.7 H 11.8-14.3 % Platelet Count 296 140-450 10^3/uL Mean Platelet Volume 7.9 6.9-10.8 fL Neutrophils (%) (Auto) 81.7 H 37.0-80.0 % Lymphocytes (%) (Auto) 8.3 L 10.0-50.0 % Monocytes (%) (Auto) 6.5 0.0-12.0 % Eosinophils (%) (Auto) 2.5 0.0-7.0 % Basophils (%) (Auto) 1.0 0.0-2.0 % Neutrophils # (Auto) 16.8 H 1.6-8.6 10 ^3/uL Lymphocytes # (Auto) 1.7 0.4-5.4 10 ^3/uL Monocytes # (Auto) 1.3 0-1.3 10 ^3/uL Eosinophils # (Auto) 0.5 0-0.8 10 ^3/uL Basophils # (Auto) 0.2 0-0.2 10 ^3/uL Nucleated Red Blood Cells 0.3 % Sodium Level 131 L 136-145 mmol/L Potassium Level 4.6 3.5-5.1 mmol/L Chloride Level 102 98-107 mmol/L Carbon Dioxide Level 20 20-31 mmol/L Anion Gap 9 5-15 Blood Urea Nitrogen 51 #H 9-23 mg/dL Creatinine 0.97 0.550-1.02 mg/dL Glomerular Filtration Rate Calc 62 >90 mL/min BUN/Creatinine Ratio 52.6 H 10.0-20.0 Serum Glucose 87 74-106 mg/dL Calcium Level 8.2 L 8.7-10.4 mg/dL Phosphorus Level 5.6 H 2.4-5.1 mg/dL Magnesium Level 2.0 1.6-2.6 mg/dL Total Bilirubin 0.5 0.2-1.0 mg/dL Aspartate Amino Transferase (AST) 80 H 13-40 U/L Alanine Aminotransferase (ALT) 39 7-40 U/L Alkaline Phosphatase 250 H 46-116 U/L Total Protein 4.9 L 5.7-8.2 g/dL Albumin 2.6 L 3.2-4.8 g/dL Vitamin B12 Level 426 211-911 pg/mL Vitamin D 25-Hydroxy 33.7 30.0-100 ng/mL Random Vancomycin Level 17.8 H 5-10 ug/mL Test 11/18/24 05:51 11/18/24 01:42 11/18/24 00:48 11/17/24 18:54 Range/Units POC Glucose 92 140 H 156 H 70-106 mg/dl Prothrombin Time 40.3 H 9.3-11.8 sec Prothrombin Time INR 4.23 *H 0.9-1.15 Activated Partial Thromboplast Time 36.8 H 24.5-34.5 SEC Test 11/17/24 12:32 11/17/24 06:29 11/17/24 05:36 11/17/24 05:35 Range/Units POC Glucose 133 H 136 H 154 H 70-106 mg/dl White Blood Count 19.4 H 4.4-10.8 10^3/uL Red Blood Count 5.17 4.0-5.20 10^6/uL Hemoglobin 15.2 12.2-16.2 g/dL Hematocrit 47.8 H 36.0-46.0 % Mean Corpuscular Volume 92.4 80.0-100.0 fL Mean Corpuscular Hemoglobin 29.3 28.0-32.0 pg Mean Corpuscular Hemoglobin Concent 31.7 L 32.0-36.0 g/dL Red Cell Distribution Width 16.0 H 11.8-14.3 % Platelet Count 283 140-450 10^3/uL Mean Platelet Volume 7.8 6.9-10.8 fL Neutrophils (%) (Auto) 81.7 H 37.0-80.0 % Lymphocytes (%) (Auto) 7.1 L 10.0-50.0 % Monocytes (%) (Auto) 7.5 0.0-12.0 % Eosinophils (%) (Auto) 3.0 0.0-7.0 % Basophils (%) (Auto) 0.7 0.0-2.0 % Neutrophils # (Auto) 15.9 H 1.6-8.6 10 ^3/uL Lymphocytes # (Auto) 1.4 0.4-5.4 10 ^3/uL Monocytes # (Auto) 1.5 H 0-1.3 10 ^3/uL Eosinophils # (Auto) 0.6 0-0.8 10 ^3/uL Basophils # (Auto) 0.1 0-0.2 10 ^3/uL Nucleated Red Blood Cells 0.0 % Sodium Level 129 L 136-145 mmol/L Potassium Level 3.9 3.5-5.1 mmol/L Chloride Level 102 98-107 mmol/L Carbon Dioxide Level 20 20-31 mmol/L Anion Gap 7 5-15 Blood Urea Nitrogen 31 H 9-23 mg/dL Creatinine 0.83 0.550-1.02 mg/dL Glomerular Filtration Rate Calc 75 >90 mL/min BUN/Creatinine Ratio 37.3 H 10.0-20.0 Serum Glucose 190 H 74-106 mg/dL Calcium Level 8.7 8.7-10.4 mg/dL Phosphorus Level 1.5 L 2.4-5.1 mg/dL Magnesium Level 2.0 1.6-2.6 mg/dL Total Bilirubin 0.3 0.2-1.0 mg/dL Aspartate Amino Transferase (AST) 33 13-40 U/L Alanine Aminotransferase (ALT) 25 7-40 U/L Alkaline Phosphatase 260 H 46-116 U/L Total Protein 5.6 L 5.7-8.2 g/dL Albumin 2.8 L 3.2-4.8 g/dL Test 11/17/24 02:08 11/17/24 00:36 11/16/24 17:13 11/16/24 12:25 Range/Units Vancomycin Level Trough 29.5 H 5-10 ug/mL POC Glucose 124 H 135 H 131 H 70-106 mg/dl Test 11/16/24 06:17 11/16/24 05:47 11/15/24 23:26 11/15/24 13:35 Range/Units POC Glucose 127 H 150 H 70-106 mg/dl White Blood Count 20.9 H 4.4-10.8 10^3/uL Red Blood Count 4.97 4.0-5.20 10^6/uL Hemoglobin 14.7 12.2-16.2 g/dL Hematocrit 44.8 36.0-46.0 % Mean Corpuscular Volume 90.3 80.0-100.0 fL Mean Corpuscular Hemoglobin 29.7 28.0-32.0 pg Mean Corpuscular Hemoglobin Concent 32.9 32.0-36.0 g/dL Red Cell Distribution Width 15.6 H 11.8-14.3 % Platelet Count 286 140-450 10^3/uL Mean Platelet Volume 8.0 6.9-10.8 fL Neutrophils (%) (Auto) 82.8 H 37.0-80.0 % Lymphocytes (%) (Auto) 7.1 L 10.0-50.0 % Monocytes (%) (Auto) 7.3 0.0-12.0 % Eosinophils (%) (Auto) 2.1 0.0-7.0 % Basophils (%) (Auto) 0.7 0.0-2.0 % Neutrophils # (Auto) 17.3 H 1.6-8.6 10 ^3/uL Lymphocytes # (Auto) 1.5 0.4-5.4 10 ^3/uL Monocytes # (Auto) 1.5 H 0-1.3 10 ^3/uL Eosinophils # (Auto) 0.4 0-0.8 10 ^3/uL Basophils # (Auto) 0.1 0-0.2 10 ^3/uL Nucleated Red Blood Cells 0.0 % Sodium Level 132 L 136-145 mmol/L Potassium Level 3.8 3.5-5.1 mmol/L Chloride Level 105 98-107 mmol/L Carbon Dioxide Level 20 20-31 mmol/L Anion Gap 7 5-15 Blood Urea Nitrogen 26 H 9-23 mg/dL Creatinine 0.80 0.550-1.02 mg/dL Glomerular Filtration Rate Calc 78 >90 mL/min BUN/Creatinine Ratio 32.5 H 10.0-20.0 Serum Glucose 124 H 74-106 mg/dL Calcium Level 8.5 L 8.7-10.4 mg/dL Phosphorus Level 2.5 2.4-5.1 mg/dL Magnesium Level 1.8 1.6-2.6 mg/dL Total Bilirubin 0.3 0.2-1.0 mg/dL Aspartate Amino Transferase (AST) 42 H 13-40 U/L Alanine Aminotransferase (ALT) 33 7-40 U/L Alkaline Phosphatase 273 H 46-116 U/L Total Protein 5.3 L 5.7-8.2 g/dL Albumin 2.7 L 3.2-4.8 g/dL Triglycerides Level 186 H < 150 mg/dL Lactic Acid Level 1.3 0.4-2.0 mmol/L TB Test (QFT) Gold Plus Negative Negative TB Test (QFT) Nil 0.01 . IU/mL TB Test (QFT) Mitogen >10.00 . IU/mL TB Test (QFT) Antigen 1 0.01 . IU/mL TB Test (QFT) Antigen 2 0.01 . IU/mL TB Test (QFT) Criteria Comment . Test 11/15/24 08:25 11/15/24 06:30 11/14/24 18:30 11/14/24 08:29 Range/Units White Blood Count 20.5 H 21.9 H 4.4-10.8 10^3/uL Red Blood Count 5.33 H 5.36 H 4.0-5.20 10^6/uL Hemoglobin 15.6 15.5 12.2-16.2 g/dL Hematocrit 47.4 H 48.1 H 36.0-46.0 % Mean Corpuscular Volume 89.0 89.7 80.0-100.0 fL Mean Corpuscular Hemoglobin 29.3 28.8 28.0-32.0 pg Mean Corpuscular Hemoglobin Concent 32.9 32.1 32.0-36.0 g/dL Red Cell Distribution Width 15.1 H 15.0 H 11.8-14.3 % Platelet Count 332 319 140-450 10^3/uL Mean Platelet Volume 8.2 7.9 6.9-10.8 fL Neutrophils (%) (Auto) 79.7 82.1 H 37.0-80.0 % Lymphocytes (%) (Auto) 9.9 L 7.4 L 10.0-50.0 % Monocytes (%) (Auto) 7.6 8.1 0.0-12.0 % Eosinophils (%) (Auto) 2.3 1.9 0.0-7.0 % Basophils (%) (Auto) 0.5 0.5 0.0-2.0 % Neutrophils # (Auto) 16.3 H 18.0 H 1.6-8.6 10 ^3/uL Lymphocytes # (Auto) 2.0 1.6 0.4-5.4 10 ^3/uL Monocytes # (Auto) 1.6 H 1.8 H 0-1.3 10 ^3/uL Eosinophils # (Auto) 0.5 0.4 0-0.8 10 ^3/uL Basophils # (Auto) 0.1 0.1 0-0.2 10 ^3/uL Nucleated Red Blood Cells 0.1 0.1 % Sodium Level 134 L 132 L 136-145 mmol/L Potassium Level 4.9 4.3 3.5-5.1 mmol/L Chloride Level 103 101 98-107 mmol/L Carbon Dioxide Level 22 26 20-31 mmol/L Anion Gap 9 5 5-15 Blood Urea Nitrogen 31 #H 16 9-23 mg/dL Creatinine 0.85 # 0.63 0.550-1.02 mg/dL Glomerular Filtration Rate Calc 73 94 >90 mL/min BUN/Creatinine Ratio 36.5 H 25.4 H 10.0-20.0 Serum Glucose 80 99 74-106 mg/dL Calcium Level 8.3 L 9.1 8.7-10.4 mg/dL Phosphorus Level 3.2 2.4-5.1 mg/dL Magnesium Level 1.8 1.6-2.6 mg/dL Total Bilirubin 0.4 0.7 0.2-1.0 mg/dL Aspartate Amino Transferase (AST) 76 H 44 H 13-40 U/L Alanine Aminotransferase (ALT) 40 29 7-40 U/L Alkaline Phosphatase 269 H 247 H 46-116 U/L Total Protein 4.6 L 5.7 5.7-8.2 g/dL Albumin 2.6 L 3.0 L 3.2-4.8 g/dL Vancomycin Level Trough 19.5 H 5-10 ug/mL Test 11/13/24 10:23 11/12/24 18:27 11/12/24 10:28 11/12/24 09:41 Range/Units White Blood Count 19.9 H 17.6 H 4.4-10.8 10^3/uL Red Blood Count 5.43 H 5.59 H 4.0-5.20 10^6/uL Hemoglobin 16.1 16.5 H 12.2-16.2 g/dL Hematocrit 48.0 H 49.8 #H 36.0-46.0 % Mean Corpuscular Volume 88.5 89.1 80.0-100.0 fL Mean Corpuscular Hemoglobin 29.6 29.4 28.0-32.0 pg Mean Corpuscular Hemoglobin Concent 33.5 33.0 32.0-36.0 g/dL Red Cell Distribution Width 15.1 H 15.1 H 11.8-14.3 % Platelet Count 299 330 330 140-450 10^3/uL Mean Platelet Volume 7.9 7.7 6.9-10.8 fL Neutrophils (%) (Auto) 82.9 H 82.9 H 37.0-80.0 % Lymphocytes (%) (Auto) 6.7 L 8.6 L 10.0-50.0 % Monocytes (%) (Auto) 8.3 5.9 0.0-12.0 % Eosinophils (%) (Auto) 1.8 2.3 0.0-7.0 % Basophils (%) (Auto) 0.3 0.3 0.0-2.0 % Neutrophils # (Auto) 16.5 H 14.6 H 1.6-8.6 10 ^3/uL Lymphocytes # (Auto) 1.3 1.5 0.4-5.4 10 ^3/uL Monocytes # (Auto) 1.6 H 1.0 0-1.3 10 ^3/uL Eosinophils # (Auto) 0.4 0.4 0-0.8 10 ^3/uL Basophils # (Auto) 0.1 0.1 0-0.2 10 ^3/uL Nucleated Red Blood Cells 0.1 0.0 0.0 % Sodium Level 133 L 136 136-145 mmol/L Potassium Level 3.9 4.2 3.5-5.1 mmol/L Chloride Level 101 100 98-107 mmol/L Carbon Dioxide Level 28 29 20-31 mmol/L Anion Gap 4 L 7 5-15 Blood Urea Nitrogen 17 21 9-23 mg/dL Creatinine 0.64 0.69 0.550-1.02 mg/dL Glomerular Filtration Rate Calc 94 92 >90 mL/min BUN/Creatinine Ratio 26.6 H 30.4 H 10.0-20.0 Serum Glucose 127 H 101 74-106 mg/dL Calcium Level 9.1 9.2 8.7-10.4 mg/dL Total Bilirubin 0.7 0.7 0.2-1.0 mg/dL Aspartate Amino Transferase (AST) 31 28 13-40 U/L Alanine Aminotransferase (ALT) 20 24 7-40 U/L Alkaline Phosphatase 229 H 179 H 46-116 U/L Total Protein 5.6 L 5.6 L 5.7-8.2 g/dL Albumin 3.0 L 3.0 L 3.2-4.8 g/dL Differential Total Cells Counted 100.0 100 Neutrophils % (Manual) 83 H 37.0-80.0 Band Neutrophils % (Manual) 4 Lymphocytes % (Manual) 7 L 10.0-50.0 Monocytes % (Manual) 3 0-12 Eosinophils % (Manual) 3 0-7 Basophils % (Manual) 0 0.0-2.0 Metamyelocytes % (manual) 0 Myelocytes % (Manual) 0 Promyelocytes % (Manual) 0 Blast Cells % (Manual) 0 Reactive Lymphocytes 0 Platelet Estimate Adequate Large Platelets Few Anisocytosis (manual) Slight Tear Drop Cells Few Vancomycin Level Trough 17.1 H 5-10 ug/mL Body Fluid Source Pleural fluid Body Fluid pH 8.0 Body Fluid WBC (Manual) 6751 H 0-200 CUMM Body Fluid RBC (Manual) 0 0-2000 CUMM Body Fluid Mononuclear Cells 95 % Body Fluid Polymorphonuclear Cells 5 0-25 % Body Fluid Glucose 61 . mg/dL Body Fluid Total Protein 3.8 . g/dL Body Fluid Lactate Dehydrogenase 361 . IU/L Test 11/12/24 05:30 11/11/24 14:25 11/11/24 12:50 11/11/24 10:35 Range/Units Influenza Type A Antigen Negative Negative Influenza Type B Antigen Negative Negative SARS-CoV-2 Antigen (Rapid) Negative NEGATIVE Prothrombin Time 15.0 H 9.3-11.8 sec Prothrombin Time INR 1.45 H 0.9-1.15 Activated Partial Thromboplast Time 26.1 24.5-34.5 SEC Lactic Acid Level 1.7 2.3 *H 0.4-2.0 mmol/L Test 11/11/24 06:26 11/10/24 13:37 11/10/24 10:12 11/10/24 09:40 Range/Units White Blood Count 17.7 H 22.4 H 4.4-10.8 10^3/uL Red Blood Count 5.08 5.59 H 4.0-5.20 10^6/uL Hemoglobin 15.0 16.3 H 12.2-16.2 g/dL Hematocrit 45.2 49.4 H 36.0-46.0 % Mean Corpuscular Volume 89.1 88.4 80.0-100.0 fL Mean Corpuscular Hemoglobin 29.6 29.2 28.0-32.0 pg Mean Corpuscular Hemoglobin Concent 33.2 33.1 32.0-36.0 g/dL Red Cell Distribution Width 14.8 H 14.9 H 11.8-14.3 % Platelet Count 334 457 H 140-450 10^3/uL Mean Platelet Volume 7.5 7.6 6.9-10.8 fL Neutrophils (%) (Auto) 82.9 H 85.7 H 37.0-80.0 % Lymphocytes (%) (Auto) 7.1 L 6.9 L 10.0-50.0 % Monocytes (%) (Auto) 6.5 5.6 0.0-12.0 % Eosinophils (%) (Auto) 3.3 1.4 0.0-7.0 % Basophils (%) (Auto) 0.2 0.4 0.0-2.0 % Neutrophils # (Auto) 14.7 H 19.2 H 1.6-8.6 10 ^3/uL Lymphocytes # (Auto) 1.3 1.5 0.4-5.4 10 ^3/uL Monocytes # (Auto) 1.2 1.2 0-1.3 10 ^3/uL Eosinophils # (Auto) 0.6 0.3 0-0.8 10 ^3/uL Basophils # (Auto) 0 0.1 0-0.2 10 ^3/uL Nucleated Red Blood Cells 0.0 0.0 % Sodium Level 138 138 136-145 mmol/L Potassium Level 4.1 3.4 L 3.5-5.1 mmol/L Chloride Level 102 101 98-107 mmol/L Carbon Dioxide Level 29 28 20-31 mmol/L Anion Gap 7 9 5-15 Blood Urea Nitrogen 19 22 9-23 mg/dL Creatinine 0.64 0.70 0.550-1.02 mg/dL Glomerular Filtration Rate Calc 94 92 >90 mL/min BUN/Creatinine Ratio 29.7 H 31.4 H 10.0-20.0 Serum Glucose 96 122 H 74-106 mg/dL Calcium Level 9.3 9.5 8.7-10.4 mg/dL Total Bilirubin 0.5 0.4 0.2-1.0 mg/dL Aspartate Amino Transferase (AST) 35 58 H 13-40 U/L Alanine Aminotransferase (ALT) 26 37 7-40 U/L Alkaline Phosphatase 154 H 202 H 46-116 U/L Total Protein 5.7 6.8 5.7-8.2 g/dL Albumin 3.0 L 3.6 3.2-4.8 g/dL Lactic Acid Level 2.4 *H 2.4 *H 0.4-2.0 mmol/L Urine Color Light-yellow Yellow Urine Clarity Clear Clear Urine pH 5.0 5.0-9.0 Urine Specific [place] 1.012 1.001-1.035 Urine Protein Negative Negative Urine Ketones Negative Negative Urine Blood 2+ H Negative /uL Urine Nitrite Negative Negative Urine Bilirubin Negative Negative Urine Urobilinogen Normal Negative mg/dL Urine Leukocyte Esterase Negative Negative /uL Urine RBC 34 0 - 4 /hpf Urine WBC 2 0 - 5 /hpf Urine Squamous Epithelial Cells Few <5 /hpf Urine Bacteria None seen None Seen /hpf Urine Hyaline Casts Few 0 - 2 /lpf Urine Glucose Normal Normal mg/dL Triglycerides Level 272 H < 150 mg/dL Cholesterol Level 199 < 200 mg/dL LDL Cholesterol 129 H < 100 mg/dL HDL Cholesterol 37 L 40-59 mg/dL Lipase 100 H 12-53 U/L Test 11/09/24 16:34 11/09/24 15:14 11/09/24 13:05 Range/Units Lactic Acid Level 3.3 *H 3.3 *H 0.4-2.0 mmol/L Troponin I High Sensitivity 14 14 13 </=34 ng/L White Blood Count 23.5 H 4.4-10.8 10^3/uL Red Blood Count 5.61 H 4.0-5.20 10^6/uL Hemoglobin 16.7 H 12.2-16.2 g/dL Hematocrit 50.2 H 36.0-46.0 % Mean Corpuscular Volume 89.4 80.0-100.0 fL Mean Corpuscular Hemoglobin 29.8 28.0-32.0 pg Mean Corpuscular Hemoglobin Concent 33.3 32.0-36.0 g/dL Red Cell Distribution Width 14.8 H 11.8-14.3 % Platelet Count 506 H 140-450 10^3/uL Mean Platelet Volume 7.3 6.9-10.8 fL Neutrophils (%) (Auto) 91.6 H 37.0-80.0 % Lymphocytes (%) (Auto) 4.8 L 10.0-50.0 % Monocytes (%) (Auto) 3.4 0.0-12.0 % Eosinophils (%) (Auto) 0.1 0.0-7.0 % Basophils (%) (Auto) 0.1 0.0-2.0 % Neutrophils # (Auto) 21.5 H 1.6-8.6 10 ^3/uL Lymphocytes # (Auto) 1.1 0.4-5.4 10 ^3/uL Monocytes # (Auto) 0.8 0-1.3 10 ^3/uL Eosinophils # (Auto) 0 0-0.8 10 ^3/uL Basophils # (Auto) 0 0-0.2 10 ^3/uL Nucleated Red Blood Cells 0.0 % Sodium Level 138 136-145 mmol/L Potassium Level 4.8 3.5-5.1 mmol/L Chloride Level 99 98-107 mmol/L Carbon Dioxide Level 29 20-31 mmol/L Anion Gap 10 5-15 Blood Urea Nitrogen 29 H 9-23 mg/dL Creatinine 0.72 0.550-1.02 mg/dL Glomerular Filtration Rate Calc 89 >90 mL/min BUN/Creatinine Ratio 40.3 H 10.0-20.0 Serum Glucose 119 H 74-106 mg/dL Calcium Level 10.4 8.7-10.4 mg/dL Magnesium Level 2.1 1.6-2.6 mg/dL Total Bilirubin 0.5 0.2-1.0 mg/dL Aspartate Amino Transferase (AST) 45 H 13-40 U/L Alanine Aminotransferase (ALT) 47 H 7-40 U/L Alkaline Phosphatase 253 H 46-116 U/L B-Type Natriuretic Peptide 203.87 0-100 pg/mL Total Protein 7.2 5.7-8.2 g/dL Albumin 3.9 3.2-4.8 g/dL Lipase 127 H 12-53 U/L Microbiology Date/Time Source Procedure Growth Status 11/12/24 16:28 Nose MRSA Screen - Final Complete 11/12/24 10:28 Pleural Fluid Gram Stain - Final Complete 11/12/24 10:28 Pleural Fluid Body Fluid Culture - Final Complete 11/10/24 13:37 Blood Blood Culture - Final NO GROWTH AFTER 5 DAYS OF INCUBATION. Complete 11/10/24 10:12 Voided Urine Urine Culture - Final Complete Assessment Acute kidney injury superimposed Chronic Kidney Disease secondary hemodynamic mediated Acute hypoxic respiratory failure Lung cancer status post XRT Large loculated malignant right pleural effusion Bladder cancer status post chemo Transaminitis Metabolic acidosis Hypotension Sepsis Pneumonia Recommendations Closely monitor fluid and electrolytes Avoid nephrotoxic medications Campbell catheter Strict I&Os Check urine electrolytes and urine protein excretion Check kidney ultrasound Midodrine 10 mg p.o. t.i.d. IVF half NS with 50 mEq sodium bicarb at 50 cc/hour IV antibiotics Pulmonary on board We will continue to follow Patient seen and examined by myself. I discussed my plan of care with the patient, her bedside and primary nurse at the bedside I would like to thank Dr. Archer for the consult, will follow up Plan discussed with: Patient TINY BARRON MD Nov 21, 2024 09:23
[2024-11-21] MEDS ORDERED: fentaNYL CITRATE 100 MCG/2 ML VL ONE (10:01)
[2024-11-21] MEDS ORDERED: ROCURONIUM 10MG/ML 10ML VIAL IV ONE (10:01)
[2024-11-21] MEDS ORDERED: MIDAZOLAM HCL 2MG/2ML 2ml VIAL (1mg/ml) ONE (10:01)
[2024-11-21] MEDS ORDERED: ONDANSETRON HCL 4 MG/2 ML VIAL ONE (10:01)
[2024-11-21] MEDS ORDERED: ETOMIDATE (2MG/ML) 20ML VIAL IV ONE (10:01)
[2024-11-21] MEDS ORDERED: LIDOCAINE 1% INJ PF 5ML AMP ONE (10:01)
[2024-11-21] MEDS ORDERED: MEPERIDINE HCL (25 MG/ML) 1ML VIAL ONE (10:01)
[2024-11-21] MEDS ORDERED: SODIUM CHLORIDE LOCK 10 ML ONE (10:01)
--- NOTE | 2024-11-21 10:17 | DVH ---
INDICATION: jesus TECHNIQUE: Multiple real-time sonographic images of the kidneys and bladder were obtained. COMPARISON: None FINDINGS: The right kidney measures 9.8 cm in length, which is normal in size. There is normal echogenicity of the right kidney. No hydronephrosis. There is a right renal cyst measuring 1.4 cm. The left kidney measures 9.9 cm in length, which is normal in size. There is normal echogenicity of t he left kidney. No hydronephrosis. No large intraluminal masses are seen in the bladder. IMPRESSION: Simple right renal cyst measuring 1.4 cm. No hydronephrosis.
[2024-11-21 11:00] LABS: Hepatitis B Surface Antigen Negative (Negative); Hepatitis C Antibody Negative (Negative)
[2024-11-21] MEDS: BUPIVACAINE 0.25% INJ 50ML VIAL ONE (11:57)
[2024-11-21] MEDS: LIDOCAINE W/ EPINEPHRINE 1% 20ML VIAL ONE (11:57)
[2024-11-21 12:22] VITALS: PULSE 111; RESP 25; O2SAT 98
[2024-11-21 12:40] VITALS: PULSE 110; RESP 24; O2SAT 95
--- NOTE | 2024-11-21 12:55 | DVH ---
EXAM: XY CHEST PORTABLE Indication: post right thoracoscopy Technique: Single frontal view of the chest was obtained Comparison: XY CHEST XRAY 1 VIEW on DOS: 11/20/24, XY CHEST XRAY 1 VIEW on DOS: 11/17/24, XY CHEST XR AY 1 VIEW on DOS: 11/16/24, XY CHEST XRAY 1 VIEW on DOS: 11/15/24, XY CHEST XRAY 1 VIEW on DOS: 11/13, XY CHEST XRAY 1 VIEW on DOS: 11/20/24 FINDINGS: Lines and Tubes: Right central venous catheter in satisfactory position. Right chest tube in-situ. Lungs: Multifocal right lung airspace opacities. Pleura: Possible right pleural effusion versus postsurgical changes. No pneumothorax. Cardiomediastinal contours: Unremarkable Bones: Unremarkable IMPRESSION: No significant interval change.
[2024-11-21] MEDS: SODIUM BICARB 50mEq/50ml Vial 50 ML in SOD CHL 0.45% 1,000 ML IV SCH (13:00)
--- NOTE | 2024-11-21 13:31 | DVHOP ---
DATE OF SURGERY: 11/21/2024 PREOPERATIVE DIAGNOSES: Persistent right pleural effusion, lung cancer, right hydropneumothorax. POSTOPERATIVE DIAGNOSES: Persistent right pleural effusion, lung cancer, right hydropneumothorax. SURGEON: Timbo Coates MD BIOMETRIC FINGERPRINTING TECHNICIAN: Keaton Julien. ANESTHESIA: Local with IV sedation, Dr. Wang. PROCEDURE: Thoracoscopy and insertion of chest tube. DESCRIPTION OF PROCEDURE: Under adequate local anesthesia with the patient in lateral decubitus position with the right chest facing upward, the axilla protected on axillary roll, knee , elbow and padded, the chest and torso secured with a beanbag. The chest wall was prepped and draped and 0.25% Marcaine and 0.5% Xylocaine was infiltrated into the proposed incision in approximately the fifth interspace. This was deepened with electrocautery. The chest cavity was entered. Digital exploration of the incision revealed a completely obliterated chest cavity. There was no pleural space to speak of. I was unable to place a regular chest tube into the chest cavity. Also, the patient started bleeding and on reflection decided to abort the procedure and she is not a candidate for a thoracotomy. We left a 32 size chest tube which was foreshortened and the space that was available to me secured with a 0 suture. The chest wall was approximated using Monocryl sutures, Dermabond glue and Steri-Strips. The patient remained awake, sedated, comfortable, hemodynamically unchanged during the procedure. Left the operating room following an accurate needle and sponge count. Chest x-ray was ordered and pending at the time of this dictation. I called the patient's son, Jarod at [phone], explained the situation to him and I also called the patient's dealer support technician Dr. Wang. I explained to him the situation and suggested that the patient be made hospice patient as there is no further surgical intervention that I believe would help her. MD JOHANA Price/EDY/PAIGE TID: [id number] RECEIPT: [id number]
--- NOTE | 2024-11-21 16:00 | DVHPNRES ---
Progress Note Date Seen: Nov 21, 2024 Resident Creating Document: JACOB MO MATT Has the PT tested + for MRSA If YES, has PT been informed?: Yes Medical Necessity Reason Pt with a Central, PICC or Fol: No Subjective Review of Systems Patient is a 74 year old female with a past medical history as described below came to the ED with the chief complaint of Right sided chest pain for the last 2 weeks. patient reports that she has been diagnosed with Lung cancer in january 2024 and has got radiation treatment , bladder CA diagnosed in 2020 with chemotherapy finished in november 2023. she follows in the outpatient clinic for pulmonary followup. patient reports to start having right sided chest pain since october 23 and it has gradually worsened and now she has constant severe pain which she was not able to tolerate even while she was taking tramadol ,exacerbated with deep breath and movement, chills but the patient denies fever and came to the hospital for further evaluation. Patient denied recent flu like illness or cough. Past medical history: Lung CA, Bladder CA, HTN, HLD, ?CHF, overactive bladder, migraine Past surgical history: coronary angiogram social history: denies current smoking, alcohol, drug use Patient seen and examined at the bedside. Patient is feeling shortness of bed and complained of mild chest pain. Patient has seasonal requirement raised to 4 L. Changes from previous H/P or p: No Changes Objective vital signs Vital Sign Date Time Temp Pulse Resp B/P (MAP) Pulse Ox O2 Delivery O2 Flow Rate FiO2 11/21/24 12:52 107 13 117/97 (104) 95 11/21/24 12:40 Nasal Cannula 2.0 95 11/21/24 12:22 97.6 97.6 Total Intake and Output 11/20/24 11/20/24 11/21/24 15:00 23:00 07:00 Intake Total 1800 ml 500 ml 50 ml Output Total 90 ml 0 ml Balance 1800 ml 410 ml 50 ml medications Current Medications Medications Dose Ordered Sig/Yuki Route Start Time Stop Time Status Last Admin Dose Admin EZETIMIBE 10 mg DAILY PO 11/10/24 10:00 11/20/24 09:35 10 MG Gabapentin 300 mg DAILY PO 11/10/24 10:00 11/20/24 09:36 300 MG Montelukast Sodium 10 mg HS PO 11/09/24 22:00 11/20/24 22:12 10 MG Pantoprazole Sodium 40 mg DAILY IV 11/10/24 10:00 11/21/24 09:52 40 MG Pravastatin Sodium 80 mg HS PO 11/09/24 22:00 Cancel Azithromycin 500 mg DAILY PO 11/09/24 18:53 11/20/24 09:35 500 MG Atorvastatin Calcium 40 mg HS PO 11/10/24 22:00 11/20/24 22:12 40 MG Lactulose 30 ml BID PRN PO 11/11/24 20:00 11/20/24 03:34 30 ML Enteral Nutritional Formula 240 ml TIDWM PO 11/13/24 12:00 11/20/24 18:16 240 ML Cefepime HCl 50 ml @ 12.5 mls/hr Q12HR IV 11/13/24 22:00 11/21/24 09:52 12.5 MLS/HR Guaifenesin 200 mg Q4HP PRN GT 11/14/24 15:00 Cancel Midodrine 10 mg TID@0600,1200,1800 PO 11/14/24 18:00 11/21/24 09:52 10 MG Guaifenesin 200 mg Q4HP PRN PO 11/14/24 16:15 11/16/24 13:50 200 MG Amino Acids 0 ml @ 0 mls/hr PER PHARMACY IV 11/15/24 16:15 Diagnostic Test (Pha) 1 strip Q6HR 11/16/24 00:00 11/21/24 13:30 1 STRIP Insulin Human Regular FOLLOW SLIDING SCALE Q6HR SC 11/16/24 00:00 11/20/24 06:31 2 UNITS Dextrose 50 ml UD IV 11/16/24 00:00 Amino Acids/ Electrolytes/ Dextrose 1,000 ml @ 41 mls/hr DAILY@2200 IV 11/15/24 22:00 11/17/24 22:12 41 MLS/HR Ergocalciferol 50,000 unit Q7D PO 11/19/24 13:45 11/19/24 15:54 50,000 UNIT Tramadol HCl 50 mg [id number] PRN PO 11/20/24 19:30 Sodium Bicarbonate 50 ml/ Sodium Chloride 1,050 ml @ 50 mls/hr Q21H IV 11/21/24 09:30 Examination General Appearance: Alert, Oriented X3, Cooperative, in mild acute distress HEENT: Atraumatic, PERRLA, EOMI, Mucous membrane moist/pink Respiratory: Breaths sounds are decreased on the Rt side Cardiovascular: Regular rate, Normal S1, Normal S2, No murmurs, no chest wall tenderness Abdominal: Normal bowel sounds, Soft, No tenderness, No hepatospenomegaly, No masses Extremities: No clubbing, No cyanosis, No edema, Normal pulses, No tenderness/swelling Skin: No rashes, No breakdown, No significant lesion Neuro: Normal gait, Normal speech, Strength at 5/5 X4 ext, Normal tone, Sensation intact, Cranial nerves 3-12 NL, Reflexes 2+ Psych/Mental Status: Mental status NL, Mood NL laboratory and microbiology Laboratory Tests 11/21/24 06:17 Test 11/21/24 06:17 Range/Units Serum Glucose 105 74-106 mg/dL Microbiology Date/Time Source Procedure Growth Status 11/12/24 16:28 Nose MRSA Screen - Final Complete 11/12/24 10:28 Pleural Fluid Gram Stain - Final Complete 11/12/24 10:28 Pleural Fluid Body Fluid Culture - Final Complete 11/10/24 13:37 Blood Blood Culture - Final NO GROWTH AFTER 5 DAYS OF INCUBATION. Complete 11/10/24 10:12 Voided Urine Urine Culture - Final Complete Labs and/or images reviewed: Labs reviewed by me, Image(s) reviewed by me Problem List/Assessment/Plan Problem List/Assessment/Plan This is a 74-year-old female with past medical history of lung cancer, bladder cancer, hypertension, hyperlipidemia, CHF presented to the hospital with right- sided chest pain for 2 weeks. Admitted on 11/09. Acute hypoxic respiratory failure likely due to pneumonia/pleural effusion, on oxygen through nasal cannula Sepsis likely d/t pneumonia Community acquired pneumonia likely d/t Gram+/-/atypical bacteria Right loculated pleural effusion likely due to parapneumonic/malignant History of lung cancer diagnosed on January 2024, status post radiation Ex vacuo pneumothorax (trapped lung) Chest x-ray shows right-sided pleural effusion, with right basilar atelectasis/pneumonia Chest CT scan shows large loculated right pleural fluid collection with atelectasis of most of the right lung CT scan shows distended gallbladder with no calcified gallstone, liver ultrasound is unremarkable Blood and urine culture preliminary result shows no growth MRSA nares negative Radiology on the board, put a chest tube on the right chest, drain 900 mL Pleural fluid culture shows no growth, g stain negative Pleural fluid shows raised WBC at 6751, light criteria including pleural fluid protein/serum protein is 0.67 (meet criteria for exudative pleural effusion), mildly decreased pleural fluid glucose, cytology report pending Continue gabapentin and [place] for the pain Continue azithromycin started on 11/09, vancomycin started on 11/10, cefepime started on 11/11 Breathing treatment q.4 however as needed Continue montelukast Two dose alteplase 6 mg intrapleural given, but due to development of pneumothorax and results of pleural fluid shows malignant pleural effusion, the 3rd dose is not given Pleural fluid analysis, shows malignant cells Consulted surgery for malignant pleural effusion and pneumothorax, tracheoscopy performed and put a chest tube, due to bleeding thoracotomy was not performed. Hypertensive heart disease Hypertension Possible acute on chronic systolic heart failure Echocardiogram from 07/02/2024 shows ejection fraction 35-45% BNP is 203 Continue metoprolol succinate 25mg qd Continue Ivabradine 5mg qd Dyslipidemia Continue atorvastatin 40mghs Continue ezetimibe 10mg qd ADINA, likely hemodynamically mediated Nephrology is on the board Transaminitis AST and ALT are raised, downtrending Monitoring Possible pancreatitis Lipase is mild raised at [address] scan does not shows signs of pancreatitis Monitoring Mild hyponatremia Hypokalemia Supplemented History of bladder cancer status post chemotherapy Diagnosed on 2020 Infrarenal abdominal aorta aneurysm CT scan shows small saccular 1.1 cm aneurysm along the left side of the infrarenal abdominal aorta Monitoring, follow up on outpatient basis DIET: Full liquid diet, with nutritional suppplement of ensure DVT prophylax: Discontinue Lovenox, due to raised INR GI prophylaxis: Protonix IV Bowel regimen: Lactulose p.r.n. Code status: Full code DISPOSITION: Med surg Patient's status discussed with patient and the on the bedside. Pleural fluid analysis, shows malignant cells. Surgery has consulted, Consulted surgery for malignant pleural effusion and pneumothorax, tracheoscopy performed and put a chest tube, due to bleeding thoracotomy was not performed. Case discussed with Dr. Riley Plan discussed with: Patient, Spouse, Other (RN) My Orders My Orders Orders - JACOB OM RESDIPATRICIA Procedure Category Date Status Time *Dr. [facility] CONS 11/20/24 Transmitted -[place] 16:50 Tramadol Hcl (Ultram) PHA 11/20/24 In Process 19:30 Dietary Evaluation Review Comments: 1. Continue diet regime 2. Consider Fish oil BID for high Trig 3. Consider Ensure HP BID if PO intake trends low Expected Outcomes/Goals: 1. Pt will consume >75% of estimated needs within 3-5 days Date of Service: Nov 21, 2024 Billing Provider: MARLENY HAYES MD Common Visit Codes: 40135-[id number] INP/OBS CARE(HIGH) JACOB MO RESDIENT Nov 21, 2024 16:00 MARLENY HAYES MD Nov 22, 2024 09:04
[2024-11-21] MEDS: SODIUM PHOSPHATES 20 MEQ in SODIUM CHL 0.9% 100 ML IV ONE (16:52)
[2024-11-21 17:00] VITALS: BP 102/65; PULSE 96; RESP 20; TEMP 97.4; O2SAT 99
[2024-11-21 18:09] LABS: Protein, Urine 152.5 mg/dL (1-14)
[2024-11-21 18:11] LABS: Creatinine, Urine 64.54 mg/dL (30.0-125.0); Urine Protein/Creatinine Ratio 2.36
[2024-11-21 18:49] LABS: Sodium Urine < 10 mmol/L (40-220)
[2024-11-21 21:00] VITALS: BP 94/67; PULSE 99; RESP 18; TEMP 97.8; O2SAT 97
--- NOTE | 2024-11-21 21:19 | DVHPN2 ---
Progress Note - Dictate Date Seen: Nov 21, 2024 Has the PT tested + for MRSA If YES, has PT been informed?: Yes Medical Necessity Reason Pt with a Central, PICC or Fol: No Subjective Patient seen and examined at bedside. Remains on supplemental oxygen Overnight events reviewed. vital signs Vital Sign Date Time Temp Pulse Resp B/P (MAP) Pulse Ox O2 Delivery O2 Flow Rate FiO2 11/21/24 20:00 Nasal Cannula* 3 32 11/21/24 17:00 97.4 96 20 102/65 (77) 99 97.4 Total Intake and Output 11/20/24 11/20/24 11/21/24 15:00 23:00 07:00 Intake Total 1800 ml 500 ml 50 ml Output Total 90 ml 0 ml Balance 1800 ml 410 ml 50 ml medications Current Medications Medications Dose Ordered Sig/Yuki Route Start Time Stop Time Status Last Admin Dose Admin EZETIMIBE 10 mg DAILY PO 11/10/24 10:00 11/20/24 09:35 10 MG Gabapentin 300 mg DAILY PO 11/10/24 10:00 11/20/24 09:36 300 MG Montelukast Sodium 10 mg HS PO 11/09/24 22:00 11/20/24 22:12 10 MG Pantoprazole Sodium 40 mg DAILY IV 11/10/24 10:00 11/21/24 09:52 40 MG Pravastatin Sodium 80 mg HS PO 11/09/24 22:00 Cancel Azithromycin 500 mg DAILY PO 11/09/24 18:53 11/20/24 09:35 500 MG Atorvastatin Calcium 40 mg HS PO 11/10/24 22:00 11/20/24 22:12 40 MG Lactulose 30 ml BID PRN PO 11/11/24 20:00 11/20/24 03:34 30 ML Enteral Nutritional Formula 240 ml TIDWM PO 11/13/24 12:00 11/21/24 18:08 240 ML Cefepime HCl 50 ml @ 12.5 mls/hr Q12HR IV 11/13/24 22:00 11/21/24 09:52 12.5 MLS/HR Guaifenesin 200 mg Q4HP PRN GT 11/14/24 15:00 Cancel Midodrine 10 mg TID@0600,1200,1800 PO 11/14/24 18:00 11/21/24 18:08 10 MG Guaifenesin 200 mg Q4HP PRN PO 11/14/24 16:15 11/16/24 13:50 200 MG Amino Acids 0 ml @ 0 mls/hr PER PHARMACY IV 11/15/24 16:15 Diagnostic Test (Pha) 1 strip Q6HR 11/16/24 00:00 11/21/24 18:01 1 STRIP Insulin Human Regular FOLLOW SLIDING SCALE Q6HR SC 11/16/24 00:00 11/21/24 18:12 4 UNITS Dextrose 50 ml UD IV 11/16/24 00:00 Amino Acids/ Electrolytes/ Dextrose 1,000 ml @ 41 mls/hr DAILY@2200 IV 11/15/24 22:00 11/21/24 21:59 11/17/24 22:12 41 MLS/HR Ergocalciferol 50,000 unit Q7D PO 11/19/24 13:45 11/19/24 15:54 50,000 UNIT Tramadol HCl 50 mg [id number] PRN PO 11/20/24 19:30 Sodium Bicarbonate 50 ml/ Sodium Chloride 1,050 ml @ 50 mls/hr Q21H IV 11/21/24 09:30 11/21/24 13:00 50 MLS/HR Amino Acids 1,000 ml @ 41 mls/hr DAILY@2200 IV 11/21/24 22:00 objective Gen.: Patient lying in bed in no apparent distress. On supplemental oxygen. Head: Normocephalic, atraumatic. Eyes: EOMI/PERRLA. Ears: Normal hearing. Normal anatomy. Neck/trachea: Trachea midline, supple. Nose: Normal external anatomy. Mouth: Moist mucous membranes. Chest: Decreased air entry bilaterally. No wheezing or rhonchi. Cardiovascular: Positive S1, positive S2. Regular rate and rhythm. Abdomen: Positive bowel sounds in all 4 quadrants. Soft, non-tender, non- distended. : Deferred. Rectal: Deferred. Skin: Warm, dry. Intact. Extremities: 2+ radial pulses bilaterally. No lower extremity edema. Neuro: Awake, alert, oriented x3. No gross motor or sensory deficits. Cranial nerves II through XII intact. Gait not assessed. laboratory and microbiology Laboratory Tests 11/21/24 06:17 Test 11/21/24 06:17 Range/Units Serum Glucose 105 74-106 mg/dL Assessment/Plan Impression: Acute on chronic hypoxic respiratory failure Chronic obstructive pulmonary disease Loculated pleural effusion, right Atelectasis Metastatic cancer Malignant effusion Events: Remains on supplemental oxygen, 2 LPM NC Taper O2 as tolerated Improved O2 requirements. Plan for decortication by Surgery. Chest tube output 100 mL Continue to monitor output Continue antibiotics Singulair Antitussive for cough Incentive spirometry Midodrine Pain control Avoid oversedation Protonix for GI prophylaxis Clinimix for nutritional support Monitor renal function - creatinine improved to 1.18 Nephrology recommendations appreciated. Surgery recommendations appreciated. Labs and imaging reviewed. Rest of plan as noted below. Plan: Supplemental oxygen Titrate to keep O2 sats above 92%. CXR demonstrated right loculated pleural effusion. S/p right chest tube placement. Alteplase via chest tube x2. Suction to minus 30 cmH2O Monitor chest tube output Monitor PT/INR. Bronchodilators. Antibiotics Incentive spirometry Monitor renal function. Monitor electrolytes. Supplement as necessary. Monitor ins and outs. GI prophylaxis - pantoprazole DVT prophylaxis. Prognosis: Poor given patient's multiple co-morbidities. Rest of plan per hospitalist and other consultants. Thank you Dr. Taran Archer MD, for allowing me to participate in this patient's care. Further recommendations will depend on the patient's clinical course. Please do not hesitate to contact me if you have any questions or concerns. This medical document was created using an electronic medical record system with [employer] dictation system. Although these documentations are being carefully reviewed, there may still be some phonetic and typographical changes. The errors are purely typographical, due to imperfection on the software program, and do not reflect any compromise in the patient's medical care. Dietary Evaluation Review Comments: 1. Continue diet regime 2. Consider Fish oil BID for high Trig 3. Consider Ensure HP BID if PO intake trends low Expected Outcomes/Goals: 1. Pt will consume >75% of estimated needs within 3-5 days Plan discussed with: Patient, Other (VINOD Jefferson) CHRISTIANO TAPIA MD Nov 21, 2024 21:19
[2024-11-21] MEDS: AMINO ACID INFUSION IN D5W 1,000 ML IV SCH (21:41)
[2024-11-21 21:59] LABS: INR 1.31 (0.9-1.15); Prothrombin Time 13.6 sec (9.3-11.8)
[2024-11-21] MEDS: traMADol HCL 50 MG TAB PO PRN (21:59)
[2024-11-22] VITALS (8 sets, daily range): BP systolic 95–127; BP diastolic 45–68; PULSE 77–97; RESP 16–20; TEMP 96.7–97.6; O2SAT 93–100
[2024-11-22 11:58] LABS: Basophils # (auto) 0 10 ^3/uL (0-0.2); Basophils % (auto) 0.2 % (0.0-2.0); Eosinophils # (auto) 0 10 ^3/uL (0-0.8); Hematocrit 36.7 % (36.0-46.0); Hemoglobin 12.1 g/dL (12.2-16.2); Lymphocytes # (auto) 0.8 10 ^3/uL (0.4-5.4); Lymphocytes % (auto) 3.5 % (10.0-50.0); Mean Corpuscular Hgb Conc. 32.9 g/dL (32.0-36.0); Mean Corpuscular Volume 88.3 fL (80.0-100.0); Monocytes # (auto) 0.9 10 ^3/uL (0-1.3); Monocytes % (auto) 4.1 % (0.0-12.0); Neutrophils # (auto) 20.8 10 ^3/uL (1.6-8.6); Neutrophils % (auto) 92.2 % (37.0-80.0); Nucleated Red Blood Cells % 0.1 %; Platelet Count (auto) 285 10^3/uL (140-450); Red Blood Cells 4.16 10^6/uL (4.0-5.20); Red Cell Distribution Width 15.3 % (11.8-14.3); White Blood Cell 22.6 10^3/uL (4.4-10.8)
[2024-11-22 12:21] LABS: Anion Gap 9 (5-15); BUN/Creatinine Ratio 69.4 (10.0-20.0); Calcium 9.7 mg/dL (8.7-10.4); Carbon Dioxide 20 mmol/L (20-31); Chloride 105 mmol/L (98-107); Glucose 106 mg/dL (74-106); Potassium 4.3 mmol/L (3.5-5.1)
[2024-11-22 12:23] LABS: Bilirubin, Total 0.4 mg/dL (0.2-1.0); Total Protein 5.9 g/dL (5.7-8.2)
[2024-11-22 12:24] LABS: Blood Urea Nitrogen 68 mg/dL (9-23); Sodium 134 mmol/L (136-145)
[2024-11-22 12:25] LABS: Alanine Aminotransferase 58 U/L (7-40); Alkaline Phosphatase 311 U/L (46-116); Aspartate Aminotransferase 57 U/L (13-40)
--- NOTE | 2024-11-22 12:30 | DVHPN2 ---
Progress Note Date Seen: Nov 22, 2024 Has the PT tested + for MRSA If YES, has PT been informed?: Yes Medical Necessity Reason Pt with a Central, PICC or Fol: No Objective vital signs Vital Sign Date Time Temp Pulse Resp B/P (MAP) Pulse Ox O2 Delivery O2 Flow Rate FiO2 11/22/24 09:00 96.7 92 20 119/67 (84) 100 96.7 11/21/24 20:00 Nasal Cannula* 3 32 Total Intake and Output 11/21/24 11/21/24 11/22/24 15:00 23:00 07:00 Intake Total 100 ml 240 ml 670 ml Output Total 0 ml 485 ml Balance 100 ml 240 ml 185 ml medications Current Medications Medications Dose Ordered Sig/Yuki Route Start Time Stop Time Status Last Admin Dose Admin EZETIMIBE 10 mg DAILY PO 11/10/24 10:00 11/22/24 11:34 10 MG Gabapentin 300 mg DAILY PO 11/10/24 10:00 11/22/24 11:34 300 MG Montelukast Sodium 10 mg HS PO 11/09/24 22:00 11/21/24 21:42 10 MG Pantoprazole Sodium 40 mg DAILY IV 11/10/24 10:00 11/22/24 11:34 40 MG Pravastatin Sodium 80 mg HS PO 11/09/24 22:00 Cancel Azithromycin 500 mg DAILY PO 11/09/24 18:53 11/22/24 11:34 500 MG Atorvastatin Calcium 40 mg HS PO 11/10/24 22:00 11/21/24 21:42 40 MG Lactulose 30 ml BID PRN PO 11/11/24 20:00 11/20/24 03:34 30 ML Enteral Nutritional Formula 240 ml TIDWM PO 11/13/24 12:00 11/22/24 12:12 240 ML Cefepime HCl 50 ml @ 12.5 mls/hr Q12HR IV 11/13/24 22:00 11/22/24 11:35 12.5 MLS/HR Guaifenesin 200 mg Q4HP PRN GT 11/14/24 15:00 Cancel Midodrine 10 mg TID@0600,1200,1800 PO 11/14/24 18:00 11/22/24 12:05 10 MG Guaifenesin 200 mg Q4HP PRN PO 11/14/24 16:15 11/16/24 13:50 200 MG Amino Acids 0 ml @ 0 mls/hr PER PHARMACY IV 11/15/24 16:15 Diagnostic Test (Pha) 1 strip Q6HR 11/16/24 00:00 11/22/24 12:11 1 STRIP Insulin Human Regular FOLLOW SLIDING SCALE Q6HR SC 11/16/24 00:00 11/22/24 00:17 2 UNITS Dextrose 50 ml UD IV 11/16/24 00:00 Ergocalciferol 50,000 unit Q7D PO 11/19/24 13:45 11/19/24 15:54 50,000 UNIT Tramadol HCl 50 mg [id number] PRN PO 11/20/24 19:30 11/21/24 21:59 50 MG Sodium Bicarbonate 50 ml/ Sodium Chloride 1,050 ml @ 50 mls/hr Q21H IV 11/21/24 09:30 11/22/24 01:51 50 MLS/HR Amino Acids 1,000 ml @ 41 mls/hr DAILY@2200 IV 11/21/24 22:00 11/21/24 21:41 41 MLS/HR laboratory and microbiology Laboratory Tests 11/22/24 11:16 Test 11/22/24 11:16 Range/Units Serum Glucose 106 74-106 mg/dL Problem List/Assessment/Plan Problem List/Assessment/Plan 11/18/24 unable to proceed with planned operation due to coagulopathy. will reschedule for when it is corrected 11/18/24 again explained procedure and potential risks and complications, explained why we can not proceed till her coagulopathy i corrected.she is not "uncomfortably" S.O.B. please notify me when bleeding parameters acceptable for an operation. 11/19/24 PT still elevated and inr still higher than it needs to be if mechanical pleurodesis is to be attempted, will plan on Thoracoscopy on . 11/22/24 looks and feels better, wound clean and well approximated, chest tube output moderate Plan discussed with: Patient Dietary Evaluation Review Comments: 1. Continue diet regime 2. Consider Fish oil BID for high Trig 3. Consider Ensure HP BID if PO intake trends low Expected Outcomes/Goals: 1. Pt will consume >75% of estimated needs within 3-5 days MARIA ANTONIA LEGGETT MD Nov 22, 2024 12:29
--- NOTE | 2024-11-22 14:23 | DVHPNRES ---
Progress Note Date Seen: Nov 22, 2024 Resident Creating Document: JACOB MO MATT Has the PT tested + for MRSA If YES, has PT been informed?: Yes Medical Necessity Reason Pt with a Central, PICC or Fol: No Subjective Review of Systems Patient is a 74 year old female with a past medical history as described below came to the ED with the chief complaint of Right sided chest pain for the last 2 weeks. patient reports that she has been diagnosed with Lung cancer in january 2024 and has got radiation treatment , bladder CA diagnosed in 2020 with chemotherapy finished in november 2023. she follows in the outpatient clinic for pulmonary followup. patient reports to start having right sided chest pain since october 23 and it has gradually worsened and now she has constant severe pain which she was not able to tolerate even while she was taking tramadol ,exacerbated with deep breath and movement, chills but the patient denies fever and came to the hospital for further evaluation. Patient denied recent flu like illness or cough. Past medical history: Lung CA, Bladder CA, HTN, HLD, ?CHF, overactive bladder, migraine Past surgical history: coronary angiogram social history: denies current smoking, alcohol, drug use Patient seen and examined at the bedside. Patient is feeling shortness of bed and complained of mild chest pain. Patient has seasonal requirement raised to 4 L. Objective vital signs Vital Sign Date Time Temp Pulse Resp B/P (MAP) Pulse Ox O2 Delivery O2 Flow Rate FiO2 11/22/24 12:49 96.8 93 18 113/45 (67) 100 96.8 11/22/24 08:10 Nasal Cannula* 3 32 Total Intake and Output 11/21/24 11/21/24 11/22/24 15:00 23:00 07:00 Intake Total 100 ml 240 ml 670 ml Output Total 0 ml 485 ml Balance 100 ml 240 ml 185 ml medications Current Medications Medications Dose Ordered Sig/Yuki Route Start Time Stop Time Status Last Admin Dose Admin EZETIMIBE 10 mg DAILY PO 11/10/24 10:00 11/22/24 11:34 10 MG Gabapentin 300 mg DAILY PO 11/10/24 10:00 11/22/24 11:34 300 MG Montelukast Sodium 10 mg HS PO 11/09/24 22:00 11/21/24 21:42 10 MG Pantoprazole Sodium 40 mg DAILY IV 11/10/24 10:00 11/22/24 11:34 40 MG Pravastatin Sodium 80 mg HS PO 11/09/24 22:00 Cancel Azithromycin 500 mg DAILY PO 11/09/24 18:53 11/22/24 11:34 500 MG Atorvastatin Calcium 40 mg HS PO 11/10/24 22:00 11/21/24 21:42 40 MG Lactulose 30 ml BID PRN PO 11/11/24 20:00 11/20/24 03:34 30 ML Enteral Nutritional Formula 240 ml TIDWM PO 11/13/24 12:00 11/22/24 12:12 240 ML Cefepime HCl 50 ml @ 12.5 mls/hr Q12HR IV 11/13/24 22:00 11/22/24 11:35 12.5 MLS/HR Guaifenesin 200 mg Q4HP PRN GT 11/14/24 15:00 Cancel Midodrine 10 mg TID@0600,1200,1800 PO 11/14/24 18:00 11/22/24 12:05 10 MG Guaifenesin 200 mg Q4HP PRN PO 11/14/24 16:15 11/16/24 13:50 200 MG Amino Acids 0 ml @ 0 mls/hr PER PHARMACY IV 11/15/24 16:15 Diagnostic Test (Pha) 1 strip Q6HR 11/16/24 00:00 11/22/24 12:11 1 STRIP Insulin Human Regular FOLLOW SLIDING SCALE Q6HR SC 11/16/24 00:00 11/22/24 00:17 2 UNITS Dextrose 50 ml UD IV 11/16/24 00:00 Ergocalciferol 50,000 unit Q7D PO 11/19/24 13:45 11/19/24 15:54 50,000 UNIT Tramadol HCl 50 mg [id number] PRN PO 11/20/24 19:30 11/21/24 21:59 50 MG Sodium Bicarbonate 50 ml/ Sodium Chloride 1,050 ml @ 50 mls/hr Q21H IV 11/21/24 09:30 11/22/24 01:51 50 MLS/HR Amino Acids 1,000 ml @ 41 mls/hr DAILY@2200 IV 11/21/24 22:00 11/21/24 21:41 41 MLS/HR Examination General Appearance: Alert, Oriented X3, Cooperative, in mild acute distress HEENT: Atraumatic, PERRLA, EOMI, Mucous membrane moist/pink Respiratory: Breaths sounds are decreased on the Rt side Cardiovascular: Regular rate, Normal S1, Normal S2, No murmurs, no chest wall tenderness Abdominal: Normal bowel sounds, Soft, No tenderness, No hepatospenomegaly, No masses Extremities: No clubbing, No cyanosis, No edema, Normal pulses, No tenderness/swelling Skin: No rashes, No breakdown, No significant lesion Neuro: Normal gait, Normal speech, Strength at 5/5 X4 ext, Normal tone, Sensation intact, Cranial nerves 3-12 NL, Reflexes 2+ Psych/Mental Status: Mental status NL, Mood NL laboratory and microbiology Laboratory Tests 11/22/24 11:16 Test 11/22/24 11:16 Range/Units Serum Glucose 106 74-106 mg/dL Microbiology Date/Time Source Procedure Growth Status 11/12/24 16:28 Nose MRSA Screen - Final Complete 11/12/24 10:28 Pleural Fluid Gram Stain - Final Complete 11/12/24 10:28 Pleural Fluid Body Fluid Culture - Final Complete 11/10/24 13:37 Blood Blood Culture - Final NO GROWTH AFTER 5 DAYS OF INCUBATION. Complete 11/10/24 10:12 Voided Urine Urine Culture - Final Complete Labs and/or images reviewed: Labs reviewed by me, Image(s) reviewed by me Problem List/Assessment/Plan Problem List/Assessment/Plan This is a 74-year-old female with past medical history of lung cancer, bladder cancer, hypertension, hyperlipidemia, CHF presented to the hospital with right- sided chest pain for 2 weeks. Admitted on 11/09. Acute hypoxic respiratory failure likely due to pneumonia/pleural effusion, on oxygen through nasal cannula Sepsis likely d/t pneumonia Community acquired pneumonia likely d/t Gram+/-/atypical bacteria Right loculated pleural effusion likely due to parapneumonic/malignant History of lung cancer diagnosed on January 2024, status post radiation Ex vacuo pneumothorax (trapped lung) Chest x-ray shows right-sided pleural effusion, with right basilar atelectasis/pneumonia Chest CT scan shows large loculated right pleural fluid collection with atelectasis of most of the right lung CT scan shows distended gallbladder with no calcified gallstone, liver ultrasound is unremarkable Blood and urine culture preliminary result shows no growth MRSA nares negative Radiology on the board, put a chest tube on the right chest, drain 900 mL Pleural fluid culture shows no growth, g stain negative Pleural fluid shows raised WBC at 6751, light criteria including pleural fluid protein/serum protein is 0.67 (meet criteria for exudative pleural effusion), mildly decreased pleural fluid glucose, cytology report pending Continue gabapentin and Jasper for the pain Continue azithromycin started on 11/09, vancomycin started on 11/10, cefepime started on 11/11 Breathing treatment q.4 however as needed Continue montelukast Two dose alteplase 6 mg intrapleural given, but due to development of pneumothorax and results of pleural fluid shows malignant pleural effusion, the 3rd dose is not given Pleural fluid analysis, shows malignant cells Consulted surgery for malignant pleural effusion and pneumothorax, tracheoscopy performed and put a chest tube, due to bleeding thoracotomy was not performed and due to poor prognosis of patient recommended hospice care. Hypertensive heart disease Hypertension Possible acute on chronic systolic heart failure Echocardiogram from 07/02/2024 shows ejection fraction 35-45% BNP is 203 Continue metoprolol succinate 25mg qd Continue Ivabradine 5mg qd Dyslipidemia Continue atorvastatin 40mghs Continue ezetimibe 10mg qd ADINA, likely hemodynamically mediated Nephrology is on the board Transaminitis AST and ALT are raised, downtrending Monitoring Possible pancreatitis Lipase is mild raised at [address] scan does not shows signs of pancreatitis Monitoring Mild hyponatremia Hypokalemia Supplemented History of bladder cancer status post chemotherapy Diagnosed on 2020 Infrarenal abdominal aorta aneurysm CT scan shows small saccular 1.1 cm aneurysm along the left side of the infrarenal abdominal aorta Monitoring, follow up on outpatient basis DIET: Full liquid diet, with nutritional suppplement of ensure DVT prophylax: Discontinue Lovenox, due to raised INR GI prophylaxis: Protonix IV Bowel regimen: Lactulose p.r.n. Code status: Full code DISPOSITION: Med surg Patient's status discussed with patient and the on the bedside. Pleural fluid analysis, shows malignant cells. Surgery has consulted, Consulted surgery for malignant pleural effusion and pneumothorax, tracheoscopy performed and put a chest tube, due to bleeding thoracotomy was not performed and recommended hospice care. Patient's status and treatment options including palliative care and hospice care were discussed in detail with the patient's , daughter and the patient at the bedside, the family is going to take decision regarding the treatment option, and ask for the oncology opinion, oncology has been consulted. Case discussed with Dr. Riley Plan discussed with: Patient, Spouse, Other (RN) Dietary Evaluation Review Comments: 1. Continue diet regime 2. Consider Fish oil BID for high Trig 3. Consider Ensure HP BID if PO intake trends low Expected Outcomes/Goals: 1. Pt will consume >75% of estimated needs within 3-5 days Date of Service: Nov 22, 2024 Billing Provider: MARLENY HAYES MD Common Visit Codes: 97054-SCTFLNAUET INP/OBS CARE(HIGH) JACOB MO RESDIENT Nov 22, 2024 14:23 MARLENY HAYES MD Nov 29, 2024 09:03
--- NOTE | 2024-11-22 18:49 | DVHPN2 ---
Progress Note - Dictate Date Seen: Nov 22, 2024 Has the PT tested + for MRSA If YES, has PT been informed?: Yes Medical Necessity Reason Pt with a Central, PICC or Fol: No Subjective resting comfortably vital signs Vital Sign Date Time Temp Pulse Resp B/P (MAP) Pulse Ox O2 Delivery O2 Flow Rate FiO2 11/22/24 16:55 97.6 94 18 124/61 (82) 99 97.6 11/22/24 08:10 Nasal Cannula* 3 32 Total Intake and Output 11/21/24 11/21/24 11/22/24 15:00 23:00 07:00 Intake Total 100 ml 240 ml 670 ml Output Total 0 ml 485 ml Balance 100 ml 240 ml 185 ml medications Current Medications Medications Dose Ordered Sig/Yuki Route Start Time Stop Time Status Last Admin Dose Admin EZETIMIBE 10 mg DAILY PO 11/10/24 10:00 11/22/24 11:34 10 MG Gabapentin 300 mg DAILY PO 11/10/24 10:00 11/22/24 11:34 300 MG Montelukast Sodium 10 mg HS PO 11/09/24 22:00 11/21/24 21:42 10 MG Pantoprazole Sodium 40 mg DAILY IV 11/10/24 10:00 11/22/24 11:34 40 MG Pravastatin Sodium 80 mg HS PO 11/09/24 22:00 Cancel Azithromycin 500 mg DAILY PO 11/09/24 18:53 11/22/24 11:34 500 MG Atorvastatin Calcium 40 mg HS PO 11/10/24 22:00 11/21/24 21:42 40 MG Lactulose 30 ml BID PRN PO 11/11/24 20:00 11/20/24 03:34 30 ML Enteral Nutritional Formula 240 ml TIDWM PO 11/13/24 12:00 11/22/24 18:07 240 ML Cefepime HCl 50 ml @ 12.5 mls/hr Q12HR IV 11/13/24 22:00 11/22/24 11:35 12.5 MLS/HR Guaifenesin 200 mg Q4HP PRN GT 11/14/24 15:00 Cancel Midodrine 10 mg TID@0600,1200,1800 PO 11/14/24 18:00 11/22/24 18:05 10 MG Guaifenesin 200 mg Q4HP PRN PO 11/14/24 16:15 11/16/24 13:50 200 MG Amino Acids 0 ml @ 0 mls/hr PER PHARMACY IV 11/15/24 16:15 Diagnostic Test (Pha) 1 strip Q6HR 11/16/24 00:00 11/22/24 17:34 1 STRIP Insulin Human Regular FOLLOW SLIDING SCALE Q6HR SC 11/16/24 00:00 11/22/24 00:17 2 UNITS Dextrose 50 ml UD IV 11/16/24 00:00 Ergocalciferol 50,000 unit Q7D PO 11/19/24 13:45 11/19/24 15:54 50,000 UNIT Tramadol HCl 50 mg [id number] PRN PO 11/20/24 19:30 11/21/24 21:59 50 MG Sodium Bicarbonate 50 ml/ Sodium Chloride 1,050 ml @ 50 mls/hr Q21H IV 11/21/24 09:30 11/22/24 01:51 50 MLS/HR Amino Acids 1,000 ml @ 41 mls/hr DAILY@2200 IV 11/21/24 22:00 11/21/24 21:41 41 MLS/HR objective Acute kidney injury superimposed Chronic Kidney Disease secondary hemodynamic mediated Acute hypoxic respiratory failure Lung cancer status post XRT Large loculated malignant right pleural effusion Bladder cancer status post chemo Transaminitis Metabolic acidosis Hypotension Sepsis Pneumonia Recommendations - stable azotemia perhaps in the setting of PPN / catabolic state - Consideration to discontinue bicarb drip - Metabolic parameters acceptable, we will continue to follow laboratory and microbiology Laboratory Tests 11/22/24 11:16 Test 11/22/24 11:16 Range/Units Serum Glucose 106 74-106 mg/dL Dietary Evaluation Review Comments: 1. Continue diet regime 2. Consider Fish oil BID for high Trig 3. Consider Ensure HP BID if PO intake trends low Expected Outcomes/Goals: 1. Pt will consume >75% of estimated needs within 3-5 days Plan discussed with: Other ELIAS BRUNNER MD Nov 22, 2024 18:49
--- NOTE | 2024-11-22 20:39 | DVHPN2 ---
Progress Note - Dictate Date Seen: Nov 22, 2024 Has the PT tested + for MRSA If YES, has PT been informed?: Yes Medical Necessity Reason Pt with a Central, PICC or Fol: Yes The following are medically ne: Livingston Catheter Reason for livingston catheter: Strict I&O Subjective Patient seen and examined at bedside. Remains on supplemental oxygen Overnight events reviewed. vital signs Vital Sign Date Time Temp Pulse Resp B/P (MAP) Pulse Ox O2 Delivery O2 Flow Rate FiO2 11/22/24 20:00 18 100 Nasal Cannula* 3 32 11/22/24 16:55 97.6 94 124/61 (82) 97.6 Total Intake and Output 11/21/24 11/21/24 11/22/24 14:59 22:59 06:59 Intake Total 100 ml 240 ml 670 ml Output Total 0 ml 485 ml Balance 100 ml 240 ml 185 ml medications Current Medications Medications Dose Ordered Sig/Yuki Route Start Time Stop Time Status Last Admin Dose Admin EZETIMIBE 10 mg DAILY PO 11/10/24 10:00 11/22/24 11:34 10 MG Gabapentin 300 mg DAILY PO 11/10/24 10:00 11/22/24 11:34 300 MG Montelukast Sodium 10 mg HS PO 11/09/24 22:00 11/21/24 21:42 10 MG Pantoprazole Sodium 40 mg DAILY IV 11/10/24 10:00 11/22/24 11:34 40 MG Pravastatin Sodium 80 mg HS PO 11/09/24 22:00 Cancel Azithromycin 500 mg DAILY PO 11/09/24 18:53 11/22/24 11:34 500 MG Atorvastatin Calcium 40 mg HS PO 11/10/24 22:00 11/21/24 21:42 40 MG Lactulose 30 ml BID PRN PO 11/11/24 20:00 11/20/24 03:34 30 ML Enteral Nutritional Formula 240 ml TIDWM PO 11/13/24 12:00 11/22/24 18:07 240 ML Cefepime HCl 50 ml @ 12.5 mls/hr Q12HR IV 11/13/24 22:00 11/22/24 11:35 12.5 MLS/HR Guaifenesin 200 mg Q4HP PRN GT 11/14/24 15:00 Cancel Midodrine 10 mg TID@0600,1200,1800 PO 11/14/24 18:00 11/22/24 18:05 10 MG Guaifenesin 200 mg Q4HP PRN PO 11/14/24 16:15 11/16/24 13:50 200 MG Amino Acids 0 ml @ 0 mls/hr PER PHARMACY IV 11/15/24 16:15 Diagnostic Test (Pha) 1 strip Q6HR 11/16/24 00:00 11/22/24 17:34 1 STRIP Insulin Human Regular FOLLOW SLIDING SCALE Q6HR SC 11/16/24 00:00 11/22/24 00:17 2 UNITS Dextrose 50 ml UD IV 11/16/24 00:00 Ergocalciferol 50,000 unit Q7D PO 11/19/24 13:45 11/19/24 15:54 50,000 UNIT Tramadol HCl 50 mg [id number] PRN PO 11/20/24 19:30 11/21/24 21:59 50 MG Sodium Bicarbonate 50 ml/ Sodium Chloride 1,050 ml @ 50 mls/hr Q21H IV 11/21/24 09:30 11/22/24 01:51 50 MLS/HR Amino Acids 1,000 ml @ 41 mls/hr DAILY@2200 IV 11/21/24 22:00 11/21/24 21:41 41 MLS/HR objective Gen.: Patient lying in bed in no apparent distress. On supplemental oxygen. Head: Normocephalic, atraumatic. Eyes: EOMI/PERRLA. Ears: Normal hearing. Normal anatomy. Neck/trachea: Trachea midline, supple. Nose: Normal external anatomy. Mouth: Moist mucous membranes. Chest: Decreased air entry bilaterally. No wheezing or rhonchi. Cardiovascular: Positive S1, positive S2. Regular rate and rhythm. Abdomen: Positive bowel sounds in all 4 quadrants. Soft, non-tender, non- distended. : Deferred. Rectal: Deferred. Skin: Warm, dry. Intact. Extremities: 2+ radial pulses bilaterally. No lower extremity edema. Neuro: Awake, alert, oriented x3. No gross motor or sensory deficits. Cranial nerves II through XII intact. Gait not assessed. laboratory and microbiology Laboratory Tests 11/22/24 11:16 Test 11/22/24 11:16 Range/Units Serum Glucose 106 74-106 mg/dL Assessment/Plan Impression: Acute on chronic hypoxic respiratory failure Chronic obstructive pulmonary disease Loculated pleural effusion, right Atelectasis Metastatic cancer Malignant effusion Events: Remains on supplemental oxygen, 2.5 LPM NC Taper O2 as tolerated CXR demonstrates right chest tube in place, Multifocal right lung airspace opacities. Possible right pleural effusion versus postsurgical changes. No pneumothorax. 35 mL chest tube output Surgery recommendations appreciated. Recommend to stop antibiotics Singulair Incentive spirometry Bicarb drip Midodrine Protonix for GI prophylaxis Clinimix for nutritional support Monitor renal function Nephrology recommendations appreciated. Labs and imaging reviewed. Rest of plan as noted below. Plan: Supplemental oxygen Titrate to keep O2 sats above 92%. CXR demonstrated right loculated pleural effusion. S/p right chest tube placement. Alteplase via chest tube x2. Suction to minus 30 cmH2O Monitor chest tube output Monitor PT/INR. Bronchodilators. Antibiotics Incentive spirometry Monitor renal function. Monitor electrolytes. Supplement as necessary. Monitor ins and outs. GI prophylaxis - pantoprazole DVT prophylaxis. Prognosis: Poor given patient's multiple co-morbidities. Rest of plan per hospitalist and other consultants. Thank you Dr. Taran Archer MD, for allowing me to participate in this patient's care. Further recommendations will depend on the patient's clinical course. Please do not hesitate to contact me if you have any questions or concerns. This medical document was created using an electronic medical record system with [employer] dictation system. Although these documentations are being carefully reviewed, there may still be some phonetic and typographical changes. The errors are purely typographical, due to imperfection on the software program, and do not reflect any compromise in the patient's medical care. Dietary Evaluation Review Comments: 1. Continue diet regime 2. Consider Fish oil BID for high Trig 3. Consider Ensure HP BID if PO intake trends low Expected Outcomes/Goals: 1. Pt will consume >75% of estimated needs within 3-5 days Plan discussed with: Patient, Other (VINOD Elliott) CHRISTIANO TAPIA MD Nov 22, 2024 20:39
[2024-11-23] VITALS (7 sets, daily range): BP systolic 97–131; BP diastolic 39–64; PULSE 90–92; RESP 15–20; TEMP 97.1–98; O2SAT 95–100
[2024-11-23 06:10] LABS: Anion Gap 8 (5-15); BUN/Creatinine Ratio 67.4 (10.0-20.0); Calcium 9.5 mg/dL (8.7-10.4); Glucose 97 mg/dL (74-106); Magnesium 1.9 mg/dL (1.6-2.6)
[2024-11-23 06:11] LABS: Bilirubin, Total 0.4 mg/dL (0.2-1.0)
[2024-11-23 07:12] LABS: Hematocrit 34.4 % (36.0-46.0); Hemoglobin 11.1 g/dL (12.2-16.2); Mean Corpuscular Hemoglobin 29.7 pg (28.0-32.0); Mean Corpuscular Hgb Conc. 32.3 g/dL (32.0-36.0); Mean Corpuscular Volume 91.8 fL (80.0-100.0); Platelet Count (auto) 227 10^3/uL (140-450); Red Blood Cells 3.75 10^6/uL (4.0-5.20); Red Cell Distribution Width 16.4 % (11.8-14.3); White Blood Cell 25.1 10^3/uL (4.4-10.8)
[2024-11-23 07:34] LABS: Basophils % (manual) 0 (0.0-2.0); Blast Cells 0; Eosinophils % (manual) 0 (0-7); Metamyelocytes % 0; Promyelocytes % 0; Reactive Lymphocytes 0
[2024-11-23 08:21] LABS: Alkaline Phosphatase 282 U/L (46-116); Aspartate Aminotransferase 108 U/L (13-40); Blood Urea Nitrogen 58 mg/dL (9-23); Carbon Dioxide 18 mmol/L (20-31); Chloride 107 mmol/L (98-107); Phosphorus 2.2 mg/dL (2.4-5.1); Sodium 133 mmol/L (136-145); Total Protein 5.5 g/dL (5.7-8.2)
[2024-11-23 08:22] LABS: Albumin 2.8 g/dL (3.2-4.8)
[2024-11-23 08:45] LABS: Alanine Aminotransferase 69 U/L (7-40)
--- NOTE | 2024-11-23 09:43 | DVHPNRES ---
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 patient remains on Livingston's, chest tube, no distress or shortness of breath. [facility] oncology called waiting for Dr. Rico to evaluate. Morning labs show elevated white count 22.6>25.1 with predominant neutrophilia, platelets stable, slowly dropping hemoglobin gradually 12.1> 11.1. Cultures remains negative so far . Patient reports: No new complaints Changes from previous H/P or p: No Changes Objective vital signs Vital Sign Date Time Temp Pulse Resp B/P (MAP) Pulse Ox O2 Delivery O2 Flow Rate FiO2 11/23/24 09:00 97.9 92 15 120/59 (79) 95 97.9 11/22/24 20:00 Nasal Cannula* 3 32 Total Intake and Output 11/22/24 11/22/24 11/23/24 15:00 23:00 07:00 Intake Total 184.5 ml 618 ml 75 ml Output Total 275 ml 360 ml Balance 184.5 ml 343 ml -285 ml medications Current Medications Medications Dose Ordered Sig/Yuki Route Start Time Stop Time Status Last Admin Dose Admin EZETIMIBE 10 mg DAILY PO 11/10/24 10:00 11/22/24 11:34 10 MG Gabapentin 300 mg DAILY PO 11/10/24 10:00 11/22/24 11:34 300 MG Montelukast Sodium 10 mg HS PO 11/09/24 22:00 11/22/24 21:00 10 MG Pantoprazole Sodium 40 mg DAILY IV 11/10/24 10:00 11/22/24 11:34 40 MG Pravastatin Sodium 80 mg HS PO 11/09/24 22:00 Cancel Azithromycin 500 mg DAILY PO 11/09/24 18:53 11/22/24 11:34 500 MG Atorvastatin Calcium 40 mg HS PO 11/10/24 22:00 11/22/24 21:00 40 MG Lactulose 30 ml BID PRN PO 11/11/24 20:00 11/20/24 03:34 30 ML Enteral Nutritional Formula 240 ml TIDWM PO 11/13/24 12:00 11/23/24 08:02 240 ML Cefepime HCl 50 ml @ 12.5 mls/hr Q12HR IV 11/13/24 22:00 11/22/24 21:00 12.5 MLS/HR Guaifenesin 200 mg Q4HP PRN GT 11/14/24 15:00 Cancel Midodrine 10 mg TID@0600,1200,1800 PO 11/14/24 18:00 11/23/24 06:01 10 MG Guaifenesin 200 mg Q4HP PRN PO 11/14/24 16:15 11/16/24 13:50 200 MG Amino Acids 0 ml @ 0 mls/hr PER PHARMACY IV 11/15/24 16:15 Diagnostic Test (Pha) 1 strip Q6HR 11/16/24 00:00 11/23/24 06:02 1 STRIP Insulin Human Regular FOLLOW SLIDING SCALE Q6HR SC 11/16/24 00:00 11/22/24 00:17 2 UNITS Dextrose 50 ml UD IV 11/16/24 00:00 Ergocalciferol 50,000 unit Q7D PO 11/19/24 13:45 11/19/24 15:54 50,000 UNIT Tramadol HCl 50 mg [id number] PRN PO 11/20/24 19:30 11/23/24 03:00 50 MG Sodium Bicarbonate 50 ml/ Sodium Chloride 1,050 ml @ 50 mls/hr Q21H IV 11/21/24 09:30 11/22/24 01:51 50 MLS/HR Amino Acids 1,000 ml @ 41 mls/hr DAILY@2200 IV 11/21/24 22:00 11/22/24 21:00 41 MLS/HR Examination General Appearance: Alert, Oriented X3, Cooperative, in mild acute distress HEENT: Atraumatic, PERRLA, EOMI, Mucous membrane moist/pink Respiratory: Breaths sounds are decreased on the Rt side, chest tube taken out Cardiovascular: Regular rate, Normal S1, Normal S2, No murmurs, no chest wall tenderness Abdominal: Normal bowel sounds, Soft, No tenderness, No hepatospenomegaly, No masses Extremities: No clubbing, No cyanosis, No edema, Normal pulses, No tenderness/swelling Skin: No rashes, No breakdown, No significant lesion Neuro: Normal gait, Normal speech, Strength at 5/5 X4 ext, Normal tone, Sensation intact, Cranial nerves 3-12 NL, Reflexes 2+ Psych/Mental Status: Mental status NL, Mood NL laboratory and microbiology Laboratory Tests 11/23/24 04:59 Test 11/23/24 04:59 Range/Units Serum Glucose 97 74-106 mg/dL Microbiology Date/Time Source Procedure Growth Status 11/12/24 16:28 Nose MRSA Screen - Final Complete 11/12/24 10:28 Pleural Fluid Gram Stain - Final Complete 11/12/24 10:28 Pleural Fluid Body Fluid Culture - Final Complete 11/10/24 13:37 Blood Blood Culture - Final NO GROWTH AFTER 5 DAYS OF INCUBATION. Complete 11/10/24 10:12 Voided Urine Urine Culture - Final Complete Labs and/or images reviewed: Labs reviewed by me, Image(s) reviewed by me Problem List/Assessment/Plan Problem List/Assessment/Plan Hospitalization summary/ Assessment: The patient is a 74-year-old female with a significant medical history, including lung cancer diagnosed in January 2024, treated with radiation, and bladder cancer diagnosed in 2020, with chemotherapy completed in November 2023. She also has a history of hypertension, hyperlipidemia, possible congestive heart failure, overactive bladder, and migraines. She presented to the ED with a chief complaint of right-sided chest pain for the past two weeks. The pain began on October 23, has progressively worsened, and is now constant and severe, unrelieved by tramadol. The pain is exacerbated by deep breaths and movement. She also reports chills but denies fever, recent flu-like illness, or cough. She follows Dr. Wang for pulmonary care. Her past surgical history includes a coronary angiogram. She denies current smoking, alcohol, or drug use. Plan: #Acute hypoxic respiratory failure likely due to pneumonia/pleural effusion, on oxygen through nasal cannula: Continue supportive oxygenation 3 L #Sepsis likely d/t pneumonia: On vancomycin, cefepime and azithromycin, cough with guaifenesin [place] #Community acquired pneumonia likely d/t Gram+/-/atypical bacteria #Right loculated pleural effusion likely due to parapneumonic/malignant: Noted in fluid analysis #History of lung cancer diagnosed on January 2024, status post radiation #malignant pleural effusion status post chest tube in negative suction #Ex vacuo pneumothorax (trapped lung) : Chest tube taken out, #Hypertensive heart disease # hypotension likely due to sepsis: On midodrine 10 mg p.o. t.i.d. #Dyslipidemia: Atorvastatin 40 mg daily, ezetimibe to continue # vitamin-D deficiency: Vitamin-D supplement #Dyslipidemia: Continue atorvastatin ezetimibe #ADIAN due to VMN in, nephrology on board, close follow up avoid nephrotoxic #transaminitis: Monitor CMP to follow up # acute pancreatitis: Lipase mildly raised, abdominal CT does not show signs of pancreatitis, continue likely due to cancer spread # hypokalemia, correct: Follow up # hyponatremia, mild: Continue to monitor correct if necessary # history of bladder cancer status post chemotherapy in 2020 # infrarenal aortic abdominal aneurysm saccular 1.[address], outpatient follow up # family decided to palliative route of therapy with Oncology, Dr. Rico on board PET-CT, MRI of the brain and NGS study with systemic chemo / immunotherapy, pain control. # seasonal allergy /Atopy on montelukast: To continue Diet: full liquid diet, with the ensure, Clinimix, vitamin-D supplements GI prophylaxis: protonix 40mg oral DVT prophylaxis: on SCDs Bowel regimen: lactulose p.r.n. Barriers to discharge: Medical diagnosis and managment in progress. patient is in palliative radiation. tomorrow plan to take out Livingston's and sutured to remove PCP: Dr. Garcia Specialist Relevent To Admission: Oncology, pulmonology, surgery. Patient care and plan discussed with Dr. Riley Disposition: Patient remains in Med surge Plan discussed with: Patient, Other (RN, Primary team. ) Dietary Evaluation Review Comments: 1. Continue diet regime 2. Consider Fish oil BID for high Trig 3. Consider Ensure HP BID if PO intake trends low Expected Outcomes/Goals: 1. Pt will consume >75% of estimated needs within 3-5 days Date of Service: Nov 23, 2024 Billing Provider: MARLENY HAYES MD Common Visit Codes: [id number] INP/OBS CARE(HIGH) WILMER WALL RESIDENT Nov 23, 2024 09:43 MARLENY HAYES MD Nov 29, 2024 09:25
[2024-11-23 09:56] LABS: Anisocytosis Slight; Band Neutrophils % (manual) 4; Lymphocytes % (manual) 3 (10.0-50.0); Monocytes % (manual) 3 (0-12); Myelocytes % 1
[2024-11-23 09:57] LABS: Platelet Estimate Adequate
--- NOTE | 2024-11-23 13:25 | DVHINCON2 ---
Date of service: Nov 23, [address] Riley Reason for Consultation History of bladder and lung cancer History of Present Illness 74 years old female who gives a history of urinary bladder cancer in [address] Andrade and then when it became muscle invasive she recei inna chemotherapy as an outpatient and did well until 2022 when she was found to have a lung lesion and per family a biopsy was done and she received radiation therapy 35 treatments and finished that in January 2024. Since she finished the radiation therapy then her lungs have been doing well she has been coughing and having some shortness of breath. Gradually her energy has been going away her symptoms have been getting worse. She has complained about pain in the right chest and some pain in the abdomen 11/09/[address] of the chest abdomen pelvis done which showed large loculated right pleural effusion with a atelectasis of most of the right lung. There are interstitial opacities in the lung may be partially related to post therapeutic changes. Distended gallbladder with no calcified gallstones. She had right chest tube placement under CT guidance on 11/12/2024 which drained out a L of some hemorrhagic fluid which was positive for malignant cells more likely consistent with lung cancer Patient had a thoracoscope and insertion of chest tube on 11/21/2024 and the surgeon describes the anterior was complete obliteration of the chest cavity no pleural space to speak of. Unable to place a regular chest tube into the chest cavity and also the patient started bleeding and decided to abort the procedure and was felt not to be a candidate for thoracotomy The patient does complain of some pain in the right thoracotomy site and some pain at the upper abdomen. No nausea vomiting. The patient has lost 20 lb of weight over the last couple of months. No headaches nausea vomiting. No fevers night sweats no bruising or bleeding anywhere else. No bleeding in the urine. She has a Campbell catheter Past Medical History Hypertension, hyperlipidemia, asthma Bladder cancer Lung cancer Some cardiac ablation for rapid heart rate Family History: Patient reports no known family medical history. Family History Unremarkable for malignancy or hematological disorder Social History 60 pack-year smoking and she still smokes No alcohol or drugs Allergies: Coded Allergies: Garlic (Verified Allergy, Severe, hives, 11/10/24) Sulfamethoxazole (Verified Allergy, Mild, itchy, vomits, 09/02/24) Aspirin (Verified Allergy, Unknown, 09/02/24) Cefadroxil (Verified Allergy, Unknown, 09/02/24) Ciprofloxacin (Verified Allergy, Unknown, 09/02/24) Levofloxacin (Verified Allergy, Unknown, 09/02/24) Penicillins (Verified Allergy, Unknown, 09/02/24) Home Meds Reported Medications Niacinamide (Niaspan) 500 Mg Tb, 500 MG PO DAILY 09/05/24 Methylprednisolone (Methylprednisolone) 4 Mg Tab, 4 MG PO DAILY 09/05/24 Albuterol Sulfate (VENTOLIN MDI) 90 Mcg Ih, 90 MCG IN PRN 09/05/24 Cyclobenzaprine Hcl (Cyclobenzaprine Hcl) 10 Mg Tab, 10 MG PO DAILY 09/05/24 Promethazine-Dm (Promethazine Dm 6.25-15 mg/5Ml) 1 Erika Erika, PO PRN, ML 09/05/24 Divalproex Sodium (Divalproex Sodium) 500 Mg Tab, 500 MG PO DAILY 09/05/24 Duloxetine Hcl (Cymbalta) 20 Mg Cap, 30 MG PO DAILY 09/05/24 Doxycycline Hyclate (Doxycycline Hyclate) 100 Mg Cap, 100 MG PO BID 09/05/24 Patients Own Medication (PATIENTS OWN MEDICATION) . PTS OWN MED-OBTAIN FROM PT AND SEND TO RX DRUG:GUAIFEN PSE 600-120 FREQ:DAILY RX# EXP: DATE DISP: TECH: RPH: 09/05/24 Pravastatin Sodium (PRAVACHOL TABLET) 20 Mg Tb, 80 MG PO DAILY 09/05/24 Esomeprazole Magnesium Trihydr (Nexium) 40 Mg Cap, 1 CAP PO DAILY 09/05/24 Carisoprodol (Carisoprodol) 350 Mg Tab, 350 MG PO PRN for MUSCLE SPASM 09/05/24 Oxaprozin (Daypro) 600 Mg Tab, 600 MG PO DAILY, TAB 09/05/24 Zolpidem Tartrate (Ambien) 10 Mg Tab, PO QHSP PRN for FOR INSOMNIA, TAB 09/05/24 Gabapentin (Gabapentin) 300 Mg Cap, 300 MG PO DAILY 09/05/24 Diazepam (VALIUM TABLET) 5 Mg Tb, 5 MG PO DAILY, TAB 09/05/24 Patients Own Medication (PATIENTS OWN MEDICATION) . PTS OWN MED-OBTAIN FROM PT AND SEND TO RX DRUG:VICODIN 5/500 FREQ:BID PRN RX# EXP: DATE DISP: TECH: RPH: 09/05/24 Ezetimibe-Simvastatin (Vytorin) 1 Tab Tab, 1 TAB PO DAILY 09/05/24 Fenofibrate (Tricor) 145 Mg Tab, 145 MG PO DAILY for CHOLESTROL 09/05/24 Ezetimibe (Zetia) 10 Mg Tab, 1 TAB PO DAILY 09/05/24 Kryjohstpb-Juwvvthjeazgo-Vwrtq (Buster 50-325-40 mg) 1 Tab Tab, 1 TAB PO DAILY for migraine, TAB 09/05/24 Pantoprazole Sodium (PANTOPRAZOLE SODIUM) 40 Mg Inj, 40 MG PO DAILY, INJ 09/05/24 Divalproex Sodium (Depakote) 500 Mg Tab, 500 MG PO DAILY for migraine 09/05/24 Ivabradine Hydrochloride (Corlanor) 5 Mg Tab, 5 MG PO DAILY, TAB 09/02/24 Metoclopramide Hcl (Metoclopramide Hcl) 5 Mg Tab, 5 MG PO DAILY for 30 Days, MG 09/02/24 Prochlorperazine Maleate (Compazine) 10 Mg Tb, 0.5 TAB PO DAILY, #30 TAB 3 Refills 09/02/24 Rosuvastatin Calcium (Crestor) 20 Mg Tab, 1 TAB PO DAILY, #30 TAB 5 Refills 09/02/24 Magnesium Bisglycinate (Mag Glycinate) 100 Mg Tab, 250 MG PO DAILY, TAB 09/02/24 Metoprolol Succinate (Toprol Xl) 25 Mg Tab, 1 TAB PO DAILY for HTN, #30 TAB 5 Refills 09/02/24 Vibegron (Gemtesa) 75 Mg Tab, 75 MG PO DAILY for OVERACTIVE BLADDER, TAB 09/02/24 Dicyclomine Hcl (BENTYL CAPSULE) 10 Mg Cp, 10 MG PO DAILY, CAP 05/16/22 Rabeprazole Sodium (Aciphex) 20 Mg Tab, 1 TAB PO DAILY, #90 TAB 1 Refill 01/17/20 Montelukast Sodium (MONTELUKAST SODIUM) 10 Mg Tab, 1 TAB PO DAILY, #30 TAB 5 Refills 01/17/20 Vital Signs Vital Signs Date Time Temp Pulse Resp B/P (MAP) Pulse Ox O2 Delivery O2 Flow Rate FiO2 11/23/24 09:00 97.9 92 15 120/59 (79) 95 97.9 11/23/24 08:20 Nasal Cannula* 3 32 Physical Exam Moderately built and nourished, in no acute distress, alert and oriented. Sick looking female. the patient has a Port-A-Cath No jaundice Head and neck: Unremarkable for any masses or neck nodes. No conjunctival or mucosal hemorrhage Lungs: Right chest tube with some diminished breath sounds in the right lung base Cardiovascular: S1-S2 heard well Abdomen: Some tenderness in the epigastric area. No organomegaly Extremities: No clubbing edema cyanosis or calf tenderness. Skin: Unremarkable for petechia purpura ecchymosis Lymphadenopathy: None Neurological exam: No focal deficit Labs/Diagnostic Data Labs Test 11/23/24 12:26 11/23/24 04:59 11/22/24 11:16 11/21/24 21:17 Range/Units POC Glucose 124 H 70-106 mg/dl White Blood Count 25.1 H 4.4-10.8 10^3/uL Red Blood Count 3.75 L 4.0-5.20 10^6/uL Hemoglobin 11.1 L 12.2-16.2 g/dL Hematocrit 34.4 L 36.0-46.0 % Mean Corpuscular Volume 91.8 80.0-100.0 fL Mean Corpuscular Hemoglobin 29.7 28.0-32.0 pg Mean Corpuscular Hemoglobin Concent 32.3 32.0-36.0 g/dL Red Cell Distribution Width 16.4 H 11.8-14.3 % Platelet Count 227 140-450 10^3/uL Mean Platelet Volume 8.3 6.9-10.8 fL Neutrophils (%) (Auto) 37.0-80.0 % Lymphocytes (%) (Auto) 10.0-50.0 % Monocytes (%) (Auto) 0.0-12.0 % Basophils (%) (Auto) 0.0-2.0 % Neutrophils # (Auto) 1.6-8.6 10 ^3/uL Lymphocytes # (Auto) 0.4-5.4 10 ^3/uL Monocytes # (Auto) 0-1.3 10 ^3/uL Differential Total Cells Counted 100.0 100 Neutrophils % (Manual) 89 H 37.0-80.0 Band Neutrophils % (Manual) 4 Lymphocytes % (Manual) 3 L 10.0-50.0 Monocytes % (Manual) 3 0-12 Eosinophils % (Manual) 0 0-7 Basophils % (Manual) 0 0.0-2.0 Metamyelocytes % (manual) 0 Myelocytes % (Manual) 1 Promyelocytes % (Manual) 0 Blast Cells % (Manual) 0 Reactive Lymphocytes 0 Platelet Estimate Adequate Anisocytosis (manual) Slight Sodium Level 133 L 136-145 mmol/L Potassium Level 4.0 3.5-5.1 mmol/L Chloride Level 107 98-107 mmol/L Carbon Dioxide Level 18 L 20-31 mmol/L Anion Gap 8 5-15 Blood Urea Nitrogen 58 #H 9-23 mg/dL Creatinine 0.86 0.550-1.02 mg/dL Glomerular Filtration Rate Calc 72 >90 mL/min BUN/Creatinine Ratio 67.4 H 10.0-20.0 Serum Glucose 97 74-106 mg/dL Calcium Level 9.5 8.7-10.4 mg/dL Phosphorus Level 2.2 L 2.4-5.1 mg/dL Magnesium Level 1.9 1.6-2.6 mg/dL Total Bilirubin 0.4 0.2-1.0 mg/dL Aspartate Amino Transferase (AST) 108 H 13-40 U/L Alanine Aminotransferase (ALT) 69 H 7-40 U/L Alkaline Phosphatase 282 H 46-116 U/L Total Protein 5.5 L 5.7-8.2 g/dL Albumin 2.8 L 3.2-4.8 g/dL Eosinophils (%) (Auto) 0.0 0.0-7.0 % Eosinophils # (Auto) 0 0-0.8 10 ^3/uL Basophils # (Auto) 0 0-0.2 10 ^3/uL Nucleated Red Blood Cells 0.1 % Prothrombin Time 13.6 H 9.3-11.8 sec Prothrombin Time INR 1.31 H 0.9-1.15 Test 11/21/24 17:29 11/21/24 06:17 11/20/24 10:36 11/18/24 06:23 Range/Units Urine Creatinine 64.54 30.0-125.0 mg/dL Urine Protein/Creatinine Ratio 2.36 Urine Sodium < 10 L 40-220 mmol/L Urine Total Protein 152.5 H 1-14 mg/dL Activated Partial Thromboplast Time 23.6 L 24.5-34.5 SEC Hepatitis B Surface Antigen Negative Negative Hepatitis C Antibody Negative Negative Random Vancomycin Level 16.5 H 5-10 ug/mL Vitamin B12 Level 426 211-911 pg/mL Vitamin D 25-Hydroxy 33.7 30.0-100 ng/mL Test 11/17/24 02:08 11/16/24 05:47 11/15/24 13:35 11/12/24 18:27 Range/Units Vancomycin Level Trough 29.5 H 5-10 ug/mL Triglycerides Level 186 H < 150 mg/dL Lactic Acid Level 1.3 0.4-2.0 mmol/L TB Test (QFT) Gold Plus Negative Negative TB Test (QFT) Nil 0.01 . IU/mL TB Test (QFT) Mitogen >10.00 . IU/mL TB Test (QFT) Antigen 1 0.01 . IU/mL TB Test (QFT) Antigen 2 0.01 . IU/mL TB Test (QFT) Criteria Comment . Large Platelets Few Tear Drop Cells Few Test 11/12/24 10:28 11/12/24 05:30 11/10/24 10:12 11/10/24 09:40 Range/Units Body Fluid Source Pleural fluid Body Fluid pH 8.0 Body Fluid WBC (Manual) 6751 H 0-200 CUMM Body Fluid RBC (Manual) 0 0-2000 CUMM Body Fluid Mononuclear Cells 95 % Body Fluid Polymorphonuclear Cells 5 0-25 % Body Fluid Glucose 61 . mg/dL Body Fluid Total Protein 3.8 . g/dL Body Fluid Lactate Dehydrogenase 361 . IU/L Influenza Type A Antigen Negative Negative Influenza Type B Antigen Negative Negative SARS-CoV-2 Antigen (Rapid) Negative NEGATIVE Urine Color Light-yellow Yellow Urine Clarity Clear Clear Urine pH 5.0 5.0-9.0 Urine Specific [place] 1.012 1.001-1.035 Urine Protein Negative Negative Urine Ketones Negative Negative Urine Blood 2+ H Negative /uL Urine Nitrite Negative Negative Urine Bilirubin Negative Negative Urine Urobilinogen Normal Negative mg/dL Urine Leukocyte Esterase Negative Negative /uL Urine RBC 34 0 - 4 /hpf Urine WBC 2 0 - 5 /hpf Urine Squamous Epithelial Cells Few <5 /hpf Urine Bacteria None seen None Seen /hpf Urine Hyaline Casts Few 0 - 2 /lpf Urine Glucose Normal Normal mg/dL Cholesterol Level 199 < 200 mg/dL LDL Cholesterol 129 H < 100 mg/dL HDL Cholesterol 37 L 40-59 mg/dL Lipase 100 H 12-53 U/L Test 11/09/24 16:34 11/09/24 13:05 Range/Units Troponin I High Sensitivity 14 </=34 ng/L B-Type Natriuretic Peptide 203.87 0-100 pg/mL Microbiology Date/Time Source Procedure Growth Status 11/12/24 16:28 Nose MRSA Screen - Final Complete 11/12/24 10:28 Pleural Fluid Gram Stain - Final Complete 11/12/24 10:28 Pleural Fluid Body Fluid Culture - Final Complete 11/10/24 13:37 Blood Blood Culture - Final NO GROWTH AFTER 5 DAYS OF INCUBATION. Complete 11/10/24 10:12 Voided Urine Urine Culture - Final Complete Assessment 1. Malignant right pleural effusion more likely relating to lung cancer with a history of right lower lobe lung cancer status post radiation therapy which she finished in January 2024 and more likely has radiation pneumonitis with some possible infection and malignant pleural effusion causing her symptoms of pain and difficulty breathing and she is status post chest tube and drained out 1 L of hemorrhagic fluid positive for malignant cells 2. History of urinary bladder cancer status post chemotherapy in 2020 3. History of hypertension 4. Hyperlipidemia 5. History of some rapid heart beat and some cardiac ablation and follows with Dr. Garcia Plan/Recommendation The options of systemic treatment versus palliative care were discussed with the patient and the family. They are not sure about what the decision could be. She was to wait couple of weeks and see how she responds to the thoracentesis in the chest tube do a PET-CT as an outpatient and MRI of the brain and NGS study and then may discuss about the options of systemic treatment with chemo/immunotherapy The patient and the family seems to be agreeable Give [place] 5/325 p.o. q.6 hours p.r.n. for the pain Plan discussed with: Patient, Spouse, Daughter MAT PELLETIER MD Nov 23, 2024 13:25
[2024-11-23] MEDS: MORPHINE SULFATE INJ 2 MG/ml SYRG IV ONE (14:28)
--- NOTE | 2024-11-23 15:55 | DVH ---
CHEST RADIOGRAPH Indication: s/p chest tube removal Technique: Single frontal view of the chest was obtained Comparison: XY CHEST PORTABLE on DOS: 11/21/24, XY CHEST XRAY 1 VIEW on DOS: 11/20/24, XY CHEST XRAY 1 VIEW on DOS: 11/17/24 FINDINGS: Lines and Tubes: Right IJ approach port-A-Cath terminating over the mid SVC. Lungs: Near-complete opacification of the right hemithorax No pneumothorax. Cardiomediastinal contours: Limited evaluation of the Heart size given opacification of the right hem ithorax. Bones: No acute osseous abnormality. IMPRESSION: Right IJ approach port-A-Cath terminating over the mid SVC. Near-complete opacification of the right hemithorax ; slightly worsened from prior imaging.
--- NOTE | 2024-11-23 16:32 | DVHPN2 ---
Progress Note Date Seen: Nov 23, 2024 Has the PT tested + for MRSA If YES, has PT been informed?: Yes Medical Necessity Reason Pt with a Central, PICC or Fol: Yes The following are medically ne: Livingston Catheter Reason for livingston catheter: Strict I&O Subjective Review of Systems No new complaints Patient reports: No new complaints Objective vital signs Vital Sign Date Time Temp Pulse Resp B/P (MAP) Pulse Ox O2 Delivery O2 Flow Rate FiO2 11/23/24 14:28 91 16 103/39 11/23/24 13:00 97.8 97 97.8 11/23/24 08:20 Nasal Cannula* 3 32 Total Intake and Output 11/22/24 11/22/24 11/23/24 15:00 23:00 07:00 Intake Total 184.5 ml 618 ml 75 ml Output Total 275 ml 360 ml Balance 184.5 ml 343 ml -285 ml medications Current Medications Medications Dose Ordered Sig/Yuki Route Start Time Stop Time Status Last Admin Dose Admin EZETIMIBE 10 mg DAILY PO 11/10/24 10:00 11/23/24 10:24 10 MG Gabapentin 300 mg DAILY PO 11/10/24 10:00 11/23/24 10:24 300 MG Montelukast Sodium 10 mg HS PO 11/09/24 22:00 11/22/24 21:00 10 MG Pantoprazole Sodium 40 mg DAILY IV 11/10/24 10:00 11/23/24 10:25 40 MG Pravastatin Sodium 80 mg HS PO 11/09/24 22:00 Cancel Azithromycin 500 mg DAILY PO 11/09/24 18:53 11/23/24 10:25 500 MG Atorvastatin Calcium 40 mg HS PO 11/10/24 22:00 11/22/24 21:00 40 MG Lactulose 30 ml BID PRN PO 11/11/24 20:00 11/20/24 03:34 30 ML Enteral Nutritional Formula 240 ml TIDWM PO 11/13/24 12:00 11/23/24 12:12 240 ML Cefepime HCl 50 ml @ 12.5 mls/hr Q12HR IV 11/13/24 22:00 11/23/24 10:27 12.5 MLS/HR Guaifenesin 200 mg Q4HP PRN GT 11/14/24 15:00 Cancel Midodrine 10 mg TID@0600,1200,1800 PO 11/14/24 18:00 11/23/24 13:13 10 MG Guaifenesin 200 mg Q4HP PRN PO 11/14/24 16:15 11/16/24 13:50 200 MG Amino Acids 0 ml @ 0 mls/hr PER PHARMACY IV 11/15/24 16:15 Diagnostic Test (Pha) 1 strip Q6HR 11/16/24 00:00 11/23/24 12:00 1 STRIP Insulin Human Regular FOLLOW SLIDING SCALE Q6HR SC 11/16/24 00:00 11/22/24 00:17 2 UNITS Dextrose 50 ml UD IV 11/16/24 00:00 Ergocalciferol 50,000 unit Q7D PO 11/19/24 13:45 11/19/24 15:54 50,000 UNIT Tramadol HCl 50 mg [id number] PRN PO 11/20/24 19:30 11/23/24 03:00 50 MG Sodium Bicarbonate 50 ml/ Sodium Chloride 1,050 ml @ 50 mls/hr Q21H IV 11/21/24 09:30 11/22/24 01:51 50 MLS/HR Amino Acids 1,000 ml @ 41 mls/hr DAILY@2200 IV 11/21/24 22:00 11/22/24 21:00 41 MLS/HR Acetaminophen/ Hydrocodone Bitart 1 tab Q6HPRN PRN PO 11/23/24 13:30 Examination Gen: Appears stated age, in no acute distress Lungs: Decreased bilateral air entry, no rales Heart: RRR Ext: No edema Neuro: AOx4 laboratory and microbiology Laboratory Tests 11/23/24 04:59 Test 11/23/24 04:59 Range/Units Serum Glucose 97 74-106 mg/dL Microbiology Date/Time Source Procedure Growth Status 11/12/24 16:28 Nose MRSA Screen - Final Complete 11/12/24 10:28 Pleural Fluid Gram Stain - Final Complete 11/12/24 10:28 Pleural Fluid Body Fluid Culture - Final Complete 11/10/24 13:37 Blood Blood Culture - Final NO GROWTH AFTER 5 DAYS OF INCUBATION. Complete 11/10/24 10:12 Voided Urine Urine Culture - Final Complete Labs and/or images reviewed: Labs reviewed by me Problem List/Assessment/Plan Problem List/Assessment/Plan IMP Acute kidney injury superimposed Chronic Kidney Disease secondary hemodynamic mediated- improving Acute hypoxic respiratory failure Lung cancer status post XRT Large loculated malignant right pleural effusion Bladder cancer status post chemo Transaminitis Metabolic acidosis Hypotension Sepsis Pneumonia Recommendations -Serial chemistry panels -Stable azotemia perhaps in the setting of PPN / catabolic state -D/C bicarb gtt -Metabolic parameters acceptable -Will continue to follow case discussed with Dr. Isaac Plan discussed with: Patient Dietary Evaluation Review Comments: 1. Continue diet regime 2. Consider Fish oil BID for high Trig 3. Consider Ensure HP BID if PO intake trends low Expected Outcomes/Goals: 1. Pt will consume >75% of estimated needs within 3-5 days QIAN COPELANDP Nov 23, 2024 16:32
[2024-11-23] MEDS: SODIUM PHOSPHATES 20 MEQ in SODIUM CHL 0.9% 100 ML IV ONE (17:18)
--- NOTE | 2024-11-23 18:24 | DVHPN2 ---
Progress Note - Dictate Date Seen: Nov 23, 2024 Has the PT tested + for MRSA If YES, has PT been informed?: Yes Medical Necessity Reason Pt with a Central, PICC or Fol: Yes The following are medically ne: Livingston Catheter Reason for livingston catheter: Strict I&O Subjective Patient seen and examined at bedside. Breathing comfortably on room air. Overnight events reviewed. vital signs Vital Sign Date Time Temp Pulse Resp B/P (MAP) Pulse Ox O2 Delivery O2 Flow Rate FiO2 11/23/24 17:06 98.0 91 17 123/64 (83) 98 98.0 11/23/24 08:20 Nasal Cannula* 3 32 Total Intake and Output 11/22/24 11/22/24 11/23/24 14:59 22:59 06:59 Intake Total 184.5 ml 618 ml 75 ml Output Total 275 ml 360 ml Balance 184.5 ml 343 ml -285 ml medications Current Medications Medications Dose Ordered Sig/Yuki Route Start Time Stop Time Status Last Admin Dose Admin EZETIMIBE 10 mg DAILY PO 11/10/24 10:00 11/23/24 10:24 10 MG Gabapentin 300 mg DAILY PO 11/10/24 10:00 11/23/24 10:24 300 MG Montelukast Sodium 10 mg HS PO 11/09/24 22:00 11/22/24 21:00 10 MG Pantoprazole Sodium 40 mg DAILY IV 11/10/24 10:00 11/23/24 10:25 40 MG Pravastatin Sodium 80 mg HS PO 11/09/24 22:00 Cancel Azithromycin 500 mg DAILY PO 11/09/24 18:53 11/23/24 10:25 500 MG Atorvastatin Calcium 40 mg HS PO 11/10/24 22:00 11/22/24 21:00 40 MG Lactulose 30 ml BID PRN PO 11/11/24 20:00 11/20/24 03:34 30 ML Enteral Nutritional Formula 240 ml TIDWM PO 11/13/24 12:00 11/23/24 17:31 240 ML Cefepime HCl 50 ml @ 12.5 mls/hr Q12HR IV 11/13/24 22:00 11/23/24 10:27 12.5 MLS/HR Guaifenesin 200 mg Q4HP PRN GT 11/14/24 15:00 Cancel Midodrine 10 mg TID@0600,1200,1800 PO 11/14/24 18:00 11/23/24 17:59 10 MG Guaifenesin 200 mg Q4HP PRN PO 11/14/24 16:15 11/16/24 13:50 200 MG Amino Acids 0 ml @ 0 mls/hr PER PHARMACY IV 11/15/24 16:15 Diagnostic Test (Pha) 1 strip Q6HR 11/16/24 00:00 11/23/24 17:09 1 STRIP Insulin Human Regular FOLLOW SLIDING SCALE Q6HR SC 11/16/24 00:00 11/22/24 00:17 2 UNITS Dextrose 50 ml UD IV 11/16/24 00:00 Ergocalciferol 50,000 unit Q7D PO 11/19/24 13:45 11/19/24 15:54 50,000 UNIT Tramadol HCl 50 mg [id number] PRN PO 11/20/24 19:30 11/23/24 03:00 50 MG Amino Acids 1,000 ml @ 41 mls/hr DAILY@2200 IV 11/21/24 22:00 11/22/24 21:00 41 MLS/HR Acetaminophen/ Hydrocodone Bitart 1 tab Q6HPRN PRN PO 11/23/24 13:30 objective Gen.: Patient lying in bed in no apparent distress. On room air. Head: Normocephalic, atraumatic. Eyes: EOMI/PERRLA. Ears: Normal hearing. Normal anatomy. Neck/trachea: Trachea midline, supple. Nose: Normal external anatomy. Mouth: Moist mucous membranes. Chest: Decreased air entry bilaterally. No wheezing or rhonchi. Cardiovascular: Positive S1, positive S2. Regular rate and rhythm. Abdomen: Positive bowel sounds in all 4 quadrants. Soft, non-tender, non- distended. : Deferred. Rectal: Deferred. Skin: Warm, dry. Intact. Extremities: 2+ radial pulses bilaterally. No lower extremity edema. Neuro: Awake, alert, oriented x3. No gross motor or sensory deficits. Cranial nerves II through XII intact. Gait not assessed. laboratory and microbiology Laboratory Tests 11/23/24 04:59 Test 11/23/24 04:59 Range/Units Serum Glucose 97 74-106 mg/dL Assessment/Plan Impression: Acute on chronic hypoxic respiratory failure Chronic obstructive pulmonary disease Loculated pleural effusion, right Atelectasis Metastatic cancer Malignant effusion Events: Tapered off O2, breathing on room air No respiratory distress. Plan for discharge w/ hospice. S/p chest tube removal. CXR demonstrates right IJ Port-A-Cath terminating over the mid SVC. Near- complete opacification of the right hemithorax, slightly worsened. No pneumothorax. Incentive spirometry Continue antibiotics Midodrine Pain control Avoid oversedation Protonix for GI prophylaxis Clinimix for nutritional support Monitor renal function Nephrology recommendations appreciated. Poor prognosis - plan for discharge w/ hospice. Labs and imaging reviewed. Rest of plan as noted below. Plan: Supplemental oxygen PRN Titrate to keep O2 sats above 92%. CXR demonstrated right loculated pleural effusion. S/p right chest tube placement. Alteplase via chest tube x2. Chest tube was removed. Monitor PT/INR. Bronchodilators. Continue antibiotics Incentive spirometry Pain control Avoid oversedation Monitor renal function. Monitor electrolytes. Supplement as necessary. Monitor ins and outs. GI prophylaxis - pantoprazole DVT prophylaxis. Prognosis: Poor given patient's multiple co-morbidities. Rest of plan per hospitalist and other consultants. Thank you Dr. Taran Archer MD, for allowing me to participate in this patient's care. Further recommendations will depend on the patient's clinical course. Please do not hesitate to contact me if you have any questions or concerns. This medical document was created using an electronic medical record system with [employer] dictation system. Although these documentations are being carefully reviewed, there may still be some phonetic and typographical changes. The errors are purely typographical, due to imperfection on the software program, and do not reflect any compromise in the patient's medical care. Dietary Evaluation Review Comments: 1. Continue diet regime 2. Consider Fish oil BID for high Trig 3. Consider Ensure HP BID if PO intake trends low Expected Outcomes/Goals: 1. Pt will consume >75% of estimated needs within 3-5 days Plan discussed with: Patient, Other (VINOD Elliott) CHRISTIANO TAPIA MD Nov 23, 2024 18:24
[2024-11-24 01:00] VITALS: BP 101/53; PULSE 95; RESP 20; TEMP 97.6; O2SAT 97
[2024-11-24 05:00] VITALS: BP 124/57; PULSE 94; RESP 20; TEMP 97.7; O2SAT 96
[2024-11-24] MEDS: HYDROcodone-ACET 5/325MG TAB PO PRN (06:27)
[2024-11-24 09:00] VITALS: BP 111/56; PULSE 94; RESP 18; O2SAT 96
[2024-11-24 10:52] LABS: Anion Gap 7 (5-15); BUN/Creatinine Ratio 55.8 (10.0-20.0); Bilirubin, Total 0.5 mg/dL (0.2-1.0); Calcium 9.9 mg/dL (8.7-10.4); Potassium 4.1 mmol/L (3.5-5.1)
[2024-11-24 10:54] LABS: Alanine Aminotransferase 61 U/L (7-40); Albumin 2.7 g/dL (3.2-4.8); Alkaline Phosphatase 253 U/L (46-116); Aspartate Aminotransferase 61 U/L (13-40); Blood Urea Nitrogen 48 mg/dL (9-23); Carbon Dioxide 18 mmol/L (20-31); Chloride 109 mmol/L (98-107); Glucose 109 mg/dL (74-106); Sodium 134 mmol/L (136-145); Total Protein 5.4 g/dL (5.7-8.2)
[2024-11-24 11:01] LABS: Potassium 4.2 mmol/L (3.5-5.1)
[2024-11-24 11:02] LABS: Basophils # (auto) 0.1 10 ^3/uL (0-0.2); Basophils % (auto) 0.3 % (0.0-2.0); Eosinophils # (auto) 0.4 10 ^3/uL (0-0.8); Eosinophils % (auto) 1.7 % (0.0-7.0); Hemoglobin 11.4 g/dL (12.2-16.2); Lymphocytes # (auto) 1.1 10 ^3/uL (0.4-5.4); Lymphocytes % (auto) 4.6 % (10.0-50.0); Mean Corpuscular Hemoglobin 28.6 pg (28.0-32.0); Mean Corpuscular Hgb Conc. 32.7 g/dL (32.0-36.0); Mean Corpuscular Volume 87.5 fL (80.0-100.0); Monocytes # (auto) 1.6 10 ^3/uL (0-1.3); Monocytes % (auto) 6.7 % (0.0-12.0); Neutrophils # (auto) 20.7 10 ^3/uL (1.6-8.6); Neutrophils % (auto) 86.7 % (37.0-80.0); Platelet Count (auto) 184 10^3/uL (140-450); Red Cell Distribution Width 16.2 % (11.8-14.3); White Blood Cell 23.9 10^3/uL (4.4-10.8)
[2024-11-24 11:07] LABS: BUN/Creatinine Ratio 53.4 (10.0-20.0); Magnesium 1.9 mg/dL (1.6-2.6)
[2024-11-24 11:09] LABS: Albumin 2.8 g/dL (3.2-4.8); Phosphorus 2.4 mg/dL (2.4-5.1)
[2024-11-24 13:00] VITALS: BP 122/64; PULSE 94; RESP 18; TEMP 96.9; O2SAT 100
--- NOTE | 2024-11-24 13:22 | DVHPN2 ---
Progress Note Date Seen: Nov 24, 2024 Has the PT tested + for MRSA If YES, has PT been informed?: Yes Medical Necessity Reason Pt with a Central, PICC or Fol: Yes The following are medically ne: Livingston Catheter Reason for livingston catheter: Strict I&O Subjective Review of Systems No new complaints Patient reports: No new complaints Objective vital signs Vital Sign Date Time Temp Pulse Resp B/P (MAP) Pulse Ox O2 Delivery O2 Flow Rate FiO2 11/24/24 13:00 96.9 94 18 122/64 (83) 100 96.9 11/23/24 20:00 Nasal Cannula* 3 32 Total Intake and Output 11/23/24 11/23/24 11/24/24 15:00 23:00 07:00 Intake Total 250 ml 200 ml 200 ml Output Total 650 ml 450 ml Balance 250 ml -450 ml -250 ml medications Current Medications Medications Dose Ordered Sig/Yuki Route Start Time Stop Time Status Last Admin Dose Admin EZETIMIBE 10 mg DAILY PO 11/10/24 10:00 11/24/24 09:38 10 MG Gabapentin 300 mg DAILY PO 11/10/24 10:00 11/24/24 09:38 300 MG Montelukast Sodium 10 mg HS PO 11/09/24 22:00 11/23/24 21:36 10 MG Pantoprazole Sodium 40 mg DAILY IV 11/10/24 10:00 11/24/24 09:37 40 MG Pravastatin Sodium 80 mg HS PO 11/09/24 22:00 Cancel Azithromycin 500 mg DAILY PO 11/09/24 18:53 11/24/24 09:38 500 MG Atorvastatin Calcium 40 mg HS PO 11/10/24 22:00 11/23/24 21:36 40 MG Lactulose 30 ml BID PRN PO 11/11/24 20:00 11/20/24 03:34 30 ML Enteral Nutritional Formula 240 ml TIDWM PO 11/13/24 12:00 11/24/24 12:00 240 ML Cefepime HCl 50 ml @ 12.5 mls/hr Q12HR IV 11/13/24 22:00 11/24/24 09:48 12.5 MLS/HR Guaifenesin 200 mg Q4HP PRN GT 11/14/24 15:00 Cancel Midodrine 10 mg TID@0600,1200,1800 PO 11/14/24 18:00 11/24/24 12:56 10 MG Guaifenesin 200 mg Q4HP PRN PO 11/14/24 16:15 11/16/24 13:50 200 MG Amino Acids 0 ml @ 0 mls/hr PER PHARMACY IV 11/15/24 16:15 Diagnostic Test (Pha) 1 strip Q6HR 11/16/24 00:00 11/24/24 12:25 1 STRIP Insulin Human Regular FOLLOW SLIDING SCALE Q6HR SC 11/16/24 00:00 11/22/24 00:17 2 UNITS Dextrose 50 ml UD IV 11/16/24 00:00 Ergocalciferol 50,000 unit Q7D PO 11/19/24 13:45 11/19/24 15:54 50,000 UNIT Tramadol HCl 50 mg [id number] PRN PO 11/20/24 19:30 11/24/24 09:38 50 MG Amino Acids 1,000 ml @ 41 mls/hr DAILY@2200 IV 11/21/24 22:00 11/23/24 21:52 41 MLS/HR Acetaminophen/ Hydrocodone Bitart 1 tab Q6HPRN PRN PO 11/23/24 13:30 11/24/24 06:27 1 TAB Examination Gen: Appears stated age, in no acute distress Lungs: Decreased bilateral air entry, no rales Heart: RRR Ext: No edema Neuro: AOx4 laboratory and microbiology Laboratory Tests 11/24/24 10:07 Test 11/24/24 10:07 Range/Units Serum Glucose 109 H 74-106 mg/dL Microbiology Date/Time Source Procedure Growth Status 11/12/24 16:28 Nose MRSA Screen - Final Complete 11/12/24 10:28 Pleural Fluid Gram Stain - Final Complete 11/12/24 10:28 Pleural Fluid Body Fluid Culture - Final Complete 11/10/24 13:37 Blood Blood Culture - Final NO GROWTH AFTER 5 DAYS OF INCUBATION. Complete 11/10/24 10:12 Voided Urine Urine Culture - Final Complete Labs and/or images reviewed: Labs reviewed by me Problem List/Assessment/Plan Problem List/Assessment/Plan IMP Acute kidney injury superimposed Chronic Kidney Disease secondary hemodynamic mediated- improving Acute hypoxic respiratory failure Lung cancer status post XRT Large loculated malignant right pleural effusion Bladder cancer status post chemo Transaminitis Metabolic acidosis Hypotension Sepsis Pneumonia Recommendations -Serial chemistry panels -Stable azotemia perhaps in the setting of PPN / catabolic state -Avoidance of nephrotoxins -Will continue to follow Case discussed with Dr. Isaac Plan discussed with: Other Dietary Evaluation Review Comments: 1. Continue diet regime 2. Consider Fish oil BID for high Trig 3. Consider Ensure HP BID if PO intake trends low Expected Outcomes/Goals: 1. Pt will consume >75% of estimated needs within 3-5 days QIAN COPELAND Nov 24, 2024 13:22
--- NOTE | 2024-11-24 15:45 | DVHPNRES ---
Progress Note Date Seen: Nov 24, 2024 Resident Creating Document: JACOB MO MATT Has the PT tested + for MRSA If YES, has PT been informed?: Yes Medical Necessity Reason Pt with a Central, PICC or Fol: Yes The following are medically ne: Livingston Catheter Reason for livingston catheter: Strict I&O Subjective Review of Systems Patient is a 74 year old female with a past medical history as described below came to the ED with the chief complaint of Right sided chest pain for the last 2 weeks. patient reports that she has been diagnosed with Lung cancer in january 2024 and has got radiation treatment , bladder CA diagnosed in 2020 with chemotherapy finished in november 2023. she follows in the outpatient clinic for pulmonary followup. patient reports to start having right sided chest pain since october 23 and it has gradually worsened and now she has constant severe pain which she was not able to tolerate even while she was taking tramadol ,exacerbated with deep breath and movement, chills but the patient denies fever and came to the hospital for further evaluation. Patient denied recent flu like illness or cough. Past medical history: Lung CA, Bladder CA, HTN, HLD, ?CHF, overactive bladder, migraine Past surgical history: coronary angiogram social history: denies current smoking, alcohol, drug use Patient seen and examined at the bedside. Patient is feeling shortness of bed and complained of mild chest pain. Patient can maintain oxygen on room air. Patient reports: No new complaints, Feels better Objective vital signs Vital Sign Date Time Temp Pulse Resp B/P (MAP) Pulse Ox O2 Delivery O2 Flow Rate FiO2 11/24/24 13:00 96.9 94 18 122/64 (83) 100 96.9 11/24/24 08:20 Nasal Cannula* 3 32 Total Intake and Output 11/23/24 11/23/24 11/24/24 15:00 23:00 07:00 Intake Total 250 ml 200 ml 200 ml Output Total 650 ml 450 ml Balance 250 ml -450 ml -250 ml medications Current Medications Medications Dose Ordered Sig/Yuki Route Start Time Stop Time Status Last Admin Dose Admin EZETIMIBE 10 mg DAILY PO 11/10/24 10:00 11/24/24 09:38 10 MG Gabapentin 300 mg DAILY PO 11/10/24 10:00 11/24/24 09:38 300 MG Montelukast Sodium 10 mg HS PO 11/09/24 22:00 11/23/24 21:36 10 MG Pantoprazole Sodium 40 mg DAILY IV 11/10/24 10:00 11/24/24 09:37 40 MG Pravastatin Sodium 80 mg HS PO 11/09/24 22:00 Cancel Azithromycin 500 mg DAILY PO 11/09/24 18:53 11/24/24 09:38 500 MG Atorvastatin Calcium 40 mg HS PO 11/10/24 22:00 11/23/24 21:36 40 MG Lactulose 30 ml BID PRN PO 11/11/24 20:00 11/20/24 03:34 30 ML Enteral Nutritional Formula 240 ml TIDWM PO 11/13/24 12:00 11/24/24 12:00 240 ML Cefepime HCl 50 ml @ 12.5 mls/hr Q12HR IV 11/13/24 22:00 11/24/24 09:48 12.5 MLS/HR Guaifenesin 200 mg Q4HP PRN GT 11/14/24 15:00 Cancel Midodrine 10 mg TID@0600,1200,1800 PO 11/14/24 18:00 11/24/24 12:56 10 MG Guaifenesin 200 mg Q4HP PRN PO 11/14/24 16:15 11/16/24 13:50 200 MG Amino Acids 0 ml @ 0 mls/hr PER PHARMACY IV 11/15/24 16:15 Diagnostic Test (Pha) 1 strip Q6HR 11/16/24 00:00 11/24/24 12:25 1 STRIP Insulin Human Regular FOLLOW SLIDING SCALE Q6HR SC 11/16/24 00:00 11/22/24 00:17 2 UNITS Dextrose 50 ml UD IV 11/16/24 00:00 Ergocalciferol 50,000 unit Q7D PO 11/19/24 13:45 11/19/24 15:54 50,000 UNIT Tramadol HCl 50 mg [id number] PRN PO 11/20/24 19:30 11/24/24 09:38 50 MG Amino Acids 1,000 ml @ 41 mls/hr DAILY@2200 IV 11/21/24 22:00 11/23/24 21:52 41 MLS/HR Acetaminophen/ Hydrocodone Bitart 1 tab Q6HPRN PRN PO 11/23/24 13:30 11/24/24 06:27 1 TAB Examination General Appearance: Alert, Oriented X3, Cooperative, in mild acute distress HEENT: Atraumatic, PERRLA, EOMI, Mucous membrane moist/pink Respiratory: Breaths sounds are decreased on the Rt side Cardiovascular: Regular rate, Normal S1, Normal S2, No murmurs, no chest wall tenderness Abdominal: Normal bowel sounds, Soft, No tenderness, No hepatospenomegaly, No masses Extremities: No clubbing, No cyanosis, No edema, Normal pulses, No tenderness/swelling Skin: No rashes, No breakdown, No significant lesion Neuro: Normal gait, Normal speech, Strength at 5/5 X4 ext, Normal tone, Sensation intact, Cranial nerves 3-12 NL, Reflexes 2+ Psych/Mental Status: Mental status NL, Mood NL laboratory and microbiology Laboratory Tests 11/24/24 10:07 Test 11/24/24 10:07 Range/Units Serum Glucose 109 H 74-106 mg/dL Microbiology Date/Time Source Procedure Growth Status 11/12/24 16:28 Nose MRSA Screen - Final Complete 11/12/24 10:28 Pleural Fluid Gram Stain - Final Complete 11/12/24 10:28 Pleural Fluid Body Fluid Culture - Final Complete 11/10/24 13:37 Blood Blood Culture - Final NO GROWTH AFTER 5 DAYS OF INCUBATION. Complete 11/10/24 10:12 Voided Urine Urine Culture - Final Complete Labs and/or images reviewed: Labs reviewed by me, Image(s) reviewed by me Problem List/Assessment/Plan Problem List/Assessment/Plan This is a 74-year-old female with past medical history of lung cancer, bladder cancer, hypertension, hyperlipidemia, CHF presented to the hospital with right- sided chest pain for 2 weeks. Admitted on 11/09. Acute hypoxic respiratory failure likely due to pneumonia/pleural effusion, on oxygen through nasal cannula Sepsis likely d/t pneumonia Community acquired pneumonia likely d/t Gram+/-/atypical bacteria Right loculated pleural effusion likely due to parapneumonic/malignant History of lung cancer diagnosed on January 2024, status post radiation Ex vacuo pneumothorax (trapped lung) Chest x-ray shows right-sided pleural effusion, with right basilar atelectasis/pneumonia Chest CT scan shows large loculated right pleural fluid collection with atelectasis of most of the right lung CT scan shows distended gallbladder with no calcified gallstone, liver ultrasound is unremarkable Blood and urine culture preliminary result shows no growth MRSA nares negative Radiology on the board, put a chest tube on the right chest, drain 900 mL Pleural fluid culture shows no growth, g stain negative Pleural fluid shows raised WBC at 6751, light criteria including pleural fluid protein/serum protein is 0.67 (meet criteria for exudative pleural effusion), mildly decreased pleural fluid glucose, cytology report pending Continue gabapentin and Cushing for the pain Continue azithromycin started on 11/09, vancomycin started on 11/10, cefepime started on 11/11 Breathing treatment q.4 however as needed Continue montelukast Two dose alteplase 6 mg intrapleural given, but due to development of pneumothorax and results of pleural fluid shows malignant pleural effusion, the 3rd dose is not given Pleural fluid analysis, shows malignant cells Consulted surgery for malignant pleural effusion and pneumothorax, tracheoscopy performed and put a chest tube, due to bleeding thoracotomy was not performed and due to poor prognosis of patient recommended hospice care Oncology recommended recommended PET-CT as an outpatient and MRI of the brain and NGS study and then may discuss about the options of systemic treatment with chemo/immunotherapy Hypertensive heart disease Hypertension Possible acute on chronic systolic heart failure Echocardiogram from 07/02/2024 shows ejection fraction 35-45% BNP is 203 Continue metoprolol succinate 25mg qd Continue Ivabradine 5mg qd Dyslipidemia Continue atorvastatin 40mghs Continue ezetimibe 10mg qd ADINA, likely hemodynamically mediated Nephrology is on the board Transaminitis AST and ALT are raised, downtrending Monitoring Possible pancreatitis Lipase is mild raised at [address] scan does not shows signs of pancreatitis Monitoring Mild hyponatremia Hypokalemia Supplemented History of bladder cancer status post chemotherapy Diagnosed on 2020 Infrarenal abdominal aorta aneurysm CT scan shows small saccular 1.1 cm aneurysm along the left side of the infrarenal abdominal aorta Monitoring, follow up on outpatient basis DIET: Full liquid diet, with nutritional suppplement of ensure DVT prophylax: Discontinue Lovenox, due to raised INR GI prophylaxis: Protonix IV Bowel regimen: Lactulose p.r.n. Code status: Full code DISPOSITION: Med surg Patient's status discussed with patient and the on the bedside. Patient's status and treatment options including palliative care and hospice care were discussed in detail with the patient's , daughter and the patient at the bedside, the family is going to take decision regarding the treatment option, and ask for the oncology opinion, oncology has been consulted, recommended PET-CT as an outpatient and MRI of the brain and NGS study and then may discuss about the options of systemic treatment with chemo/immunotherapy. PT was performed today, patient was unable to walk, we will continue PT for tomorrow and planning discharge for tomorrow. Case discussed with Dr. Riley Plan discussed with: Patient, Daughter, Other (RN) My Orders My Orders Orders - JACOB MO RESDIPATRICIA Procedure Category Date Status Time Pt Request For Service PT 11/24/24 Logged 12:15 Pt Request For Service PT 11/24/24 Logged 12:16 Dme:Wheelchair ([employer]g DME 11/24/24 Transmitted Will Move) 14:34 Dme: [employer] DME 11/24/24 Transmitted 14:34 Dietary Evaluation Review Comments: 1. Continue diet regime 2. Consider Fish oil BID for high Trig 3. Consider Ensure HP BID if PO intake trends low Expected Outcomes/Goals: 1. Pt will consume >75% of estimated needs within 3-5 days Date of Service: Nov 24, 2024 Billing Provider: MARLENY HAYES MD Common Visit Codes: [id number] INP/OBS CARE(HIGH) JACOB MO RESDIENT Nov 24, 2024 15:45 MARLENY HAYES MD Nov 29, 2024 09:28
[2024-11-24 17:00] VITALS: BP 109/76; PULSE 101; RESP 18; TEMP 96.6; O2SAT 95
[2024-11-24] MEDS: SODIUM PHOSPHATES 20 MEQ in SODIUM CHL 0.9% 100 ML IV ONE (18:39)
[2024-11-24 21:00] VITALS: BP 116/51; PULSE 105; RESP 20; TEMP 97.3; O2SAT 93
--- NOTE | 2024-11-24 21:13 | DVHPN2 ---
Progress Note - Dictate Date Seen: Nov 24, 2024 Has the PT tested + for MRSA If YES, has PT been informed?: Yes Medical Necessity Reason Pt with a Central, PICC or Fol: Yes The following are medically ne: Livingston Catheter Reason for livingston catheter: Strict I&O Subjective Patient seen and examined at bedside. On supplemental oxygen Overnight events reviewed. vital signs Vital Sign Date Time Temp Pulse Resp B/P (MAP) Pulse Ox O2 Delivery O2 Flow Rate FiO2 11/24/24 17:00 96.6 101 18 109/76 (87) 95 96.6 11/24/24 08:20 Nasal Cannula* 3 32 Total Intake and Output 11/23/24 11/23/24 11/24/24 15:00 23:00 07:00 Intake Total 250 ml 200 ml 200 ml Output Total 650 ml 450 ml Balance 250 ml -450 ml -250 ml medications Current Medications Medications Dose Ordered Sig/Yuki Route Start Time Stop Time Status Last Admin Dose Admin EZETIMIBE 10 mg DAILY PO 11/10/24 10:00 11/24/24 09:38 10 MG Gabapentin 300 mg DAILY PO 11/10/24 10:00 11/24/24 09:38 300 MG Montelukast Sodium 10 mg HS PO 11/09/24 22:00 11/23/24 21:36 10 MG Pantoprazole Sodium 40 mg DAILY IV 11/10/24 10:00 11/24/24 09:37 40 MG Pravastatin Sodium 80 mg HS PO 11/09/24 22:00 Cancel Azithromycin 500 mg DAILY PO 11/09/24 18:53 11/24/24 09:38 500 MG Atorvastatin Calcium 40 mg HS PO 11/10/24 22:00 11/23/24 21:36 40 MG Lactulose 30 ml BID PRN PO 11/11/24 20:00 11/20/24 03:34 30 ML Enteral Nutritional Formula 240 ml TIDWM PO 11/13/24 12:00 11/24/24 18:25 240 ML Cefepime HCl 50 ml @ 12.5 mls/hr Q12HR IV 11/13/24 22:00 11/24/24 09:48 12.5 MLS/HR Guaifenesin 200 mg Q4HP PRN GT 11/14/24 15:00 Cancel Midodrine 10 mg TID@0600,1200,1800 PO 11/14/24 18:00 11/24/24 18:17 10 MG Guaifenesin 200 mg Q4HP PRN PO 11/14/24 16:15 11/16/24 13:50 200 MG Amino Acids 0 ml @ 0 mls/hr PER PHARMACY IV 11/15/24 16:15 Diagnostic Test (Pha) 1 strip Q6HR 11/16/24 00:00 11/24/24 16:55 1 STRIP Insulin Human Regular FOLLOW SLIDING SCALE Q6HR SC 11/16/24 00:00 11/22/24 00:17 2 UNITS Dextrose 50 ml UD IV 11/16/24 00:00 Ergocalciferol 50,000 unit Q7D PO 11/19/24 13:45 11/19/24 15:54 50,000 UNIT Tramadol HCl 50 mg [id number] PRN PO 11/20/24 19:30 11/24/24 09:38 50 MG Amino Acids 1,000 ml @ 41 mls/hr DAILY@2200 IV 11/21/24 22:00 11/23/24 21:52 41 MLS/HR Acetaminophen/ Hydrocodone Bitart 1 tab Q6HPRN PRN PO 11/23/24 13:30 11/24/24 19:03 1 TAB objective Gen.: Patient lying in bed in no apparent distress. On supplemental oxygen. Head: Normocephalic, atraumatic. Eyes: EOMI/PERRLA. Ears: Normal hearing. Normal anatomy. Neck/trachea: Trachea midline, supple. Nose: Normal external anatomy. Mouth: Moist mucous membranes. Chest: Decreased air entry bilaterally. No wheezing or rhonchi. Cardiovascular: Positive S1, positive S2. Regular rate and rhythm. Abdomen: Positive bowel sounds in all 4 quadrants. Soft, non-tender, non- distended. : Deferred. Rectal: Deferred. Skin: Warm, dry. Intact. Extremities: 2+ radial pulses bilaterally. No lower extremity edema. Neuro: Awake, alert, oriented x3. No gross motor or sensory deficits. Cranial nerves II through XII intact. Gait not assessed. laboratory and microbiology Laboratory Tests 11/24/24 10:07 Test 11/24/24 10:07 Range/Units Serum Glucose 109 H 74-106 mg/dL Assessment/Plan Impression: Acute on chronic hypoxic respiratory failure Chronic obstructive pulmonary disease Loculated pleural effusion, right Atelectasis Metastatic cancer Malignant effusion Events: On supplemental oxygen 2 LPM NC. Taper O2 as tolerated Plan for discharge w/ hospice. S/p right chest tube removal. Post procedure CXR demonstrated right IJ Port-A-Cath terminating over the mid SVC. Near-complete opacification of the right hemithorax, slightly worsened. No pneumothorax. Incentive spirometry Continue antibiotics Antitussive for cough Singulair On midodrine Pain control Avoid oversedation Protonix for GI prophylaxis Clinimix/Ensure for nutritional support Monitor renal function Nephrology recommendations appreciated. Poor prognosis - plan for discharge w/ hospice. Labs and imaging reviewed. Rest of plan as noted below. Plan: Supplemental oxygen Titrate to keep O2 sats above 92%. CXR demonstrated right loculated pleural effusion. S/p right chest tube placement. Alteplase via chest tube x2. Chest tube removed on 11/23/24. Monitor PT/INR. Bronchodilators. Continue antibiotics Incentive spirometry Pain control Avoid oversedation Monitor renal function. Monitor electrolytes. Supplement as necessary. Monitor ins and outs. GI prophylaxis - pantoprazole DVT prophylaxis. Prognosis: Poor given patient's multiple co-morbidities. Rest of plan per hospitalist and other consultants. Thank you Dr. Taran Archer MD, for allowing me to participate in this patient's care. Further recommendations will depend on the patient's clinical course. Please do not hesitate to contact me if you have any questions or concerns. This medical document was created using an electronic medical record system with [employer] dictation system. Although these documentations are being carefully reviewed, there may still be some phonetic and typographical changes. The errors are purely typographical, due to imperfection on the software program, and do not reflect any compromise in the patient's medical care. Dietary Evaluation Review Comments: 1. Continue diet regime 2. Consider Fish oil BID for high Trig 3. Consider Ensure HP BID if PO intake trends low Expected Outcomes/Goals: 1. Pt will consume >75% of estimated needs within 3-5 days Plan discussed with: Patient, Other (VINOD Wells) CHRISTIANO TAPIA MD Nov 24, 2024 21:13
[2024-11-25 01:00] VITALS: BP 105/49; PULSE 105; RESP 18; TEMP 97.7; O2SAT 92
[2024-11-25 05:00] VITALS: BP 143/100; PULSE 109; RESP 20; TEMP 98; O2SAT 96
[2024-11-25 06:56] LABS: Basophils # (auto) 0 10 ^3/uL (0-0.2); Basophils % (auto) 0.2 % (0.0-2.0); Eosinophils # (auto) 0.3 10 ^3/uL (0-0.8); Eosinophils % (auto) 1.2 % (0.0-7.0); Hematocrit 37.7 % (36.0-46.0); Hemoglobin 12.2 g/dL (12.2-16.2); Lymphocytes # (auto) 1.1 10 ^3/uL (0.4-5.4); Lymphocytes % (auto) 4.5 % (10.0-50.0); Mean Corpuscular Hgb Conc. 32.4 g/dL (32.0-36.0); Mean Corpuscular Volume 89.5 fL (80.0-100.0); Monocytes # (auto) 1.5 10 ^3/uL (0-1.3); Monocytes % (auto) 6.1 % (0.0-12.0); Neutrophils # (auto) 21.1 10 ^3/uL (1.6-8.6); Nucleated Red Blood Cells % 0.1 %; Platelet Count (auto) 231 10^3/uL (140-450); Red Blood Cells 4.21 10^6/uL (4.0-5.20); Red Cell Distribution Width 16.5 % (11.8-14.3)
[2024-11-25 07:24] LABS: Anion Gap 8 (5-15); Glucose 102 mg/dL (74-106); Magnesium 1.8 mg/dL (1.6-2.6)
[2024-11-25 07:25] LABS: Bilirubin, Total 0.5 mg/dL (0.2-1.0); Total Protein 5.8 g/dL (5.7-8.2)
[2024-11-25 07:28] LABS: Alanine Aminotransferase 51 U/L (7-40); Alkaline Phosphatase 256 U/L (46-116); Aspartate Aminotransferase 41 U/L (13-40); Blood Urea Nitrogen 60 mg/dL (9-23); Calcium 10.5 mg/dL (8.7-10.4); Carbon Dioxide 19 mmol/L (20-31); Chloride 108 mmol/L (98-107); Phosphorus 1.9 mg/dL (2.4-5.1); Sodium 135 mmol/L (136-145); Triglycerides 187 mg/dL (< 150)
[2024-11-25 08:50] VITALS: BP 111/67; PULSE 108; RESP 19; TEMP 97.5; O2SAT 92
--- NOTE | 2024-11-25 10:51 | DVHPN2 ---
Progress Note Date Seen: Nov 25, 2024 Has the PT tested + for MRSA If YES, has PT been informed?: Yes Medical Necessity Reason Pt with a Central, PICC or Fol: Yes The following are medically ne: Livingston Catheter Reason for livingston catheter: Strict I&O Subjective Other Systems: Patient seen and examined by myself today in follow-up Objective vital signs Vital Sign Date Time Temp Pulse Resp B/P (MAP) Pulse Ox O2 Delivery O2 Flow Rate FiO2 11/25/24 08:50 97.5 108 19 111/67 (82) 92 97.5 11/24/24 20:00 Nasal Cannula* 3 32 Total Intake and Output 11/24/24 11/24/24 11/25/24 15:00 23:00 07:00 Intake Total 1075 ml 100 ml Output Total 450 ml 250 ml Balance 625 ml -150 ml medications Current Medications Medications Dose Ordered Sig/Yuki Route Start Time Stop Time Status Last Admin Dose Admin EZETIMIBE 10 mg DAILY PO 11/10/24 10:00 11/25/24 09:54 10 MG Gabapentin 300 mg DAILY PO 11/10/24 10:00 11/25/24 09:55 300 MG Montelukast Sodium 10 mg HS PO 11/09/24 22:00 11/24/24 22:01 10 MG Pantoprazole Sodium 40 mg DAILY IV 11/10/24 10:00 11/25/24 09:54 40 MG Pravastatin Sodium 80 mg HS PO 11/09/24 22:00 Cancel Azithromycin 500 mg DAILY PO 11/09/24 18:53 11/25/24 09:54 500 MG Atorvastatin Calcium 40 mg HS PO 11/10/24 22:00 11/24/24 22:01 40 MG Lactulose 30 ml BID PRN PO 11/11/24 20:00 11/20/24 03:34 30 ML Enteral Nutritional Formula 240 ml TIDWM PO 11/13/24 12:00 11/25/24 08:00 240 ML Cefepime HCl 50 ml @ 12.5 mls/hr Q12HR IV 11/13/24 22:00 11/25/24 09:54 12.5 MLS/HR Guaifenesin 200 mg Q4HP PRN GT 11/14/24 15:00 Cancel Midodrine 10 mg TID@0600,1200,1800 PO 11/14/24 18:00 11/25/24 07:04 10 MG Guaifenesin 200 mg Q4HP PRN PO 11/14/24 16:15 11/16/24 13:50 200 MG Amino Acids 0 ml @ 0 mls/hr PER PHARMACY IV 11/15/24 16:15 Diagnostic Test (Pha) 1 strip Q6HR 11/16/24 00:00 11/25/24 07:00 1 STRIP Insulin Human Regular FOLLOW SLIDING SCALE Q6HR SC 11/16/24 00:00 11/22/24 00:17 2 UNITS Dextrose 50 ml UD IV 11/16/24 00:00 Ergocalciferol 50,000 unit Q7D PO 11/19/24 13:45 11/19/24 15:54 50,000 UNIT Tramadol HCl 50 mg [id number] PRN PO 11/20/24 19:30 11/24/24 09:38 50 MG Amino Acids 1,000 ml @ 41 mls/hr DAILY@2200 IV 11/21/24 22:00 11/24/24 22:15 41 MLS/HR Acetaminophen/ Hydrocodone Bitart 1 tab Q6HPRN PRN PO 11/23/24 13:30 11/25/24 09:55 1 TAB Examination: LUNGS:Normal, CVS:Normal, MSK:Normal laboratory and microbiology Laboratory Tests 11/25/24 06:00 Test 11/25/24 06:00 Range/Units Serum Glucose 102 74-106 mg/dL Microbiology Date/Time Source Procedure Growth Status 11/12/24 16:28 Nose MRSA Screen - Final Complete 11/12/24 10:28 Pleural Fluid Gram Stain - Final Complete 11/12/24 10:28 Pleural Fluid Body Fluid Culture - Final Complete 11/10/24 13:37 Blood Blood Culture - Final NO GROWTH AFTER 5 DAYS OF INCUBATION. Complete 11/10/24 10:12 Voided Urine Urine Culture - Final Complete Problem List/Assessment/Plan Problem List/Assessment/Plan Acute kidney injury superimposed Chronic Kidney Disease secondary hemodynamic mediated Acute hypoxic respiratory failure Lung cancer status post XRT Large loculated malignant right pleural effusion Bladder cancer status post chemo Transaminitis Congestive heart failure, ejection fraction 35% Hyponatremia due to excess H2O Metabolic acidosis Hypotension Sepsis Pneumonia Recommendation Kidney function resolved back to normal Increased urine output Sodium phosphate IV piggyback IVF half NS with 50 mEq/L sodium bicarb at 70 cc/hour We will continue to following Plan discussed with: Patient Dietary Evaluation Review Comments: 1. Continue diet regime 2. Consider Fish oil BID for high Trig 3. Consider Ensure HP BID if PO intake trends low Expected Outcomes/Goals: 1. Pt will consume >75% of estimated needs within 3-5 days TINY BARRON MD Nov 25, 2024 10:51
[2024-11-25] MEDS: SODIUM BICARB 50mEq/50ml Vial 50 ML in SOD CHL 0.45% 1,000 ML IV SCH (11:00)
[2024-11-25 13:09] VITALS: BP 81/48; PULSE 100; RESP 16; TEMP 97.4; O2SAT 92
[2024-11-25] MEDS: SODIUM PHOSPHATES 40 MEQ in D5W 5% 250 ML IV ONE (15:02)
--- NOTE | 2024-11-25 16:42 | DVHDSRES ---
Discharge Summary Date of Admission Resident Creating Document: JACOB MO RESDIPATRICIA Nov 09, 2024 at 19:09 Date of Discharge: Nov 25, 2024 Admitting Diagnosis Generalized weakness Labs/Diagnostic Data: Laboratory Results Test 11/25/24 07:07 11/25/24 06:00 11/24/24 10:07 11/23/24 04:59 POC Glucose 99 mg/dl (70-106) White Blood Count 24.0 10^3/uL (4.4-10.8) Red Blood Count 4.21 10^6/uL (4.0-5.20) Hemoglobin 12.2 g/dL (12.2-16.2) Hematocrit 37.7 % (36.0-46.0) Mean Corpuscular Volume 89.5 fL (80.0-100.0) Mean Corpuscular Hemoglobin 29.0 pg (28.0-32.0) Mean Corpuscular Hemoglobin Concent 32.4 g/dL (32.0-36.0) Red Cell Distribution Width 16.5 % (11.8-14.3) Platelet Count 231 10^3/uL (140-450) Mean Platelet Volume 9.0 fL (6.9-10.8) Neutrophils (%) (Auto) 88.0 % (37.0-80.0) Lymphocytes (%) (Auto) 4.5 % (10.0-50.0) Monocytes (%) (Auto) 6.1 % (0.0-12.0) Eosinophils (%) (Auto) 1.2 % (0.0-7.0) Basophils (%) (Auto) 0.2 % (0.0-2.0) Neutrophils # (Auto) 21.1 10 ^3/uL (1.6-8.6) Lymphocytes # (Auto) 1.1 10 ^3/uL (0.4-5.4) Monocytes # (Auto) 1.5 10 ^3/uL (0-1.3) Eosinophils # (Auto) 0.3 10 ^3/uL (0-0.8) Basophils # (Auto) 0 10 ^3/uL (0-0.2) Nucleated Red Blood Cells 0.1 % Sodium Level 135 mmol/L (136-145) Potassium Level 4.0 mmol/L (3.5-5.1) Chloride Level 108 mmol/L (98-107) Carbon Dioxide Level 19 mmol/L (20-31) Anion Gap 8 (5-15) Blood Urea Nitrogen 60 mg/dL (9-23) Creatinine 0.87 mg/dL (0.550-1.02) Glomerular Filtration Rate Calc 71 mL/min (>90) BUN/Creatinine Ratio 69.0 (10.0-20.0) Serum Glucose 102 mg/dL (74-106) Calcium Level 10.5 mg/dL (8.7-10.4) Phosphorus Level 1.9 mg/dL (2.4-5.1) Magnesium Level 1.8 mg/dL (1.6-2.6) Total Bilirubin 0.5 mg/dL (0.2-1.0) Aspartate Amino Transferase (AST) 41 U/L (13-40) Alanine Aminotransferase (ALT) 51 U/L (7-40) Alkaline Phosphatase 256 U/L (46-116) Total Protein 5.8 g/dL (5.7-8.2) Albumin 3.0 g/dL (3.2-4.8) Triglycerides Level 187 mg/dL (< 150) Estimated GFR () 81 mL/min Estimated GFR (Non- 67 mL/min Differential Total Cells Counted 100.0 (100) Neutrophils % (Manual) 89 (37.0-80.0) Band Neutrophils % (Manual) 4 Lymphocytes % (Manual) 3 (10.0-50.0) Monocytes % (Manual) 3 (0-12) Eosinophils % (Manual) 0 (0-7) Basophils % (Manual) 0 (0.0-2.0) Metamyelocytes % (manual) 0 Myelocytes % (Manual) 1 Promyelocytes % (Manual) 0 Blast Cells % (Manual) 0 Reactive Lymphocytes 0 Platelet Estimate Adequate Anisocytosis (manual) Slight Test 11/21/24 21:17 11/21/24 17:29 11/21/24 06:17 11/20/24 10:36 Prothrombin Time 13.6 sec (9.3-11.8) Prothrombin Time INR 1.31 (0.9-1.15) Urine Creatinine 64.54 mg/dL (30.0-125.0) Urine Protein/Creatinine Ratio 2.36 Urine Sodium < 10 mmol/L (40-220) Urine Total Protein 152.5 mg/dL (1-14) Activated Partial Thromboplast Time 23.6 SEC (24.5-34.5) Hepatitis B Surface Antigen Negative (Negative) Hepatitis C Antibody Negative (Negative) Random Vancomycin Level 16.5 ug/mL (5-10) Test 11/18/24 06:23 11/17/24 02:08 11/15/24 13:35 11/12/24 18:27 Vitamin B12 Level 426 pg/mL (211-911) Vitamin D 25-Hydroxy 33.7 ng/mL (30.0-100) Vancomycin Level Trough 29.5 ug/mL (5-10) Lactic Acid Level 1.3 mmol/L (0.4-2.0) TB Test (QFT) Gold Plus Negative (Negative) TB Test (QFT) Nil 0.01 IU/mL (.) TB Test (QFT) Mitogen >10.00 IU/mL (.) TB Test (QFT) Antigen 1 0.01 IU/mL (.) TB Test (QFT) Antigen 2 0.01 IU/mL (.) TB Test (QFT) Criteria Comment (.) Large Platelets Few Tear Drop Cells Few Test 11/12/24 10:28 11/12/24 05:30 11/10/24 10:12 11/10/24 09:40 Body Fluid Source Pleural fluid Body Fluid pH 8.0 Body Fluid WBC (Manual) 6751 CUMM (0-200) Body Fluid RBC (Manual) 0 CUMM (0-2000) Body Fluid Mononuclear Cells 95 % Body Fluid Polymorphonuclear Cells 5 % (0-25) Body Fluid Glucose 61 mg/dL (.) Body Fluid Total Protein 3.8 g/dL (.) Body Fluid Lactate Dehydrogenase 361 IU/L (.) Influenza Type A Antigen Negative (Negative) Influenza Type B Antigen Negative (Negative) SARS-CoV-2 Antigen (Rapid) Negative (NEGATIVE) Urine Color Light-yellow (Yellow) Urine Clarity Clear (Clear) Urine pH 5.0 (5.0-9.0) Urine Specific [place] 1.012 (1.001-1.035) Urine Protein Negative (Negative) Urine Ketones Negative (Negative) Urine Blood 2+ /uL (Negative) Urine Nitrite Negative (Negative) Urine Bilirubin Negative (Negative) Urine Urobilinogen Normal mg/dL (Negative) Urine Leukocyte Esterase Negative /uL (Negative) Urine RBC 34 /hpf (0 - 4) Urine WBC 2 /hpf (0 - 5) Urine Squamous Epithelial Cells Few /hpf (<5) Urine Bacteria None seen /hpf (None Seen) Urine Hyaline Casts Few /lpf (0 - 2) Urine Glucose Normal mg/dL (Normal) Cholesterol Level 199 mg/dL (< 200) LDL Cholesterol 129 mg/dL (< 100) HDL Cholesterol 37 mg/dL (40-59) Lipase 100 U/L (12-53) Test 11/09/24 16:34 11/09/24 13:05 Troponin I High Sensitivity 14 ng/L (</=34) B-Type Natriuretic Peptide 203.87 pg/mL (0-100) Other Laboratory Tests 11/25/24 06:00 Brief Hx & Hospital Course: A 74-year-old female with a past medical history of lung cancer (diagnosed in January 2024, treated with radiation), bladder cancer (diagnosed in 2020, chemotherapy completed in November 2023), hypertension, hyperlipidemia, possible congestive heart failure, overactive bladder, and migraines, presented to the ED with right-sided chest pain for the past two weeks. She follows Dr. Wang for pulmonary follow-up. The patient reports that the chest pain began on October 23, has gradually worsened, and is now constant and severe, unrelieved by tramadol, and exacerbated by deep breaths and movement. She also experiences chills but denies fever, recent flu-like illness, or cough. Her past surgical history includes a coronary angiogram, and she denies current smoking, alcohol, or drug use. Chest x-ray shows right-sided pleural effusion with right basilar atelectasis/pneumonia, chest CT scan showed large loculated right pleural fluid collection with a atelectasis of most right lung. The patient was started treatment on acute hypoxic respiratory failure due to pneumonia and pleural effusion. The patient was given empiric antibiotics including azithromycin, vancomycin and cefepime. Thoracocentesis was performed, around 2 L of fluid were drained within 1 week's, due to low drainage tPA was given through chest tube and the patient later developed ex vacuo pneumothorax due to trapped lung. By giving tPA, still there was not sufficient drainage. Pleural fluid final analysis showed malignant cells in pleural fluid. Surgery was consulted, tried thoracotomy but due to bleeding and inability to perform thoracotomy, the procedure was aborted. Surgery based on the patient's current status and poor prognosis, and no benefits of surgery intervention, the surgery recommended hospice care. During hospital admission hypertension, and possible acute chronic systolic heart failure wears treated with a IV diuretics and continue home antihypertensive medicine. Home medication for the dyslipidemia were also continued. Patient also developed ADINA during hospital admission, which was treated conservatively. Hospice care and palliative care were discussed with the patient and the family and they decided home hospice care. Discharge plan: Per hospice care protocol Operations or Procedures [place] [address] Ph: [phone] DIAGNOSTIC IMAGING Diagnostic Imaging Report : [id number] Signed PATIENT: BRYN STINSON ACCT: [id number] UNIT: [id number] : 1950 LOC: ER ROOM / BED: / AGE / SEX: 74 / F ADM STATUS: REG ER SERVICE 1243 ORDERING PHYSICIAN: PATTIE INIGUEZ DO PROCEDURE(s): CTCAP - CHST AB PEL WO CON-NO IV/ORAL REASON: RUQ PAIN H/O LUNG CA WITH METS ORDER NUMBER(s): [id number], ACCESSION NUMBER(s): [id number] CLINICAL INFORMATION: 74 years old, Female; right upper quadrant pain. History of lung cancer with metastatic disease. TECHNIQUE: Axial CT images of the chest, abdomen, and pelvis were obtained without IV contrast. Coronal and sagittal reformatted images were obtained, reviewed, and stored. Evaluation of the parenchymal organs and vasculature is limited without IV contrast. Evaluation of the bowel and mesentery is limited without oral contrast. All CT scans at this medical facility are performed using dose modulation techniques as appropriate to a performed exam including the following: Automated exposure control was utilized; adjustment of the MA and/or KV according to patient size; and use of iterative reconstruction technique. CTDIvol = 5.07 mGy DLP = 162.56 mGy-cm COMPARISON: Same day chest radiograph. FINDINGS: CT CHEST: Large loculated right pleural fluid collection with areas of compressive atelectasis. Superimposed consolidation can not be excluded. Interstitial opacities are seen in the aerated portions of the right lung. Small calcified granuloma in the left lower lobe. Left lung is otherwise clear. Right chest wall port catheter with catheter extending to the distal SVC level. Dense atherosclerotic calcification of the thoracic aorta. No mediastinal lymphadenopathy visualized. Heart size is within normal limits. Dense coronary artery calcification. CT ABDOMEN/PELVIS: Liver, spleen, pancreas, and adrenal glands are grossly unremarkable in their noncontrast enhanced appearance. Mildly distended gallbladder. No calcified gallstones visualized. No biliary ductal dilatation. No hydronephrosis and no renal or ureteral calculi are seen. Small exophytic low-density lesion in the inferior pole of the left kidney measuring up to 0.9 cm, likely a cyst. Dense atherosclerotic calcification of the abdominal aorta. There is a saccular aneurysm along the left side of the infrarenal abdominal aorta measuring up to 1.1 cm. No retroperitoneal lymphadenopathy. No small bowel obstruction. Appendix is normal. Scattered colonic diverticula without adjacent inflammatory changes to suggest diverticulitis. Bladder is unremarkable. Pelvic organs appear unremarkable. IMPRESSION: 1. Large loculated right pleural fluid collection with atelectasis of most of the right lung. The remaining aerated portions of the lung demonstrate prominent interstitial opacities, may be partly related to post therapeutic changes in the setting of reported history of lung cancer. 2. Distended gallbladder with no calcified gallstones visualized. 3. Small saccular aneurysm along the left side of the infrarenal abdominal aorta. 4. Additional findings as detailed above. ATED BY: RAYRAY DOZIER DO DICTATED DATE/TIME: 11/09/241344 SIGNED BY: RAYRAY DOZIER DO SIGNED DATE/TIME: 11/09/241344 CC: [place] [address] Ph: [phone] DIAGNOSTIC IMAGING Diagnostic Imaging Report : [id number] Signed PATIENT: BRYN STINSON ACCT: [id number] UNIT: [id number] : 1950 LOC: [facility] AGE / SEX: 74 / F ADM STATUS: ADM IN SERVICE 0729 ORDERING PHYSICIAN: JACOB MO PROCEDURE(s): CX2CT - CHEST WITHOUT CONTRAST REASON: CHEST TUBE PLACEMENT ORDER NUMBER(s): [id number], ACCESSION NUMBER(s): [id number] CT CHEST WITHOUT CONTRAST, HISTORY: CHEST TUBE PLACEMENT for SOB with loculated pleural effusion. COMPARISON: CERVICAL WITHOUT CONTRAST on DOS: 06/09/22, HEAD WITHOUT CONTRAST on DOS: 06/09/22 PROCEDURE: Informed consent was obtained. The patient was placed supine, right side up on the CT scanner. IV sedation was administered. The fluid collection was localized under CT scan and US and the overlying skin prepped with chlorhexidine which was allowed to dry and draped in the usual sterile fashion and infiltrated with Xylocaine. Time out was performed. With US/CT guidance, an 8 Fr pigtail catheter was needle trochar into the right pleural effusion. Aspiration of pleural fluid was obtained. A post procedure CT scan was performed. About 1L of pleural fluid was aspirated. The drain was sutured at the skin surface and connected to a pleurEvac container. No immediate complication was noted. Post procedure CT imaging through the drain site was obtained. DLP =890 mGy-cm. SEDATION: Dr. Chemo Valverde was personally responsible for the administration of moderate sedation during the procedure performed, including the use of an independent trained observer who had no other duties during the procedure. The drugs utilized were IV fentanyl and versed (see nursing log for details). The total time of supervision by the attending physician was approximately 30 minutes. FINDINGS: Limited CT scan of through the chest demonstrates a large loculated sized fluid collection in the right pleura. Collection appears complex. Post procedure scan shows pigtail drain within the collection , which is decreased in size. No immediate complication was identified. IMPRESSION: US/CT guided placement of 8 Malay pigtail drain into a right loculated pleural effusion. About 1 L fluid was removed. PLAN: Please connect to - 20 mm Hg low wall suction. Please obtain daily chest X ray. ATED BY: SIN VALVERDE MD DICTATED DATE/TIME: 11/12/24 1016 SIGNED BY: SIN VALVERDE MD SIGNED DATE/TIME: 11/12/24 1016 CC: [place] [address] Ph: [phone] DIAGNOSTIC IMAGING Diagnostic Imaging Report : [id number] Signed PATIENT: BRYN STINSON ACCT: [id number] UNIT: [id number] : 1950 LOC: [facility] ROOM / BED: 0219 / B AGE / SEX: 74 / F ADM STATUS: ADM IN SERVICE 9 ORDERING PHYSICIAN: TINY BARRON MD PROCEDURE(s): KIDUS - KIDNEY REASON: adina ORDER NUMBER(s): [id number], ACCESSION NUMBER(s): [id number] INDICATION: adina TECHNIQUE: Multiple real-time sonographic images of the kidneys and bladder were obtained. COMPARISON: None FINDINGS: The right kidney measures 9.8 cm in length, which is normal in size. There is normal echogenicity of the right kidney. No hydronephrosis. There is a right renal cyst measuring 1.4 cm. The left kidney measures 9.9 cm in length, which is normal in size. There is normal echogenicity of the left kidney. No hydronephrosis. No large intraluminal masses are seen in the bladder. IMPRESSION: Simple right renal cyst measuring 1.4 cm. No hydronephrosis. ATED BY: NESHA JACKSON MD DICTATED DATE/TIME: 11/21/241014 SIGNED BY: NESHA JACKSON MD SIGNED DATE/TIME: 11/21/241014 CC: Patient: BRYN STINSON Acct: [id number] : 1950 Loc: [facility] Age/Sex: 74/F Room: [facility] / Bed: Attending Phy: JACOB MO RESDIENT DATE OF SURGERY: 11/21/2024 PREOPERATIVE DIAGNOSES: Persistent right pleural effusion, lung cancer, right hydropneumothorax. POSTOPERATIVE DIAGNOSES: Persistent right pleural effusion, lung cancer, right hydropneumothorax. SURGEON: Maria Antonia Coates MD PHARMACIST INTERN: Keaton Julien. ANESTHESIA: Local with IV sedation, Dr. Wang. PROCEDURE: Thoracoscopy and insertion of chest tube. DESCRIPTION OF PROCEDURE: Under adequate local anesthesia with the patient in lateral decubitus position with the right chest facing upward, the axilla protected on axillary roll, knee , elbow and padded, the chest and torso secured with a beanbag. The chest wall was prepped and draped and 0.25% Marcaine and 0.5% Xylocaine was infiltrated into the proposed incision in approximately the fifth interspace. This was deepened with electrocautery. The chest cavity was entered. Digital exploration of the incision revealed a completely obliterated chest cavity. There was no pleural space to speak of. I was unable to place a regular chest tube into the chest cavity. Also, the patient started bleeding and on reflection decided to abort the procedure and she is not a candidate for a thoracotomy. We left a 32 size chest tube which was foreshortened and the space that was available to me secured with a 0 suture. The chest wall was approximated using Monocryl sutures, Dermabond glue and Steri-Strips. The patient remained awake, sedated, comfortable, hemodynamically unchanged during the procedure. Left the operating room following an accurate needle and sponge count. Chest x-ray was ordered and pending at the time of this dictation. I called the patient's son, Jarod at [phone], explained the situation to him and I also called the patient's earth science laboratory technician Dr. Wang. I explained to him the situation and suggested that the patient be made hospice patient as there is no further surgical intervention that I believe would help her. MD JOHANA Price/EDY/PAIGE TID: [id number] RECEIPT: [id number] DICTATED BY:MARIA ANTONIA COATES MD DICTATED DATE/TIME:11/21/24 1021 ELECTRONICALLY SIGNED BY: ELECTRONICALLY CO-SIGNED BY: Condition at Discharge: Poor Final Diagnosis/Problems List Acute hypoxic respiratory failure likely due to pneumonia/pleural effusion, on oxygen through nasal cannula Sepsis likely d/t pneumonia Community acquired pneumonia likely d/t Gram+/-/atypical bacteria Right loculated pleural effusion likely due to parapneumonic/malignant Malignant pleural effusion History of lung cancer diagnosed on January 2024, status post radiation Ex vacuo pneumothorax (trapped lung) Hypertensive heart disease Hypertension Possible acute on chronic systolic heart failure Dyslipidemia ADINA, likely hemodynamically mediated Transaminitis Possible pancreatitis Mild hyponatremia Hypokalemia History of bladder cancer status post chemotherapy Infrarenal abdominal aorta aneurysm Chronic obstructive pulmonary disease History of urinary bladder cancer status post chemotherapy in 2020 History of hypertension Hyperlipidemia History of some rapid heart beat and some cardiac ablation and follows with Dr. Garcia Moderate anemia Ruled out UTI Discharge Disposition: Home Discharge Instruct/Medications Diet: Regular Activity: No Restrictions, As Tolerated Follow Up/Referral: Folow with the PCP will one week after discharge follow up with the Oncology on out patient basis follow up with pulmonology on out patinet basis Discharge Statement: "Patient was advised to return to the ER or call 911 if any headaches, dizziness, shortness of breath, chest pain, abdominal pain, bleeding, fevers, or worsening of medical condition. Patient was counseled about treatment plan, medications, possible side effects, patientverbalized understanding. All questions were answered to the best of my ability. This discharge took greater then 30 minutes in planning, reviewing documentation, counseling the patient, and discussing with other team members." DME: Diagnosis: Metastatic cancer leading to generalized weakness ASSESSMENT ASSESSMENT Assessment MALIGNANT PLEURAL EFFUSION JACOB MO Nov 25, 2024 16:42
[2024-11-25 17:01] VITALS: BP 111/64; PULSE 103; RESP 17; TEMP 97.4; O2SAT 92
--- NOTE | 2024-11-25 23:34 | DVHPN2 ---
Progress Note - Dictate Date Seen: Nov 25, 2024 Has the PT tested + for MRSA If YES, has PT been informed?: Yes Medical Necessity Reason Pt with a Central, PICC or Fol: Yes The following are medically ne: Livingston Catheter Reason for livingston catheter: Strict I&O Subjective Patient seen and examined at bedside. On supplemental oxygen Overnight events reviewed. vital signs Vital Sign Date Time Temp Pulse Resp B/P (MAP) Pulse Ox O2 Delivery O2 Flow Rate FiO2 11/25/24 17:01 97.4 103 17 111/64 (80) 92 97.4 11/25/24 08:00 Nasal Cannula* 3 32 Total Intake and Output 11/24/24 11/24/24 11/25/24 15:00 23:00 07:00 Intake Total 1075 ml 100 ml Output Total 450 ml 250 ml Balance 625 ml -150 ml medications Current Medications Medications Dose Ordered Sig/Yuki Route Start Time Stop Time Status Last Admin Dose Admin Pravastatin Sodium 80 mg HS PO 11/09/24 22:00 Cancel Guaifenesin 200 mg Q4HP PRN GT 11/14/24 15:00 Cancel objective Gen.: Patient lying in bed in no apparent distress. On supplemental oxygen. Head: Normocephalic, atraumatic. Eyes: EOMI/PERRLA. Ears: Normal hearing. Normal anatomy. Neck/trachea: Trachea midline, supple. Nose: Normal external anatomy. Mouth: Moist mucous membranes. Chest: Decreased air entry bilaterally. No wheezing or rhonchi. Cardiovascular: Positive S1, positive S2. Regular rate and rhythm. Abdomen: Positive bowel sounds in all 4 quadrants. Soft, non-tender, non- distended. : Deferred. Rectal: Deferred. Skin: Warm, dry. Intact. Extremities: 2+ radial pulses bilaterally. No lower extremity edema. Neuro: Awake, alert, oriented x3. No gross motor or sensory deficits. Cranial nerves II through XII intact. Gait not assessed. laboratory and microbiology Laboratory Tests 11/25/24 06:00 Test 11/25/24 06:00 Range/Units Serum Glucose 102 74-106 mg/dL Assessment/Plan Impression: Acute on chronic hypoxic respiratory failure Chronic obstructive pulmonary disease Loculated pleural effusion, right Atelectasis Metastatic cancer Malignant effusion Events: On supplemental oxygen 2 LPM NC. Taper O2 as tolerated Plan for discharge w/ hospice. S/p right chest tube removal. Post procedure CXR demonstrated right IJ Port-A-Cath terminating over the mid SVC. Near-complete opacification of the right hemithorax, slightly worsened. No pneumothorax. Incentive spirometry Continue antibiotics Antitussive for cough Singulair On midodrine Pain control Avoid oversedation Protonix for GI prophylaxis Clinimix/Ensure for nutritional support Monitor renal function Nephrology recommendations appreciated. Poor prognosis - plan for discharge w/ hospice. Labs and imaging reviewed. Rest of plan as noted below. Plan: Supplemental oxygen Titrate to keep O2 sats above 92%. CXR demonstrated right loculated pleural effusion. S/p right chest tube placement. Alteplase via chest tube x2. Chest tube removed on 11/23/24. Monitor PT/INR. Bronchodilators. Continue antibiotics Incentive spirometry Pain control Avoid oversedation Monitor renal function. Monitor electrolytes. Supplement as necessary. Monitor ins and outs. GI prophylaxis - pantoprazole DVT prophylaxis. Prognosis: Poor given patient's multiple co-morbidities. Rest of plan per hospitalist and other consultants. Thank you Dr. Taran Archer MD, for allowing me to participate in this patient's care. Further recommendations will depend on the patient's clinical course. Please do not hesitate to contact me if you have any questions or concerns. This medical document was created using an electronic medical record system with [employer] dictation system. Although these documentations are being carefully reviewed, there may still be some phonetic and typographical changes. The errors are purely typographical, due to imperfection on the software program, and do not reflect any compromise in the patient's medical care. Dietary Evaluation Review Comments: 1. Continue diet regime 2. Consider Fish oil BID for high Trig 3. Consider Ensure HP BID if PO intake trends low Expected Outcomes/Goals: 1. Pt will consume >75% of estimated needs within 3-5 days Plan discussed with: Patient, Other (RN, MD) CHRISTIANO TAPIA MD Nov 25, 2024 23:34
== END 2024-11-25 17:50 | disposition hospice, home (50) | DRG 871 ==
LOC: EDBD 12:29 → ER 12:29 → TELE 19:09 → TELE-CENTR 22:00 → CENTRAL 11-12 16:27
PROVIDERS: ADMIT Student in an Organized Health Care Education/Training Program; ATTEND Student in an Organized Health Care Education/Training Program
PROC: 0W9930Z Drainage of Right Pleural Cavity with Drainage Device, Percutaneous Approach (ICD-10-PCS; 2024-11-12)
PROC: 05HA33Z Insertion of Infusion Device into Left Brachial Vein, Percutaneous Approach (ICD-10-PCS; 2024-11-19)
PROC: B54NZZA Ultrasonography of Left Upper Extremity Veins, Guidance (ICD-10-PCS; 2024-11-19)
PROC: 0W9930Z Drainage of Right Pleural Cavity with Drainage Device, Percutaneous Approach (ICD-10-PCS; principal; 2024-11-21 11:20)
DX: A41.59 Other Gram-negative sepsis (principal); I50.23 Acute on chronic systolic (congestive) heart failure; J15.69 Pneumonia due to other Gram-negative bacteria; J96.21 Acute and chronic respiratory failure with hypoxia; J15.9 Unspecified bacterial pneumonia; K85.90 Acute pancreatitis without necrosis or infection, unspecified; E87.1 Hypo-osmolality and hyponatremia; J93.9 Pneumothorax, unspecified; J91.0 Malignant pleural effusion; E87.20 Acidosis, unspecified; J44.0 Chronic obstructive pulmonary disease with (acute) lower respiratory infection; N17.9 Acute kidney failure, unspecified; I13.0 Hypertensive heart and chronic kidney disease with heart failure and stage 1 through stage 4 chronic kidney disease, or unspecified chronic kidney disease; I50.32 Chronic diastolic (congestive) heart failure; C34.91 Malignant neoplasm of unspecified part of right bronchus or lung; J94.8 Other specified pleural conditions; Z20.822 Contact with and (suspected) exposure to COVID-19; E78.5 Hyperlipidemia, unspecified; Z51.5 Encounter for palliative care; E87.6 Hypokalemia; G89.29 Other chronic pain; I71.43 Infrarenal abdominal aortic aneurysm, without rupture; R74.01 Elevation of levels of liver transaminase levels; N18.9 Chronic kidney disease, unspecified; D64.9 Anemia, unspecified; F17.200 Nicotine dependence, unspecified, uncomplicated; K21.9 Gastro-esophageal reflux disease without esophagitis; I95.9 Hypotension, unspecified; Z85.51 Personal history of malignant neoplasm of bladder; Z88.1 Allergy status to other antibiotic agents; Z88.2 Allergy status to sulfonamides; Z88.6 Allergy status to analgesic agent; Z88.0 Allergy status to penicillin; Z92.3 Personal history of irradiation; Z92.21 Personal history of antineoplastic chemotherapy
CPT/HCPCS: 10005; 36415; 71045; 71250; 71260; 74176; 76705; 76775; 76942; 77012; 80053; 80061; 80069; 80202; 81001; 82306; 82570; 82607; 82962; 83605; 83690; 83735; 83880; 83986; 84100; 84156; 84300; 84478; 84484; 85007; 85025; 85027; 85610; 85730; 86803; 86850; 86900; 86901; 87040; 87081; 87086; 87205; 87340; 87426; 87804; 89051; 93005; 94640; 97110; 97163; 97530; A4223; G0378; J0692; J1815; J2003; J2250; J2405; J2470; J3430; J3490; J7060; Q0164